=== PATIENT | male | born 1970 | race African-American/Black ===

== ENCOUNTER 2018-12-14 16:42 | Inpatient (IN) | payer OTHER ==
[2018-12-14 20:39] VITALS: BMI 34.7
--- NOTE | 2018-12-14 22:45 | HP ---
CIWA Score Nausea/Vomitin-No Nausea/No Vomiting Muscle Tremors: 4-Moderate,w/Arms Extend Anxiety: 2 Agitation: 2 Paroxysmal Sweats: 3 (Increased facial moisture) Orientation: 0-Oriented Tacttile Disturbances: 0-None Auditory Disturbances: 0-None Visual Disturbances: 2-Mild Sensitivity Headache: 2-Mild CIWA-Ar Total Score: 15 - Admission Criteria OASAS Guidelines: Admission for Medically Managed Detox: Requires at least one of the followin. CIWA greater than 12 2. Seizures within the past 24 hours 3. Delirium tremens within the past 24 hours 4. Hallucinations within the past 24 hours 5. Acute intervention needed for co occurring medical disorder 6. Acute intervention needed for co occurring psychiatric disorder 7. Severe withdrawal that cannot be handled at a lower level of care (continued vomiting, continued diarrhea, abnormal vital signs) requiring intravenous medication and/or fluids 8. Patient presents the following: CIWA greater than 12 Admission Criteria Met: Admission criteria met Admitting History and Physical - Smoking History Smoking history: Current some day smoker Have you smoked in the past 12 months: Yes Aproximately how many cigarettes per day: 1 - Alcohol/Substance Use Hx Alcohol Use: Yes (SOCIAL) Admission ROS [facility] Chief Complaint: Having alcohol withdrawal and I need detox Allergies/Adverse Reactions: Allergies Allergy/AdvReac Type Severity Reaction Status Date / Time nitroglycerin Allergy Severe Swelling Verified 12/14/18 20:29 History of Present Illness: 48 yo presents w/ alcohol withdrawal seeking detox. was in [facility] ([facility] ED today for c/o chest pain that was radiating down (L) arm. Had EKGs, blood work, x-rays and told everything was fine. [facility] legs were checked in ED. Picked up by flatbed driver and brought to [facility] for detox. Alcohol use began at age 12. Currently minimum of 12 - 24 oz beers daily. Has gotten worse since August 2018. Heroin use - denies use. Feels may have been mixed in w/ cocaine. St Cocaine/crack use began at age 19. Currently smoking about $10 +/day. Benzo: denies use Nicotine use since age 19. Smokes 1-2 cigs on weekends. Denies seizures, blackouts, OD's. Longest length of sobriety x 1 month. PMHx: HTN; Cardiac Stent; Calf Pain; Chest Pain; Cholesterolemia; MHHx: Depression. Last saw MH Provider in 6-7 months. Non-compliant w/ meds until restarted at [facility] today. Denies thoughts of harming self or others. SHx: Living w/ family. Unemployed. Search Terms: Reji Jin, 1970 Search Date: 12/14/2018 10:43:01 PM The Drug Utilization Report below displays all of the controlled substance prescriptions, if any, that your patient has filled in the last twelve months. The information displayed on this report is compiled from pharmacy submissions to the Department, and accurately reflects the information as submitted by the pharmacies. This report was requested by: Gali Burr | Reference #: [id number] There are no results for the search terms that you entered. Search Terms: Reji Jin, 1970 Search Date: 12/14/2018 10:43:32 PM States Searched: [place], [place], [place], [place], [place], [place], [place] The Drug Utilization Report below displays the controlled substance prescriptions, if any, that were dispensed in the indicated state(s). The information displayed on this report is compiled from requests submitted to other states' PMPs, and accurately reflects the information as returned by them. Blank flannery indicate data not provided by other state. This report was requested by: Gali Burr | Reference #: [id number] There are no results for the search terms that you entered. Exam Limitations: No Limitations - Ebola screening Have you traveled outside of the country in the last 21 days: No (N) Have you had contact with anyone from an Ebola affected area: No Have you been sick,other than usual withdrawal symptoms: No (Except for recent episode of chest pain) Do you have a fever: No - Review of Systems Constitutional: Diaphoresis, Changes in sleep (Difficulty staying asleep) EENT: reports: Blurred Vision Respiratory: reports: No Symptoms reported Cardiac: reports: No Symptoms Reported, Other (Has a cardiac stent) GI: reports: Constipated (Last BM 2 days ago.) : reports: No Symptoms Reported Musculoskeletal: reports: Back Pain (Chronic low achy back pain. Pain just there. Pain now is a "6" Increases w/ sitting or standing too long. Improves w/ rest, laying on side.), Muscle Pain (Both calves hurting x 2 days r/t walking) Integumentary: reports: No Symptoms Reported Neuro: reports: Headache (Mild frontal achy headache), Tremors Endocrine: reports: Increased Thirst Hematology: reports: No Symptoms Reported Psychiatric: reports: Orientated x3, Agitated, Anxious, Depressed (Denies thoughts of harming self or others.) Patient History - Patient Medical History Hx Anemia: No Hx Asthma: No Hx Chronic Obstructive Pulmonary Disease (COPD): No Hx Cancer: No Hx Cardiac Disorders: No Hx Congestive Heart Failure: No Hx Hypertension: Yes Hx Hypercholesterolemia: Yes (on med) Hx Pacemaker: No HX Cerebrovascular Accident: No Hx Seizures: No Hx Dementia: No Hx Diabetes: No Hx Gastrointestinal Disorders: No Hx Liver Disease: No Hx Genitourinary Disorders: No Hx Sexually Transmitted Disorders: No Hx Renal Disease (ESRD): No Hx Thyroid Disease: No Hx Human Immunodeficiency Virus (HIV): No Hx Hepatitis C: No Hx Depression: Yes Hx Suicide Attempt: No Hx Bipolar Disorder: No Hx Schizophrenia: No - Patient Surgical History Past Surgical History: Yes Hx Neurologic Surgery: No Hx Cataract Extraction: No Hx Cardiac Surgery: Yes (CARDIAC STENT X 1 IN 2006) Hx Lung Surgery: No Hx Breast Surgery: No Hx Breast Biopsy: No Hx Abdominal Surgery: No Hx Appendectomy: No Hx Cholecystectomy: No Hx Genitourinary Surgery: No Hx Section: No Hx Orthopedic Surgery: No Hx Hysterectomy: No Anesthesia Reaction: No - PPD History Previous Implant?: Yes Documented Results: Negative w/proof Implanted On Prior [facility] Admission?: Yes Date: 06/14/13 PPD to be Administered?: Yes - Smoking Cessation Smoking history: Current some day smoker Have you smoked in the past 12 months: Yes Aproximately how many cigarettes per day: 2 Hx Chewing Tobacco Use: No Initiated information on smoking cessation: Yes 'Breaking Loose' booklet given: 12/14/18 - Substance & Tx. History Hx Alcohol Use: Yes Hx Substance Use: Yes Substance Use Type: Alcohol, Cocaine Hx Substance Use Treatment: Yes (detox, rehab) - Substances abused Alcohol Substance route: Oral Frequency: Daily Amount used: 12 PACK BEER Age of first use: 12 Date of last use: 12/13/18 Cocaine Substance route: Smoking Frequency: Daily Amount used: $10 Age of first use: 19 Date of last use: 12/13/18 Admission Physical Exam BHS - Vital Signs Vital Signs: Vital Signs - 24 hr 12/14/18 20:30 Temperature 98.8 F Pulse Rate 64 Respiratory 18 Rate Blood Pressure 149/98 - Physical General Appearance: Yes: Nourished, Mild Distress, Tremorous, Sweating ( Increased facial moisture), Anxious HEENTM: Yes: EOMI, Hearing grossly Normal, Normal ENT Inspection, Normocephalic , Normal Voice, EM, Pharynx Normal Respiratory: Yes: Lungs Clear (Pulse Ox = 96 %), Normal Breath Sounds, No Respiratory Distress Neck: Yes: No masses,lesions,Nodules, Supple Breast: Yes: Breast Exam Deferred Cardiology: Yes: Regular Rhythm, Regular Rate, S1, S2 Abdominal: Yes: Normal Bowel Sounds, Non Tender, Soft, Protuberent (Increased abdominla adiposityl) Genitourinary: Yes: Within Normal Limits Back: Yes: Normal Inspection Musculoskeletal: Yes: full range of Motion, Gait Steady Extremities: Yes: Normal Capillary Refill, Tremors, Calf Tenderness (Bilateral calf tenderness. No engorged veins. No increased warmth or swelling. Calves equal in size. Pedal pulses positive.) Neurological: Yes: lead ramp agent II-XII NML intact, Fully Oriented, Alert, Motor Strength 5/5, Normal Response Integumentary: Yes: Normal Color, Warm Lymphatic: Yes: Within Normal Limits - Diagnostic (1) History of chest pain Current Visit: Yes Status: Chronic (2) History of heart artery stent Current Visit: Yes Status: Chronic Comment: on Plavix (3) Calf tenderness Current Visit: Yes Status: Chronic (4) Essential hypertension Current Visit: No Status: Chronic (5) Hyperlipidemia Current Visit: Yes Status: Chronic (6) Nicotine use disorder Current Visit: Yes Status: Chronic Comment: Mild (7) Cocaine dependence Current Visit: Yes Status: Chronic (8) Obesity (BMI 30-39.9) Current Visit: Yes Status: Chronic Cleared for Admission [facility] - Detox or Rehab [facility] Level of Care: Medically Managed Detox Regimen/Protocol: Librium Indraed for Rehab Admission: No Breathalyzer - Breathalyzer Breathalyzer: 0 Urine Drug Screen - Test Device Lot number: [id number] Expiration date: 08/14/20 - Control Is test valid?: Yes - Results Drug screen NEGATIVE: No Urine drug screen results: JONES-Cocaine, MOP-Opiates, BZO-Benzodiazepines Inpatient Rehab Admission - Rehab Decision to Admit Inpatient rehab admission?: No
[2018-12-14] MEDS ORDERED: chlordiazePOXIDE HCL 25 MG CAPSULE PO SCH (23:00)
[2018-12-14] MEDS ORDERED: ACETAMINOPHEN 325 MG TABLET (FP) PO PRN ×2 (23:18)
[2018-12-14] MEDS ORDERED: MELATONIN 5 MG TABLETS PO PRN (23:18)
[2018-12-14] MEDS ORDERED: METHOCARBAMOL 500 MG TABLET PO PRN (23:18)
[2018-12-14] MEDS ORDERED: chlordiazePOXIDE HCL 25 MG CAPSULE PO PRN (23:18)
[2018-12-14] MEDS ORDERED: MENTHOL/PHENOL 1 EACH UD MM PRN (23:18)
[2018-12-14] MEDS ORDERED: MAGNESIUM CITRATE 300 ML BOTTLE PO PRN (23:18)
[2018-12-14] MEDS ORDERED: MAG HYDROX/AL HYDROX/SIMETH 30 ML UNIT-DOSE CUP PO PRN (23:18)
[2018-12-14] MEDS ORDERED: NICOTINE POLACRILEX 2 MG GUM BUC PRN (23:18)
[2018-12-14] MEDS ORDERED: MAGNESIUM HYDROX 2400MG/30ML ORAL SUSPENSION 30 ML CUP PO PRN (23:18)
[2018-12-15] MEDS ORDERED: chlordiazePOXIDE HCL 10 MG CAPSULE PO PRN (00:22)
[2018-12-15] MEDS ORDERED: chlordiazePOXIDE HCL 25 MG CAPSULE PO ONE (00:22)
[2018-12-15] MEDS: chlordiazePOXIDE HCL 25 MG CAPSULE PO SCH ×2 (05:46→12:59)
[2018-12-15] MEDS ORDERED: PRENATAL VITAMINS W/ FOLIC ACID TABLET (FP) PO SCH (10:00)
[2018-12-15] MEDS ORDERED: ASPIRIN 81 MG CHEWABLE TABLETS PO SCH (10:00)
[2018-12-15] MEDS ORDERED: LISINOPRIL 5 MG TABLET (FP) PO SCH (10:00)
[2018-12-15] MEDS ORDERED: CLOPIDOGREL BISULFATE 75 MG TABLET (FP) PO SCH (10:00)
--- NOTE | 2018-12-15 10:14 | EKG ---
Test Reason : Blood Pressure : / mmHG Vent. Rate : 062 BPM Atrial Rate : 062 BPM P-R Int : 190 ms QRS Dur : 110 ms QT Int : 454 ms P-R-T Axes : 027 -42 -18 degrees QTc Int : 460 ms NORMAL SINUS RHYTHM LEFT AXIS DEVIATION SEPTAL INFARCT (CITED ON OR BEFORE 22-SEP-2013) ABNORMAL ECG Confirmed by Ruben Puckett MD ([id number]) on 12/15/2018 10:14:03 AM Referred By: Confirmed By:Ruben Puckett MD
[2018-12-15 13:17] VITALS: BP 124/82; PULSE 70; TEMP 99
--- NOTE | 2018-12-15 17:18 | PN ---
S CIWA - CIWA Score Nausea/Vomitin-No Nausea/No Vomiting Muscle Tremors: 3 Anxiety: 3 Agitation: 1-Slight > Activity Paroxysmal Sweats: No Perspiration Orientation: 0-Oriented Tacttile Disturbances: 0-None Auditory Disturbances: 0-None Visual Disturbances: 2-Mild Sensitivity Headache: 0-None Present CIWA-Ar Total Score: 9 BHS Progress Note (SOAP) Subjective: Tremors, Fatigue, Anxious, Sweating. Objective: PATIENT A & O X 3, OBSERVED AMBULATING ON DETOX UNIT UNASSISTED. IN NO ACUTE DISTRESS. 12/15/18 17:19 Vital Signs Temperature 99 F 12/15/18 13:15 Pulse Rate 70 12/15/18 13:15 Respiratory Rate 18 12/15/18 13:15 Blood Pressure 124/82 12/15/18 13:15 O2 Sat by Pulse Oximetry (%) DETOX ADMISSION LAB RESULTS PENDING. 12/15/18 17:20 Assessment: 12/15/18 17:20 WITHDRAWAL SYMPTOMS. Plan: CONTINUE DETOX.
--- NOTE | 2018-12-15 17:28 | DS ---
[facility] Detox Discharge Summary Admission Date: 12/14/18 Discharge Date: 12/15/18 - History Present History: Alcohol Dependence, Cocaine Dependence Additional Comments: PATIENT DOES NOT WISH TO REMAIN TO COMPLETE DETOX REGIMEN. RISKS OF LEAVING DETOX UNIT AGAINST MEDICAL ADVICE AND PRIOR TO COMPLETION OF DETOX REGIMEN EXPLAINED TO PATIENT. PATIENT ADVISED TO GO IMMEDIATELY TO NEAREST ER SHOULD ANY INTOLERABLE WITHDRAWAL / DETOX SYMPTOMS DEVELOP AT ANY TIME. PATIENT VERBALIZED UNDERSTANDING OF ALL INFORMATION / RECOMMENDATIONS PRESENTED TO HIM PRIOR TO DEPARTURE FROM DETOX UNIT. PATIENT LEFT DETOX UNIT IN STABLE MEDICAL CONDITION. Pertinent Past History: History Of Heart Artery Stent, History Of Chest Pain, History of Calf Tenderness , HTN, Nicotine Dependence, Depression. - Physical Exam Results Vital Signs: Vital Signs Temperature 99 F 12/15/18 13:15 Pulse Rate 70 12/15/18 13:15 Respiratory Rate 18 12/15/18 13:15 Blood Pressure 124/82 12/15/18 13:15 O2 Sat by Pulse Oximetry (%) Pertinent Admission Physical Exam Findings: WITHDRAWAL SYMPTOMS. DETOX ADMISSION LABS NOT DRAWN BEFORE PATIENT LEFT DETOX UNIT AGAINST MEDICAL ADVICE.. - Medication Discharge Medications: Ambulatory Orders Amlodipine Besylate [Norvasc -] 10 mg PO HS #0 09/10/12 Aspirin [ASA -] 81 mg PO DAILY #0 09/10/12 Clopidogrel Bisulfate [Plavix -] 75 mg PO DAILY #0 09/10/12 Quetiapine Fumarate [Seroquel -] 400 mg PO DAILY 09/22/13 Simvastatin [Zocor -] 40 mg PO HS 09/22/13 Lisinopril [Zestril] 2.5 mg PO DAILY 06/09/15 Sertraline HCl [Zoloft] 200 mg PO DAILY 06/09/15 Atorvastatin Ca [Lipitor] 1 tab PO HS 12/14/18 - Diagnosis (1) Chest pain Status: Acute Qualifiers: Chest pain type: unspecified Qualified Code(s): R07.9 - Chest pain, unspecified (2) Calf tenderness Status: Chronic (3) Cocaine dependence Status: Chronic (4) Essential hypertension Status: Chronic (5) History of chest pain Status: Chronic (6) History of heart artery stent Status: Chronic (7) Hyperlipidemia Status: Chronic (8) Nicotine use disorder Status: Chronic (9) Obesity (BMI 30-39.9) Status: Chronic (10) Alcohol dependence with uncomplicated withdrawal Status: Acute (11) Cocaine dependence, uncomplicated Status: Chronic - AMA Did Patient Leave Against Medical Advice: Yes (PATIENT DID NOT WISH [place] TO COMPLETE DETOX REGIMEN.)
[2018-12-15] MEDS ORDERED: amLODIPine BESYLATE 10 MG TABLET (FP) PO SCH (22:00)
[2018-12-15] MEDS ORDERED: THIAMINE HCL 100 MG TABLET (FP) PO SCH (22:00)
[2018-12-15] MEDS ORDERED: ATORVASTATIN CA 40 MG TABLET (FP) PO SCH (22:00)
[2018-12-16] MEDS ORDERED: chlordiazePOXIDE HCL 25 MG CAPSULE PO SCH (05:00)
[2018-12-16] MEDS ORDERED: chlordiazePOXIDE 5 MG CAPSULE PO SCH (05:00)
[2018-12-17] MEDS ORDERED: chlordiazePOXIDE HCL 10 MG CAPSULE PO PRN ×2
[2018-12-17] MEDS ORDERED: chlordiazePOXIDE HCL 10 MG CAPSULE PO SCH ×2 (05:00)
[2018-12-18] MEDS ORDERED: chlordiazePOXIDE HCL 10 MG CAPSULE PO SCH (05:00)
[2018-12-18] MEDS ORDERED: chlordiazePOXIDE HCL 10 MG CAPSULE PO ONE (05:00)
[2018-12-19] MEDS ORDERED: chlordiazePOXIDE HCL 10 MG CAPSULE PO ONE (05:00)
== END 2018-12-15 13:38 | disposition left against medical advice (07) | DRG 770 ==
LOC: YASAS 16:42 → Y3N 23:33
PROVIDERS: ADMIT Surgery; ATTEND Surgery
PROC: HZ2ZZZZ Detoxification Services for Substance Abuse Treatment (ICD-10-PCS; principal; 2018-12-14)
DX: F10.230 Alcohol dependence with withdrawal, uncomplicated (principal); F14.20 Cocaine dependence, uncomplicated; F17.210 Nicotine dependence, cigarettes, uncomplicated; I10 Essential (primary) hypertension; E78.5 Hyperlipidemia, unspecified; M79.661 Pain in right lower leg; M79.662 Pain in left lower leg; E66.9 Obesity, unspecified; Z68.34 Body mass index [BMI] 34.0-34.9, adult; Z95.5 Presence of coronary angioplasty implant and graft; Z88.8 Allergy status to other drugs, medicaments and biological substances
CPT/HCPCS: 93005; 93010

== ENCOUNTER 2019-10-05 11:02 | Inpatient (IN) | payer OTHER ==
--- NOTE | 2019-10-05 11:14 | BHS.RME ---
Substance Use & Tx History - Substance Use History Alcohol Substance amount: 12 pack beers Frequency of use: Daily Substance route: Oral Date of Last Use: 10/04/19 Cocaine- Powder Substance amount: $10-75 Frequency of use: Less than 3 times per week Substance route: Smoking Date of Last Use: 10/04/19 Physical/Psych/Mental Status - Behavior General Behavior: Increased activity (restlessness, agitation) Eye Contact: Normal - Cooperativeness Cooperativeness: Cooperative - Thinking Thought Processes: Tight, Logical, Goal Directed - Physical Health Problems Is patient presently having any pain?: No Does patient presently have any injuries (include location): No Does patient currently have a fever: No Is patient : No CIWA Nausea/Vomitin-No Nausea/No Vomiting Muscle Tremors: 3 Anxiety: 3 Agitation: 2 Paroxysmal Sweats: 2 Orientation: 0-Oriented Tacttile Disturbances: 0-None Auditory Disturbances: 0-None Visual Disturbances: 0-None Headache: 2-Mild CIWA-Ar Total Score: 12
--- NOTE | 2019-10-05 12:37 | HP ---
CIWA Score Nausea/Vomitin-No Nausea/No Vomiting Muscle Tremors: 3 Anxiety: 3 Agitation: 2 Paroxysmal Sweats: 2 Orientation: 0-Oriented Tacttile Disturbances: 0-None Auditory Disturbances: 0-None Visual Disturbances: 0-None Headache: 2-Mild CIWA-Ar Total Score: 12 - Admission Criteria OASAS Guidelines: Admission for Medically Managed Detox: Requires at least one of the followin. CIWA greater than 12 2. Seizures within the past 24 hours 3. Delirium tremens within the past 24 hours 4. Hallucinations within the past 24 hours 5. Acute intervention needed for co occurring medical disorder 6. Acute intervention needed for co occurring psychiatric disorder 7. Severe withdrawal that cannot be handled at a lower level of care (continued vomiting, continued diarrhea, abnormal vital signs) requiring intravenous medication and/or fluids 8. Admitting History and Physical - Admission Chief Complaint: "I'm sick and tired of being tired." History of Present Illness: 48 year old male with history of alcohol dependence with withdrawal, cocaine use disorder. He was last here at [facility] from 12/14-12/16/18 completed detox and then relapsed right away. Alcohol: 2 packs beers daily, started drinking at the age of 12 and last drank yesterday. Admits to needing an eye hand rounder daily. Cocaine: $10-75 2x/month, [place], started using at the age of 19 PMH: CAD by stent placement 2006, Obesity, HTN, HLD Psurg: Stent placed 2006 Psych: Depression ( 2010 with pill overdose) Lives in the [place] alone No legal issues pending. MOUSTAPHA=0 CIWA=12 Patient meets criteria due to poor environment for recovery and multiple medical and psychiatric co-morbidity History Source: Patient Limitations to Obtaining History: No Limitations - Past Medical History Cardiovascular: Yes: CAD, HTN, Hyperlipdemia Psych: Yes: Depression Additional Past Medical History: Obesity - Past Surgical History Past Surgical History: Yes: Bypass - Smoking History Smoking history: Former smoker Have you smoked in the past 12 months: No Aproximately how many cigarettes per day: 0 - Alcohol/Substance Use Hx Alcohol Use: Yes History of Substance Use: reports: Cocaine Date of Last Use: 10/04/19 - Social History Usual Living Arrangement: Yes: Alone Do you think of yourself as: Straight/Heterosexual ADL: Independent Occupation: unemployed History of Recent Travel: No Admission ROS [facility] Allergies/Adverse Reactions: Allergies Allergy/AdvReac Type Severity Reaction Status Date / Time nitroglycerin Allergy Severe Swelling Verified 07/31/19 14:54 Exam Limitations: No Limitations - Ebola screening Have you traveled outside of the country in the last 21 days: No Have you had contact with anyone from an Ebola affected area: No Have you been sick,other than usual withdrawal symptoms: No Do you have a fever: No - Review of Systems Constitutional: Chills, Diaphoresis EENT: reports: No Symptoms Reported Respiratory: reports: No Symptoms reported Cardiac: reports: No Symptoms Reported GI: reports: No Symptoms Reported : reports: No Symptoms Reported Musculoskeletal: reports: No Symptoms Reported Integumentary: reports: No Symptoms Reported Neuro: reports: No Symptoms reported Endocrine: reports: No Symptoms Reported Hematology: reports: No Symptoms Reported Psychiatric: reports: Judgement Intact, Mood/Affect Appropiate, Orientated x3, Agitated, Anxious Other Systems: Reviewed and Negative Patient History - Patient Medical History Hx Anemia: No Hx Asthma: No Hx Chronic Obstructive Pulmonary Disease (COPD): No Hx Cancer: No Hx Cardiac Disorders: Yes (heart block- Stent placement) Hx Congestive Heart Failure: No Hx Hypertension: Yes (on meds) Hx Hypercholesterolemia: Yes (on med) Hx Pacemaker: No HX Cerebrovascular Accident: No Hx Seizures: No Hx Dementia: No Hx Diabetes: No Hx Gastrointestinal Disorders: No Hx Liver Disease: No Hx Genitourinary Disorders: No Hx Sexually Transmitted Disorders: No Hx Renal Disease (ESRD): No Hx Thyroid Disease: No Hx Human Immunodeficiency Virus (HIV): No Hx Hepatitis C: No Hx Depression: Yes Hx Suicide Attempt: Yes (pills 2010) Hx Bipolar Disorder: No Hx Schizophrenia: No - Patient Surgical History Past Surgical History: Yes Hx Neurologic Surgery: No Hx Cataract Extraction: No Hx Cardiac Surgery: Yes (CARDIAC STENT X 1 IN 2006) Hx Lung Surgery: No Hx Breast Surgery: No Hx Breast Biopsy: No Hx Abdominal Surgery: No Hx Appendectomy: No Hx Cholecystectomy: No Hx Genitourinary Surgery: No Hx Section: No Hx Orthopedic Surgery: No Hx Hysterectomy: No Anesthesia Reaction: No - PPD History Previous Implant?: Yes Documented Results: Negative w/proof Implanted On Prior R Admission?: Yes Date: 12/17/18 Results: negative PPD to be Administered?: No - Smoking Cessation Smoking history: Current some day smoker Have you smoked in the past 12 months: Yes Aproximately how many cigarettes per day: 1 Hx Chewing Tobacco Use: No Initiated information on smoking cessation: No - Substances abused Alcohol Substance route: Oral Frequency: Daily Amount used: 2 packs beers Age of first use: 12 Date of last use: 10/04/19 Crack Substance route: Smoking Frequency: Daily Amount used: $10-75 Age of first use: 19 Date of last use: 10/04/19 Admission Physical Exam [facility] - Physical General Appearance: Yes: Moderate Distress, Irritable, Sweating, Anxious HEENTM: Yes: EOMI, Hearing grossly Normal, Normal ENT Inspection, Normocephalic, Normal Voice, EM, Pharynx Normal, Tm's normal Respiratory: Yes: Chest Non-Tender, Lungs Clear, Normal Breath Sounds, No Respiratory Distress, No Accessory Muscle Use Neck: Yes: No masses,lesions,Nodules, Supple, Trachea in good position Breast: Yes: Within Normal Limits Cardiology: Yes: Regular Rhythm, Regular Rate, S1, S2 Abdominal: Yes: Normal Bowel Sounds, Non Tender, Soft, Protuberent Genitourinary: Yes: Within Normal Limits Back: Yes: Normal Inspection Musculoskeletal: Yes: full range of Motion, Gait Steady, Pelvis Stable Extremities: Yes: Normal Capillary Refill, Normal Inspection, Normal Range of Motion, Non-Tender Neurological: Yes: senior computer specialist II-XII NML intact, Fully Oriented, Alert, Motor Strength 5/5, Normal Mood/Affect, Normal Response Integumentary: Yes: Normal Color, Warm Lymphatic: Yes: Within Normal Limits - Diagnostic (1) cad s/p angioplasty with stent Current Visit: Yes Status: Active (2) depression Current Visit: Yes Status: Active (3) Alcohol dependence with uncomplicated withdrawal Current Visit: Yes Status: Acute (4) Cocaine dependence, uncomplicated Current Visit: Yes Status: Acute (5) Substance-induced sleep disorder Current Visit: Yes Status: Acute (6) Essential hypertension Current Visit: Yes Status: Chronic (7) Hyperlipidemia Current Visit: Yes Status: Chronic (8) Nicotine use disorder Current Visit: Yes Status: Chronic Comment: Mild (9) Obesity (BMI 30-39.9) Current Visit: Yes Status: Chronic Cleared for Admission [facility] - Detox or Rehab [facility] Level of Care: Medically Managed Detox Regimen/Protocol: Librium Claeared for Rehab Admission: No Screened but not Admitted - Documentation of Visit Screened but not Admitted: No Breathalyzer - Breathalyzer Breathalyzer: 0 Urine Drug Screen - Test Device Lot number: [id number] Expiration date: 11/14/20 - Control Is test valid?: Yes - Results Drug screen NEGATIVE: No Urine drug screen results: JONES-Cocaine, BZO-Benzodiazepines Inpatient Rehab Admission - Rehab Decision to Admit Inpatient rehab admission?: No
[2019-10-05] MEDS ORDERED: MAGNESIUM CITRATE 300 ML BOTTLE PO PRN (12:45)
[2019-10-05] MEDS ORDERED: NICOTINE POLACRILEX 2 MG GUM BUC PRN (12:45)
[2019-10-05] MEDS ORDERED: ACETAMINOPHEN 325 MG TABLET (FP) PO PRN ×2 (12:45)
[2019-10-05] MEDS ORDERED: MENTHOL/PHENOL 1 EACH UD MM PRN (12:45)
[2019-10-05] MEDS ORDERED: IBUPROFEN 400 MG TABLET (FP) PO PRN (12:45)
[2019-10-05] MEDS ORDERED: chlordiazePOXIDE HCL 25 MG CAPSULE PO PRN (12:45)
[2019-10-05] MEDS ORDERED: METHOCARBAMOL 500 MG TABLET PO PRN (12:45)
[2019-10-05] MEDS ORDERED: BISMUTH SUBSALICYLATE 524 MG/30 ML UD PO PRN (12:45)
[2019-10-05] MEDS ORDERED: MAGNESIUM HYDROX 2400MG/30ML ORAL SUSPENSION 30 ML CUP PO PRN (12:45)
[2019-10-05 13:12] VITALS: BMI 34.5
[2019-10-05] MEDS ORDERED: ONDANSETRON *ODT* 4 MG TABLET SL ONE (13:30)
[2019-10-05] MEDS: NICOTINE 7 MG/24 HOURS TOPICAL PATCH TD SCH (13:51)
[2019-10-05] MEDS: chlordiazePOXIDE HCL 25 MG CAPSULE PO SCH ×2 (13:58→17:39)
[2019-10-05] MEDS ORDERED: hydrOXYzine PAMOATE 25 MG CAPSULE (FP) PO SCH (14:00)
[2019-10-05] MEDS: PRENATAL VITAMINS W/ FOLIC ACID TABLET (FP) PO SCH (14:00)
[2019-10-05] MEDS: hydrOXYzine PAMOATE 25 MG CAPSULE (FP) PO PRN (17:39)
--- NOTE | 2019-10-05 19:47 | PN ---
S Progress Note Note: 48 y.o. male admitted today . Nursing called re : elevated BP . PMHX : CAD w/ stenting , HTN , HLD on AC meds reconciliation not done on admission . Vital Signs - 24 hr 10/05/19 10/05/19 13:06 17:20 Temperature 97.7 F 97.3 F L Pulse Rate 66 72 Respiratory 12 18 Rate Blood Pressure 129/89 157/98 P : meds reconciled : Plavix , Lisinopril, ASA , Norvasc . Psychiatry consult for psych meds.
[2019-10-05] MEDS: ASPIRIN 81 MG CHEWABLE TABLETS PO SCH (23:51)
[2019-10-05] MEDS: amLODIPine BESYLATE 10 MG TABLET (FP) PO SCH (23:51)
[2019-10-05] MEDS: CLOPIDOGREL BISULFATE 75 MG TABLET (FP) PO SCH (23:51)
[2019-10-05] MEDS: LISINOPRIL 5 MG TABLET (FP) PO SCH (23:51)
[2019-10-05] MEDS: MELATONIN 5 MG TABLETS PO SCH (23:52)
[2019-10-05] MEDS: THIAMINE HCL 100 MG TABLET (FP) PO SCH (23:52)
[2019-10-05] MEDS: ATORVASTATIN CA 40 MG TABLET (FP) PO SCH (23:52)
[2019-10-06] MEDS: chlordiazePOXIDE HCL 25 MG CAPSULE PO SCH ×5 (00:03→23:11)
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
[2019-10-06] MEDS: amLODIPine BESYLATE 10 MG TABLET (FP) PO SCH (10:47)
[2019-10-06] MEDS: LISINOPRIL 5 MG TABLET (FP) PO SCH (10:47)
[2019-10-06] MEDS: NICOTINE 7 MG/24 HOURS TOPICAL PATCH TD SCH (10:48)
[2019-10-06] MEDS: CLOPIDOGREL BISULFATE 75 MG TABLET (FP) PO SCH (10:48)
[2019-10-06] MEDS: PRENATAL VITAMINS W/ FOLIC ACID TABLET (FP) PO SCH (10:48)
[2019-10-06] MEDS: ASPIRIN 81 MG CHEWABLE TABLETS PO SCH (10:48)
--- NOTE | 2019-10-06 12:58 | PN ---
S CIWA - CIWA Score Nausea/Vomitin Muscle Tremors: 2 Anxiety: 2 Agitation: 2 Paroxysmal Sweats: No Perspiration Orientation: 0-Oriented Tacttile Disturbances: 1-Very Mild Itch/Numbness Auditory Disturbances: 0-None Visual Disturbances: 0-None Headache: 1-Very Mild CIWA-Ar Total Score: 10 S Progress Note (SOAP) Subjective: alert,irritable,anxious,interrupted sleep,tremor,pain in the body, Objective: 10/06/19 12:53 Vital Signs Temperature 97.6 F 10/06/19 08:45 Pulse Rate 74 10/06/19 08:45 Respiratory Rate 18 10/06/19 08:45 Blood Pressure 133/78 10/06/19 08:45 O2 Sat by Pulse Oximetry (%) 98 10/06/19 05:31 Assessment: 10/06/19 12:59 withdrawal symptom Plan: continue detox librium regimen
[2019-10-06] MEDS: hydrOXYzine PAMOATE 25 MG CAPSULE (FP) PO PRN (17:49)
[2019-10-06] MEDS: ATORVASTATIN CA 40 MG TABLET (FP) PO SCH (23:11)
[2019-10-06] MEDS: MELATONIN 5 MG TABLETS PO SCH (23:11)
[2019-10-06] MEDS: THIAMINE HCL 100 MG TABLET (FP) PO SCH (23:12)
[2019-10-06] MEDS: QUEtiapine FUMARATE 100 MG TABLET (FP) PO SCH (23:12)
[2019-10-07] MEDS: chlordiazePOXIDE HCL 25 MG CAPSULE PO SCH ×4 (05:57→23:22)
[2019-10-07] MEDS: ASPIRIN 81 MG CHEWABLE TABLETS PO SCH (10:34)
[2019-10-07] MEDS: CLOPIDOGREL BISULFATE 75 MG TABLET (FP) PO SCH (10:34)
[2019-10-07] MEDS: LISINOPRIL 5 MG TABLET (FP) PO SCH (10:34)
[2019-10-07] MEDS: NICOTINE 7 MG/24 HOURS TOPICAL PATCH TD SCH (10:35)
[2019-10-07] MEDS: amLODIPine BESYLATE 10 MG TABLET (FP) PO SCH (10:35)
[2019-10-07] MEDS: PRENATAL VITAMINS W/ FOLIC ACID TABLET (FP) PO SCH (10:35)
[2019-10-07] MEDS: hydrOXYzine PAMOATE 25 MG CAPSULE (FP) PO PRN ×2 (10:35→18:18)
--- NOTE | 2019-10-07 11:43 | PN ---
S CIWA - CIWA Score Nausea/Vomitin Muscle Tremors: 2 Anxiety: 1-Mildly Anxious Agitation: 1-Slight > Activity Paroxysmal Sweats: No Perspiration Orientation: 0-Oriented Tacttile Disturbances: 1-Very Mild Itch/Numbness Auditory Disturbances: 0-None Visual Disturbances: 0-None Headache: 1-Very Mild CIWA-Ar Total Score: 8 BHS Progress Note (SOAP) Subjective: alert,irritable,anxious,interrupted sleep,aching pain Objective: 10/07/19 11:42 Vital Signs Temperature 97.3 F L 10/07/19 08:42 Pulse Rate 79 10/07/19 08:42 Respiratory Rate 16 10/07/19 08:42 Blood Pressure 147/76 10/07/19 08:42 O2 Sat by Pulse Oximetry (%) 97 10/07/19 05:40 Assessment: 10/07/19 11:43 withdrawal symptom Plan: continue detox librum regimen
[2019-10-07] MEDS: MELATONIN 5 MG TABLETS PO SCH (21:30)
[2019-10-07] MEDS: THIAMINE HCL 100 MG TABLET (FP) PO SCH (21:30)
[2019-10-07] MEDS: QUEtiapine FUMARATE 100 MG TABLET (FP) PO SCH (21:30)
[2019-10-07] MEDS: ATORVASTATIN CA 40 MG TABLET (FP) PO SCH (21:30)
[2019-10-08] MEDS ORDERED: chlordiazePOXIDE HCL 10 MG CAPSULE PO PRN
[2019-10-08] MEDS: chlordiazePOXIDE HCL 10 MG CAPSULE PO SCH ×4 (05:16→23:03)
[2019-10-08] MEDS: MAG HYDROX/AL HYDROX/SIMETH 30 ML UNIT-DOSE CUP PO PRN ×2 (05:16→23:37)
--- NOTE | 2019-10-08 10:05 | PN ---
S Progress Note Note: Patient complains of difficulty to sleep despite taking Seroquel 100 mg/hs and Melatonin 5 mg/hs. Requests to take Seroquel at 8 pm instead of 10 pm and have Melatonin dose increased to 10 mg/hs prn. Medications ordered as requested by patient
[2019-10-08] MEDS: ASPIRIN 81 MG CHEWABLE TABLETS PO SCH (10:27)
[2019-10-08] MEDS: LISINOPRIL 5 MG TABLET (FP) PO SCH (10:27)
[2019-10-08] MEDS: CLOPIDOGREL BISULFATE 75 MG TABLET (FP) PO SCH (10:29)
[2019-10-08] MEDS: NICOTINE 7 MG/24 HOURS TOPICAL PATCH TD SCH (10:29)
[2019-10-08] MEDS: amLODIPine BESYLATE 10 MG TABLET (FP) PO SCH (10:29)
[2019-10-08] MEDS: PRENATAL VITAMINS W/ FOLIC ACID TABLET (FP) PO SCH (10:29)
--- NOTE | 2019-10-08 13:12 | PN ---
[facility] CIWA - CIWA Score Nausea/Vomitin-No Nausea/No Vomiting Muscle Tremors: 1-None Visible, but [place] Anxiety: 1-Mildly Anxious Agitation: 1-Slight > Activity Paroxysmal Sweats: No Perspiration Orientation: 0-Oriented Tacttile Disturbances: 0-None Auditory Disturbances: 0-None Visual Disturbances: 0-None Headache: 1-Very Mild CIWA-Ar Total Score: 4 BHS Progress Note (SOAP) Subjective: alert,irritable,anxious,interrupted sleep,aching pain Objective: 10/08/19 13:11 Vital Signs Temperature 97.1 F L 10/08/19 05:19 Pulse Rate 88 10/08/19 07:11 Respiratory Rate 16 10/08/19 05:19 Blood Pressure 144/93 10/08/19 07:11 O2 Sat by Pulse Oximetry (%) 100 10/08/19 05:19 Assessment: 10/08/19 13:11 patient refused blood tests Plan: continue detox librium regimen
[2019-10-08 14:49] VITALS: TEMP 97.3
[2019-10-08] MEDS ORDERED: MELATONIN 5 MG TABLETS PO PRN (20:00)
[2019-10-08] MEDS ORDERED: QUEtiapine FUMARATE 100 MG TABLET (FP) PO SCH (20:00)
[2019-10-08] MEDS: QUEtiapine FUMARATE 100 MG TABLET (FP) PO SCH (21:13)
[2019-10-08] MEDS: ATORVASTATIN CA 40 MG TABLET (FP) PO SCH (23:03)
[2019-10-08] MEDS: THIAMINE HCL 100 MG TABLET (FP) PO SCH (23:03)
[2019-10-09] MEDS ORDERED: chlordiazePOXIDE HCL 10 MG CAPSULE PO SCH (05:00)
[2019-10-09 09:28] VITALS: BP 131/87; PULSE 76
[2019-10-09] MEDS: NICOTINE 7 MG/24 HOURS TOPICAL PATCH TD SCH (09:53)
[2019-10-09] MEDS: amLODIPine BESYLATE 10 MG TABLET (FP) PO SCH (09:53)
[2019-10-09] MEDS: PRENATAL VITAMINS W/ FOLIC ACID TABLET (FP) PO SCH (09:53)
[2019-10-09] MEDS: LISINOPRIL 5 MG TABLET (FP) PO SCH (09:53)
[2019-10-09] MEDS: CLOPIDOGREL BISULFATE 75 MG TABLET (FP) PO SCH (09:53)
[2019-10-09] MEDS: ASPIRIN 81 MG CHEWABLE TABLETS PO SCH (09:53)
--- NOTE | 2019-10-09 12:30 | DS ---
[facility] Detox Discharge Summary Admission Date: 10/05/19 Discharge Date: 10/09/19 - History Present History: Alcohol Dependence, Cocaine Dependence Additional Comments: Alert and oriented x3, in no acute respiratory distress. Full ROM, ambulatory without assistance. Skin warm to touch , flushed. No withdrawal symptoms. For D/C tomorrow but wants to leave today. Pertinent Past History: hISTORY OF htn, hld, OBESITY, cad s/p STENT PLACEMENT ( 2006), depression, alcohol and cocaine use disorder. - Physical Exam Results Vital Signs: Vital Signs Temperature 97.3 F L 10/09/19 08:30 Pulse Rate 76 10/09/19 08:30 Respiratory Rate 19 10/09/19 08:30 Blood Pressure 131/87 10/09/19 08:30 O2 Sat by Pulse Oximetry (%) 98 10/09/19 08:30 Vital Signs 10/09/19 10/09/19 05:12 08:30 Temperature 97.3 F L 97.3 F L Pulse Rate 80 76 Respiratory 20 19 Rate Blood Pressure 109/73 131/87 O2 Sat by Pulse 98 98 Oximetry (%) Laboratory Last Values Laboratory Tests 10/05/19 13:30 COVID-19 ([facility]) Not detected labs noted. Pertinent Admission Physical Exam Findings: Withdrawal symptoms. - Treatment Hospital Course: Detox Protocol Followed, Detoxed Safely, Responded well, Discharged Condition Good - Medication Discharge Medications: Ambulatory Orders Aspirin [ASA -] 81 mg PO DAILY #0 09/10/12 Clopidogrel Bisulfate [Plavix -] 75 mg PO DAILY #0 09/10/12 Quetiapine Fumarate [Seroquel -] 50 mg PO DAILY 09/22/13 Lisinopril [Zestril] 2.5 mg PO DAILY 06/09/15 Sertraline HCl [Zoloft] 200 mg PO DAILY 06/09/15 Atorvastatin Ca [Lipitor] 1 tab PO HS 12/14/18 Amlodipine Besylate [Norvasc -] 10 mg PO DAILY 10/05/19 Gabapentin [Neurontin -] 600 mg PO BID 10/05/19 Quetiapine Fumarate [Seroquel -] 100 mg PO HS 10/05/19 traZODone HCL [Trazodone HCl] 200 mg PO HS 10/05/19 - Diagnosis (1) Alcohol dependence with uncomplicated withdrawal Current Visit: Yes Status: Acute (2) Cocaine dependence, uncomplicated Current Visit: Yes Status: Chronic (3) Essential hypertension Current Visit: Yes Status: Chronic (4) Hyperlipidemia Current Visit: Yes Status: Chronic (5) Obesity (BMI 30-39.9) Current Visit: Yes Status: Chronic (6) cad s/p angioplasty with stent Current Visit: Yes Status: Chronic - AMA Did Patient Leave Against Medical Advice: No
[2019-10-10] MEDS ORDERED: chlordiazePOXIDE HCL 10 MG CAPSULE PO ONE (05:00)
== END 2019-10-09 09:52 | disposition left against medical advice (07) | DRG 770 ==
LOC: YASAS 11:02 → Y6N 13:08
PROVIDERS: ADMIT Allergy & Immunology; ATTEND Allergy & Immunology
PROC: HZ2ZZZZ Detoxification Services for Substance Abuse Treatment (ICD-10-PCS; principal; 2019-10-05)
DX: F10.230 Alcohol dependence with withdrawal, uncomplicated (principal); F14.20 Cocaine dependence, uncomplicated; F33.3 Major depressive disorder, recurrent, severe with psychotic symptoms; F19.282 Other psychoactive substance dependence with psychoactive substance-induced sleep disorder; F17.210 Nicotine dependence, cigarettes, uncomplicated; E78.5 Hyperlipidemia, unspecified; I25.10 Atherosclerotic heart disease of native coronary artery without angina pectoris; I10 Essential (primary) hypertension; Z95.5 Presence of coronary angioplasty implant and graft; Z95.1 Presence of aortocoronary bypass graft; E66.9 Obesity, unspecified; Z68.34 Body mass index [BMI] 34.0-34.9, adult; Z62.810 Personal history of physical and sexual abuse in childhood; Z88.6 Allergy status to analgesic agent; Z88.8 Allergy status to other drugs, medicaments and biological substances
CPT/HCPCS: U0003

== ENCOUNTER 2020-01-30 12:21 | Inpatient (IN) | payer OTHER ==
[2020-01-30 14:47] VITALS: BMI 34.4
[2020-01-30] MEDS ORDERED: IBUPROFEN 400 MG TABLET (FP) PO PRN (15:05)
[2020-01-30] MEDS ORDERED: ONDANSETRON *ODT* 4 MG TABLET SL PRN (15:05)
[2020-01-30] MEDS ORDERED: MAG HYDROX/AL HYDROX/SIMETH 30 ML UNIT-DOSE CUP PO PRN (15:05)
[2020-01-30] MEDS ORDERED: chlordiazePOXIDE HCL 25 MG CAPSULE PO PRN (15:05)
[2020-01-30] MEDS ORDERED: BISMUTH SUBSALICYLATE 524 MG/30 ML UD PO PRN (15:05)
[2020-01-30] MEDS ORDERED: MAGNESIUM HYDROX 2400MG/30ML ORAL SUSPENSION 30 ML CUP PO PRN (15:05)
[2020-01-30] MEDS ORDERED: METHOCARBAMOL 500 MG TABLET PO PRN (15:05)
[2020-01-30] MEDS ORDERED: MENTHOL/PHENOL 1 EACH UD MM PRN (15:05)
[2020-01-30] MEDS ORDERED: MAGNESIUM CITRATE 300 ML BOTTLE PO PRN (15:05)
[2020-01-30] MEDS: chlordiazePOXIDE HCL 25 MG CAPSULE PO SCH ×2 (17:36→22:28)
[2020-01-30] MEDS: MELATONIN 5 MG TABLETS PO SCH (22:28)
[2020-01-30] MEDS: ATORVASTATIN CA 40 MG TABLET (FP) PO SCH (22:28)
[2020-01-30] MEDS: GABAPENTIN 300 MG CAPSULE PO SCH (22:28)
[2020-01-30] MEDS: THIAMINE HCL 100 MG TABLET (FP) PO SCH (22:28)
[2020-01-31] MEDS: chlordiazePOXIDE HCL 25 MG CAPSULE PO SCH ×4 (05:13→22:18)
[2020-01-31] MEDS: GABAPENTIN 300 MG CAPSULE PO SCH ×2 (10:13→22:19)
[2020-01-31] MEDS: amLODIPine BESYLATE 10 MG TABLET (FP) PO SCH (10:14)
[2020-01-31] MEDS: PRENATAL VITAMINS W/ FOLIC ACID TABLET (FP) PO SCH (10:14)
[2020-01-31] MEDS: ASPIRIN 81 MG CHEWABLE TABLETS PO SCH (10:14)
[2020-01-31] MEDS: CLOPIDOGREL BISULFATE 75 MG TABLET (FP) PO SCH (10:14)
[2020-01-31] MEDS: LISINOPRIL 5 MG TABLET PO SCH (10:14)
[2020-01-31 19:44] LABS: URINE APPEARANCE CLEAR; URINE BILIRUBIN NEGATIVE (NEGATIVE); URINE COLOR YELLOW; URINE GLUCOSE (UA) TRACE (NEGATIVE); URINE KETONE TRACE (NEGATIVE); URINE LEUK ESTERASE NEGATIVE (NEGATIVE); URINE NITRITE NEGATIVE (NEGATIVE); URINE PROTEIN NEGATIVE (NEGATIVE); URINE UROBILINOGEN 0.2 mg/dL (0.2-1.0)
[2020-01-31] MEDS: QUEtiapine FUMARATE 100 MG TABLET (FP) PO SCH (22:19)
[2020-01-31] MEDS: THIAMINE HCL 100 MG TABLET (FP) PO SCH (22:19)
[2020-01-31] MEDS: ATORVASTATIN CA 40 MG TABLET (FP) PO SCH (22:19)
[2020-01-31] MEDS: MELATONIN 5 MG TABLETS PO SCH (22:19)
[2020-02-01] MEDS: chlordiazePOXIDE HCL 25 MG CAPSULE PO SCH ×4 (05:18→23:11)
[2020-02-01] MEDS: LISINOPRIL 5 MG TABLET PO SCH (10:02)
[2020-02-01] MEDS: ASPIRIN 81 MG CHEWABLE TABLETS PO SCH (10:02)
[2020-02-01] MEDS: PRENATAL VITAMINS W/ FOLIC ACID TABLET (FP) PO SCH (10:02)
[2020-02-01] MEDS: amLODIPine BESYLATE 10 MG TABLET (FP) PO SCH (10:02)
[2020-02-01] MEDS: CLOPIDOGREL BISULFATE 75 MG TABLET (FP) PO SCH (10:02)
[2020-02-01] MEDS: GABAPENTIN 300 MG CAPSULE PO SCH ×2 (10:02→23:10)
[2020-02-01] MEDS: MELATONIN 5 MG TABLETS PO SCH (23:10)
[2020-02-01] MEDS: QUEtiapine FUMARATE 100 MG TABLET (FP) PO SCH (23:10)
[2020-02-01] MEDS: THIAMINE HCL 100 MG TABLET (FP) PO SCH (23:10)
[2020-02-01] MEDS: ATORVASTATIN CA 40 MG TABLET (FP) PO SCH (23:10)
[2020-02-02] MEDS ORDERED: chlordiazePOXIDE HCL 10 MG CAPSULE PO PRN
[2020-02-02] MEDS: chlordiazePOXIDE HCL 10 MG CAPSULE PO SCH ×4 (06:09→22:22)
[2020-02-02] MEDS: hydrOXYzine PAMOATE 25 MG CAPSULE (FP) PO PRN (06:09)
[2020-02-02] MEDS: PRENATAL VITAMINS W/ FOLIC ACID TABLET (FP) PO SCH (10:11)
[2020-02-02] MEDS: ASPIRIN 81 MG CHEWABLE TABLETS PO SCH (10:12)
[2020-02-02] MEDS: CLOPIDOGREL BISULFATE 75 MG TABLET (FP) PO SCH (10:12)
[2020-02-02] MEDS: GABAPENTIN 300 MG CAPSULE PO SCH ×2 (10:12→22:22)
[2020-02-02] MEDS: amLODIPine BESYLATE 10 MG TABLET (FP) PO SCH (10:13)
[2020-02-02] MEDS: LISINOPRIL 5 MG TABLET PO SCH (10:13)
[2020-02-02] MEDS ORDERED: amLODIPine BESYLATE 10 MG TABLET (FP) PO SCH (14:00)
[2020-02-02] MEDS ORDERED: LISINOPRIL 5 MG TABLET PO ONE (14:00)
[2020-02-02] MEDS: amLODIPine BESYLATE 5 MG TABLET (FP) PO SCH (15:15)
[2020-02-02] MEDS: ATORVASTATIN CA 40 MG TABLET (FP) PO SCH (22:22)
[2020-02-02] MEDS: MELATONIN 5 MG TABLETS PO SCH (22:22)
[2020-02-02] MEDS: THIAMINE HCL 100 MG TABLET (FP) PO SCH (22:22)
[2020-02-02] MEDS: QUEtiapine FUMARATE 100 MG TABLET (FP) PO SCH (22:22)
[2020-02-03] MEDS: chlordiazePOXIDE HCL 10 MG CAPSULE PO SCH ×2 (05:13→17:24)
[2020-02-03] MEDS: hydrOXYzine PAMOATE 25 MG CAPSULE (FP) PO PRN (05:15)
[2020-02-03] MEDS: CLOPIDOGREL BISULFATE 75 MG TABLET (FP) PO SCH (10:00)
[2020-02-03] MEDS: PRENATAL VITAMINS W/ FOLIC ACID TABLET (FP) PO SCH (10:00)
[2020-02-03] MEDS: ASPIRIN 81 MG CHEWABLE TABLETS PO SCH (10:00)
[2020-02-03] MEDS: amLODIPine BESYLATE 5 MG TABLET (FP) PO SCH (10:00)
[2020-02-03] MEDS: LISINOPRIL 5 MG TABLET PO SCH (10:01)
[2020-02-03] MEDS: GABAPENTIN 300 MG CAPSULE PO SCH ×2 (10:01→21:44)
[2020-02-03] MEDS: MELATONIN 5 MG TABLETS PO SCH (21:44)
[2020-02-03] MEDS: ATORVASTATIN CA 40 MG TABLET (FP) PO SCH (21:44)
[2020-02-03] MEDS: QUEtiapine FUMARATE 100 MG TABLET (FP) PO SCH (21:44)
[2020-02-03] MEDS: THIAMINE HCL 100 MG TABLET (FP) PO SCH (21:44)
[2020-02-04] MEDS ORDERED: chlordiazePOXIDE HCL 10 MG CAPSULE PO ONE (05:00)
[2020-02-04 09:04] VITALS: BP 128/86; PULSE 113; TEMP 97.5
== END 2020-02-04 09:17 | disposition home or self-care (01) | DRG 774 ==
LOC: YASAS 12:21 → Y3N 15:24
PROVIDERS: ADMIT Allergy & Immunology; ATTEND Allergy & Immunology
PROC: HZ2ZZZZ Detoxification Services for Substance Abuse Treatment (ICD-10-PCS; principal; 2020-01-30)
DX: F10.230 Alcohol dependence with withdrawal, uncomplicated (principal); F14.20 Cocaine dependence, uncomplicated; F17.210 Nicotine dependence, cigarettes, uncomplicated; F32.9 Major depressive disorder, single episode, unspecified; E78.5 Hyperlipidemia, unspecified; G47.00 Insomnia, unspecified; I25.10 Atherosclerotic heart disease of native coronary artery without angina pectoris; I10 Essential (primary) hypertension; Z95.5 Presence of coronary angioplasty implant and graft; E66.9 Obesity, unspecified; Z68.34 Body mass index [BMI] 34.0-34.9, adult; Z62.810 Personal history of physical and sexual abuse in childhood; Z56.0 Unemployment, unspecified; Z59.0 Homelessness; Z88.6 Allergy status to analgesic agent; Z88.8 Allergy status to other drugs, medicaments and biological substances
CPT/HCPCS: 81003; 93005; 93010; C9803; U0003

== ENCOUNTER 2020-03-22 12:47 | Inpatient (IN) | payer OTHER ==
[2020-03-22 14:22] VITALS: BMI 33.3
[2020-03-22] MEDS ORDERED: MAGNESIUM CITRATE 300 ML BOTTLE PO PRN (16:57)
[2020-03-22] MEDS ORDERED: MAGNESIUM HYDROX 2400MG/30ML ORAL SUSPENSION 30 ML CUP PO PRN (16:57)
[2020-03-22] MEDS ORDERED: ONDANSETRON *ODT* 4 MG TABLET SL PRN (16:57)
[2020-03-22] MEDS ORDERED: MENTHOL/PHENOL 1 EACH UD MM PRN (16:57)
[2020-03-22] MEDS ORDERED: BISMUTH SUBSALICYLATE 524 MG/30 ML PO PRN (16:57)
[2020-03-22] MEDS ORDERED: MAG HYDROX/AL HYDROX/SIMETH 30 ML UNIT-DOSE CUP PO PRN (16:57)
[2020-03-22] MEDS ORDERED: IBUPROFEN 400 MG TABLET (FP) PO PRN (16:57)
[2020-03-22] MEDS ORDERED: ACETAMINOPHEN 325 MG TABLET (FP) PO PRN ×2 (16:57)
[2020-03-22] MEDS ORDERED: chlordiazePOXIDE HCL 25 MG CAPSULE PO PRN (16:57)
[2020-03-22] MEDS ORDERED: NICOTINE POLACRILEX 2 MG GUM BUC PRN (16:57)
[2020-03-22] MEDS ORDERED: MASKS NR ONE (18:20)
[2020-03-22] MEDS: hydrOXYzine PAMOATE 25 MG CAPSULE (FP) PO SCH ×2 (18:21→22:29)
[2020-03-22] MEDS: chlordiazePOXIDE HCL 25 MG CAPSULE PO SCH ×2 (18:21→22:29)
[2020-03-22] MEDS: GABAPENTIN 300 MG CAPSULE PO SCH (22:29)
[2020-03-22] MEDS: ATORVASTATIN CA 40 MG TABLET (FP) PO SCH (22:29)
[2020-03-22] MEDS: THIAMINE HCL 100 MG TABLET (FP) PO SCH (22:30)
[2020-03-22] MEDS: MELATONIN 5 MG TABLETS PO SCH (22:30)
[2020-03-23] MEDS: hydrOXYzine PAMOATE 25 MG CAPSULE (FP) PO SCH ×5 (05:30→22:30)
[2020-03-23] MEDS: chlordiazePOXIDE HCL 25 MG CAPSULE PO SCH ×4 (05:31→22:29)
[2020-03-23] MEDS: ASPIRIN 81 MG CHEWABLE TABLETS PO SCH (10:20)
[2020-03-23] MEDS: amLODIPine BESYLATE 5 MG TABLET (FP) PO SCH (10:21)
[2020-03-23] MEDS: CLOPIDOGREL BISULFATE 75 MG TABLET (FP) PO SCH (10:21)
[2020-03-23] MEDS: PRENATAL VITAMINS W/ FOLIC ACID TABLET (FP) PO SCH (10:21)
[2020-03-23] MEDS: LISINOPRIL 5 MG TABLET PO SCH (10:21)
[2020-03-23] MEDS: GABAPENTIN 300 MG CAPSULE PO SCH ×2 (10:21→22:29)
[2020-03-23] MEDS: SERTRALINE HCL 50 MG TABLET (FP) PO SCH (11:34)
[2020-03-23] MEDS: METHOCARBAMOL 500 MG TABLET PO PRN ×2 (13:59→22:31)
[2020-03-23 16:17] LABS: HEMATOCRIT 36.5 % (35.4-49); HEMOGLOBIN 11.7 GM/dL (11.7-16.9); MCH 22.8 pg (25.7-33.7); MEAN CELL VOLUME 71.1 fl (80-96); MEAN PLT VOLUME 9.3 fl (7.5-11.1); PLATELET COUNT 293 K/MM3 (134-434); RBC 5.14 M/mm3 (4.00-5.60); RDW 19.8 % (11.9-15.9); WHITE BLOOD COUNT 4.7 K/mm3 (4.0-10.0)
[2020-03-23 16:41] LABS: ALBUMIN 3.3 g/dl (3.4-5.0); BLOOD UREA NITROGEN 11.2 mg/dL (7-18)
[2020-03-23 16:44] LABS: CREATININE 1.1 mg/dL (0.55-1.3)
[2020-03-23] MEDS: MELATONIN 5 MG TABLETS PO SCH (22:28)
[2020-03-23] MEDS: QUEtiapine FUMARATE 100 MG TABLET (FP) PO SCH (22:29)
[2020-03-23] MEDS: THIAMINE HCL 100 MG TABLET (FP) PO SCH (22:29)
[2020-03-23] MEDS: ATORVASTATIN CA 40 MG TABLET (FP) PO SCH (22:32)
[2020-03-24] MEDS: chlordiazePOXIDE HCL 25 MG CAPSULE PO SCH ×4 (05:48→22:21)
[2020-03-24] MEDS: hydrOXYzine PAMOATE 25 MG CAPSULE (FP) PO SCH ×5 (05:48→22:21)
[2020-03-24] MEDS: ASPIRIN 81 MG CHEWABLE TABLETS PO SCH (10:04)
[2020-03-24] MEDS: LISINOPRIL 5 MG TABLET PO SCH (10:04)
[2020-03-24] MEDS: PRENATAL VITAMINS W/ FOLIC ACID TABLET (FP) PO SCH (10:04)
[2020-03-24] MEDS: CLOPIDOGREL BISULFATE 75 MG TABLET (FP) PO SCH (10:04)
[2020-03-24] MEDS: amLODIPine BESYLATE 5 MG TABLET (FP) PO SCH (10:04)
[2020-03-24] MEDS: SERTRALINE HCL 50 MG TABLET (FP) PO SCH (10:04)
[2020-03-24] MEDS: METHOCARBAMOL 500 MG TABLET PO PRN ×2 (10:05→22:21)
[2020-03-24] MEDS: GABAPENTIN 300 MG CAPSULE PO SCH ×2 (10:05→22:21)
[2020-03-24] MEDS: THIAMINE HCL 100 MG TABLET (FP) PO SCH (22:21)
[2020-03-24] MEDS: ATORVASTATIN CA 40 MG TABLET (FP) PO SCH (22:21)
[2020-03-24] MEDS: QUEtiapine FUMARATE 100 MG TABLET (FP) PO SCH (22:21)
[2020-03-24] MEDS: MELATONIN 5 MG TABLETS PO SCH (22:21)
[2020-03-25] MEDS ORDERED: chlordiazePOXIDE HCL 10 MG CAPSULE PO PRN
[2020-03-25] MEDS: METHOCARBAMOL 500 MG TABLET PO PRN ×2 (05:23→17:11)
[2020-03-25] MEDS: hydrOXYzine PAMOATE 25 MG CAPSULE (FP) PO SCH ×5 (05:23→22:18)
[2020-03-25] MEDS: chlordiazePOXIDE HCL 10 MG CAPSULE PO SCH ×4 (05:23→22:17)
[2020-03-25] MEDS: ASPIRIN 81 MG CHEWABLE TABLETS PO SCH (10:06)
[2020-03-25] MEDS: GABAPENTIN 300 MG CAPSULE PO SCH ×2 (10:06→22:17)
[2020-03-25] MEDS: SERTRALINE HCL 50 MG TABLET (FP) PO SCH (10:07)
[2020-03-25] MEDS: CLOPIDOGREL BISULFATE 75 MG TABLET (FP) PO SCH (10:07)
[2020-03-25] MEDS: amLODIPine BESYLATE 5 MG TABLET (FP) PO SCH (10:07)
[2020-03-25] MEDS: LISINOPRIL 5 MG TABLET PO SCH (10:07)
[2020-03-25] MEDS: PRENATAL VITAMINS W/ FOLIC ACID TABLET (FP) PO SCH (10:07)
[2020-03-25] MEDS: THIAMINE HCL 100 MG TABLET (FP) PO SCH (22:17)
[2020-03-25] MEDS: ATORVASTATIN CA 40 MG TABLET (FP) PO SCH (22:17)
[2020-03-25] MEDS: MELATONIN 5 MG TABLETS PO SCH (22:17)
[2020-03-25] MEDS: QUEtiapine FUMARATE 100 MG TABLET (FP) PO SCH (22:17)
[2020-03-26] MEDS: chlordiazePOXIDE HCL 10 MG CAPSULE PO SCH ×2 (05:27→16:49)
[2020-03-26] MEDS: hydrOXYzine PAMOATE 25 MG CAPSULE (FP) PO SCH ×5 (05:27→22:30)
[2020-03-26] MEDS: PRENATAL VITAMINS W/ FOLIC ACID TABLET (FP) PO SCH (09:18)
[2020-03-26] MEDS: CLOPIDOGREL BISULFATE 75 MG TABLET (FP) PO SCH (09:19)
[2020-03-26] MEDS: amLODIPine BESYLATE 5 MG TABLET (FP) PO SCH (09:19)
[2020-03-26] MEDS: LISINOPRIL 5 MG TABLET PO SCH (09:19)
[2020-03-26] MEDS: SERTRALINE HCL 50 MG TABLET (FP) PO SCH (09:19)
[2020-03-26] MEDS: GABAPENTIN 300 MG CAPSULE PO SCH ×2 (09:19→22:29)
[2020-03-26] MEDS: ASPIRIN 81 MG CHEWABLE TABLETS PO SCH (09:19)
[2020-03-26] MEDS: METHOCARBAMOL 500 MG TABLET PO PRN (09:20)
[2020-03-26] MEDS: MELATONIN 5 MG TABLETS PO SCH (22:29)
[2020-03-26] MEDS: ATORVASTATIN CA 40 MG TABLET (FP) PO SCH (22:29)
[2020-03-26] MEDS: QUEtiapine FUMARATE 100 MG TABLET (FP) PO SCH (22:30)
[2020-03-26] MEDS: THIAMINE HCL 100 MG TABLET (FP) PO SCH (22:30)
[2020-03-27] MEDS ORDERED: chlordiazePOXIDE HCL 10 MG CAPSULE PO ONE (05:00)
[2020-03-27] MEDS: hydrOXYzine PAMOATE 25 MG CAPSULE (FP) PO SCH ×3 (06:21→13:07)
[2020-03-27 09:18] VITALS: TEMP 97.3
[2020-03-27] MEDS: GABAPENTIN 300 MG CAPSULE PO SCH (09:54)
[2020-03-27] MEDS: CLOPIDOGREL BISULFATE 75 MG TABLET (FP) PO SCH (09:54)
[2020-03-27] MEDS: PRENATAL VITAMINS W/ FOLIC ACID TABLET (FP) PO SCH (09:54)
[2020-03-27] MEDS: amLODIPine BESYLATE 5 MG TABLET (FP) PO SCH (09:54)
[2020-03-27] MEDS: ASPIRIN 81 MG CHEWABLE TABLETS PO SCH (09:54)
[2020-03-27] MEDS: SERTRALINE HCL 50 MG TABLET (FP) PO SCH (09:55)
[2020-03-27] MEDS: LISINOPRIL 5 MG TABLET PO SCH (09:55)
[2020-03-27 14:02] VITALS: BP 123/88; PULSE 105
== END 2020-03-27 14:55 | disposition other institution (70) | DRG 774 ==
LOC: YASAS 12:47 → Y3N 17:08
PROVIDERS: ADMIT Allergy & Immunology; ATTEND Allergy & Immunology
PROC: HZ2ZZZZ Detoxification Services for Substance Abuse Treatment (ICD-10-PCS; principal; 2020-03-22)
DX: F10.230 Alcohol dependence with withdrawal, uncomplicated (principal); F14.20 Cocaine dependence, uncomplicated; F17.210 Nicotine dependence, cigarettes, uncomplicated; F33.3 Major depressive disorder, recurrent, severe with psychotic symptoms; F19.282 Other psychoactive substance dependence with psychoactive substance-induced sleep disorder; G47.00 Insomnia, unspecified; E78.5 Hyperlipidemia, unspecified; I25.10 Atherosclerotic heart disease of native coronary artery without angina pectoris; I10 Essential (primary) hypertension; Z95.1 Presence of aortocoronary bypass graft; Z95.5 Presence of coronary angioplasty implant and graft; R73.03 Prediabetes; R74.8 Abnormal levels of other serum enzymes; E66.9 Obesity, unspecified; Z68.23 Body mass index [BMI] 23.0-23.9, adult; Z88.6 Allergy status to analgesic agent; Z88.8 Allergy status to other drugs, medicaments and biological substances; Z59.0 Homelessness; Z56.0 Unemployment, unspecified
CPT/HCPCS: 36415; 80053; 83036; 85027; 86780; C9803; Q0162; U0003

== ENCOUNTER 2020-04-19 15:51 | Inpatient (IN) | payer OTHER ==
[2020-04-19] MEDS ORDERED: ASPIRIN 81 MG CHEWABLE TABLETS PO ONE (15:56)
[2020-04-19] MEDS ORDERED: morphine CARPU-JECT 4 MG/1 ML DISP.SYRIN IVPUSH ONE (17:16)
[2020-04-19] MEDS ORDERED: LIDOCAINE HCL 1%, 10 MG/ML (50 mL VIAL) SQ ONE (17:17)
[2020-04-19] MEDS ORDERED: LIDOCAINE HCL 1%, 10 MG/ML (20ML VIAL) ONE (17:17)
[2020-04-19] MEDS ORDERED: morphine SULFATE 4 MG/ML VIAL ONE (17:43)
[2020-04-19 17:57] LABS: BASO % 1.4 % (0-2.0); EOS % 5.4 % (0-4.5); HEMATOCRIT 35.2 % (35.4-49); HEMOGLOBIN 10.8 GM/dl (11.7-16.9); LYMPH % 20.8 % (8-40); MCH 22.5 pg (25.7-33.7); MCHC 30.8 g/dl (32.0-35.9); MEAN CELL VOLUME 73.3 fl (80-96); MEAN PLT VOLUME 8.5 fl (7.5-11.1); MONO % 8.1 % (3.8-10.2); NEUT % 64.3 % (42.8-82.8); PLATELET COUNT 244 K/MM3 (134-434); RDW 17.3 % (11.9-15.9)
[2020-04-19 17:58] LABS: ADD RBC MORPHOLOGY YES
[2020-04-19 17:59] LABS: ACTIVATED PTT 22.6 SECONDS (25.2-36.5)
[2020-04-19 18:02] LABS: ALBUMIN 3.3 g/dl (3.4-5.0); BILIRUBIN,TOTAL 0.6 mg/dl (0.2-1); CALCIUM 8.6 mg/dl (8.5-10); CREATININE 1.1 mg/dl (0.55-1.3); MAGNESIUM 1.7 mg/dL (1.8-2.4); POTASSIUM 4.2 mmol/L (3.5-5.1); TOT PROT 6.3 g/dl (6.4-8.2)
[2020-04-19 18:03] LABS: INR 1.26 (0.82-1.09); PROTHROMBIN TIME (PATIENT) 13.9 SEC (10.2-13.0)
[2020-04-19] MEDS ORDERED: MAGNESIUM SULF 50% (8.12 MEQ/2 ML-1 GM VIAL) IVPB ONE (18:15)
[2020-04-19] MEDS ORDERED: KETOROLAC TROMETHAMINE 15 MG/ML VIAL IVPUSH ONE (18:59)
[2020-04-19] MEDS ORDERED: KETOROLAC TROMETHAMINE 15 MG/ML VIAL ONE (19:17)
[2020-04-19] MEDS ORDERED: chlordiazePOXIDE HCL 25 MG CAPSULE PO ONE (19:45)
[2020-04-19] MEDS ORDERED: chlordiazePOXIDE HCL 25 MG CAPSULE ONE (20:04)
[2020-04-19 21:30] LABS: ANISOCYTOSIS 1+; PLATELET ESTIMATE ADEQUATE
[2020-04-20] MEDS ORDERED: chlordiazePOXIDE HCL 25 MG CAPSULE PO ONE (00:58)
[2020-04-20] MEDS ORDERED: chlordiazePOXIDE HCL 25 MG CAPSULE ONE ×2 (00:59→11:45)
[2020-04-20] MEDS ORDERED: ASPIRIN 81 MG CHEWABLE TABLETS PO SCH (10:00)
[2020-04-20] MEDS ORDERED: chlordiazePOXIDE HCL 25 MG CAPSULE PO PRN (10:54)
[2020-04-20] MEDS ORDERED: QUEtiapine FUMARATE 25 MG TABLET PO SCH (11:00)
[2020-04-20] MEDS ORDERED: CLOPIDOGREL BISULFATE 75 MG TABLET (FP) ONE (11:45)
[2020-04-20] MEDS ORDERED: amLODIPine BESYLATE 5 MG TABLET (FP) ONE (11:46)
[2020-04-20] MEDS ORDERED: LISINOPRIL 5 MG TABLET ONE (11:46)
[2020-04-20] MEDS ORDERED: ASPIRIN 81 MG CHEWABLE TABLETS ONE (11:46)
[2020-04-20] MEDS ORDERED: QUEtiapine FUMARATE 25 MG TABLET ONE (11:46)
[2020-04-20] MEDS: LISINOPRIL 5 MG TABLET PO SCH (11:49)
[2020-04-20] MEDS: CLOPIDOGREL BISULFATE 75 MG TABLET (FP) PO SCH (11:49)
[2020-04-20] MEDS: amLODIPine BESYLATE 5 MG TABLET (FP) PO SCH (11:49)
[2020-04-20] MEDS ORDERED: SERTRALINE HCL 50 MG TABLET (FP) PO SCH (12:30)
[2020-04-20 13:17] VITALS: BMI 30.6
[2020-04-20 14:07] LABS: METHADONE, UR NEGATIVE ng/ml (CUTOFF=300); PHENCYCLIDINE,URINE NEGATIVE ng/ml (CUTOFF=25); URINE AMPHETAMINES NEGATIVE ng/ml (CUTOFF=500); URINE BARBITURATES NEGATIVE ng/ml (CUTOFF=200)
[2020-04-20 14:12] LABS: COCAINE, UR POSITIVE ng/ml (CUTOFF=300); OPIATES, URI POSITIVE ng/ml (CUTOFF=300); URINE BENZODIAZEPINES POSITIVE ng/ml (CUTOFF=200)
[2020-04-20] MEDS ORDERED: traZODone HCL 100 MG TABLET (FP) PO SCH (22:00)
[2020-04-20] MEDS ORDERED: ATORVASTATIN CA 40 MG TABLET (FP) PO SCH (22:00)
[2020-04-20] MEDS ORDERED: QUEtiapine FUMARATE 100 MG TABLET (FP) PO SCH (22:00)
[2020-04-20] MEDS: GABAPENTIN 300 MG CAPSULE PO SCH (22:00)
[2020-04-21] MEDS: GABAPENTIN 300 MG CAPSULE PO SCH ×2 (10:00→21:21)
[2020-04-21] MEDS ORDERED: ASPIRIN 81 MG CHEWABLE TABLETS PO SCH (10:00)
[2020-04-21] MEDS: LISINOPRIL 5 MG TABLET PO SCH (10:01)
[2020-04-21] MEDS: CLOPIDOGREL BISULFATE 75 MG TABLET (FP) PO SCH (10:01)
[2020-04-21] MEDS: amLODIPine BESYLATE 5 MG TABLET (FP) PO SCH (10:01)
[2020-04-21] MEDS ORDERED: REGADENOSON 0.4 MG/5 ML PRE-FILLED SYRINGE IVPUSH ONE (10:30)
[2020-04-21] MEDS ORDERED: ASPIRIN 81 MG CHEWABLE TABLETS ONE (12:44)
[2020-04-21] MEDS ORDERED: ASPIRIN 81 MG CHEWABLE TABLETS PO ONE (13:00)
[2020-04-21] MEDS ORDERED: amLODIPine BESYLATE 5 MG TABLET (FP) PO ONE (13:00)
[2020-04-21] MEDS ORDERED: chlordiazePOXIDE HCL 25 MG CAPSULE PO PRN (17:51)
[2020-04-21] MEDS ORDERED: MORPHINE SULFATE 2 MG/ML VIAL IVPUSH ONE ×2 (18:48→20:54)
[2020-04-21] MEDS: ATORVASTATIN CA 40 MG TABLET (FP) PO SCH (21:22)
[2020-04-21] MEDS ORDERED: MELATONIN 5 MG TABLETS PO ONE (23:29)
[2020-04-22] MEDS ORDERED: MORPHINE SULFATE 2 MG/ML VIAL IVPUSH ONE ×3 (00:30→14:46)
[2020-04-22] MEDS: amLODIPine BESYLATE 5 MG TABLET (FP) PO SCH (10:12)
[2020-04-22] MEDS: ASPIRIN 81 MG CHEWABLE TABLETS PO SCH (10:12)
[2020-04-22] MEDS: LISINOPRIL 5 MG TABLET PO SCH (10:12)
[2020-04-22] MEDS: GABAPENTIN 300 MG CAPSULE PO SCH ×2 (10:12→21:27)
[2020-04-22] MEDS: CLOPIDOGREL BISULFATE 75 MG TABLET (FP) PO SCH (10:12)
[2020-04-22] MEDS: chlordiazePOXIDE HCL 25 MG CAPSULE PO SCH ×2 (11:00→17:17)
[2020-04-22] MEDS ORDERED: LORazepam 2 MG/ML SDV VIAL IVPUSH ONE (11:53)
[2020-04-22] MEDS ORDERED: chlordiazePOXIDE HCL 25 MG CAPSULE PO PRN (11:55)
[2020-04-22] MEDS ORDERED: FOLIC ACID INJECTION - 1 MG, THIAMINE HCL 100 MG, MULTIVIT INJECTION ADULT 10 ML in SOD... IVPB ONE (11:56)
[2020-04-22] MEDS: MORPHINE SULFATE 2 MG/ML VIAL IVPUSH PRN (21:24)
[2020-04-22] MEDS: ATORVASTATIN CA 40 MG TABLET (FP) PO SCH (21:26)
[2020-04-22] MEDS: HEPARIN NA (PORCINE) 5,000 UNITS/ML 1ML VIAL SQ SCH (21:26)
[2020-04-23] MEDS: chlordiazePOXIDE HCL 25 MG CAPSULE PO SCH ×5 (01:16→23:11)
[2020-04-23] MEDS: MORPHINE SULFATE 2 MG/ML VIAL IVPUSH PRN ×3 (01:17→20:08)
[2020-04-23] MEDS: FOLIC ACID 1 MG TABLET (FP) PO SCH (10:19)
[2020-04-23] MEDS: LISINOPRIL 5 MG TABLET PO SCH (10:20)
[2020-04-23] MEDS: CLOPIDOGREL BISULFATE 75 MG TABLET (FP) PO SCH (10:20)
[2020-04-23] MEDS: HEPARIN NA (PORCINE) 5,000 UNITS/ML 1ML VIAL SQ SCH ×3 (10:20→21:57)
[2020-04-23] MEDS: amLODIPine BESYLATE 5 MG TABLET (FP) PO SCH (10:20)
[2020-04-23] MEDS: THIAMINE HCL 100 MG TABLET (FP) PO SCH (10:20)
[2020-04-23] MEDS: GABAPENTIN 300 MG CAPSULE PO SCH ×3 (10:20→22:15)
[2020-04-23] MEDS: ASPIRIN 81 MG CHEWABLE TABLETS PO SCH (10:21)
[2020-04-23] MEDS ORDERED: LORazepam 2 MG/ML SDV VIAL IVPUSH ONE ×3 (10:45→21:53)
[2020-04-23 20:59] VITALS: TEMP 98.7
[2020-04-23] MEDS: ATORVASTATIN CA 40 MG TABLET (FP) PO SCH ×2 (21:50→22:15)
[2020-04-23] MEDS ORDERED: MORPHINE SULFATE 2 MG/ML VIAL IVPUSH ONE (23:10)
[2020-04-23] MEDS ORDERED: MELATONIN 5 MG TABLETS PO ONE (23:52)
[2020-04-24] MEDS: MORPHINE SULFATE 2 MG/ML VIAL IVPUSH PRN (03:11)
[2020-04-24] MEDS: chlordiazePOXIDE HCL 25 MG CAPSULE PO SCH ×2 (05:31→12:23)
[2020-04-24] MEDS: FOLIC ACID 1 MG TABLET (FP) PO SCH (11:24)
[2020-04-24] MEDS: CLOPIDOGREL BISULFATE 75 MG TABLET (FP) PO SCH (11:24)
[2020-04-24] MEDS: GABAPENTIN 300 MG CAPSULE PO SCH (11:24)
[2020-04-24] MEDS: ASPIRIN 81 MG CHEWABLE TABLETS PO SCH (11:24)
[2020-04-24] MEDS: LISINOPRIL 5 MG TABLET PO SCH (11:24)
[2020-04-24] MEDS: amLODIPine BESYLATE 5 MG TABLET (FP) PO SCH (11:25)
[2020-04-24] MEDS: THIAMINE HCL 100 MG TABLET (FP) PO SCH (11:25)
[2020-04-24] MEDS: HEPARIN NA (PORCINE) 5,000 UNITS/ML 1ML VIAL SQ SCH (11:25)
[2020-04-24 11:37] VITALS: BP 119/79; PULSE 58
[2020-04-25] MEDS ORDERED: chlordiazePOXIDE HCL 10 MG CAPSULE PO PRN
[2020-04-25] MEDS ORDERED: chlordiazePOXIDE HCL 10 MG CAPSULE PO SCH (05:00)
[2020-04-26] MEDS ORDERED: chlordiazePOXIDE HCL 10 MG CAPSULE PO SCH (05:00)
[2020-04-27] MEDS ORDERED: chlordiazePOXIDE HCL 10 MG CAPSULE PO ONE (05:00)
== END 2020-04-24 16:09 | disposition left against medical advice (07) | DRG 198 ==
LOC: FER 15:51 → FM/S 21:24 → OBSVTOIN 21:24 → UNDOADMOB 04-20 12:00 → FM/S 04-20 12:00 → J4W 04-21 16:59
PROVIDERS: ADMIT Internal Medicine; ATTEND Nurse Practitioner Family
PROC: HZ2ZZZZ Detoxification Services for Substance Abuse Treatment (ICD-10-PCS; principal; 2020-04-19)
DX: I25.110 Atherosclerotic heart disease of native coronary artery with unstable angina pectoris (principal); I25.2 Old myocardial infarction; I10 Essential (primary) hypertension; E78.5 Hyperlipidemia, unspecified; F14.20 Cocaine dependence, uncomplicated; F10.239 Alcohol dependence with withdrawal, unspecified; F32.9 Major depressive disorder, single episode, unspecified; E66.9 Obesity, unspecified; Z68.30 Body mass index [BMI] 30.0-30.9, adult; R45.851 Suicidal ideations; F17.210 Nicotine dependence, cigarettes, uncomplicated; Z95.5 Presence of coronary angioplasty implant and graft; Z20.822 Contact with and (suspected) exposure to COVID-19
CPT/HCPCS: 36415; 70450-TC; 71045-TC-FY; 80053; 80307; 82550; 82553; 82962; 83735; 84484; 85025; 85610; 85730; 93005; 93010; 93306-TC; 99285-25; A9502; C9803; J1644; U0003

== ENCOUNTER 2020-06-04 11:20 | Inpatient (IN) | payer OTHER ==
[2020-06-04 12:44] VITALS: BMI 33.0
[2020-06-04] MEDS ORDERED: MAGNESIUM CITRATE 300 ML BOTTLE PO PRN (14:00)
[2020-06-04] MEDS ORDERED: ONDANSETRON *ODT* 4 MG TABLET SL PRN (14:00)
[2020-06-04] MEDS ORDERED: IBUPROFEN 400 MG TABLET (FP) PO PRN (14:00)
[2020-06-04] MEDS ORDERED: METHOCARBAMOL 500 MG TABLET PO PRN (14:00)
[2020-06-04] MEDS ORDERED: chlordiazePOXIDE HCL 25 MG CAPSULE PO PRN (14:00)
[2020-06-04] MEDS ORDERED: MAG HYDROX/AL HYDROX/SIMETH 30 ML UNIT-DOSE CUP PO PRN (14:00)
[2020-06-04] MEDS ORDERED: MENTHOL/PHENOL 1 EACH UD MM PRN (14:00)
[2020-06-04] MEDS ORDERED: BISMUTH SUBSALICYLATE 524 MG/30 ML UD PO PRN (14:00)
[2020-06-04] MEDS ORDERED: ACETAMINOPHEN 325 MG TABLET (FP) PO PRN ×2 (14:00)
[2020-06-04] MEDS: hydrOXYzine PAMOATE 25 MG CAPSULE (FP) PO SCH ×3 (15:46→23:13)
[2020-06-04] MEDS: chlordiazePOXIDE HCL 25 MG CAPSULE PO SCH ×2 (18:45→23:13)
[2020-06-04] MEDS: MELATONIN 5 MG TABLETS PO SCH (23:13)
[2020-06-04] MEDS: THIAMINE HCL 100 MG TABLET (FP) PO SCH (23:13)
[2020-06-05] MEDS: hydrOXYzine PAMOATE 25 MG CAPSULE (FP) PO SCH ×5 (05:38→23:37)
[2020-06-05] MEDS: chlordiazePOXIDE HCL 25 MG CAPSULE PO SCH ×4 (05:38→23:19)
[2020-06-05] MEDS: SERTRALINE HCL 50 MG TABLET (FP) PO SCH (10:28)
[2020-06-05] MEDS: PRENATAL VITAMINS W/ FOLIC ACID TABLET (FP) PO SCH (10:28)
[2020-06-05] MEDS: MAGNESIUM HYDROX 2400MG/30ML ORAL SUSPENSION 30 ML CUP PO PRN (15:09)
[2020-06-05] MEDS: THIAMINE HCL 100 MG TABLET (FP) PO SCH (23:18)
[2020-06-05] MEDS: DOCUSATE SODIUM 100 MG CAPSULE (FP) PO SCH (23:18)
[2020-06-05] MEDS: QUEtiapine FUMARATE 100 MG TABLET (FP) PO SCH (23:19)
[2020-06-05] MEDS: MELATONIN 5 MG TABLETS PO SCH (23:37)
[2020-06-06] MEDS: chlordiazePOXIDE HCL 25 MG CAPSULE PO SCH ×4 (07:26→22:55)
[2020-06-06] MEDS: hydrOXYzine PAMOATE 25 MG CAPSULE (FP) PO SCH ×5 (07:26→22:56)
[2020-06-06] MEDS: PRENATAL VITAMINS W/ FOLIC ACID TABLET (FP) PO SCH (10:57)
[2020-06-06] MEDS: amLODIPine BESYLATE 5 MG TABLET (FP) PO SCH (10:58)
[2020-06-06] MEDS: CLOPIDOGREL BISULFATE 75 MG TABLET (FP) PO SCH (10:58)
[2020-06-06] MEDS: SERTRALINE HCL 50 MG TABLET (FP) PO SCH (10:58)
[2020-06-06] MEDS: MAGNESIUM HYDROX 2400MG/30ML ORAL SUSPENSION 30 ML CUP PO PRN (11:04)
[2020-06-06] MEDS: DOCUSATE SODIUM 100 MG CAPSULE (FP) PO SCH (22:54)
[2020-06-06] MEDS: QUEtiapine FUMARATE 100 MG TABLET (FP) PO SCH (22:54)
[2020-06-06] MEDS: THIAMINE HCL 100 MG TABLET (FP) PO SCH (22:54)
[2020-06-06] MEDS: ATORVASTATIN CA 40 MG TABLET (FP) PO SCH (22:55)
[2020-06-06] MEDS: MELATONIN 5 MG TABLETS PO SCH (22:56)
[2020-06-07] MEDS ORDERED: chlordiazePOXIDE HCL 10 MG CAPSULE PO PRN
[2020-06-07] MEDS: hydrOXYzine PAMOATE 25 MG CAPSULE (FP) PO SCH ×5 (07:08→22:59)
[2020-06-07] MEDS: chlordiazePOXIDE HCL 10 MG CAPSULE PO SCH ×4 (07:19→22:58)
[2020-06-07] MEDS: amLODIPine BESYLATE 5 MG TABLET (FP) PO SCH (10:16)
[2020-06-07] MEDS: PRENATAL VITAMINS W/ FOLIC ACID TABLET (FP) PO SCH (10:16)
[2020-06-07] MEDS: CLOPIDOGREL BISULFATE 75 MG TABLET (FP) PO SCH (10:16)
[2020-06-07] MEDS: SERTRALINE HCL 50 MG TABLET (FP) PO SCH (10:17)
[2020-06-07] MEDS: ATORVASTATIN CA 40 MG TABLET (FP) PO SCH (22:58)
[2020-06-07] MEDS: THIAMINE HCL 100 MG TABLET (FP) PO SCH (22:58)
[2020-06-07] MEDS: DOCUSATE SODIUM 100 MG CAPSULE (FP) PO SCH (22:58)
[2020-06-07] MEDS: QUEtiapine FUMARATE 100 MG TABLET (FP) PO SCH (22:58)
[2020-06-07] MEDS: MELATONIN 5 MG TABLETS PO SCH (22:59)
[2020-06-08] MEDS: hydrOXYzine PAMOATE 25 MG CAPSULE (FP) PO SCH ×5 (06:44→23:01)
[2020-06-08] MEDS: chlordiazePOXIDE HCL 10 MG CAPSULE PO SCH ×2 (06:46→17:57)
[2020-06-08] MEDS: PRENATAL VITAMINS W/ FOLIC ACID TABLET (FP) PO SCH (11:02)
[2020-06-08] MEDS: SERTRALINE HCL 50 MG TABLET (FP) PO SCH (11:02)
[2020-06-08] MEDS: amLODIPine BESYLATE 5 MG TABLET (FP) PO SCH (11:02)
[2020-06-08] MEDS: LISINOPRIL 5 MG TABLET PO SCH (11:03)
[2020-06-08] MEDS: CLOPIDOGREL BISULFATE 75 MG TABLET (FP) PO SCH (11:04)
[2020-06-08] MEDS: QUEtiapine FUMARATE 100 MG TABLET (FP) PO SCH (23:01)
[2020-06-08] MEDS: ATORVASTATIN CA 40 MG TABLET (FP) PO SCH (23:01)
[2020-06-08] MEDS: DOCUSATE SODIUM 100 MG CAPSULE (FP) PO SCH (23:01)
[2020-06-08] MEDS: THIAMINE HCL 100 MG TABLET (FP) PO SCH (23:01)
[2020-06-08] MEDS: MELATONIN 5 MG TABLETS PO SCH (23:02)
[2020-06-09] MEDS ORDERED: chlordiazePOXIDE HCL 10 MG CAPSULE PO ONE (05:00)
[2020-06-09] MEDS: hydrOXYzine PAMOATE 25 MG CAPSULE (FP) PO SCH ×3 (07:04→13:39)
[2020-06-09] MEDS: CLOPIDOGREL BISULFATE 75 MG TABLET (FP) PO SCH (10:39)
[2020-06-09] MEDS: SERTRALINE HCL 50 MG TABLET (FP) PO SCH (10:39)
[2020-06-09] MEDS: amLODIPine BESYLATE 5 MG TABLET (FP) PO SCH (10:39)
[2020-06-09] MEDS: PRENATAL VITAMINS W/ FOLIC ACID TABLET (FP) PO SCH (10:39)
[2020-06-09] MEDS: LISINOPRIL 5 MG TABLET PO SCH (10:39)
[2020-06-09 14:04] VITALS: BP 133/81; PULSE 72; TEMP 98.4
== END 2020-06-09 16:30 | disposition home or self-care (01) | DRG 774 ==
LOC: YASAS 11:20 → Y6N 15:15
PROVIDERS: ADMIT Allergy & Immunology; ATTEND Allergy & Immunology
PROC: HZ2ZZZZ Detoxification Services for Substance Abuse Treatment (ICD-10-PCS; principal; 2020-06-04)
DX: F10.230 Alcohol dependence with withdrawal, uncomplicated (principal); F14.20 Cocaine dependence, uncomplicated; F19.282 Other psychoactive substance dependence with psychoactive substance-induced sleep disorder; F19.24 Other psychoactive substance dependence with psychoactive substance-induced mood disorder; F33.3 Major depressive disorder, recurrent, severe with psychotic symptoms; U07.1 COVID-19; I25.10 Atherosclerotic heart disease of native coronary artery without angina pectoris; I10 Essential (primary) hypertension; Z95.5 Presence of coronary angioplasty implant and graft; E78.5 Hyperlipidemia, unspecified; Z62.810 Personal history of physical and sexual abuse in childhood; E66.9 Obesity, unspecified; Z68.33 Body mass index [BMI] 33.0-33.9, adult; Z79.02 Long term (current) use of antithrombotics/antiplatelets; Z88.6 Allergy status to analgesic agent; Z88.8 Allergy status to other drugs, medicaments and biological substances
CPT/HCPCS: C9803; U0003

== ENCOUNTER 2020-07-05 16:56 | Observation (INO) | payer OTHER ==
[2020-07-05] MEDS ORDERED: LORazepam 2 MG TABLET PO ONE (17:29)
[2020-07-05] MEDS ORDERED: ASPIRIN 325 MG ENTERIC COATED TABLET (FP) ONE (17:40)
[2020-07-05] MEDS ORDERED: LORazepam 1 MG TABLET ONE (17:41)
[2020-07-05] MEDS: ASPIRIN 325 MG ENTERIC COATED TABLET (FP) PO SCH (17:43)
[2020-07-05] MEDS ORDERED: CLOPIDOGREL BISULFATE 75 MG TABLET (FP) PO ONE (17:43)
[2020-07-05] MEDS ORDERED: CLOPIDOGREL BISULFATE 75 MG TABLET (FP) ONE (17:45)
[2020-07-05] MEDS ORDERED: MORPHINE SULFATE 2 MG/ML VIAL IVPUSH ONE (18:01)
[2020-07-05] MEDS ORDERED: MORPHINE SULFATE 2 MG/ML VIAL ONE ×3 (18:07→20:38)
[2020-07-05] MEDS ORDERED: morphine CARPU-JECT 2 MG/1 ML DISP.SYRIN IVPUSH ONE ×2 (18:46→20:29)
[2020-07-05 18:48] LABS: BASO % 0.7 % (0-2.0); EOS % 5.4 % (0-4.5); HEMATOCRIT 33.5 % (35.4-49); HEMOGLOBIN 10.8 GM/dL (11.7-16.9); LYMPH % 24.4 % (8-40); MCHC 32.1 g/dl (32.0-35.9); MEAN CELL VOLUME 71.6 fl (80-96); MEAN PLT VOLUME 8.8 fl (7.5-11.1); MONO % 8.3 % (3.8-10.2); NEUT % 61.2 % (42.8-82.8); PLATELET COUNT 285 K/MM3 (134-434); RBC 4.68 M/mm3 (4.00-5.60); RDW 19.3 % (11.9-15.9); WHITE BLOOD COUNT 4.7 K/mm3 (4.0-10.0)
[2020-07-05 18:55] LABS: PROTHROMBIN TIME (PATIENT) 12.1 SEC (9.7-13.0)
[2020-07-05 19:17] LABS: CHLORIDE 105 mmol/L (98-107); SODIUM 140 mmol/L (136-145)
[2020-07-05 19:19] LABS: ALBUMIN 3.3 g/dl (3.4-5.0); ANION GAP 6 MMOL/L (8-16); BLOOD UREA NITROGEN 10.4 mg/dL (7-18); CALCIUM 8.7 mg/dL (8.5-10.1); CO2 29 mmol/L (21-32); GLUCOSE,RANDOM 107 mg/dL (74-106); MAGNESIUM 1.9 mg/dL (1.8-2.4)
[2020-07-05 19:22] LABS: SGPT/ALT 39 U/L (13-61)
[2020-07-05 19:23] LABS: CREATININE 1.2 mg/dL (0.55-1.3); SGOT/AST 27 U/L (15-37)
[2020-07-05 19:24] LABS: BILIRUBIN,TOTAL 0.3 mg/dL (0.2-1)
[2020-07-05 19:25] LABS: ALK PHOS 139 U/L (45-117)
[2020-07-05] MEDS ORDERED: LORazepam 2 MG/ML SDV VIAL IVPUSH ONE (19:37)
[2020-07-05] MEDS ORDERED: LORazepam 2 MG/ML SDV VIAL ONE (19:39)
[2020-07-05 22:42] LABS: URINE AMPHETAMINES NEGATIVE ng/ml (CUTOFF=500)
[2020-07-05 22:43] LABS: METHADONE, UR NEGATIVE ng/ml (CUTOFF=300); PHENCYCLIDINE,URINE NEGATIVE ng/ml (CUTOFF=25); URINE BARBITURATES NEGATIVE ng/ml (CUTOFF=200)
[2020-07-05] MEDS ORDERED: LORazepam 1 MG TABLET PO PRN (22:59)
[2020-07-05] MEDS ORDERED: ONDANSETRON 4 MG/2 ML VIAL IVPUSH PRN (23:07)
[2020-07-05 23:28] LABS: COCAINE, UR POSITIVE ng/ml (CUTOFF=300); OPIATES, URI POSITIVE ng/ml (CUTOFF=300); URINE BENZODIAZEPINES POSITIVE ng/ml (CUTOFF=200)
[2020-07-06] MEDS ORDERED: MORPHINE SULFATE 2 MG/ML VIAL ONE ×3 (00:35→05:40)
[2020-07-06] MEDS ORDERED: ATORVASTATIN CA 40 MG TABLET (FP) ONE (00:36)
[2020-07-06] MEDS: ATORVASTATIN CA 40 MG TABLET (FP) PO SCH ×2 (00:45→22:07)
[2020-07-06] MEDS: MORPHINE SULFATE 2 MG/ML VIAL IVPUSH PRN ×5 (00:45→18:52)
[2020-07-06] MEDS ORDERED: LORazepam 1 MG TABLET ONE (01:50)
[2020-07-06] MEDS ORDERED: chlordiazePOXIDE HCL 25 MG CAPSULE PO ONE (02:44)
[2020-07-06] MEDS ORDERED: chlordiazePOXIDE HCL 25 MG CAPSULE PO PRN (02:44)
[2020-07-06] MEDS ORDERED: MORPHINE SULFATE 2 MG/ML VIAL IVPUSH ONE ×3 (02:46→22:00)
[2020-07-06] MEDS ORDERED: chlordiazePOXIDE HCL 25 MG CAPSULE ONE ×2 (03:01→04:56)
[2020-07-06] MEDS: chlordiazePOXIDE HCL 25 MG CAPSULE PO SCH ×4 (05:02→22:07)
[2020-07-06 09:11] VITALS: BMI 35.1
[2020-07-06] MEDS ORDERED: PT OWN MED DRAWER 7, Y5N ONE ×2 (09:35→10:46)
[2020-07-06] MEDS: CLOPIDOGREL BISULFATE 75 MG TABLET (FP) PO SCH (09:45)
[2020-07-06] MEDS: ENOXAPARIN NA (PORCINE) 40 MG/0.4 ML DISP.SYRIN SQ SCH (09:46)
[2020-07-06] MEDS: ASPIRIN COATED 81 MG TABLET.EC PO SCH (09:46)
[2020-07-06 10:21] LABS: SARS-CoV-2 NAA Not Detected (Not Detected)
[2020-07-06] MEDS: SERTRALINE HCL 50 MG TABLET (FP) PO SCH (11:45)
[2020-07-06] MEDS: QUEtiapine FUMARATE 50 MG TABLET PO SCH (11:46)
[2020-07-06] MEDS: ASPIRIN 325 MG ENTERIC COATED TABLET (FP) PO SCH (11:56)
[2020-07-06] MEDS: IBUPROFEN 400 MG TABLET (FP) PO ONE ×2 (21:53→21:56)
[2020-07-06] MEDS ORDERED: QUEtiapine FUMARATE 100 MG TABLET (FP) PO SCH (22:00)
[2020-07-06] MEDS ORDERED: MELATONIN 5 MG TABLETS PO SCH (22:00)
[2020-07-07] MEDS: MORPHINE SULFATE 2 MG/ML VIAL IVPUSH PRN ×2 (04:45→09:01)
[2020-07-07] MEDS ORDERED: chlordiazePOXIDE HCL 25 MG CAPSULE PO SCH (05:00)
[2020-07-07 09:43] VITALS: BP 139/80; PULSE 70; TEMP 98
[2020-07-07] MEDS: SERTRALINE HCL 50 MG TABLET (FP) PO SCH (09:47)
[2020-07-07] MEDS: ASPIRIN COATED 81 MG TABLET.EC PO SCH (09:48)
[2020-07-07] MEDS: CLOPIDOGREL BISULFATE 75 MG TABLET (FP) PO SCH (09:48)
[2020-07-07] MEDS: QUEtiapine FUMARATE 50 MG TABLET PO SCH (09:48)
[2020-07-07] MEDS: ENOXAPARIN NA (PORCINE) 40 MG/0.4 ML DISP.SYRIN SQ SCH (09:49)
[2020-07-07] MEDS ORDERED: ATORVASTATIN CA 40 MG TABLET (FP) PO SCH (22:00)
[2020-07-08] MEDS ORDERED: chlordiazePOXIDE HCL 10 MG CAPSULE PO PRN
[2020-07-08] MEDS ORDERED: chlordiazePOXIDE HCL 10 MG CAPSULE PO SCH (05:00)
[2020-07-08] MEDS ORDERED: LISINOPRIL 5 MG TABLET PO SCH (10:00)
[2020-07-08] MEDS ORDERED: PATIENT'S OWN MEDICATION (NON-FORMULARY) (Lisinopril [Zestril] 2.5 MG Tablet) PO SCH (10:00)
[2020-07-08] MEDS ORDERED: ASPIRIN 81 MG CHEWABLE TABLETS PO SCH (10:00)
[2020-07-08] MEDS ORDERED: amLODIPine BESYLATE 10 MG TABLET (FP) PO SCH (10:00)
[2020-07-08] MEDS ORDERED: CLOPIDOGREL BISULFATE 75 MG TABLET (FP) PO SCH (10:00)
[2020-07-09] MEDS ORDERED: chlordiazePOXIDE HCL 10 MG CAPSULE PO SCH (05:00)
[2020-07-10] MEDS ORDERED: chlordiazePOXIDE HCL 10 MG CAPSULE PO ONE (05:00)
== END 2020-07-07 11:15 | disposition other institution (70) ==
LOC: JER 16:56 → JERBED 19:17 → INTOOBSV 19:17 → UNDOADMOB 19:17 → J4W 07-06 06:27 → JERBED 07-06 06:27 → J4W 07-06 11:59
PROVIDERS: ADMIT Hospitalist; ATTEND Nurse Practitioner Acute Care
PROC: 3E023GC Introduction of Other Therapeutic Substance into Muscle, Percutaneous Approach (ICD-10-PCS; principal; 2020-07-06)
PROC: 3E033NZ Introduction of Analgesics, Hypnotics, Sedatives into Peripheral Vein, Percutaneous Approach (ICD-10-PCS; 2020-07-06)
DX: I25.10 Atherosclerotic heart disease of native coronary artery without angina pectoris (principal); F10.239 Alcohol dependence with withdrawal, unspecified; F19.10 Other psychoactive substance abuse, uncomplicated; I11.9 Hypertensive heart disease without heart failure; F41.0 Panic disorder [episodic paroxysmal anxiety]; I24.9 Acute ischemic heart disease, unspecified; Z88.8 Allergy status to other drugs, medicaments and biological substances; E66.9 Obesity, unspecified; Z68.35 Body mass index [BMI] 35.0-35.9, adult; Z95.5 Presence of coronary angioplasty implant and graft; E78.5 Hyperlipidemia, unspecified; F31.9 Bipolar disorder, unspecified; Z95.1 Presence of aortocoronary bypass graft
CPT/HCPCS: 36415; 71045-TC-FY; 80053; 80307; 82550; 82553; 83735; 84484; 85025; 85610; 93005; 93010; 96372; 96374; 96375; 96376; 99285-25; C9803; G0378; U0003; U0005

== ENCOUNTER 2020-07-07 11:55 | Inpatient (IN) | payer OTHER ==
[~2020-07-07 11:55] MED LIST: chlordiazePOXIDE HCL 10 MG CAPSULE PO PRN
[2020-07-07 14:26] VITALS: BMI 35.4
[2020-07-07] MEDS ORDERED: ONDANSETRON *ODT* 4 MG TABLET SL PRN (15:42)
[2020-07-07] MEDS ORDERED: METHOCARBAMOL 500 MG TABLET PO PRN (15:42)
[2020-07-07] MEDS ORDERED: MAGNESIUM CITRATE 300 ML BOTTLE PO PRN (15:42)
[2020-07-07] MEDS ORDERED: MAGNESIUM HYDROX 2400MG/30ML ORAL SUSPENSION 30 ML CUP PO PRN (15:42)
[2020-07-07] MEDS ORDERED: MENTHOL/PHENOL 1 EACH UD MM PRN (15:42)
[2020-07-07] MEDS ORDERED: MAG HYDROX/AL HYDROX/SIMETH 30 ML UNIT-DOSE CUP PO PRN (15:42)
[2020-07-07] MEDS ORDERED: IBUPROFEN 400 MG TABLET (FP) PO PRN (15:42)
[2020-07-07] MEDS ORDERED: ACETAMINOPHEN 325 MG TABLET (FP) PO PRN ×2 (15:42)
[2020-07-07] MEDS ORDERED: BISMUTH SUBSALICYLATE 262 MG/15 ML BTL PO PRN (15:54)
[2020-07-07] MEDS: chlordiazePOXIDE HCL 25 MG CAPSULE PO SCH ×2 (17:03→22:57)
[2020-07-07] MEDS: hydrOXYzine PAMOATE 25 MG CAPSULE (FP) PO SCH ×2 (18:04→22:57)
[2020-07-07] MEDS ORDERED: MELATONIN 5 MG TABLETS PO SCH (22:00)
[2020-07-07] MEDS: THIAMINE HCL 100 MG TABLET (FP) PO SCH (22:57)
[2020-07-07] MEDS: ATORVASTATIN CA 40 MG TABLET (FP) PO SCH (22:57)
[2020-07-08] MEDS: hydrOXYzine PAMOATE 25 MG CAPSULE (FP) PO SCH ×5 (06:30→23:26)
[2020-07-08] MEDS: chlordiazePOXIDE HCL 25 MG CAPSULE PO SCH ×2 (06:30→10:48)
[2020-07-08] MEDS: ASPIRIN 81 MG CHEWABLE TABLETS PO SCH (10:48)
[2020-07-08] MEDS: LISINOPRIL 5 MG TABLET PO SCH (10:48)
[2020-07-08] MEDS: CLOPIDOGREL BISULFATE 75 MG TABLET (FP) PO SCH (10:48)
[2020-07-08] MEDS: PRENATAL VITAMINS W/ FOLIC ACID TABLET (FP) PO SCH (10:48)
[2020-07-08] MEDS: amLODIPine BESYLATE 5 MG TABLET (FP) PO SCH (10:49)
[2020-07-08] MEDS ORDERED: MELATONIN 5 MG TABLETS PO PRN (13:52)
[2020-07-08] MEDS: SERTRALINE HCL 50 MG TABLET (FP) PO SCH (15:41)
[2020-07-08] MEDS: FERROUS SO4 325 MG TABLET (FP) PO SCH (17:40)
[2020-07-08] MEDS: chlordiazePOXIDE HCL 10 MG CAPSULE PO SCH ×2 (18:24→23:30)
[2020-07-08] MEDS: QUEtiapine FUMARATE 100 MG TABLET (FP) PO SCH (23:25)
[2020-07-08] MEDS: ATORVASTATIN CA 40 MG TABLET (FP) PO SCH (23:25)
[2020-07-08] MEDS: THIAMINE HCL 100 MG TABLET (FP) PO SCH (23:26)
[2020-07-09] MEDS: chlordiazePOXIDE HCL 10 MG CAPSULE PO SCH ×3 (06:13→17:35)
[2020-07-09] MEDS: hydrOXYzine PAMOATE 25 MG CAPSULE (FP) PO SCH ×5 (06:14→22:53)
[2020-07-09] MEDS: FERROUS SO4 325 MG TABLET (FP) PO SCH ×2 (07:15→17:35)
[2020-07-09] MEDS: LISINOPRIL 5 MG TABLET PO SCH (10:36)
[2020-07-09] MEDS: ASPIRIN 81 MG CHEWABLE TABLETS PO SCH (10:36)
[2020-07-09] MEDS: amLODIPine BESYLATE 5 MG TABLET (FP) PO SCH (10:36)
[2020-07-09] MEDS: SERTRALINE HCL 50 MG TABLET (FP) PO SCH (10:36)
[2020-07-09] MEDS: PRENATAL VITAMINS W/ FOLIC ACID TABLET (FP) PO SCH (10:36)
[2020-07-09] MEDS: CLOPIDOGREL BISULFATE 75 MG TABLET (FP) PO SCH (10:37)
[2020-07-09] MEDS: THIAMINE HCL 100 MG TABLET (FP) PO SCH (22:53)
[2020-07-09] MEDS: ATORVASTATIN CA 40 MG TABLET (FP) PO SCH (22:53)
[2020-07-09] MEDS: QUEtiapine FUMARATE 100 MG TABLET (FP) PO SCH (22:53)
[2020-07-10] MEDS: chlordiazePOXIDE HCL 10 MG CAPSULE PO SCH (06:01)
[2020-07-10] MEDS: hydrOXYzine PAMOATE 25 MG CAPSULE (FP) PO SCH ×2 (06:01→10:33)
[2020-07-10] MEDS: PRENATAL VITAMINS W/ FOLIC ACID TABLET (FP) PO SCH (10:31)
[2020-07-10] MEDS: SERTRALINE HCL 50 MG TABLET (FP) PO SCH (10:31)
[2020-07-10] MEDS: CLOPIDOGREL BISULFATE 75 MG TABLET (FP) PO SCH (10:31)
[2020-07-10] MEDS: ASPIRIN 81 MG CHEWABLE TABLETS PO SCH (10:32)
[2020-07-10] MEDS: FERROUS SO4 325 MG TABLET (FP) PO SCH (10:32)
[2020-07-10] MEDS: LISINOPRIL 5 MG TABLET PO SCH (10:32)
[2020-07-10] MEDS: amLODIPine BESYLATE 5 MG TABLET (FP) PO SCH (10:32)
[2020-07-10 10:59] VITALS: BP 143/79; PULSE 70; TEMP 97.8
[2020-07-11 06:07] LABS: SARS-CoV-2 NAA Not Detected (Not Detected)
== END 2020-07-10 13:04 | disposition home or self-care (01) | DRG 774 ==
LOC: YASAS 11:55 → Y6N 15:33
PROVIDERS: ADMIT Allergy & Immunology; ATTEND Allergy & Immunology
PROC: HZ2ZZZZ Detoxification Services for Substance Abuse Treatment (ICD-10-PCS; principal; 2020-07-07)
DX: F10.230 Alcohol dependence with withdrawal, uncomplicated (principal); F14.20 Cocaine dependence, uncomplicated; F17.210 Nicotine dependence, cigarettes, uncomplicated; F19.24 Other psychoactive substance dependence with psychoactive substance-induced mood disorder; F31.9 Bipolar disorder, unspecified; D64.9 Anemia, unspecified; E78.5 Hyperlipidemia, unspecified; I25.10 Atherosclerotic heart disease of native coronary artery without angina pectoris; I10 Essential (primary) hypertension; Z95.1 Presence of aortocoronary bypass graft; Z95.5 Presence of coronary angioplasty implant and graft; I25.2 Old myocardial infarction; R07.89 Other chest pain; R74.8 Abnormal levels of other serum enzymes; E66.9 Obesity, unspecified; Z68.35 Body mass index [BMI] 35.0-35.9, adult; Z88.6 Allergy status to analgesic agent; Z88.8 Allergy status to other drugs, medicaments and biological substances
CPT/HCPCS: 36415; 86780; C9803; U0003; U0005

== ENCOUNTER 2020-07-12 13:28 | Observation (INO) | payer OTHER ==
[2020-07-12] MEDS ORDERED: morphine CARPU-JECT 4 MG/1 ML DISP.SYRIN IVPUSH ONE ×2 (14:29→16:33)
[2020-07-12 14:34] LABS: BASO % 3.5 % (0-2.0); EOS % 7.5 % (0-4.5); HEMATOCRIT 37.9 % (35.4-49); HEMOGLOBIN 12.3 GM/dl (11.7-16.9); MCH 23.1 pg (25.7-33.7); MCHC 32.4 g/dl (32.0-35.9); MEAN CELL VOLUME 71.3 fl (80-96); MEAN PLT VOLUME 8.7 fl (7.5-11.1); MONO % 10.4 % (3.8-10.2); NEUT % 56.6 % (42.8-82.8); PLATELET COUNT 364 K/MM3 (134-434); RBC 5.31 M/mm3 (4.00-5.60); RDW 18.7 % (11.9-15.9); WHITE BLOOD COUNT 5.5 K/mm3 (4.0-10.8)
[2020-07-12 14:45] LABS: ACTIVATED PTT 31.2 SECONDS (25.2-36.5)
[2020-07-12] MEDS ORDERED: morphine SULFATE 4 MG/ML VIAL ONE ×2 (14:48→16:44)
[2020-07-12 14:49] LABS: INR 1.3 (0.82-1.09); PROTHROMBIN TIME (PATIENT) 14.3 SEC (10.2-13.0)
[2020-07-12 15:00] LABS: ALBUMIN 3.8 g/dl (3.4-5.0); ALK PHOS 120 U/L (45-117); ANION GAP 9 MMOL/L (8-16); BILIRUBIN,TOTAL 0.6 mg/dl (0.2-1); CALCIUM 9.2 mg/dl (8.5-10); CHLORIDE 102 mmol/L (98-107); CO2 27 mmol/L (21-32); CREATININE 1.2 mg/dl (0.55-1.3); GLUCOSE,RANDOM 118 mg/dl (74-106); MAGNESIUM 2.1 mg/dL (1.8-2.4); SGOT/AST 30 U/L (15-37); SGPT/ALT 34 U/L (13-61); SODIUM 138 mmol/L (136-145); TOT PROT 7.3 g/dl (6.4-8.2)
[2020-07-12] MEDS ORDERED: ASPIRIN 81 MG CHEWABLE TABLETS PO ONE (16:25)
[2020-07-12] MEDS ORDERED: ASPIRIN 81 MG CHEWABLE TABLETS ONE (16:44)
[2020-07-12 18:18] LABS: URINE AMPHETAMINES NEGATIVE ng/ml (CUTOFF=500); URINE BARBITURATES NEGATIVE ng/ml (CUTOFF=200)
[2020-07-12 18:20] LABS: METHADONE, UR NEGATIVE ng/ml (CUTOFF=300); PHENCYCLIDINE,URINE NEGATIVE ng/ml (CUTOFF=25)
[2020-07-12 18:25] LABS: COCAINE, UR POSITIVE ng/ml (CUTOFF=300); OPIATES, URI POSITIVE ng/ml (CUTOFF=300); URINE BENZODIAZEPINES POSITIVE ng/ml (CUTOFF=200)
[2020-07-12 18:38] VITALS: BMI 33.3
[2020-07-12] MEDS ORDERED: traMADol HCL 50 MG TABLET PO PRN (19:49)
[2020-07-12] MEDS ORDERED: chlordiazePOXIDE HCL 25 MG CAPSULE PO ONE (20:36)
[2020-07-12] MEDS ORDERED: chlordiazePOXIDE HCL 25 MG CAPSULE ONE (20:50)
[2020-07-12] MEDS ORDERED: MELATONIN 5 MG TABLETS PO PRN (20:55)
[2020-07-12] MEDS: chlordiazePOXIDE HCL 25 MG CAPSULE PO SCH (23:23)
[2020-07-13] MEDS ORDERED: MORPHINE SULFATE 2 MG/ML VIAL IVPUSH ONE (00:25)
[2020-07-13] MEDS: chlordiazePOXIDE HCL 25 MG CAPSULE PO SCH ×2 (04:00→13:28)
[2020-07-13] MEDS ORDERED: ASPIRIN 81 MG CHEWABLE TABLETS PO SCH (10:00)
[2020-07-13 14:28] VITALS: BP 106/66; PULSE 77; TEMP 98.4
[2020-07-14] MEDS ORDERED: chlordiazePOXIDE HCL 25 MG CAPSULE PO SCH (05:00)
[2020-07-15] MEDS ORDERED: chlordiazePOXIDE 5 MG CAPSULE PO PRN
[2020-07-15] MEDS ORDERED: chlordiazePOXIDE 5 MG CAPSULE PO SCH (05:00)
[2020-07-16] MEDS ORDERED: chlordiazePOXIDE 5 MG CAPSULE PO SCH (05:00)
[2020-07-17] MEDS ORDERED: chlordiazePOXIDE 5 MG CAPSULE PO ONE (05:00)
== END 2020-07-13 17:36 | disposition left against medical advice (07) ==
LOC: FER 13:28 → UNDOADMOB 16:33 → INTOOBSV 16:33 → FM/S 16:33
PROVIDERS: ADMIT Internal Medicine; ATTEND Nurse Practitioner Acute Care
PROC: 3E033NZ Introduction of Analgesics, Hypnotics, Sedatives into Peripheral Vein, Percutaneous Approach (ICD-10-PCS; principal; 2020-07-12)
DX: R07.9 Chest pain, unspecified (principal); F14.20 Cocaine dependence, uncomplicated; F10.20 Alcohol dependence, uncomplicated; I25.10 Atherosclerotic heart disease of native coronary artery without angina pectoris; E78.5 Hyperlipidemia, unspecified; E66.9 Obesity, unspecified; Z20.822 Contact with and (suspected) exposure to COVID-19; Z29.9 Encounter for prophylactic measures, unspecified; F31.9 Bipolar disorder, unspecified; I11.9 Hypertensive heart disease without heart failure; F17.213 Nicotine dependence, cigarettes, with withdrawal
CPT/HCPCS: 36415; 71046-TC-FY; 71275-TC; 74174-TC; 80053; 80307; 81003; 82550; 82553; 83735; 84484; 85025; 85379; 85610; 85730; 93005; 93010; 96374; 96376; 99285-25; C9803; G0378; Q9967; U0003; U0005

== ENCOUNTER 2020-09-13 09:27 | Inpatient (IN) | payer OTHER ==
[2020-09-13 10:06] VITALS: BMI 33.9
[2020-09-13] MEDS ORDERED: IBUPROFEN 400 MG TABLET (FP) PO PRN (11:00)
[2020-09-13] MEDS ORDERED: MAGNESIUM CITRATE 300 ML BOTTLE PO PRN (11:00)
[2020-09-13] MEDS ORDERED: BISMUTH SUBSALICYLATE 524 MG/30 ML PO PRN (11:00)
[2020-09-13] MEDS ORDERED: MAGNESIUM HYDROX 2400MG/30ML ORAL SUSPENSION 30 ML CUP PO PRN (11:00)
[2020-09-13] MEDS ORDERED: ONDANSETRON *ODT* 4 MG TABLET SL PRN (11:00)
[2020-09-13] MEDS ORDERED: MENTHOL/PHENOL 1 EACH UD MM PRN (11:00)
[2020-09-13] MEDS ORDERED: METHOCARBAMOL 500 MG TABLET PO PRN (11:00)
[2020-09-13] MEDS ORDERED: MAG HYDROX/AL HYDROX/SIMETH 30 ML UNIT-DOSE CUP PO PRN (11:00)
[2020-09-13] MEDS ORDERED: ACETAMINOPHEN 325 MG TABLET (FP) PO PRN ×2 (11:00)
[2020-09-13] MEDS ORDERED: LORazepam 1 MG TABLET PO PRN (11:00)
[2020-09-13] MEDS: PRENATAL VITAMINS W/ FOLIC ACID TABLET (FP) PO SCH (11:40)
[2020-09-13 13:22] LABS: HEMATOCRIT 36.7 % (35.4-49); HEMOGLOBIN 11.3 GM/dL (11.7-16.9); MCHC 30.9 g/dl (32.0-35.9); MEAN CELL VOLUME 70.9 fl (80-96); MEAN PLT VOLUME 9.5 fl (7.5-11.1); PLATELET COUNT 243 10^3/uL (134-434); RBC 5.17 M/mm3 (4.00-5.60); RDW 19.9 % (11.9-15.9); WHITE BLOOD COUNT 6.1 K/mm3 (4.0-10.0)
[2020-09-13 13:38] LABS: ALBUMIN 3.2 g/dl (3.4-5.0); BLOOD UREA NITROGEN 13.4 mg/dL (7-18); CALCIUM 8.6 mg/dL (8.5-10.1)
[2020-09-13 13:40] LABS: CREATININE 1.2 mg/dL (0.55-1.3)
[2020-09-13 13:41] LABS: BILIRUBIN,TOTAL 0.3 mg/dL (0.2-1); TOT PROT 6.8 g/dl (6.4-8.2)
[2020-09-13] MEDS: hydrOXYzine PAMOATE 25 MG CAPSULE (FP) PO SCH ×3 (14:09→22:47)
[2020-09-13] MEDS: LORazepam 2 MG TABLET PO SCH ×2 (17:34→22:46)
[2020-09-13] MEDS: MELATONIN 5 MG TABLETS PO SCH (22:46)
[2020-09-13] MEDS: QUEtiapine FUMARATE 100 MG TABLET (FP) PO SCH (22:46)
[2020-09-13] MEDS: THIAMINE HCL 100 MG TABLET (FP) PO SCH (22:46)
[2020-09-14] MEDS: LORazepam 2 MG TABLET PO SCH ×4 (06:00→22:37)
[2020-09-14] MEDS: hydrOXYzine PAMOATE 25 MG CAPSULE (FP) PO SCH ×5 (06:00→22:36)
[2020-09-14] MEDS: PRENATAL VITAMINS W/ FOLIC ACID TABLET (FP) PO SCH (11:02)
[2020-09-14] MEDS: amLODIPine BESYLATE 10 MG TABLET (FP) PO SCH (11:02)
[2020-09-14] MEDS: LISINOPRIL 5 MG TABLET PO SCH (11:02)
[2020-09-14] MEDS: SERTRALINE HCL 50 MG TABLET (FP) PO SCH (11:02)
[2020-09-14] MEDS: ASPIRIN 81 MG CHEWABLE TABLETS PO SCH (11:02)
[2020-09-14] MEDS: CLOPIDOGREL BISULFATE 75 MG TABLET (FP) PO SCH (11:02)
[2020-09-14] MEDS ORDERED: FLU VACCINE (FLULAVAL) PF 60 MCG/0.5 ML SYRINGE 2020-2021 IM ONE (12:00)
[2020-09-14] MEDS ORDERED: PNEUMOCOCCAL 23 VACCINE 0.5 ML VIAL IM ONE (12:00)
[2020-09-14] MEDS: THIAMINE HCL 100 MG TABLET (FP) PO SCH (22:35)
[2020-09-14] MEDS: QUEtiapine FUMARATE 100 MG TABLET (FP) PO SCH (22:36)
[2020-09-14] MEDS: MELATONIN 5 MG TABLETS PO SCH (22:36)
[2020-09-15] MEDS: LORazepam 1 MG TABLET PO SCH ×4 (06:26→23:11)
[2020-09-15] MEDS: hydrOXYzine PAMOATE 25 MG CAPSULE (FP) PO SCH ×5 (06:27→23:12)
[2020-09-15] MEDS: LISINOPRIL 5 MG TABLET PO SCH (10:40)
[2020-09-15] MEDS: SERTRALINE HCL 50 MG TABLET (FP) PO SCH (10:40)
[2020-09-15] MEDS: amLODIPine BESYLATE 10 MG TABLET (FP) PO SCH (10:40)
[2020-09-15] MEDS: PRENATAL VITAMINS W/ FOLIC ACID TABLET (FP) PO SCH (10:41)
[2020-09-15] MEDS: ASPIRIN 81 MG CHEWABLE TABLETS PO SCH (10:41)
[2020-09-15] MEDS: CLOPIDOGREL BISULFATE 75 MG TABLET (FP) PO SCH (10:41)
[2020-09-15] MEDS ORDERED: PNEUMOC 13-VAL CONJ-DIP CRM/PF 0.5 ML DISP.SYRIN IM ONE (12:00)
[2020-09-15] MEDS: INSULIN SLIDING SCALE (NOVOLOG) 1 VIAL SQ SCH ×2 (18:28→23:12)
[2020-09-15] MEDS: MELATONIN 5 MG TABLETS PO SCH (23:11)
[2020-09-15] MEDS: THIAMINE HCL 100 MG TABLET (FP) PO SCH (23:12)
[2020-09-15] MEDS: QUEtiapine FUMARATE 100 MG TABLET (FP) PO SCH (23:12)
[2020-09-16] MEDS ORDERED: LORazepam 0.5 MG TABLET PO PRN
[2020-09-16] MEDS: LORazepam 0.5 MG TABLET PO SCH ×4 (05:42→23:13)
[2020-09-16] MEDS: hydrOXYzine PAMOATE 25 MG CAPSULE (FP) PO SCH ×5 (05:42→23:14)
[2020-09-16] MEDS: INSULIN SLIDING SCALE (NOVOLOG) 1 VIAL SQ SCH ×4 (07:58→23:14)
[2020-09-16] MEDS: ASPIRIN 81 MG CHEWABLE TABLETS PO SCH (10:55)
[2020-09-16] MEDS: amLODIPine BESYLATE 10 MG TABLET (FP) PO SCH (10:55)
[2020-09-16] MEDS: CLOPIDOGREL BISULFATE 75 MG TABLET (FP) PO SCH (10:56)
[2020-09-16] MEDS: LISINOPRIL 5 MG TABLET PO SCH (10:56)
[2020-09-16] MEDS: PRENATAL VITAMINS W/ FOLIC ACID TABLET (FP) PO SCH (10:56)
[2020-09-16] MEDS: SERTRALINE HCL 50 MG TABLET (FP) PO SCH (10:56)
[2020-09-16] MEDS ORDERED: amLODIPine BESYLATE 10 MG TABLET (FP) PO ONE (12:22)
[2020-09-16] MEDS ORDERED: LISINOPRIL 5 MG TABLET PO ONE (12:23)
[2020-09-16] MEDS ORDERED: CLOPIDOGREL BISULFATE 75 MG TABLET (FP) PO ONE (12:23)
[2020-09-16] MEDS: MELATONIN 5 MG TABLETS PO SCH (23:12)
[2020-09-16] MEDS: THIAMINE HCL 100 MG TABLET (FP) PO SCH (23:12)
[2020-09-16] MEDS: QUEtiapine FUMARATE 100 MG TABLET (FP) PO SCH (23:12)
[2020-09-17] MEDS ORDERED: LORazepam 0.5 MG TABLET PO ONE (05:00)
[2020-09-17] MEDS: hydrOXYzine PAMOATE 25 MG CAPSULE (FP) PO SCH ×2 (07:13→09:48)
[2020-09-17] MEDS: INSULIN SLIDING SCALE (NOVOLOG) 1 VIAL SQ SCH ×2 (07:13→10:41)
[2020-09-17 09:25] VITALS: BP 148/87; PULSE 74; TEMP 97.7
[2020-09-17] MEDS: amLODIPine BESYLATE 10 MG TABLET (FP) PO SCH (09:48)
[2020-09-17] MEDS: CLOPIDOGREL BISULFATE 75 MG TABLET (FP) PO SCH (09:48)
[2020-09-17] MEDS: ASPIRIN 81 MG CHEWABLE TABLETS PO SCH (09:48)
[2020-09-17] MEDS: PRENATAL VITAMINS W/ FOLIC ACID TABLET (FP) PO SCH (09:48)
[2020-09-17] MEDS: SERTRALINE HCL 50 MG TABLET (FP) PO SCH (09:49)
[2020-09-17] MEDS: LISINOPRIL 5 MG TABLET PO SCH (10:41)
== END 2020-09-17 08:28 | disposition home or self-care (01) | DRG 774 ==
LOC: YASAS 09:27 → Y6N 10:38 → Y3N 14:53
PROVIDERS: ADMIT Allergy & Immunology; ATTEND Allergy & Immunology
PROC: HZ2ZZZZ Detoxification Services for Substance Abuse Treatment (ICD-10-PCS; principal; 2020-09-13)
DX: F10.230 Alcohol dependence with withdrawal, uncomplicated (principal); F14.20 Cocaine dependence, uncomplicated; F17.210 Nicotine dependence, cigarettes, uncomplicated; F19.24 Other psychoactive substance dependence with psychoactive substance-induced mood disorder; F19.282 Other psychoactive substance dependence with psychoactive substance-induced sleep disorder; E13.9 Other specified diabetes mellitus without complications; I25.10 Atherosclerotic heart disease of native coronary artery without angina pectoris; I10 Essential (primary) hypertension; E78.5 Hyperlipidemia, unspecified; G47.00 Insomnia, unspecified; Z88.6 Allergy status to analgesic agent; Z88.8 Allergy status to other drugs, medicaments and biological substances; Z62.810 Personal history of physical and sexual abuse in childhood; Z79.02 Long term (current) use of antithrombotics/antiplatelets; Z95.5 Presence of coronary angioplasty implant and graft; Z56.0 Unemployment, unspecified; Z59.0 Homelessness
CPT/HCPCS: 36415; 80053; 82962; 83036; 85027; 86780; 90732; C9803; G0009; U0003; U0005

== ENCOUNTER 2020-10-14 12:13 | Inpatient (IN) | payer OTHER ==
[2020-10-14] MEDS ORDERED: IBUPROFEN 400 MG TABLET (FP) PO PRN (13:17)
[2020-10-14] MEDS ORDERED: METHOCARBAMOL 500 MG TABLET PO PRN (13:17)
[2020-10-14] MEDS ORDERED: MAGNESIUM HYDROX 2400MG/30ML ORAL SUSPENSION 30 ML CUP PO PRN (13:17)
[2020-10-14] MEDS ORDERED: BISMUTH SUBSALICYLATE 524 MG/30 ML PO PRN (13:17)
[2020-10-14] MEDS ORDERED: ONDANSETRON *ODT* 4 MG TABLET SL PRN (13:17)
[2020-10-14] MEDS ORDERED: MENTHOL/PHENOL 1 EACH UD MM PRN (13:17)
[2020-10-14] MEDS ORDERED: MAGNESIUM CITRATE 300 ML BOTTLE PO PRN (13:17)
[2020-10-14] MEDS ORDERED: NICOTINE 10 MG CARTRIDGE (INHALER) IH PRN (13:17)
[2020-10-14] MEDS ORDERED: ACETAMINOPHEN 325 MG TABLET (FP) PO PRN ×2 (13:17)
[2020-10-14] MEDS ORDERED: MAG HYDROX/AL HYDROX/SIMETH 30 ML UNIT-DOSE CUP PO PRN (13:17)
[2020-10-14] MEDS ORDERED: amLODIPine BESYLATE 10 MG TABLET (FP) PO ONE (13:29)
[2020-10-14] MEDS ORDERED: LISINOPRIL 5 MG TABLET PO ONE (13:30)
[2020-10-14 14:14] VITALS: BMI 34.2
[2020-10-14] MEDS: diazePAM 5 MG TABLET PO PRN ×2 (15:15→22:27)
[2020-10-14] MEDS: amLODIPine BESYLATE 10 MG TABLET (FP) PO SCH (15:15)
[2020-10-14] MEDS: hydrOXYzine PAMOATE 25 MG CAPSULE (FP) PO SCH ×3 (15:15→22:27)
[2020-10-14] MEDS: diazePAM 5 MG TABLET PO SCH ×2 (17:15→22:31)
[2020-10-14] MEDS: THIAMINE HCL 100 MG TABLET (FP) PO SCH (22:27)
[2020-10-14] MEDS: MELATONIN 5 MG TABLETS PO SCH (22:29)
[2020-10-15] MEDS: hydrOXYzine PAMOATE 25 MG CAPSULE (FP) PO SCH ×5 (05:29→23:06)
[2020-10-15] MEDS: diazePAM 5 MG TABLET PO SCH ×4 (05:29→23:06)
[2020-10-15] MEDS: CLOPIDOGREL BISULFATE 75 MG TABLET (FP) PO SCH (10:20)
[2020-10-15] MEDS: PRENATAL VITAMINS W/ FOLIC ACID TABLET (FP) PO SCH (10:20)
[2020-10-15] MEDS: amLODIPine BESYLATE 10 MG TABLET (FP) PO SCH (10:20)
[2020-10-15] MEDS: ASPIRIN 81 MG CHEWABLE TABLETS PO SCH (10:20)
[2020-10-15] MEDS: LISINOPRIL 5 MG TABLET PO SCH (10:20)
[2020-10-15] MEDS: SERTRALINE HCL 50 MG TABLET (FP) PO SCH (10:21)
[2020-10-15] MEDS: QUEtiapine FUMARATE 50 MG TABLET PO SCH (23:06)
[2020-10-15] MEDS: MELATONIN 5 MG TABLETS PO SCH (23:06)
[2020-10-15] MEDS: THIAMINE HCL 100 MG TABLET (FP) PO SCH (23:06)
[2020-10-16] MEDS: hydrOXYzine PAMOATE 25 MG CAPSULE (FP) PO SCH ×5 (06:22→22:44)
[2020-10-16] MEDS: diazePAM 5 MG TABLET PO SCH ×3 (06:22→22:12)
[2020-10-16] MEDS: SERTRALINE HCL 50 MG TABLET (FP) PO SCH (10:32)
[2020-10-16] MEDS: PRENATAL VITAMINS W/ FOLIC ACID TABLET (FP) PO SCH (10:32)
[2020-10-16] MEDS: amLODIPine BESYLATE 10 MG TABLET (FP) PO SCH (10:33)
[2020-10-16] MEDS: LISINOPRIL 5 MG TABLET PO SCH (10:33)
[2020-10-16] MEDS: ASPIRIN 81 MG CHEWABLE TABLETS PO SCH (10:33)
[2020-10-16] MEDS: CLOPIDOGREL BISULFATE 75 MG TABLET (FP) PO SCH (10:33)
[2020-10-16] MEDS: THIAMINE HCL 100 MG TABLET (FP) PO SCH (22:11)
[2020-10-16] MEDS: QUEtiapine FUMARATE 50 MG TABLET PO SCH (22:11)
[2020-10-16] MEDS: MELATONIN 5 MG TABLETS PO SCH (22:44)
[2020-10-17] MEDS: diazePAM 5 MG TABLET PO SCH ×2 (05:44→18:21)
[2020-10-17] MEDS: hydrOXYzine PAMOATE 25 MG CAPSULE (FP) PO SCH ×5 (05:44→22:38)
[2020-10-17] MEDS: LISINOPRIL 5 MG TABLET PO SCH (10:26)
[2020-10-17] MEDS: amLODIPine BESYLATE 10 MG TABLET (FP) PO SCH (10:26)
[2020-10-17] MEDS: CLOPIDOGREL BISULFATE 75 MG TABLET (FP) PO SCH (10:26)
[2020-10-17] MEDS: ASPIRIN 81 MG CHEWABLE TABLETS PO SCH (10:26)
[2020-10-17] MEDS: PRENATAL VITAMINS W/ FOLIC ACID TABLET (FP) PO SCH (10:26)
[2020-10-17] MEDS: SERTRALINE HCL 50 MG TABLET (FP) PO SCH (10:26)
[2020-10-17] MEDS: diazePAM 5 MG TABLET PO PRN (10:28)
[2020-10-17] MEDS: MELATONIN 5 MG TABLETS PO SCH (22:38)
[2020-10-17] MEDS: QUEtiapine FUMARATE 50 MG TABLET PO SCH (22:38)
[2020-10-17] MEDS: THIAMINE HCL 100 MG TABLET (FP) PO SCH (22:38)
[2020-10-18] MEDS: hydrOXYzine PAMOATE 25 MG CAPSULE (FP) PO SCH ×2 (05:42→10:47)
[2020-10-18] MEDS ORDERED: diazePAM 5 MG TABLET PO ONE (06:00)
[2020-10-18 06:51] VITALS: TEMP 97.8
[2020-10-18 09:06] VITALS: BP 143/90; PULSE 66
[2020-10-18] MEDS: SERTRALINE HCL 50 MG TABLET (FP) PO SCH (10:46)
[2020-10-18] MEDS: CLOPIDOGREL BISULFATE 75 MG TABLET (FP) PO SCH (10:46)
[2020-10-18] MEDS: ASPIRIN 81 MG CHEWABLE TABLETS PO SCH (10:46)
[2020-10-18] MEDS: LISINOPRIL 5 MG TABLET PO SCH (10:46)
[2020-10-18] MEDS: PRENATAL VITAMINS W/ FOLIC ACID TABLET (FP) PO SCH (10:47)
[2020-10-18] MEDS: amLODIPine BESYLATE 10 MG TABLET (FP) PO SCH (10:47)
== END 2020-10-18 12:04 | disposition other institution (70) | DRG 774 ==
LOC: YASAS 12:13 → Y6N 13:14
PROVIDERS: ADMIT Allergy & Immunology; ATTEND Allergy & Immunology
PROC: HZ2ZZZZ Detoxification Services for Substance Abuse Treatment (ICD-10-PCS; principal; 2020-10-14)
DX: F10.230 Alcohol dependence with withdrawal, uncomplicated (principal); F14.20 Cocaine dependence, uncomplicated; F17.213 Nicotine dependence, cigarettes, with withdrawal; F19.24 Other psychoactive substance dependence with psychoactive substance-induced mood disorder; I10 Essential (primary) hypertension; I25.10 Atherosclerotic heart disease of native coronary artery without angina pectoris; E78.5 Hyperlipidemia, unspecified; E66.9 Obesity, unspecified; Z68.34 Body mass index [BMI] 34.0-34.9, adult; Z91.14 Patient's other noncompliance with medication regimen; Z95.5 Presence of coronary angioplasty implant and graft; Z88.6 Allergy status to analgesic agent; Z88.8 Allergy status to other drugs, medicaments and biological substances; Z56.0 Unemployment, unspecified; Z59.0 Homelessness
CPT/HCPCS: 93005; 93010; C9803; U0003; U0005

== ENCOUNTER 2020-10-18 12:13 | Inpatient (IN) | payer OTHER ==
[2020-10-18] MEDS ORDERED: NICOTINE 10 MG CARTRIDGE (INHALER) IH PRN (12:31)
[2020-10-18] MEDS ORDERED: P-EPHED 60MG/TRIPROLIDI 2.5MG TABLET PO PRN (12:31)
[2020-10-18] MEDS ORDERED: MAGNESIUM HYDROX 2400MG/30ML ORAL SUSPENSION 30 ML CUP PO PRN (12:31)
[2020-10-18] MEDS ORDERED: MAGNESIUM CITRATE 300 ML BOTTLE PO PRN (12:31)
[2020-10-18] MEDS ORDERED: LOPERAMIDE HCL 2 MG CAPSULE PO PRN (12:31)
[2020-10-18] MEDS ORDERED: ACETAMINOPHEN 325 MG TABLET (FP) PO PRN (12:31)
[2020-10-18] MEDS ORDERED: guaiFENesin 200 MG/10 ML 10 ML UNIT-DOSE CUPS PO PRN (12:31)
[2020-10-18] MEDS ORDERED: MAG HYDROX/AL HYDROX/SIMETH 30 ML UNIT-DOSE CUP PO PRN (12:31)
[2020-10-18] MEDS ORDERED: IBUPROFEN 400 MG TABLET (FP) PO PRN (12:31)
[2020-10-18] MEDS: hydrOXYzine PAMOATE 25 MG CAPSULE (FP) PO SCH ×3 (15:00→21:39)
[2020-10-18] MEDS ORDERED: PT OWN MED DRAWER 7, Y5N ONE (16:04)
[2020-10-18] MEDS: THIAMINE HCL 100 MG TABLET (FP) PO SCH (21:39)
[2020-10-18] MEDS: MELATONIN 5 MG TABLETS PO SCH (21:40)
[2020-10-19] MEDS: hydrOXYzine PAMOATE 25 MG CAPSULE (FP) PO SCH ×5 (06:22→22:31)
[2020-10-19] MEDS: SERTRALINE HCL 50 MG TABLET (FP) PO SCH (09:56)
[2020-10-19] MEDS: PRENATAL VITAMINS W/ FOLIC ACID TABLET (FP) PO SCH (09:56)
[2020-10-19] MEDS: amLODIPine BESYLATE 10 MG TABLET (FP) PO SCH (09:56)
[2020-10-19] MEDS: ASPIRIN 81 MG CHEWABLE TABLETS PO SCH (09:56)
[2020-10-19] MEDS: CLOPIDOGREL BISULFATE 75 MG TABLET (FP) PO SCH (09:56)
[2020-10-19] MEDS: LISINOPRIL 5 MG TABLET PO SCH (09:57)
[2020-10-19] MEDS ORDERED: QUEtiapine FUMARATE 50 MG TABLET PO SCH ×2 (10:00→22:00)
[2020-10-19] MEDS: QUEtiapine FUMARATE 50 MG TABLET PO SCH (22:31)
[2020-10-19] MEDS: MELATONIN 5 MG TABLETS PO SCH (22:31)
[2020-10-19] MEDS: THIAMINE HCL 100 MG TABLET (FP) PO SCH (22:31)
[2020-10-20] MEDS: hydrOXYzine PAMOATE 25 MG CAPSULE (FP) PO SCH ×2 (07:06→09:43)
[2020-10-20] MEDS: LISINOPRIL 5 MG TABLET PO SCH (09:42)
[2020-10-20] MEDS: ASPIRIN 81 MG CHEWABLE TABLETS PO SCH (09:42)
[2020-10-20] MEDS: CLOPIDOGREL BISULFATE 75 MG TABLET (FP) PO SCH (09:42)
[2020-10-20] MEDS: SERTRALINE HCL 50 MG TABLET (FP) PO SCH (09:42)
[2020-10-20] MEDS: PRENATAL VITAMINS W/ FOLIC ACID TABLET (FP) PO SCH (09:42)
[2020-10-20] MEDS: amLODIPine BESYLATE 10 MG TABLET (FP) PO SCH (09:42)
[2020-10-20] MEDS ORDERED: hydrOXYzine PAMOATE 25 MG CAPSULE (FP) PO PRN (12:54)
[2020-10-20] MEDS ORDERED: METHOCARBAMOL 500 MG TABLET PO PRN (12:54)
[2020-10-20] MEDS: THIAMINE HCL 100 MG TABLET (FP) PO SCH (22:58)
[2020-10-20] MEDS: MELATONIN 5 MG TABLETS PO SCH (22:58)
[2020-10-20] MEDS: QUEtiapine FUMARATE 50 MG TABLET PO SCH (22:58)
[2020-10-21] MEDS: SERTRALINE HCL 50 MG TABLET (FP) PO SCH (10:02)
[2020-10-21] MEDS: LISINOPRIL 5 MG TABLET PO SCH (10:02)
[2020-10-21] MEDS: ASPIRIN 81 MG CHEWABLE TABLETS PO SCH (10:02)
[2020-10-21] MEDS: amLODIPine BESYLATE 10 MG TABLET (FP) PO SCH (10:02)
[2020-10-21] MEDS: CLOPIDOGREL BISULFATE 75 MG TABLET (FP) PO SCH (10:02)
[2020-10-21] MEDS: PRENATAL VITAMINS W/ FOLIC ACID TABLET (FP) PO SCH (10:02)
[2020-10-21] MEDS: QUEtiapine FUMARATE 50 MG TABLET PO SCH (23:21)
[2020-10-21] MEDS: MELATONIN 5 MG TABLETS PO SCH (23:21)
[2020-10-21] MEDS: THIAMINE HCL 100 MG TABLET (FP) PO SCH (23:22)
[2020-10-22] MEDS: SERTRALINE HCL 50 MG TABLET (FP) PO SCH (09:44)
[2020-10-22] MEDS: ASPIRIN 81 MG CHEWABLE TABLETS PO SCH (09:44)
[2020-10-22] MEDS: PRENATAL VITAMINS W/ FOLIC ACID TABLET (FP) PO SCH (09:44)
[2020-10-22] MEDS: CLOPIDOGREL BISULFATE 75 MG TABLET (FP) PO SCH (09:44)
[2020-10-22] MEDS: LISINOPRIL 5 MG TABLET PO SCH (09:44)
[2020-10-22] MEDS: amLODIPine BESYLATE 10 MG TABLET (FP) PO SCH (09:44)
[2020-10-22] MEDS: MELATONIN 5 MG TABLETS PO SCH (22:08)
[2020-10-22] MEDS: QUEtiapine FUMARATE 50 MG TABLET PO SCH (22:08)
[2020-10-22] MEDS: THIAMINE HCL 100 MG TABLET (FP) PO SCH (22:08)
[2020-10-23] MEDS: CLOPIDOGREL BISULFATE 75 MG TABLET (FP) PO SCH (10:08)
[2020-10-23] MEDS: amLODIPine BESYLATE 10 MG TABLET (FP) PO SCH (10:08)
[2020-10-23] MEDS: LISINOPRIL 5 MG TABLET PO SCH (10:09)
[2020-10-23] MEDS: SERTRALINE HCL 50 MG TABLET (FP) PO SCH (10:09)
[2020-10-23] MEDS: PRENATAL VITAMINS W/ FOLIC ACID TABLET (FP) PO SCH (10:09)
[2020-10-23] MEDS: ASPIRIN 81 MG CHEWABLE TABLETS PO SCH (12:08)
[2020-10-23] MEDS: THIAMINE HCL 100 MG TABLET (FP) PO SCH (22:05)
[2020-10-23] MEDS: QUEtiapine FUMARATE 50 MG TABLET PO SCH (22:05)
[2020-10-23] MEDS: MELATONIN 5 MG TABLETS PO SCH (22:06)
[2020-10-24] MEDS: SERTRALINE HCL 50 MG TABLET (FP) PO SCH (09:58)
[2020-10-24] MEDS: amLODIPine BESYLATE 10 MG TABLET (FP) PO SCH (09:58)
[2020-10-24] MEDS: PRENATAL VITAMINS W/ FOLIC ACID TABLET (FP) PO SCH (09:58)
[2020-10-24] MEDS: CLOPIDOGREL BISULFATE 75 MG TABLET (FP) PO SCH (09:58)
[2020-10-24] MEDS: LISINOPRIL 5 MG TABLET PO SCH (09:58)
[2020-10-24] MEDS: ASPIRIN 81 MG CHEWABLE TABLETS PO SCH (09:58)
[2020-10-24] MEDS: THIAMINE HCL 100 MG TABLET (FP) PO SCH (21:32)
[2020-10-24] MEDS: MELATONIN 5 MG TABLETS PO SCH (21:32)
[2020-10-24] MEDS: QUEtiapine FUMARATE 50 MG TABLET PO SCH (21:32)
[2020-10-25] MEDS: ASPIRIN 81 MG CHEWABLE TABLETS PO SCH (10:12)
[2020-10-25] MEDS: LISINOPRIL 5 MG TABLET PO SCH (10:12)
[2020-10-25] MEDS: PRENATAL VITAMINS W/ FOLIC ACID TABLET (FP) PO SCH (10:12)
[2020-10-25] MEDS: SERTRALINE HCL 50 MG TABLET (FP) PO SCH (10:12)
[2020-10-25] MEDS: amLODIPine BESYLATE 10 MG TABLET (FP) PO SCH (10:12)
[2020-10-25] MEDS: CLOPIDOGREL BISULFATE 75 MG TABLET (FP) PO SCH (10:12)
[2020-10-25] MEDS ORDERED: cloNIDine HCL 0.1 MG TABLET PO PRN (16:01)
[2020-10-25] MEDS ORDERED: LISINOPRIL 10 MG TABLET PO SCH (16:04)
[2020-10-25] MEDS: MELATONIN 5 MG TABLETS PO SCH (21:57)
[2020-10-25] MEDS: QUEtiapine FUMARATE 50 MG TABLET PO SCH (21:57)
[2020-10-25] MEDS: THIAMINE HCL 100 MG TABLET (FP) PO SCH (21:57)
[2020-10-26 07:29] VITALS: BP 146/96; PULSE 100; TEMP 95.9
[2020-10-26] MEDS: SERTRALINE HCL 50 MG TABLET (FP) PO SCH (09:48)
[2020-10-26] MEDS: CLOPIDOGREL BISULFATE 75 MG TABLET (FP) PO SCH (09:48)
[2020-10-26] MEDS: PRENATAL VITAMINS W/ FOLIC ACID TABLET (FP) PO SCH (09:48)
[2020-10-26] MEDS: ASPIRIN 81 MG CHEWABLE TABLETS PO SCH (09:48)
[2020-10-26] MEDS: amLODIPine BESYLATE 10 MG TABLET (FP) PO SCH (09:48)
[2020-10-26] MEDS ORDERED: LISINOPRIL 10 MG TABLET PO SCH (10:00)
== END 2020-10-26 12:35 | disposition home or self-care (01) | DRG 772 ==
LOC: YASAS 12:13 → Y5N 12:16
PROVIDERS: ADMIT Allergy & Immunology; ATTEND Allergy & Immunology
PROC: HZ42ZZZ Group Counseling for Substance Abuse Treatment, Cognitive-Behavioral (ICD-10-PCS; principal; 2020-10-18)
DX: F10.20 Alcohol dependence, uncomplicated (principal); F14.20 Cocaine dependence, uncomplicated; F17.210 Nicotine dependence, cigarettes, uncomplicated; F19.282 Other psychoactive substance dependence with psychoactive substance-induced sleep disorder; I10 Essential (primary) hypertension; E11.9 Type 2 diabetes mellitus without complications; I25.2 Old myocardial infarction; I25.10 Atherosclerotic heart disease of native coronary artery without angina pectoris; E78.5 Hyperlipidemia, unspecified; E66.9 Obesity, unspecified; Z68.34 Body mass index [BMI] 34.0-34.9, adult; Z95.1 Presence of aortocoronary bypass graft; Z95.5 Presence of coronary angioplasty implant and graft; Z79.82 Long term (current) use of aspirin; Z79.02 Long term (current) use of antithrombotics/antiplatelets; Z56.0 Unemployment, unspecified; Z59.0 Homelessness

== ENCOUNTER 2020-11-24 09:37 | Inpatient (IN) | payer OTHER ==
[2020-11-24 11:59] VITALS: BMI 33.0
[2020-11-24] MEDS ORDERED: MAGNESIUM CITRATE 300 ML BOTTLE PO PRN (12:11)
[2020-11-24] MEDS ORDERED: MAGNESIUM HYDROX 2400MG/30ML ORAL SUSPENSION 30 ML CUP PO PRN (12:11)
[2020-11-24] MEDS ORDERED: METHOCARBAMOL 500 MG TABLET PO PRN (12:11)
[2020-11-24] MEDS ORDERED: ACETAMINOPHEN 325 MG TABLET (FP) PO PRN (12:11)
[2020-11-24] MEDS ORDERED: MENTHOL/PHENOL 1 EACH UD MM PRN (12:11)
[2020-11-24] MEDS ORDERED: MAG HYDROX/AL HYDROX/SIMETH 30 ML UNIT-DOSE CUP PO PRN (12:11)
[2020-11-24] MEDS ORDERED: diazePAM 5 MG TABLET PO PRN (12:11)
[2020-11-24] MEDS ORDERED: ONDANSETRON *ODT* 4 MG TABLET SL PRN (12:11)
[2020-11-24] MEDS: CLOPIDOGREL BISULFATE 75 MG TABLET (FP) PO SCH (13:59)
[2020-11-24] MEDS: diazePAM 5 MG TABLET PO SCH ×3 (13:59→22:22)
[2020-11-24] MEDS: PRENATAL VITAMINS W/ FOLIC ACID TABLET (FP) PO SCH (14:00)
[2020-11-24] MEDS: hydrOXYzine PAMOATE 25 MG CAPSULE (FP) PO SCH ×3 (14:00→22:21)
[2020-11-24 14:02] LABS: HEMATOCRIT 35.1 % (35.4-49); HEMOGLOBIN 11.5 GM/dL (11.7-16.9); MCH 23.3 pg (25.7-33.7); MCHC 32.8 g/dl (32.0-35.9); MEAN CELL VOLUME 70.9 fl (80-96); MEAN PLT VOLUME 9.4 fl (7.5-11.1); PLATELET COUNT 237 10^3/uL (134-434); RBC 4.95 M/mm3 (4.00-5.60); RDW 20.2 % (11.9-15.9); WHITE BLOOD COUNT 5.8 K/mm3 (4.0-10.0)
[2020-11-24 14:24] LABS: ALBUMIN 3.6 g/dl (3.4-5.0); CALCIUM 8.9 mg/dL (8.5-10.1)
[2020-11-24 14:27] LABS: CREATININE 1.2 mg/dL (0.55-1.3)
[2020-11-24 14:29] LABS: BILIRUBIN,TOTAL 0.2 mg/dL (0.2-1); TOT PROT 7.2 g/dl (6.4-8.2)
[2020-11-24] MEDS: traZODone HCL 100 MG TABLET (FP) PO SCH (22:22)
[2020-11-24] MEDS: QUEtiapine FUMARATE 100 MG TABLET (FP) PO SCH (22:22)
[2020-11-24] MEDS: MELATONIN 5 MG TABLETS PO SCH (22:22)
[2020-11-24] MEDS: THIAMINE HCL 100 MG TABLET (FP) PO SCH (22:22)
[2020-11-25] MEDS: hydrOXYzine PAMOATE 25 MG CAPSULE (FP) PO SCH ×5 (06:12→22:40)
[2020-11-25] MEDS: diazePAM 5 MG TABLET PO SCH ×4 (06:13→22:39)
[2020-11-25] MEDS: ASPIRIN 81 MG CHEWABLE TABLETS PO SCH (10:49)
[2020-11-25] MEDS: CLOPIDOGREL BISULFATE 75 MG TABLET (FP) PO SCH (10:50)
[2020-11-25] MEDS: PRENATAL VITAMINS W/ FOLIC ACID TABLET (FP) PO SCH (10:50)
[2020-11-25] MEDS: SERTRALINE HCL 50 MG TABLET (FP) PO SCH (10:50)
[2020-11-25] MEDS: LISINOPRIL 5 MG TABLET PO SCH (10:50)
[2020-11-25] MEDS: amLODIPine BESYLATE 10 MG TABLET (FP) PO SCH (10:50)
[2020-11-25] MEDS: traZODone HCL 100 MG TABLET (FP) PO SCH (22:39)
[2020-11-25] MEDS: QUEtiapine FUMARATE 100 MG TABLET (FP) PO SCH (22:39)
[2020-11-25] MEDS: THIAMINE HCL 100 MG TABLET (FP) PO SCH (22:39)
[2020-11-25] MEDS: MELATONIN 5 MG TABLETS PO SCH (22:40)
[2020-11-26] MEDS: diazePAM 5 MG TABLET PO SCH ×3 (05:51→23:20)
[2020-11-26] MEDS: hydrOXYzine PAMOATE 25 MG CAPSULE (FP) PO SCH ×5 (05:51→23:20)
[2020-11-26] MEDS: amLODIPine BESYLATE 10 MG TABLET (FP) PO SCH (10:48)
[2020-11-26] MEDS: CLOPIDOGREL BISULFATE 75 MG TABLET (FP) PO SCH (10:48)
[2020-11-26] MEDS: PRENATAL VITAMINS W/ FOLIC ACID TABLET (FP) PO SCH (10:48)
[2020-11-26] MEDS: LISINOPRIL 5 MG TABLET PO SCH (10:49)
[2020-11-26] MEDS: ASPIRIN 81 MG CHEWABLE TABLETS PO SCH (10:49)
[2020-11-26] MEDS: SERTRALINE HCL 50 MG TABLET (FP) PO SCH (10:49)
[2020-11-26] MEDS: IBUPROFEN 400 MG TABLET (FP) PO PRN (10:50)
[2020-11-26] MEDS: MELATONIN 5 MG TABLETS PO SCH (23:19)
[2020-11-26] MEDS: traZODone HCL 100 MG TABLET (FP) PO SCH (23:19)
[2020-11-26] MEDS: QUEtiapine FUMARATE 100 MG TABLET (FP) PO SCH (23:19)
[2020-11-26] MEDS: THIAMINE HCL 100 MG TABLET (FP) PO SCH (23:20)
[2020-11-27] MEDS: hydrOXYzine PAMOATE 25 MG CAPSULE (FP) PO SCH (06:16)
[2020-11-27] MEDS: diazePAM 5 MG TABLET PO SCH ×2 (06:16→18:04)
[2020-11-27] MEDS ORDERED: hydrOXYzine PAMOATE 25 MG CAPSULE (FP) PO PRN (08:42)
[2020-11-27] MEDS: IBUPROFEN 400 MG TABLET (FP) PO PRN (10:36)
[2020-11-27] MEDS: CLOPIDOGREL BISULFATE 75 MG TABLET (FP) PO SCH (10:37)
[2020-11-27] MEDS: PRENATAL VITAMINS W/ FOLIC ACID TABLET (FP) PO SCH (10:37)
[2020-11-27] MEDS: SERTRALINE HCL 50 MG TABLET (FP) PO SCH (10:37)
[2020-11-27] MEDS: ASPIRIN 81 MG CHEWABLE TABLETS PO SCH (10:37)
[2020-11-27] MEDS: amLODIPine BESYLATE 10 MG TABLET (FP) PO SCH (10:37)
[2020-11-27] MEDS: LISINOPRIL 5 MG TABLET PO SCH (10:38)
[2020-11-27] MEDS: MELATONIN 5 MG TABLETS PO SCH (23:36)
[2020-11-27] MEDS: QUEtiapine FUMARATE 100 MG TABLET (FP) PO SCH (23:36)
[2020-11-27] MEDS: traZODone HCL 100 MG TABLET (FP) PO SCH (23:36)
[2020-11-27] MEDS: THIAMINE HCL 100 MG TABLET (FP) PO SCH (23:37)
[2020-11-28] MEDS ORDERED: diazePAM 5 MG TABLET PO ONE (06:00)
[2020-11-28 09:37] VITALS: BP 121/82; PULSE 58; TEMP 97.9
[2020-11-28] MEDS: CLOPIDOGREL BISULFATE 75 MG TABLET (FP) PO SCH (10:22)
[2020-11-28] MEDS: ASPIRIN 81 MG CHEWABLE TABLETS PO SCH (10:22)
[2020-11-28] MEDS: amLODIPine BESYLATE 10 MG TABLET (FP) PO SCH (10:22)
[2020-11-28] MEDS: PRENATAL VITAMINS W/ FOLIC ACID TABLET (FP) PO SCH (10:23)
[2020-11-28] MEDS: LISINOPRIL 5 MG TABLET PO SCH (10:23)
[2020-11-28] MEDS: IBUPROFEN 400 MG TABLET (FP) PO PRN (10:23)
[2020-11-28] MEDS: SERTRALINE HCL 50 MG TABLET (FP) PO SCH (10:23)
== END 2020-11-28 12:08 | disposition home or self-care (01) | DRG 774 ==
LOC: YASAS 09:37 → Y3N 12:02
PROVIDERS: ADMIT Allergy & Immunology; ATTEND Allergy & Immunology
PROC: HZ2ZZZZ Detoxification Services for Substance Abuse Treatment (ICD-10-PCS; principal; 2020-11-24)
DX: F10.230 Alcohol dependence with withdrawal, uncomplicated (principal); F14.20 Cocaine dependence, uncomplicated; F17.210 Nicotine dependence, cigarettes, uncomplicated; F19.282 Other psychoactive substance dependence with psychoactive substance-induced sleep disorder; F19.24 Other psychoactive substance dependence with psychoactive substance-induced mood disorder; F32.9 Major depressive disorder, single episode, unspecified; E11.9 Type 2 diabetes mellitus without complications; E78.5 Hyperlipidemia, unspecified; I25.10 Atherosclerotic heart disease of native coronary artery without angina pectoris; I10 Essential (primary) hypertension; Z95.5 Presence of coronary angioplasty implant and graft; Z62.810 Personal history of physical and sexual abuse in childhood; E66.9 Obesity, unspecified; Z68.33 Body mass index [BMI] 33.0-33.9, adult; Z88.6 Allergy status to analgesic agent; Z88.8 Allergy status to other drugs, medicaments and biological substances; Z56.0 Unemployment, unspecified; Z59.0 Homelessness
CPT/HCPCS: 36415; 80053; 85027; 86780; C9803; U0003; U0005

== ENCOUNTER 2020-12-17 12:29 | Inpatient (IN) | payer OTHER ==
[2020-12-17 13:07] VITALS: BMI 33.1
[2020-12-17] MEDS ORDERED: ONDANSETRON *ODT* 4 MG TABLET SL PRN (15:13)
[2020-12-17] MEDS ORDERED: MAG HYDROX/AL HYDROX/SIMETH 30 ML UNIT-DOSE CUP PO PRN (15:13)
[2020-12-17] MEDS ORDERED: MAGNESIUM CITRATE 300 ML BOTTLE PO PRN (15:13)
[2020-12-17] MEDS ORDERED: MENTHOL/PHENOL 1 EACH UD MM PRN (15:13)
[2020-12-17] MEDS ORDERED: MAGNESIUM HYDROX 2400MG/30ML ORAL SUSPENSION 30 ML CUP PO PRN (15:13)
[2020-12-17] MEDS: amLODIPine BESYLATE 10 MG TABLET (FP) PO SCH (19:11)
[2020-12-17] MEDS: hydrOXYzine PAMOATE 25 MG CAPSULE (FP) PO SCH ×2 (19:11→22:12)
[2020-12-17] MEDS: LISINOPRIL 5 MG TABLET PO SCH (19:11)
[2020-12-17] MEDS: diazePAM 5 MG TABLET PO SCH ×2 (19:11→22:13)
[2020-12-17] MEDS ORDERED: ATORVASTATIN CA 20 MG TABLET (FP) ONE (20:28)
[2020-12-17] MEDS ORDERED: MELATONIN 5 MG TABLETS PO SCH (22:00)
[2020-12-17] MEDS: THIAMINE HCL 100 MG TABLET (FP) PO SCH (22:12)
[2020-12-17] MEDS: ATORVASTATIN CA 40 MG TABLET (FP) PO SCH (22:12)
[2020-12-17] MEDS: ASPIRIN COATED 81 MG TABLET.EC PO SCH (22:13)
[2020-12-18] MEDS: METHOCARBAMOL 500 MG TABLET PO PRN (05:45)
[2020-12-18] MEDS: hydrOXYzine PAMOATE 25 MG CAPSULE (FP) PO SCH ×5 (05:45→23:11)
[2020-12-18] MEDS: diazePAM 5 MG TABLET PO SCH ×4 (05:45→23:11)
[2020-12-18] MEDS: amLODIPine BESYLATE 10 MG TABLET (FP) PO SCH (10:07)
[2020-12-18] MEDS: CLOPIDOGREL BISULFATE 75 MG TABLET (FP) PO SCH (10:07)
[2020-12-18] MEDS: PRENATAL VITAMINS W/ FOLIC ACID TABLET (FP) PO SCH (10:07)
[2020-12-18] MEDS: LISINOPRIL 5 MG TABLET PO SCH (10:07)
[2020-12-18] MEDS: ASPIRIN COATED 81 MG TABLET.EC PO SCH (10:07)
[2020-12-18] MEDS: IBUPROFEN 400 MG TABLET (FP) PO PRN (10:10)
[2020-12-18] MEDS: SERTRALINE HCL 50 MG TABLET (FP) PO SCH (11:10)
[2020-12-18] MEDS: QUEtiapine FUMARATE 50 MG TABLET PO SCH (11:11)
[2020-12-18] MEDS: ATORVASTATIN CA 40 MG TABLET (FP) PO SCH (23:10)
[2020-12-18] MEDS: traZODone HCL 100 MG TABLET (FP) PO SCH (23:10)
[2020-12-18] MEDS: QUEtiapine FUMARATE 100 MG TABLET (FP) PO SCH (23:11)
[2020-12-18] MEDS: THIAMINE HCL 100 MG TABLET (FP) PO SCH (23:11)
[2020-12-19] MEDS: hydrOXYzine PAMOATE 25 MG CAPSULE (FP) PO SCH ×5 (05:21→23:23)
[2020-12-19] MEDS: diazePAM 5 MG TABLET PO SCH ×3 (05:21→23:23)
[2020-12-19] MEDS: CLOPIDOGREL BISULFATE 75 MG TABLET (FP) PO SCH (10:12)
[2020-12-19] MEDS: SERTRALINE HCL 50 MG TABLET (FP) PO SCH (10:12)
[2020-12-19] MEDS: PRENATAL VITAMINS W/ FOLIC ACID TABLET (FP) PO SCH (10:12)
[2020-12-19] MEDS: LISINOPRIL 5 MG TABLET PO SCH (10:12)
[2020-12-19] MEDS: amLODIPine BESYLATE 10 MG TABLET (FP) PO SCH (10:13)
[2020-12-19] MEDS: ASPIRIN COATED 81 MG TABLET.EC PO SCH (10:13)
[2020-12-19] MEDS: QUEtiapine FUMARATE 50 MG TABLET PO SCH (10:13)
[2020-12-19] MEDS: METHOCARBAMOL 500 MG TABLET PO PRN (10:13)
[2020-12-19] MEDS: diazePAM 5 MG TABLET PO PRN (17:42)
[2020-12-19] MEDS: traZODone HCL 100 MG TABLET (FP) PO SCH (23:22)
[2020-12-19] MEDS: ATORVASTATIN CA 40 MG TABLET (FP) PO SCH (23:23)
[2020-12-19] MEDS: THIAMINE HCL 100 MG TABLET (FP) PO SCH (23:23)
[2020-12-19] MEDS: QUEtiapine FUMARATE 100 MG TABLET (FP) PO SCH (23:23)
[2020-12-20] MEDS: hydrOXYzine PAMOATE 25 MG CAPSULE (FP) PO SCH ×5 (05:23→21:37)
[2020-12-20] MEDS: diazePAM 5 MG TABLET PO SCH ×2 (05:23→17:25)
[2020-12-20] MEDS: LISINOPRIL 5 MG TABLET PO SCH (10:32)
[2020-12-20] MEDS: QUEtiapine FUMARATE 50 MG TABLET PO SCH (10:32)
[2020-12-20] MEDS: ASPIRIN COATED 81 MG TABLET.EC PO SCH (10:32)
[2020-12-20] MEDS: PRENATAL VITAMINS W/ FOLIC ACID TABLET (FP) PO SCH (10:32)
[2020-12-20] MEDS: amLODIPine BESYLATE 10 MG TABLET (FP) PO SCH (10:32)
[2020-12-20] MEDS: SERTRALINE HCL 50 MG TABLET (FP) PO SCH (10:33)
[2020-12-20] MEDS: diazePAM 5 MG TABLET PO PRN (10:33)
[2020-12-20] MEDS: CLOPIDOGREL BISULFATE 75 MG TABLET (FP) PO SCH (10:33)
[2020-12-20] MEDS: IBUPROFEN 400 MG TABLET (FP) PO PRN (10:34)
[2020-12-20] MEDS: THIAMINE HCL 100 MG TABLET (FP) PO SCH (21:36)
[2020-12-20] MEDS: ATORVASTATIN CA 40 MG TABLET (FP) PO SCH (21:36)
[2020-12-20] MEDS: traZODone HCL 100 MG TABLET (FP) PO SCH (21:36)
[2020-12-20] MEDS: QUEtiapine FUMARATE 100 MG TABLET (FP) PO SCH (21:37)
[2020-12-21] MEDS: hydrOXYzine PAMOATE 25 MG CAPSULE (FP) PO SCH ×2 (05:28→11:53)
[2020-12-21] MEDS ORDERED: diazePAM 5 MG TABLET PO ONE (06:00)
[2020-12-21 09:17] VITALS: BP 117/75; PULSE 93; TEMP 97.3
[2020-12-21] MEDS: CLOPIDOGREL BISULFATE 75 MG TABLET (FP) PO SCH (11:46)
[2020-12-21] MEDS: PRENATAL VITAMINS W/ FOLIC ACID TABLET (FP) PO SCH (11:46)
[2020-12-21] MEDS: LISINOPRIL 5 MG TABLET PO SCH (11:46)
[2020-12-21] MEDS: amLODIPine BESYLATE 10 MG TABLET (FP) PO SCH (11:46)
[2020-12-21] MEDS: QUEtiapine FUMARATE 50 MG TABLET PO SCH (11:46)
[2020-12-21] MEDS: SERTRALINE HCL 50 MG TABLET (FP) PO SCH (11:46)
[2020-12-21] MEDS: ASPIRIN COATED 81 MG TABLET.EC PO SCH (11:53)
== END 2020-12-21 11:53 | disposition other institution (70) | DRG 774 ==
LOC: YASAS 12:29 → Y6N 15:36
PROVIDERS: ADMIT Allergy & Immunology; ATTEND Allergy & Immunology
PROC: HZ2ZZZZ Detoxification Services for Substance Abuse Treatment (ICD-10-PCS; principal; 2020-12-17)
DX: F10.230 Alcohol dependence with withdrawal, uncomplicated (principal); F14.20 Cocaine dependence, uncomplicated; F17.210 Nicotine dependence, cigarettes, uncomplicated; F33.1 Major depressive disorder, recurrent, moderate; F19.282 Other psychoactive substance dependence with psychoactive substance-induced sleep disorder; F19.24 Other psychoactive substance dependence with psychoactive substance-induced mood disorder; I25.10 Atherosclerotic heart disease of native coronary artery without angina pectoris; I10 Essential (primary) hypertension; Z95.5 Presence of coronary angioplasty implant and graft; E66.9 Obesity, unspecified; Z68.33 Body mass index [BMI] 33.0-33.9, adult; Z88.8 Allergy status to other drugs, medicaments and biological substances; Z88.6 Allergy status to analgesic agent; Z56.0 Unemployment, unspecified; Z59.00 Homelessness unspecified
CPT/HCPCS: C9803; U0003; U0005

== ENCOUNTER 2020-12-21 11:29 | Inpatient (IN) | payer OTHER ==
[2020-12-21] MEDS ORDERED: P-EPHED 60MG/TRIPROLIDI 2.5MG TABLET PO PRN (12:18)
[2020-12-21] MEDS ORDERED: ACETAMINOPHEN 325 MG TABLET (FP) PO PRN (12:18)
[2020-12-21] MEDS ORDERED: MAGNESIUM HYDROX 2400MG/30ML ORAL SUSPENSION 30 ML CUP PO PRN (12:18)
[2020-12-21] MEDS ORDERED: MAGNESIUM CITRATE 300 ML BOTTLE PO PRN (12:18)
[2020-12-21] MEDS ORDERED: LOPERAMIDE HCL 2 MG CAPSULE PO PRN (12:18)
[2020-12-21] MEDS ORDERED: hydrOXYzine PAMOATE 25 MG CAPSULE (FP) PO PRN (12:18)
[2020-12-21] MEDS ORDERED: IBUPROFEN 400 MG TABLET (FP) PO PRN (12:18)
[2020-12-21] MEDS ORDERED: MAG HYDROX/AL HYDROX/SIMETH 30 ML UNIT-DOSE CUP PO PRN (12:18)
[2020-12-21] MEDS ORDERED: NICOTINE 10 MG CARTRIDGE (INHALER) IH PRN (12:18)
[2020-12-21] MEDS ORDERED: NICOTINE POLACRILEX 2 MG GUM BC PRN (12:18)
[2020-12-21] MEDS ORDERED: guaiFENesin 200 MG/10 ML 10 ML UNIT-DOSE CUPS PO PRN (12:18)
[2020-12-21] MEDS: ATORVASTATIN CA 40 MG TABLET (FP) PO SCH (23:02)
[2020-12-21] MEDS: QUEtiapine FUMARATE 50 MG TABLET PO SCH (23:02)
[2020-12-21] MEDS: MELATONIN 5 MG TABLETS PO SCH (23:02)
[2020-12-21] MEDS: traZODone HCL 100 MG TABLET (FP) PO SCH (23:02)
[2020-12-21] MEDS: THIAMINE HCL 100 MG TABLET (FP) PO SCH (23:02)
[2020-12-22] MEDS: amLODIPine BESYLATE 10 MG TABLET (FP) PO SCH (10:04)
[2020-12-22] MEDS: CLOPIDOGREL BISULFATE 75 MG TABLET (FP) PO SCH (10:04)
[2020-12-22] MEDS: ASPIRIN 81 MG CHEWABLE TABLETS PO SCH (10:04)
[2020-12-22] MEDS: QUEtiapine FUMARATE 50 MG TABLET PO SCH ×2 (10:04→22:25)
[2020-12-22] MEDS: SERTRALINE HCL 50 MG TABLET (FP) PO SCH (10:05)
[2020-12-22] MEDS: PRENATAL VITAMINS W/ FOLIC ACID TABLET (FP) PO SCH (10:05)
[2020-12-22] MEDS: LISINOPRIL 5 MG TABLET PO SCH (10:05)
[2020-12-22] MEDS: METHOCARBAMOL 500 MG TABLET PO SCH ×2 (14:51→22:25)
[2020-12-22] MEDS: DOCUSATE SODIUM 100 MG CAPSULE (FP) PO SCH (22:25)
[2020-12-22] MEDS: traZODone HCL 100 MG TABLET (FP) PO SCH (22:25)
[2020-12-22] MEDS: ATORVASTATIN CA 40 MG TABLET (FP) PO SCH (22:25)
[2020-12-22] MEDS: THIAMINE HCL 100 MG TABLET (FP) PO SCH (22:25)
[2020-12-22] MEDS: MELATONIN 5 MG TABLETS PO SCH (22:25)
[2020-12-23] MEDS: METHOCARBAMOL 500 MG TABLET PO SCH ×3 (06:44→21:17)
[2020-12-23] MEDS: DOCUSATE SODIUM 100 MG CAPSULE (FP) PO SCH ×3 (06:44→21:17)
[2020-12-23] MEDS: ASPIRIN 81 MG CHEWABLE TABLETS PO SCH (09:57)
[2020-12-23] MEDS: LISINOPRIL 5 MG TABLET PO SCH (09:57)
[2020-12-23] MEDS: amLODIPine BESYLATE 10 MG TABLET (FP) PO SCH (09:57)
[2020-12-23] MEDS: SERTRALINE HCL 50 MG TABLET (FP) PO SCH (09:57)
[2020-12-23] MEDS: CLOPIDOGREL BISULFATE 75 MG TABLET (FP) PO SCH (09:57)
[2020-12-23] MEDS: QUEtiapine FUMARATE 50 MG TABLET PO SCH ×2 (09:57→21:17)
[2020-12-23] MEDS: PRENATAL VITAMINS W/ FOLIC ACID TABLET (FP) PO SCH (09:58)
[2020-12-23] MEDS: THIAMINE HCL 100 MG TABLET (FP) PO SCH (21:17)
[2020-12-23] MEDS: MELATONIN 5 MG TABLETS PO SCH (21:17)
[2020-12-23] MEDS: traZODone HCL 100 MG TABLET (FP) PO SCH (21:17)
[2020-12-23] MEDS: ATORVASTATIN CA 40 MG TABLET (FP) PO SCH (21:17)
[2020-12-24] MEDS: DOCUSATE SODIUM 100 MG CAPSULE (FP) PO SCH ×3 (07:18→21:31)
[2020-12-24] MEDS: METHOCARBAMOL 500 MG TABLET PO SCH ×3 (07:19→21:32)
[2020-12-24] MEDS: PRENATAL VITAMINS W/ FOLIC ACID TABLET (FP) PO SCH (09:42)
[2020-12-24] MEDS: SERTRALINE HCL 50 MG TABLET (FP) PO SCH (09:42)
[2020-12-24] MEDS: CLOPIDOGREL BISULFATE 75 MG TABLET (FP) PO SCH (09:43)
[2020-12-24] MEDS: LISINOPRIL 5 MG TABLET PO SCH (09:43)
[2020-12-24] MEDS: ASPIRIN 81 MG CHEWABLE TABLETS PO SCH (09:43)
[2020-12-24] MEDS: QUEtiapine FUMARATE 50 MG TABLET PO SCH ×2 (09:43→21:32)
[2020-12-24] MEDS: amLODIPine BESYLATE 10 MG TABLET (FP) PO SCH (09:43)
[2020-12-24] MEDS ORDERED: PT OWN MED DRAWER 7, Y5N ONE (19:34)
[2020-12-24] MEDS: ATORVASTATIN CA 40 MG TABLET (FP) PO SCH (21:31)
[2020-12-24] MEDS: MELATONIN 5 MG TABLETS PO SCH (21:32)
[2020-12-24] MEDS: traZODone HCL 100 MG TABLET (FP) PO SCH (21:32)
[2020-12-24] MEDS: THIAMINE HCL 100 MG TABLET (FP) PO SCH (21:32)
[2020-12-25] MEDS: DOCUSATE SODIUM 100 MG CAPSULE (FP) PO SCH (07:14)
[2020-12-25] MEDS: METHOCARBAMOL 500 MG TABLET PO SCH (07:14)
[2020-12-25 09:24] VITALS: BP 127/83; PULSE 82; TEMP 97.9
[2020-12-25] MEDS: CLOPIDOGREL BISULFATE 75 MG TABLET (FP) PO SCH (10:19)
[2020-12-25] MEDS: LISINOPRIL 5 MG TABLET PO SCH (10:19)
[2020-12-25] MEDS: PRENATAL VITAMINS W/ FOLIC ACID TABLET (FP) PO SCH (10:19)
[2020-12-25] MEDS: SERTRALINE HCL 50 MG TABLET (FP) PO SCH (10:19)
[2020-12-25] MEDS: amLODIPine BESYLATE 10 MG TABLET (FP) PO SCH (10:19)
[2020-12-25] MEDS: ASPIRIN 81 MG CHEWABLE TABLETS PO SCH (10:19)
[2020-12-25] MEDS: QUEtiapine FUMARATE 50 MG TABLET PO SCH (10:59)
== END 2020-12-25 10:52 | disposition left against medical advice (07) | DRG 770 ==
LOC: YASAS 11:29 → Y3E 11:30
PROVIDERS: ADMIT Allergy & Immunology; ATTEND Allergy & Immunology
PROC: HZ42ZZZ Group Counseling for Substance Abuse Treatment, Cognitive-Behavioral (ICD-10-PCS; principal; 2020-12-21)
DX: F10.20 Alcohol dependence, uncomplicated (principal); F14.20 Cocaine dependence, uncomplicated; F17.210 Nicotine dependence, cigarettes, uncomplicated; I10 Essential (primary) hypertension; E78.5 Hyperlipidemia, unspecified; Z88.8 Allergy status to other drugs, medicaments and biological substances; Z88.6 Allergy status to analgesic agent

== ENCOUNTER 2021-01-16 13:22 | Inpatient (IN) | payer OTHER ==
[2021-01-16] MEDS ORDERED: IBUPROFEN 400 MG TABLET (FP) PO PRN (13:38)
[2021-01-16] MEDS ORDERED: MAG HYDROX/AL HYDROX/SIMETH 30 ML UNIT-DOSE CUP PO PRN (13:38)
[2021-01-16] MEDS ORDERED: BISMUTH SUBSALICYLATE 524 MG/30 ML PO PRN (13:38)
[2021-01-16] MEDS ORDERED: NICOTINE 10 MG CARTRIDGE (INHALER) IH PRN (13:38)
[2021-01-16] MEDS ORDERED: MENTHOL/PHENOL 1 EACH UD MM PRN (13:38)
[2021-01-16] MEDS ORDERED: MAGNESIUM HYDROX 2400MG/30ML ORAL SUSPENSION 30 ML CUP PO PRN (13:38)
[2021-01-16] MEDS ORDERED: ONDANSETRON *ODT* 4 MG TABLET SL PRN (13:38)
[2021-01-16] MEDS ORDERED: MAGNESIUM CITRATE 300 ML BOTTLE PO PRN (13:38)
[2021-01-16 13:56] VITALS: BMI 35.7
[2021-01-16] MEDS: diazePAM 5 MG TABLET PO SCH ×3 (18:05→22:31)
[2021-01-16] MEDS: hydrOXYzine PAMOATE 25 MG CAPSULE (FP) PO SCH ×3 (18:05→22:31)
[2021-01-16] MEDS: PRENATAL VITAMINS W/ FOLIC ACID TABLET (FP) PO SCH (18:06)
[2021-01-16] MEDS: MELATONIN 5 MG TABLETS PO SCH (22:31)
[2021-01-16] MEDS: THIAMINE HCL 100 MG TABLET (FP) PO SCH (22:31)
[2021-01-17] MEDS: diazePAM 5 MG TABLET PO SCH ×4 (06:29→22:10)
[2021-01-17] MEDS: hydrOXYzine PAMOATE 25 MG CAPSULE (FP) PO SCH ×5 (06:29→22:12)
[2021-01-17] MEDS: amLODIPine BESYLATE 10 MG TABLET (FP) PO SCH (10:34)
[2021-01-17] MEDS: METHOCARBAMOL 500 MG TABLET PO PRN (10:34)
[2021-01-17] MEDS: LISINOPRIL 5 MG TABLET PO SCH (10:34)
[2021-01-17] MEDS: ASPIRIN 81 MG CHEWABLE TABLETS PO SCH (10:34)
[2021-01-17] MEDS: PRENATAL VITAMINS W/ FOLIC ACID TABLET (FP) PO SCH (10:34)
[2021-01-17] MEDS: CLOPIDOGREL BISULFATE 75 MG TABLET (FP) PO SCH (10:34)
[2021-01-17] MEDS: traZODone HCL 100 MG TABLET (FP) PO SCH (22:12)
[2021-01-17] MEDS: QUEtiapine FUMARATE 50 MG TABLET PO SCH (22:12)
[2021-01-17] MEDS: THIAMINE HCL 100 MG TABLET (FP) PO SCH (22:12)
[2021-01-17] MEDS: MELATONIN 5 MG TABLETS PO SCH (22:12)
[2021-01-17] MEDS: METOPROLOL TARTRATE 25 MG TABLET (FP) PO SCH (23:42)
[2021-01-18] MEDS: diazePAM 5 MG TABLET PO SCH ×3 (05:28→22:16)
[2021-01-18] MEDS: hydrOXYzine PAMOATE 25 MG CAPSULE (FP) PO SCH ×5 (05:29→22:11)
[2021-01-18] MEDS: CLOPIDOGREL BISULFATE 75 MG TABLET (FP) PO SCH (10:24)
[2021-01-18] MEDS: SERTRALINE HCL 50 MG TABLET (FP) PO SCH (10:24)
[2021-01-18] MEDS: PRENATAL VITAMINS W/ FOLIC ACID TABLET (FP) PO SCH (10:26)
[2021-01-18] MEDS: ASPIRIN 81 MG CHEWABLE TABLETS PO SCH (10:26)
[2021-01-18] MEDS: diazePAM 5 MG TABLET PO PRN ×2 (10:27→19:07)
[2021-01-18] MEDS: METHOCARBAMOL 500 MG TABLET PO PRN ×2 (10:57→18:05)
[2021-01-18] MEDS: amLODIPine BESYLATE 10 MG TABLET (FP) PO SCH (11:00)
[2021-01-18] MEDS: LISINOPRIL 5 MG TABLET PO SCH (11:00)
[2021-01-18] MEDS: METOPROLOL TARTRATE 25 MG TABLET (FP) PO SCH ×2 (12:48→22:10)
[2021-01-18] MEDS ORDERED: MASKS NR ONE (18:05)
[2021-01-18] MEDS: MELATONIN 5 MG TABLETS PO SCH (22:10)
[2021-01-18] MEDS: THIAMINE HCL 100 MG TABLET (FP) PO SCH (22:10)
[2021-01-18] MEDS: traZODone HCL 100 MG TABLET (FP) PO SCH (22:11)
[2021-01-18] MEDS: QUEtiapine FUMARATE 50 MG TABLET PO SCH (22:11)
[2021-01-19] MEDS: hydrOXYzine PAMOATE 25 MG CAPSULE (FP) PO SCH ×5 (06:23→22:05)
[2021-01-19] MEDS: diazePAM 5 MG TABLET PO SCH ×2 (06:23→17:37)
[2021-01-19] MEDS: LISINOPRIL 5 MG TABLET PO SCH (10:35)
[2021-01-19] MEDS: PRENATAL VITAMINS W/ FOLIC ACID TABLET (FP) PO SCH (10:35)
[2021-01-19] MEDS: SERTRALINE HCL 50 MG TABLET (FP) PO SCH (10:35)
[2021-01-19] MEDS: METOPROLOL TARTRATE 25 MG TABLET (FP) PO SCH ×2 (10:35→22:05)
[2021-01-19] MEDS: amLODIPine BESYLATE 10 MG TABLET (FP) PO SCH (10:35)
[2021-01-19] MEDS: ASPIRIN 81 MG CHEWABLE TABLETS PO SCH (10:35)
[2021-01-19] MEDS: CLOPIDOGREL BISULFATE 75 MG TABLET (FP) PO SCH (10:35)
[2021-01-19] MEDS: diazePAM 5 MG TABLET PO PRN (10:38)
[2021-01-19] MEDS: QUEtiapine FUMARATE 50 MG TABLET PO SCH (22:05)
[2021-01-19] MEDS: THIAMINE HCL 100 MG TABLET (FP) PO SCH (22:05)
[2021-01-19] MEDS: traZODone HCL 100 MG TABLET (FP) PO SCH (22:05)
[2021-01-19] MEDS: MELATONIN 5 MG TABLETS PO SCH (22:06)
[2021-01-19] MEDS: METHOCARBAMOL 500 MG TABLET PO PRN (22:06)
[2021-01-20] MEDS ORDERED: diazePAM 5 MG TABLET PO ONE (06:00)
[2021-01-20] MEDS: hydrOXYzine PAMOATE 25 MG CAPSULE (FP) PO SCH ×4 (06:03→17:43)
[2021-01-20] MEDS: amLODIPine BESYLATE 10 MG TABLET (FP) PO SCH (10:40)
[2021-01-20] MEDS: SERTRALINE HCL 50 MG TABLET (FP) PO SCH (10:40)
[2021-01-20] MEDS: CLOPIDOGREL BISULFATE 75 MG TABLET (FP) PO SCH (10:40)
[2021-01-20] MEDS: METOPROLOL TARTRATE 25 MG TABLET (FP) PO SCH (10:40)
[2021-01-20] MEDS: PRENATAL VITAMINS W/ FOLIC ACID TABLET (FP) PO SCH (10:41)
[2021-01-20] MEDS: ASPIRIN 81 MG CHEWABLE TABLETS PO SCH (10:41)
[2021-01-20] MEDS: LISINOPRIL 5 MG TABLET PO SCH (10:41)
[2021-01-20 16:51] VITALS: BP 108/70; PULSE 73; TEMP 96.8
== END 2021-01-20 18:10 | disposition other institution (70) | DRG 774 ==
LOC: YASAS 13:22 → Y3N 15:21
PROVIDERS: ADMIT Allergy & Immunology; ATTEND Allergy & Immunology
PROC: HZ2ZZZZ Detoxification Services for Substance Abuse Treatment (ICD-10-PCS; principal; 2021-01-16)
DX: F10.230 Alcohol dependence with withdrawal, uncomplicated (principal); F14.20 Cocaine dependence, uncomplicated; F17.213 Nicotine dependence, cigarettes, with withdrawal; E78.5 Hyperlipidemia, unspecified; I25.10 Atherosclerotic heart disease of native coronary artery without angina pectoris; I10 Essential (primary) hypertension; Z95.5 Presence of coronary angioplasty implant and graft; G47.00 Insomnia, unspecified; F32.9 Major depressive disorder, single episode, unspecified; Z62.810 Personal history of physical and sexual abuse in childhood; E66.9 Obesity, unspecified; Z68.35 Body mass index [BMI] 35.0-35.9, adult; Z56.0 Unemployment, unspecified; Z59.00 Homelessness unspecified; Z88.8 Allergy status to other drugs, medicaments and biological substances
CPT/HCPCS: C9803; U0003; U0005

== ENCOUNTER 2021-01-20 19:06 | Inpatient (IN) | payer OTHER ==
[2021-01-20] MEDS ORDERED: hydrOXYzine PAMOATE 25 MG CAPSULE (FP) PO PRN (20:56)
[2021-01-20] MEDS ORDERED: MENTHOL/PHENOL 1 EACH UD MM PRN (20:56)
[2021-01-20] MEDS ORDERED: NICOTINE 10 MG CARTRIDGE (INHALER) IH PRN (20:56)
[2021-01-20] MEDS ORDERED: guaiFENesin 200 MG/10 ML 10 ML UNIT-DOSE CUPS PO PRN (20:56)
[2021-01-20] MEDS ORDERED: LOPERAMIDE HCL 2 MG CAPSULE PO PRN (20:56)
[2021-01-20] MEDS ORDERED: MAGNESIUM CITRATE 300 ML BOTTLE PO PRN (20:56)
[2021-01-20] MEDS ORDERED: MAG HYDROX/AL HYDROX/SIMETH 30 ML UNIT-DOSE CUP PO PRN (20:56)
[2021-01-20] MEDS ORDERED: P-EPHED 60MG/TRIPROLIDI 2.5MG TABLET PO PRN (20:56)
[2021-01-20] MEDS: QUEtiapine FUMARATE 50 MG TABLET PO SCH (22:19)
[2021-01-20] MEDS: traZODone HCL 50 MG TABLET (FP) PO SCH (22:19)
[2021-01-20] MEDS: THIAMINE HCL 100 MG TABLET (FP) PO SCH (22:19)
[2021-01-20] MEDS: METOPROLOL TARTRATE 25 MG TABLET (FP) PO SCH (22:19)
[2021-01-21] MEDS: ASPIRIN 81 MG CHEWABLE TABLETS PO SCH (11:08)
[2021-01-21] MEDS: PRENATAL VITAMINS W/ FOLIC ACID TABLET (FP) PO SCH (11:08)
[2021-01-21] MEDS: amLODIPine BESYLATE 10 MG TABLET (FP) PO SCH (11:08)
[2021-01-21] MEDS: SERTRALINE HCL 50 MG TABLET (FP) PO SCH (11:08)
[2021-01-21] MEDS: LISINOPRIL 5 MG TABLET PO SCH (11:08)
[2021-01-21] MEDS: METOPROLOL TARTRATE 25 MG TABLET (FP) PO SCH ×2 (11:08→21:12)
[2021-01-21] MEDS: METHOCARBAMOL 500 MG TABLET PO PRN (17:59)
[2021-01-21] MEDS: traZODone HCL 50 MG TABLET (FP) PO SCH (21:12)
[2021-01-21] MEDS: THIAMINE HCL 100 MG TABLET (FP) PO SCH (21:12)
[2021-01-21] MEDS: QUEtiapine FUMARATE 50 MG TABLET PO SCH (21:12)
[2021-01-22] MEDS: LISINOPRIL 5 MG TABLET PO SCH (09:08)
[2021-01-22] MEDS: ASPIRIN 81 MG CHEWABLE TABLETS PO SCH (09:08)
[2021-01-22] MEDS: METOPROLOL TARTRATE 25 MG TABLET (FP) PO SCH ×2 (09:08→21:56)
[2021-01-22] MEDS: SERTRALINE HCL 50 MG TABLET (FP) PO SCH (09:08)
[2021-01-22] MEDS: amLODIPine BESYLATE 10 MG TABLET (FP) PO SCH (09:08)
[2021-01-22] MEDS: PRENATAL VITAMINS W/ FOLIC ACID TABLET (FP) PO SCH (09:09)
[2021-01-22] MEDS ORDERED: JANSSEN COVID-19 VAC,AD26/PF 0.5 ML IM ONE (11:00)
[2021-01-22] MEDS: traZODone HCL 50 MG TABLET (FP) PO SCH (21:56)
[2021-01-22] MEDS: THIAMINE HCL 100 MG TABLET (FP) PO SCH (21:56)
[2021-01-22] MEDS: QUEtiapine FUMARATE 50 MG TABLET PO SCH (21:56)
[2021-01-22] MEDS: METHOCARBAMOL 500 MG TABLET PO PRN (21:56)
[2021-01-23] MEDS: PRENATAL VITAMINS W/ FOLIC ACID TABLET (FP) PO SCH (09:43)
[2021-01-23] MEDS: LISINOPRIL 5 MG TABLET PO SCH (09:44)
[2021-01-23] MEDS: SERTRALINE HCL 50 MG TABLET (FP) PO SCH (09:44)
[2021-01-23] MEDS: METOPROLOL TARTRATE 25 MG TABLET (FP) PO SCH ×2 (09:44→22:10)
[2021-01-23] MEDS: amLODIPine BESYLATE 10 MG TABLET (FP) PO SCH (09:44)
[2021-01-23] MEDS: ASPIRIN 81 MG CHEWABLE TABLETS PO SCH (09:44)
[2021-01-23] MEDS: traZODone HCL 50 MG TABLET (FP) PO SCH (22:09)
[2021-01-23] MEDS: MAGNESIUM HYDROX 2400MG/30ML ORAL SUSPENSION 30 ML CUP PO PRN (22:10)
[2021-01-23] MEDS: QUEtiapine FUMARATE 50 MG TABLET PO SCH (22:10)
[2021-01-23] MEDS: THIAMINE HCL 100 MG TABLET (FP) PO SCH (22:10)
[2021-01-24] MEDS: PRENATAL VITAMINS W/ FOLIC ACID TABLET (FP) PO SCH (09:54)
[2021-01-24] MEDS: amLODIPine BESYLATE 10 MG TABLET (FP) PO SCH (09:55)
[2021-01-24] MEDS: METOPROLOL TARTRATE 25 MG TABLET (FP) PO SCH ×2 (09:55→21:13)
[2021-01-24] MEDS: SERTRALINE HCL 50 MG TABLET (FP) PO SCH (09:55)
[2021-01-24] MEDS: ASPIRIN 81 MG CHEWABLE TABLETS PO SCH (09:55)
[2021-01-24] MEDS: LISINOPRIL 5 MG TABLET PO SCH (09:55)
[2021-01-24] MEDS: QUEtiapine FUMARATE 50 MG TABLET PO SCH (21:13)
[2021-01-24] MEDS: THIAMINE HCL 100 MG TABLET (FP) PO SCH (21:13)
[2021-01-24] MEDS: traZODone HCL 50 MG TABLET (FP) PO SCH (21:13)
[2021-01-24] MEDS: METHOCARBAMOL 500 MG TABLET PO PRN (21:13)
[2021-01-24] MEDS: DOCUSATE SODIUM 100 MG CAPSULE (FP) PO SCH (21:14)
[2021-01-25] MEDS: PRENATAL VITAMINS W/ FOLIC ACID TABLET (FP) PO SCH (09:43)
[2021-01-25] MEDS: LISINOPRIL 5 MG TABLET PO SCH (09:43)
[2021-01-25] MEDS: ASPIRIN 81 MG CHEWABLE TABLETS PO SCH (09:43)
[2021-01-25] MEDS: SERTRALINE HCL 50 MG TABLET (FP) PO SCH (09:43)
[2021-01-25] MEDS: DOCUSATE SODIUM 100 MG CAPSULE (FP) PO SCH ×2 (09:43→21:14)
[2021-01-25] MEDS: amLODIPine BESYLATE 10 MG TABLET (FP) PO SCH (09:43)
[2021-01-25] MEDS: METOPROLOL TARTRATE 25 MG TABLET (FP) PO SCH ×2 (09:43→21:14)
[2021-01-25] MEDS: QUEtiapine FUMARATE 50 MG TABLET PO SCH (21:14)
[2021-01-25] MEDS: MAGNESIUM HYDROX 2400MG/30ML ORAL SUSPENSION 30 ML CUP PO PRN (21:14)
[2021-01-25] MEDS: traZODone HCL 50 MG TABLET (FP) PO SCH (21:14)
[2021-01-25] MEDS: THIAMINE HCL 100 MG TABLET (FP) PO SCH (21:14)
[2021-01-26] MEDS: PRENATAL VITAMINS W/ FOLIC ACID TABLET (FP) PO SCH (09:19)
[2021-01-26] MEDS: LISINOPRIL 5 MG TABLET PO SCH (09:20)
[2021-01-26] MEDS: ASPIRIN 81 MG CHEWABLE TABLETS PO SCH (09:20)
[2021-01-26] MEDS: SERTRALINE HCL 50 MG TABLET (FP) PO SCH (09:20)
[2021-01-26] MEDS: amLODIPine BESYLATE 10 MG TABLET (FP) PO SCH (09:20)
[2021-01-26] MEDS: DOCUSATE SODIUM 100 MG CAPSULE (FP) PO SCH ×2 (09:20→21:14)
[2021-01-26] MEDS: METOPROLOL TARTRATE 25 MG TABLET (FP) PO SCH ×2 (09:20→21:16)
[2021-01-26] MEDS: traZODone HCL 50 MG TABLET (FP) PO SCH (21:14)
[2021-01-26] MEDS: QUEtiapine FUMARATE 50 MG TABLET PO SCH (21:15)
[2021-01-26] MEDS: THIAMINE HCL 100 MG TABLET (FP) PO SCH (21:15)
[2021-01-27] MEDS: ASPIRIN 81 MG CHEWABLE TABLETS PO SCH (09:36)
[2021-01-27] MEDS: METOPROLOL TARTRATE 25 MG TABLET (FP) PO SCH ×2 (09:36→21:24)
[2021-01-27] MEDS: SERTRALINE HCL 50 MG TABLET (FP) PO SCH (09:36)
[2021-01-27] MEDS: PRENATAL VITAMINS W/ FOLIC ACID TABLET (FP) PO SCH (09:36)
[2021-01-27] MEDS: LISINOPRIL 5 MG TABLET PO SCH (09:36)
[2021-01-27] MEDS: amLODIPine BESYLATE 10 MG TABLET (FP) PO SCH (09:36)
[2021-01-27] MEDS: DOCUSATE SODIUM 100 MG CAPSULE (FP) PO SCH ×2 (09:36→21:24)
[2021-01-27] MEDS: QUEtiapine FUMARATE 50 MG TABLET PO SCH (21:24)
[2021-01-27] MEDS: traZODone HCL 50 MG TABLET (FP) PO SCH (21:25)
[2021-01-27] MEDS: THIAMINE HCL 100 MG TABLET (FP) PO SCH (21:50)
[2021-01-28] MEDS: PRENATAL VITAMINS W/ FOLIC ACID TABLET (FP) PO SCH (09:42)
[2021-01-28] MEDS: SERTRALINE HCL 50 MG TABLET (FP) PO SCH (09:42)
[2021-01-28] MEDS: ASPIRIN 81 MG CHEWABLE TABLETS PO SCH (09:42)
[2021-01-28] MEDS: LISINOPRIL 5 MG TABLET PO SCH (09:42)
[2021-01-28] MEDS: amLODIPine BESYLATE 10 MG TABLET (FP) PO SCH (09:42)
[2021-01-28] MEDS: METOPROLOL TARTRATE 25 MG TABLET (FP) PO SCH ×2 (09:42→21:10)
[2021-01-28] MEDS: DOCUSATE SODIUM 100 MG CAPSULE (FP) PO SCH ×2 (09:42→21:10)
[2021-01-28] MEDS: traZODone HCL 50 MG TABLET (FP) PO SCH (21:10)
[2021-01-28] MEDS: QUEtiapine FUMARATE 50 MG TABLET PO SCH (21:10)
[2021-01-28] MEDS: THIAMINE HCL 100 MG TABLET (FP) PO SCH (21:10)
[2021-01-29] MEDS: ASPIRIN 81 MG CHEWABLE TABLETS PO SCH (10:04)
[2021-01-29] MEDS: METOPROLOL TARTRATE 25 MG TABLET (FP) PO SCH ×2 (10:04→21:14)
[2021-01-29] MEDS: PRENATAL VITAMINS W/ FOLIC ACID TABLET (FP) PO SCH (10:04)
[2021-01-29] MEDS: SERTRALINE HCL 50 MG TABLET (FP) PO SCH (10:04)
[2021-01-29] MEDS: amLODIPine BESYLATE 10 MG TABLET (FP) PO SCH (10:04)
[2021-01-29] MEDS: LISINOPRIL 5 MG TABLET PO SCH (10:04)
[2021-01-29] MEDS: DOCUSATE SODIUM 100 MG CAPSULE (FP) PO SCH ×2 (10:05→21:14)
[2021-01-29] MEDS: QUEtiapine FUMARATE 50 MG TABLET PO SCH (21:14)
[2021-01-29] MEDS: traZODone HCL 50 MG TABLET (FP) PO SCH (21:14)
[2021-01-29] MEDS: THIAMINE HCL 100 MG TABLET (FP) PO SCH (22:26)
[2021-01-30] MEDS: PRENATAL VITAMINS W/ FOLIC ACID TABLET (FP) PO SCH (09:30)
[2021-01-30] MEDS: DOCUSATE SODIUM 100 MG CAPSULE (FP) PO SCH ×2 (09:30→21:27)
[2021-01-30] MEDS: LISINOPRIL 5 MG TABLET PO SCH (09:30)
[2021-01-30] MEDS: amLODIPine BESYLATE 10 MG TABLET (FP) PO SCH (09:30)
[2021-01-30] MEDS: ASPIRIN 81 MG CHEWABLE TABLETS PO SCH (09:30)
[2021-01-30] MEDS: METOPROLOL TARTRATE 25 MG TABLET (FP) PO SCH ×2 (09:30→21:27)
[2021-01-30] MEDS: SERTRALINE HCL 50 MG TABLET (FP) PO SCH (09:31)
[2021-01-30] MEDS: MAGNESIUM HYDROX 2400MG/30ML ORAL SUSPENSION 30 ML CUP PO PRN (09:32)
[2021-01-30] MEDS: QUEtiapine FUMARATE 50 MG TABLET PO SCH (21:27)
[2021-01-30] MEDS: THIAMINE HCL 100 MG TABLET (FP) PO SCH (21:27)
[2021-01-30] MEDS: traZODone HCL 50 MG TABLET (FP) PO SCH (21:27)
[2021-01-31] MEDS: amLODIPine BESYLATE 10 MG TABLET (FP) PO SCH (09:43)
[2021-01-31] MEDS: LISINOPRIL 5 MG TABLET PO SCH (09:43)
[2021-01-31] MEDS: SERTRALINE HCL 50 MG TABLET (FP) PO SCH (09:43)
[2021-01-31] MEDS: DOCUSATE SODIUM 100 MG CAPSULE (FP) PO SCH ×2 (09:43→21:27)
[2021-01-31] MEDS: PRENATAL VITAMINS W/ FOLIC ACID TABLET (FP) PO SCH (09:43)
[2021-01-31] MEDS: ASPIRIN 81 MG CHEWABLE TABLETS PO SCH (09:43)
[2021-01-31] MEDS: METOPROLOL TARTRATE 25 MG TABLET (FP) PO SCH ×2 (09:43→21:27)
[2021-01-31] MEDS: traZODone HCL 50 MG TABLET (FP) PO SCH (21:27)
[2021-01-31] MEDS: THIAMINE HCL 100 MG TABLET (FP) PO SCH (21:27)
[2021-01-31] MEDS: QUEtiapine FUMARATE 50 MG TABLET PO SCH (21:27)
[2021-02-01] MEDS: LISINOPRIL 5 MG TABLET PO SCH (10:09)
[2021-02-01] MEDS: SERTRALINE HCL 50 MG TABLET (FP) PO SCH (10:09)
[2021-02-01] MEDS: amLODIPine BESYLATE 10 MG TABLET (FP) PO SCH (10:10)
[2021-02-01] MEDS: METOPROLOL TARTRATE 25 MG TABLET (FP) PO SCH ×2 (10:10→21:19)
[2021-02-01] MEDS: DOCUSATE SODIUM 100 MG CAPSULE (FP) PO SCH ×2 (10:10→21:19)
[2021-02-01] MEDS: PRENATAL VITAMINS W/ FOLIC ACID TABLET (FP) PO SCH (10:10)
[2021-02-01] MEDS: ASPIRIN 81 MG CHEWABLE TABLETS PO SCH (10:10)
[2021-02-01] MEDS: MAGNESIUM HYDROX 2400MG/30ML ORAL SUSPENSION 30 ML CUP PO PRN (10:12)
[2021-02-01] MEDS: QUEtiapine FUMARATE 50 MG TABLET PO SCH (21:19)
[2021-02-01] MEDS: THIAMINE HCL 100 MG TABLET (FP) PO SCH (21:19)
[2021-02-01] MEDS: traZODone HCL 50 MG TABLET (FP) PO SCH (21:19)
[2021-02-02] MEDS: LISINOPRIL 5 MG TABLET PO SCH (09:44)
[2021-02-02] MEDS: PRENATAL VITAMINS W/ FOLIC ACID TABLET (FP) PO SCH (09:44)
[2021-02-02] MEDS: DOCUSATE SODIUM 100 MG CAPSULE (FP) PO SCH ×2 (09:44→21:21)
[2021-02-02] MEDS: SERTRALINE HCL 50 MG TABLET (FP) PO SCH (09:44)
[2021-02-02] MEDS: ASPIRIN 81 MG CHEWABLE TABLETS PO SCH (09:44)
[2021-02-02] MEDS: METOPROLOL TARTRATE 25 MG TABLET (FP) PO SCH ×2 (09:44→21:22)
[2021-02-02] MEDS: amLODIPine BESYLATE 10 MG TABLET (FP) PO SCH (09:44)
[2021-02-02] MEDS: THIAMINE HCL 100 MG TABLET (FP) PO SCH (21:21)
[2021-02-02] MEDS: traZODone HCL 50 MG TABLET (FP) PO SCH (21:21)
[2021-02-02] MEDS: QUEtiapine FUMARATE 50 MG TABLET PO SCH (21:21)
[2021-02-03] MEDS: ASPIRIN 81 MG CHEWABLE TABLETS PO SCH (09:48)
[2021-02-03] MEDS: DOCUSATE SODIUM 100 MG CAPSULE (FP) PO SCH ×2 (09:48→21:16)
[2021-02-03] MEDS: PRENATAL VITAMINS W/ FOLIC ACID TABLET (FP) PO SCH (09:48)
[2021-02-03] MEDS: LISINOPRIL 5 MG TABLET PO SCH (09:49)
[2021-02-03] MEDS: METOPROLOL TARTRATE 25 MG TABLET (FP) PO SCH ×2 (09:49→21:15)
[2021-02-03] MEDS: amLODIPine BESYLATE 10 MG TABLET (FP) PO SCH (09:49)
[2021-02-03] MEDS: SERTRALINE HCL 50 MG TABLET (FP) PO SCH (09:49)
[2021-02-03] MEDS: QUEtiapine FUMARATE 50 MG TABLET PO SCH (21:15)
[2021-02-03] MEDS: THIAMINE HCL 100 MG TABLET (FP) PO SCH (21:16)
[2021-02-03] MEDS: traZODone HCL 50 MG TABLET (FP) PO SCH (21:16)
[2021-02-04] MEDS: DOCUSATE SODIUM 100 MG CAPSULE (FP) PO SCH ×2 (09:41→21:29)
[2021-02-04] MEDS: PRENATAL VITAMINS W/ FOLIC ACID TABLET (FP) PO SCH (09:41)
[2021-02-04] MEDS: LISINOPRIL 5 MG TABLET PO SCH (09:42)
[2021-02-04] MEDS: amLODIPine BESYLATE 10 MG TABLET (FP) PO SCH (09:42)
[2021-02-04] MEDS: METOPROLOL TARTRATE 25 MG TABLET (FP) PO SCH ×2 (09:42→21:29)
[2021-02-04] MEDS: SERTRALINE HCL 50 MG TABLET (FP) PO SCH (09:42)
[2021-02-04] MEDS: ASPIRIN 81 MG CHEWABLE TABLETS PO SCH (09:42)
[2021-02-04] MEDS: THIAMINE HCL 100 MG TABLET (FP) PO SCH (21:29)
[2021-02-04] MEDS: traZODone HCL 50 MG TABLET (FP) PO SCH (21:29)
[2021-02-04] MEDS: QUEtiapine FUMARATE 50 MG TABLET PO SCH (21:29)
[2021-02-05] MEDS ORDERED: hydrOXYzine PAMOATE 25 MG CAPSULE (FP) PO PRN (09:47)
[2021-02-05] MEDS: PRENATAL VITAMINS W/ FOLIC ACID TABLET (FP) PO SCH (10:02)
[2021-02-05] MEDS: SERTRALINE HCL 50 MG TABLET (FP) PO SCH (10:03)
[2021-02-05] MEDS: ASPIRIN 81 MG CHEWABLE TABLETS PO SCH (10:03)
[2021-02-05] MEDS: amLODIPine BESYLATE 10 MG TABLET (FP) PO SCH (10:03)
[2021-02-05] MEDS: LISINOPRIL 5 MG TABLET PO SCH (10:03)
[2021-02-05] MEDS: DOCUSATE SODIUM 100 MG CAPSULE (FP) PO SCH ×2 (10:03→21:21)
[2021-02-05] MEDS: METOPROLOL TARTRATE 25 MG TABLET (FP) PO SCH ×2 (10:10→21:21)
[2021-02-05] MEDS: QUEtiapine FUMARATE 50 MG TABLET PO SCH (21:21)
[2021-02-05] MEDS: METHOCARBAMOL 500 MG TABLET PO PRN (21:21)
[2021-02-05] MEDS: THIAMINE HCL 100 MG TABLET (FP) PO SCH (21:21)
[2021-02-05] MEDS: traZODone HCL 50 MG TABLET (FP) PO SCH (21:22)
[2021-02-06] MEDS: DOCUSATE SODIUM 100 MG CAPSULE (FP) PO SCH ×2 (10:05→21:07)
[2021-02-06] MEDS: LISINOPRIL 5 MG TABLET PO SCH (10:05)
[2021-02-06] MEDS: amLODIPine BESYLATE 10 MG TABLET (FP) PO SCH (10:05)
[2021-02-06] MEDS: PRENATAL VITAMINS W/ FOLIC ACID TABLET (FP) PO SCH (10:05)
[2021-02-06] MEDS: ASPIRIN 81 MG CHEWABLE TABLETS PO SCH (10:05)
[2021-02-06] MEDS: SERTRALINE HCL 50 MG TABLET (FP) PO SCH (10:05)
[2021-02-06] MEDS: METOPROLOL TARTRATE 25 MG TABLET (FP) PO SCH ×2 (10:05→21:07)
[2021-02-06] MEDS: MAGNESIUM HYDROX 2400MG/30ML ORAL SUSPENSION 30 ML CUP PO PRN (21:06)
[2021-02-06] MEDS: QUEtiapine FUMARATE 50 MG TABLET PO SCH (21:07)
[2021-02-06] MEDS: traZODone HCL 50 MG TABLET (FP) PO SCH (21:07)
[2021-02-06] MEDS: METHOCARBAMOL 500 MG TABLET PO PRN (21:07)
[2021-02-06] MEDS: THIAMINE HCL 100 MG TABLET (FP) PO SCH (21:07)
[2021-02-07 07:17] VITALS: BP 145/87; PULSE 65; TEMP 96.6
[2021-02-07] MEDS: DOCUSATE SODIUM 100 MG CAPSULE (FP) PO SCH (09:36)
[2021-02-07] MEDS: PRENATAL VITAMINS W/ FOLIC ACID TABLET (FP) PO SCH (09:36)
[2021-02-07] MEDS: LISINOPRIL 5 MG TABLET PO SCH (09:37)
[2021-02-07] MEDS: amLODIPine BESYLATE 10 MG TABLET (FP) PO SCH (09:37)
[2021-02-07] MEDS: ASPIRIN 81 MG CHEWABLE TABLETS PO SCH (09:37)
[2021-02-07] MEDS: METHOCARBAMOL 500 MG TABLET PO PRN (09:37)
[2021-02-07] MEDS: SERTRALINE HCL 50 MG TABLET (FP) PO SCH (09:37)
[2021-02-07] MEDS: METOPROLOL TARTRATE 25 MG TABLET (FP) PO SCH (09:37)
== END 2021-02-07 11:00 | disposition home or self-care (01) | DRG 772 ==
LOC: YASAS 19:06 → Y5N 19:08
PROVIDERS: ADMIT Allergy & Immunology; ATTEND Allergy & Immunology
PROC: HZ42ZZZ Group Counseling for Substance Abuse Treatment, Cognitive-Behavioral (ICD-10-PCS; principal; 2021-01-20)
DX: F10.20 Alcohol dependence, uncomplicated (principal); F14.20 Cocaine dependence, uncomplicated; F17.210 Nicotine dependence, cigarettes, uncomplicated; F19.24 Other psychoactive substance dependence with psychoactive substance-induced mood disorder; F32.A Depression, unspecified; G47.00 Insomnia, unspecified; I25.10 Atherosclerotic heart disease of native coronary artery without angina pectoris; I10 Essential (primary) hypertension; Z95.5 Presence of coronary angioplasty implant and graft; M54.50 Low back pain, unspecified; G89.29 Other chronic pain; E66.9 Obesity, unspecified; Z68.35 Body mass index [BMI] 35.0-35.9, adult; Z88.8 Allergy status to other drugs, medicaments and biological substances; Z88.6 Allergy status to analgesic agent
CPT/HCPCS: 0031A; 91303

== ENCOUNTER 2021-02-19 11:58 | Inpatient (IN) | payer OTHER ==
[2021-02-19] MEDS ORDERED: MAG HYDROX/AL HYDROX/SIMETH 30 ML UNIT-DOSE CUP PO PRN (12:32)
[2021-02-19] MEDS ORDERED: ACETAMINOPHEN 325 MG TABLET (FP) PO PRN ×2 (12:32)
[2021-02-19] MEDS ORDERED: MAGNESIUM CITRATE 300 ML BOTTLE PO PRN (12:32)
[2021-02-19] MEDS ORDERED: NICOTINE 10 MG CARTRIDGE (INHALER) IH PRN (12:32)
[2021-02-19] MEDS ORDERED: chlordiazePOXIDE HCL 25 MG CAPSULE PO PRN (12:32)
[2021-02-19] MEDS ORDERED: MAGNESIUM HYDROX 2400MG/30ML ORAL SUSPENSION 30 ML CUP PO PRN (12:32)
[2021-02-19] MEDS ORDERED: ONDANSETRON *ODT* 4 MG TABLET SL PRN (12:32)
[2021-02-19] MEDS ORDERED: BISMUTH SUBSALICYLATE 524 MG/30 ML PO PRN (12:32)
[2021-02-19] MEDS ORDERED: MENTHOL/PHENOL 1 EACH UD MM PRN (12:32)
[2021-02-19 13:17] VITALS: BMI 34.5
[2021-02-19] MEDS: hydrOXYzine PAMOATE 25 MG CAPSULE (FP) PO SCH ×3 (14:14→22:14)
[2021-02-19] MEDS: chlordiazePOXIDE HCL 25 MG CAPSULE PO SCH ×3 (14:18→22:15)
[2021-02-19] MEDS: PRENATAL VITAMINS W/ FOLIC ACID TABLET (FP) PO SCH (14:34)
[2021-02-19 15:07] LABS: HEMOGLOBIN 11.5 GM/dL (11.7-16.9); MCH 23.4 pg (25.7-33.7); MEAN CELL VOLUME 73.1 fl (80-96); MEAN PLT VOLUME 8.9 fl (7.5-11.1); PLATELET COUNT 221 10^3/uL (134-434); RBC 4.92 M/mm3 (4.00-5.60); RDW 18.5 % (11.9-15.9); WHITE BLOOD COUNT 5.6 K/mm3 (4.0-10.0)
[2021-02-19 15:16] LABS: CALCIUM 9.1 mg/dL (8.5-10.1)
[2021-02-19 15:17] LABS: ALBUMIN 3.4 g/dl (3.4-5.0); BLOOD UREA NITROGEN 13.2 mg/dL (7-18)
[2021-02-19 15:20] LABS: CREATININE 1.2 mg/dL (0.55-1.3)
[2021-02-19 15:21] LABS: BILIRUBIN,TOTAL 0.3 mg/dL (0.2-1)
[2021-02-19] MEDS: METHOCARBAMOL 500 MG TABLET PO PRN ×2 (16:31→22:14)
[2021-02-19] MEDS: metFORMIN HCL 500 MG TABLET (FP) PO SCH (16:46)
[2021-02-19] MEDS: POLYETHYLENE GLYCOL 3350 119 GM BTL PO SCH (18:31)
[2021-02-19] MEDS ORDERED: PATIENT'S OWN MEDICATION (NON-FORMULARY) (Metformin Hcl [Metformin Er Osmotic] 1,000 MG Ta PO SCH (22:00)
[2021-02-19] MEDS ORDERED: QUEtiapine FUMARATE 100 MG TABLET (FP) PO SCH (22:00)
[2021-02-19] MEDS ORDERED: QUEtiapine FUMARATE 200 MG TABLET PO SCH (22:00)
[2021-02-19] MEDS: THIAMINE HCL 100 MG TABLET (FP) PO SCH (22:14)
[2021-02-19] MEDS: EZETIMIBE 10 MG TABLET (FP) PO SCH (22:14)
[2021-02-19] MEDS: MELATONIN 5 MG TABLETS PO SCH (22:14)
[2021-02-19] MEDS: METOPROLOL TARTRATE 25 MG TABLET (FP) PO SCH (22:14)
[2021-02-19] MEDS: QUEtiapine FUMARATE 100 MG TABLET (FP) PO SCH (22:14)
[2021-02-19] MEDS: traZODone HCL 100 MG TABLET (FP) PO SCH (22:14)
[2021-02-19] MEDS: ATORVASTATIN CA 40 MG TABLET (FP) PO SCH (22:14)
[2021-02-20] MEDS: hydrOXYzine PAMOATE 25 MG CAPSULE (FP) PO SCH ×5 (05:47→22:37)
[2021-02-20] MEDS: chlordiazePOXIDE HCL 25 MG CAPSULE PO SCH ×4 (05:47→22:36)
[2021-02-20] MEDS: metFORMIN HCL 500 MG TABLET (FP) PO SCH ×2 (07:58→17:45)
[2021-02-20] MEDS: PRENATAL VITAMINS W/ FOLIC ACID TABLET (FP) PO SCH (10:30)
[2021-02-20] MEDS: amLODIPine BESYLATE 10 MG TABLET (FP) PO SCH (10:30)
[2021-02-20] MEDS: CLOPIDOGREL BISULFATE 75 MG TABLET (FP) PO SCH (10:30)
[2021-02-20] MEDS: ASPIRIN 81 MG CHEWABLE TABLETS PO SCH (10:31)
[2021-02-20] MEDS: LISINOPRIL 5 MG TABLET PO SCH (10:31)
[2021-02-20] MEDS: METOPROLOL TARTRATE 25 MG TABLET (FP) PO SCH ×2 (10:31→22:37)
[2021-02-20] MEDS: SERTRALINE HCL 50 MG TABLET (FP) PO SCH (10:31)
[2021-02-20] MEDS: POLYETHYLENE GLYCOL 3350 119 GM BTL PO SCH (10:38)
[2021-02-20] MEDS: INSULIN SLIDING SCALE (NOVOLOG) 1 VIAL SQ SCH ×2 (17:46→22:40)
[2021-02-20] MEDS: METHOCARBAMOL 500 MG TABLET PO PRN (17:48)
[2021-02-20] MEDS: ATORVASTATIN CA 40 MG TABLET (FP) PO SCH (22:37)
[2021-02-20] MEDS: MELATONIN 5 MG TABLETS PO SCH (22:37)
[2021-02-20] MEDS: traZODone HCL 100 MG TABLET (FP) PO SCH (22:37)
[2021-02-20] MEDS: THIAMINE HCL 100 MG TABLET (FP) PO SCH (22:37)
[2021-02-20] MEDS: QUEtiapine FUMARATE 100 MG TABLET (FP) PO SCH (22:37)
[2021-02-20] MEDS: EZETIMIBE 10 MG TABLET (FP) PO SCH (22:37)
[2021-02-21] MEDS: chlordiazePOXIDE HCL 25 MG CAPSULE PO SCH ×4 (05:23→22:01)
[2021-02-21] MEDS: hydrOXYzine PAMOATE 25 MG CAPSULE (FP) PO SCH ×5 (05:23→21:56)
[2021-02-21] MEDS: INSULIN SLIDING SCALE (NOVOLOG) 1 VIAL SQ SCH ×4 (06:33→21:53)
[2021-02-21] MEDS: metFORMIN HCL 500 MG TABLET (FP) PO SCH ×2 (07:47→16:57)
[2021-02-21] MEDS: LISINOPRIL 5 MG TABLET PO SCH (10:36)
[2021-02-21] MEDS: SERTRALINE HCL 50 MG TABLET (FP) PO SCH (10:36)
[2021-02-21] MEDS: PRENATAL VITAMINS W/ FOLIC ACID TABLET (FP) PO SCH (10:36)
[2021-02-21] MEDS: CLOPIDOGREL BISULFATE 75 MG TABLET (FP) PO SCH (10:36)
[2021-02-21] MEDS: POLYETHYLENE GLYCOL 3350 119 GM BTL PO SCH (10:36)
[2021-02-21] MEDS: METOPROLOL TARTRATE 25 MG TABLET (FP) PO SCH ×2 (10:36→21:56)
[2021-02-21] MEDS: ASPIRIN 81 MG CHEWABLE TABLETS PO SCH (10:36)
[2021-02-21] MEDS: amLODIPine BESYLATE 10 MG TABLET (FP) PO SCH (10:36)
[2021-02-21] MEDS: DOCUSATE SODIUM 100 MG CAPSULE (FP) PO SCH ×2 (12:50→21:56)
[2021-02-21] MEDS: MELATONIN 5 MG TABLETS PO SCH (21:55)
[2021-02-21] MEDS: EZETIMIBE 10 MG TABLET (FP) PO SCH (21:55)
[2021-02-21] MEDS: QUEtiapine FUMARATE 100 MG TABLET (FP) PO SCH (21:56)
[2021-02-21] MEDS: THIAMINE HCL 100 MG TABLET (FP) PO SCH (21:56)
[2021-02-21] MEDS: traZODone HCL 100 MG TABLET (FP) PO SCH (21:56)
[2021-02-21] MEDS: ATORVASTATIN CA 40 MG TABLET (FP) PO SCH (21:56)
[2021-02-22] MEDS ORDERED: chlordiazePOXIDE HCL 10 MG CAPSULE PO PRN
[2021-02-22] MEDS: hydrOXYzine PAMOATE 25 MG CAPSULE (FP) PO SCH ×3 (07:58→13:58)
[2021-02-22] MEDS: metFORMIN HCL 500 MG TABLET (FP) PO SCH (07:58)
[2021-02-22] MEDS: chlordiazePOXIDE HCL 10 MG CAPSULE PO SCH ×2 (07:58→10:06)
[2021-02-22] MEDS: INSULIN SLIDING SCALE (NOVOLOG) 1 VIAL SQ SCH ×2 (07:59→12:12)
[2021-02-22 10:03] VITALS: PULSE 73
[2021-02-22] MEDS: CLOPIDOGREL BISULFATE 75 MG TABLET (FP) PO SCH (10:06)
[2021-02-22] MEDS: SERTRALINE HCL 50 MG TABLET (FP) PO SCH (10:06)
[2021-02-22] MEDS: amLODIPine BESYLATE 10 MG TABLET (FP) PO SCH (10:06)
[2021-02-22] MEDS: DOCUSATE SODIUM 100 MG CAPSULE (FP) PO SCH (10:06)
[2021-02-22] MEDS: LISINOPRIL 5 MG TABLET PO SCH (10:06)
[2021-02-22] MEDS: ASPIRIN 81 MG CHEWABLE TABLETS PO SCH (10:06)
[2021-02-22] MEDS: PRENATAL VITAMINS W/ FOLIC ACID TABLET (FP) PO SCH (10:07)
[2021-02-22] MEDS: METOPROLOL TARTRATE 25 MG TABLET (FP) PO SCH (10:08)
[2021-02-22 12:55] VITALS: BP 99/60; TEMP 97.1
[2021-02-22 13:33] LABS: SGPT/ALT 38 U/L (13-61)
[2021-02-22 13:36] LABS: ALK PHOS 135 U/L (45-117)
[2021-02-23] MEDS ORDERED: chlordiazePOXIDE HCL 10 MG CAPSULE PO SCH (05:00)
[2021-02-24] MEDS ORDERED: chlordiazePOXIDE HCL 10 MG CAPSULE PO ONE (05:00)
== END 2021-02-22 14:45 | disposition left against medical advice (07) | DRG 770 ==
LOC: YASAS 11:58 → Y3N 13:06
PROVIDERS: ADMIT Allergy & Immunology; ATTEND Allergy & Immunology
PROC: HZ2ZZZZ Detoxification Services for Substance Abuse Treatment (ICD-10-PCS; principal; 2021-02-19)
DX: F10.230 Alcohol dependence with withdrawal, uncomplicated (principal); F14.20 Cocaine dependence, uncomplicated; F19.282 Other psychoactive substance dependence with psychoactive substance-induced sleep disorder; I10 Essential (primary) hypertension; I25.10 Atherosclerotic heart disease of native coronary artery without angina pectoris; E11.9 Type 2 diabetes mellitus without complications; E78.5 Hyperlipidemia, unspecified; R74.01 Elevation of levels of liver transaminase levels; G47.00 Insomnia, unspecified; E66.9 Obesity, unspecified; Z68.34 Body mass index [BMI] 34.0-34.9, adult; Z88.8 Allergy status to other drugs, medicaments and biological substances; Z91.51 Personal history of suicidal behavior; Z95.5 Presence of coronary angioplasty implant and graft; Z79.4 Long term (current) use of insulin; Z79.84 Long term (current) use of oral hypoglycemic drugs; Z56.0 Unemployment, unspecified; Z59.00 Homelessness unspecified
CPT/HCPCS: 36415; 80053; 82962; 84075; 84460; 85027; 86780; C9803; U0003; U0005

== ENCOUNTER 2021-06-18 09:49 | Inpatient (IN) | payer OTHER ==
[2021-06-18] MEDS ORDERED: ASPIRIN 81 MG CHEWABLE TABLETS PO ONE (10:55)
[2021-06-18] MEDS ORDERED: CLOPIDOGREL BISULFATE 75 MG TABLET (FP) PO ONE (10:55)
[2021-06-18] MEDS ORDERED: CLOPIDOGREL BISULFATE 75 MG TABLET (FP) ONE (11:02)
[2021-06-18] MEDS ORDERED: ASPIRIN 81 MG CHEWABLE TABLETS ONE (11:02)
[2021-06-18 11:25] LABS: BASO % 0.4 % (0-2.0); EOS % 2.2 % (0-4.5); HEMATOCRIT 39.1 % (35.4-49); HEMOGLOBIN 12.6 GM/dL (11.7-16.9); LYMPH % 22.1 % (8-40); MCH 21.8 pg (25.7-33.7); MCHC 32.4 g/dl (32.0-35.9); MEAN CELL VOLUME 67.3 fl (80-96); MEAN PLT VOLUME 8.9 fl (7.5-11.1); MONO % 9.6 % (3.8-10.2); NEUT % 65.7 % (42.8-82.8); PLATELET COUNT 244 10^3/uL (134-434); RDW 20.1 % (11.9-15.9); WHITE BLOOD COUNT 5.9 K/mm3 (4.0-10.0)
[2021-06-18 11:52] LABS: CALCIUM 9.4 mg/dL (8.5-10.1)
[2021-06-18 11:53] LABS: ALBUMIN 3.6 g/dl (3.4-5.0)
[2021-06-18 11:56] LABS: CREATININE 0.9 mg/dL (0.55-1.3)
[2021-06-18 11:57] LABS: BILIRUBIN,TOTAL 0.5 mg/dL (0.2-1); TOT PROT 7.8 g/dl (6.4-8.2)
[2021-06-18] MEDS ORDERED: morphine CARPU-JECT 2 MG/1 ML DISP.SYRIN IVPUSH ONE (12:06)
[2021-06-18] MEDS ORDERED: morphine CARPU-JECT 4 MG/1 ML DISP.SYRIN IVPUSH ONE (13:15)
[2021-06-18 13:20] LABS: ANISOCYTOSIS 0; MACROCYTOSIS 0
[2021-06-18] MEDS ORDERED: chlordiazePOXIDE HCL 25 MG CAPSULE PO ONE ×2 (13:50→17:27)
[2021-06-18] MEDS ORDERED: chlordiazePOXIDE HCL 25 MG CAPSULE ONE ×2 (13:56→18:07)
[2021-06-18] MEDS ORDERED: chlordiazePOXIDE HCL 25 MG CAPSULE PO PRN (17:27)
[2021-06-18] MEDS: chlordiazePOXIDE HCL 25 MG CAPSULE PO SCH ×2 (18:10→22:00)
[2021-06-18] MEDS: traZODone HCL 50 MG TABLET (FP) PO SCH (21:55)
[2021-06-18] MEDS: EZETIMIBE 10 MG TABLET (FP) PO SCH (21:55)
[2021-06-18] MEDS: METOPROLOL TARTRATE 25 MG TABLET (FP) PO SCH (21:55)
[2021-06-18] MEDS: QUEtiapine FUMARATE 100 MG TABLET (FP) PO SCH (21:55)
[2021-06-19] MEDS: chlordiazePOXIDE HCL 25 MG CAPSULE PO SCH ×4 (05:16→22:39)
[2021-06-19] MEDS: METOPROLOL TARTRATE 25 MG TABLET (FP) PO SCH ×2 (09:58→22:40)
[2021-06-19] MEDS ORDERED: ASPIRIN 81 MG CHEWABLE TABLETS PO SCH (10:00)
[2021-06-19] MEDS ORDERED: SERTRALINE HCL 50 MG TABLET (FP) PO SCH (10:00)
[2021-06-19 13:30] LABS: EOS % 5.4 % (0-4.5); HEMOGLOBIN 11.5 GM/dL (11.7-16.9); LYMPH % 32.7 % (8-40); MCH 22.1 pg (25.7-33.7); MCHC 32.9 g/dl (32.0-35.9); MEAN CELL VOLUME 67.1 fl (80-96); MEAN PLT VOLUME 9.6 fl (7.5-11.1); MONO % 10.2 % (3.8-10.2); NEUT % 50.7 % (42.8-82.8); PLATELET COUNT 211 10^3/uL (134-434); RBC 5.22 M/mm3 (4.00-5.60); RDW 19.4 % (11.9-15.9); WHITE BLOOD COUNT 4.5 K/mm3 (4.0-10.0)
[2021-06-19 14:00] LABS: CALCIUM 8.9 mg/dL (8.5-10.1); MAGNESIUM 2.3 mg/dL (1.8-2.4)
[2021-06-19 14:03] LABS: PHOSPHOROUS 3.8 mg/dL (2.5-4.9)
[2021-06-19 14:05] LABS: BILIRUBIN,TOTAL 0.3 mg/dL (0.2-1); TOT PROT 6.5 g/dl (6.4-8.2)
[2021-06-19] MEDS: oxyCODONE HCL 5 MG TABLET PO PRN ×2 (14:22→20:25)
[2021-06-19] MEDS: EZETIMIBE 10 MG TABLET (FP) PO SCH (22:39)
[2021-06-19] MEDS: QUEtiapine FUMARATE 100 MG TABLET (FP) PO SCH (22:39)
[2021-06-19] MEDS: traZODone HCL 50 MG TABLET (FP) PO SCH (22:40)
[2021-06-20] MEDS ORDERED: chlordiazePOXIDE HCL 25 MG CAPSULE PO SCH (05:00)
[2021-06-20] MEDS: oxyCODONE HCL 5 MG TABLET PO PRN ×3 (06:43→18:55)
[2021-06-20] MEDS: chlordiazePOXIDE HCL 25 MG CAPSULE PO SCH ×4 (06:43→23:44)
[2021-06-20] MEDS: METOPROLOL TARTRATE 25 MG TABLET (FP) PO SCH ×2 (09:44→21:36)
[2021-06-20] MEDS: SERTRALINE HCL 50 MG TABLET (FP) PO SCH (09:44)
[2021-06-20] MEDS: LISINOPRIL 10 MG TABLET PO SCH (09:44)
[2021-06-20] MEDS: ASPIRIN 81 MG CHEWABLE TABLETS PO SCH (09:46)
[2021-06-20] MEDS ORDERED: CLOPIDOGREL BISULFATE 75 MG TABLET (FP) PO SCH (14:00)
[2021-06-20] MEDS: chlordiazePOXIDE HCL 25 MG CAPSULE PO PRN ×2 (15:34→21:44)
[2021-06-20 20:32] LABS: PHENCYCLIDINE,URINE NEGATIVE (NEGATIVE); URINE BARBITURATES NEGATIVE (NEGATIVE)
[2021-06-20 20:34] LABS: COCAINE, UR NEGATIVE (NEGATIVE); METHADONE, UR NEGATIVE (NEGATIVE)
[2021-06-20 20:44] LABS: OPIATES, URI POSITIVE (NEGATIVE); URINE AMPHETAMINES NEGATIVE (NEGATIVE); URINE BENZODIAZEPINES POSITIVE (NEGATIVE)
[2021-06-20] MEDS: QUEtiapine FUMARATE 100 MG TABLET (FP) PO SCH (21:36)
[2021-06-20] MEDS: traZODone HCL 50 MG TABLET (FP) PO SCH (21:36)
[2021-06-20] MEDS: EZETIMIBE 10 MG TABLET (FP) PO SCH (21:36)
[2021-06-20] MEDS: ATORVASTATIN CA 40 MG TABLET (FP) PO SCH (21:36)
[2021-06-21] MEDS ORDERED: chlordiazePOXIDE HCL 10 MG CAPSULE PO PRN
[2021-06-21] MEDS ORDERED: chlordiazePOXIDE HCL 10 MG CAPSULE PO SCH (05:00)
[2021-06-21] MEDS: chlordiazePOXIDE HCL 10 MG CAPSULE PO SCH ×2 (05:28→12:50)
[2021-06-21] MEDS: LISINOPRIL 10 MG TABLET PO SCH (10:54)
[2021-06-21] MEDS: ASPIRIN 81 MG CHEWABLE TABLETS PO SCH (10:54)
[2021-06-21] MEDS: METOPROLOL TARTRATE 25 MG TABLET (FP) PO SCH ×2 (10:54→22:33)
[2021-06-21] MEDS: SERTRALINE HCL 50 MG TABLET (FP) PO SCH (10:55)
[2021-06-21] MEDS: oxyCODONE HCL 5 MG TABLET PO PRN ×2 (11:01→17:32)
[2021-06-21 14:15] VITALS: BMI 29.8
[2021-06-21] MEDS: chlordiazePOXIDE HCL 10 MG CAPSULE PO PRN ×2 (15:18→22:32)
[2021-06-21] MEDS: traZODone HCL 50 MG TABLET (FP) PO SCH (22:33)
[2021-06-21] MEDS: ATORVASTATIN CA 40 MG TABLET (FP) PO SCH (22:33)
[2021-06-21] MEDS: QUEtiapine FUMARATE 100 MG TABLET (FP) PO SCH (22:33)
[2021-06-21] MEDS: EZETIMIBE 10 MG TABLET (FP) PO SCH (22:33)
[2021-06-22] MEDS ORDERED: chlordiazePOXIDE HCL 10 MG CAPSULE PO SCH ×2 (05:00)
[2021-06-22] MEDS: oxyCODONE HCL 5 MG TABLET PO PRN ×3 (08:24→21:20)
[2021-06-22] MEDS: LISINOPRIL 10 MG TABLET PO SCH (09:35)
[2021-06-22] MEDS: ASPIRIN 81 MG CHEWABLE TABLETS PO SCH (09:35)
[2021-06-22] MEDS: SERTRALINE HCL 50 MG TABLET (FP) PO SCH (09:35)
[2021-06-22] MEDS: METOPROLOL TARTRATE 25 MG TABLET (FP) PO SCH ×2 (09:35→21:20)
[2021-06-22 16:08] LABS: SARS-CoV-2 NAA Not Detected (Not Detected)
[2021-06-22] MEDS: LORazepam 0.5 MG TABLET PO PRN (16:16)
[2021-06-22] MEDS ORDERED: METHYL SALICYLATE/MENTHOL OINT 30 GM TUBE TP PRN (16:21)
[2021-06-22] MEDS: traZODone HCL 50 MG TABLET (FP) PO SCH (21:19)
[2021-06-22] MEDS: ATORVASTATIN CA 40 MG TABLET (FP) PO SCH (21:20)
[2021-06-22] MEDS: EZETIMIBE 10 MG TABLET (FP) PO SCH (21:20)
[2021-06-22] MEDS: QUEtiapine FUMARATE 100 MG TABLET (FP) PO SCH (21:20)
[2021-06-23] MEDS ORDERED: chlordiazePOXIDE HCL 10 MG CAPSULE PO ONE ×2 (05:00)
[2021-06-23] MEDS: oxyCODONE HCL 5 MG TABLET PO PRN ×3 (05:30→20:41)
[2021-06-23] MEDS: SERTRALINE HCL 50 MG TABLET (FP) PO SCH (09:07)
[2021-06-23] MEDS: ASPIRIN 81 MG CHEWABLE TABLETS PO SCH (09:07)
[2021-06-23] MEDS: METOPROLOL TARTRATE 25 MG TABLET (FP) PO SCH ×2 (09:07→22:36)
[2021-06-23] MEDS: LORazepam 0.5 MG TABLET PO PRN (09:07)
[2021-06-23] MEDS: LISINOPRIL 10 MG TABLET PO SCH (09:09)
[2021-06-23] MEDS: LORazepam 1 MG TABLET PO PRN (16:33)
[2021-06-23 19:08] LABS: SARS-CoV-2 NAA Not Detected (Not Detected)
[2021-06-23] MEDS: QUEtiapine FUMARATE 100 MG TABLET (FP) PO SCH (21:52)
[2021-06-23] MEDS: traZODone HCL 50 MG TABLET (FP) PO SCH (21:52)
[2021-06-23] MEDS: ATORVASTATIN CA 40 MG TABLET (FP) PO SCH (22:36)
[2021-06-23] MEDS: EZETIMIBE 10 MG TABLET (FP) PO SCH (22:36)
[2021-06-24] MEDS: LISINOPRIL 10 MG TABLET PO SCH (10:47)
[2021-06-24] MEDS: SERTRALINE HCL 50 MG TABLET (FP) PO SCH (10:47)
[2021-06-24] MEDS: ASPIRIN 81 MG CHEWABLE TABLETS PO SCH (10:47)
[2021-06-24] MEDS: METOPROLOL TARTRATE 25 MG TABLET (FP) PO SCH ×2 (10:47→21:38)
[2021-06-24] MEDS: oxyCODONE HCL 5 MG TABLET PO PRN ×3 (10:55→23:33)
[2021-06-24] MEDS: LORazepam 1 MG TABLET PO PRN ×2 (10:56→23:34)
[2021-06-24] MEDS ORDERED: DOCUSATE SODIUM 100 MG CAPSULE (FP) PO PRN (15:46)
[2021-06-24] MEDS ORDERED: SENNOSIDES 8.6MG TABLET (FP) PO PRN (15:46)
[2021-06-24] MEDS: traZODone HCL 50 MG TABLET (FP) PO SCH (21:38)
[2021-06-24] MEDS: EZETIMIBE 10 MG TABLET (FP) PO SCH (21:38)
[2021-06-24] MEDS: QUEtiapine FUMARATE 100 MG TABLET (FP) PO SCH (21:38)
[2021-06-24] MEDS: ATORVASTATIN CA 40 MG TABLET (FP) PO SCH (21:38)
[2021-06-25] MEDS: oxyCODONE HCL 5 MG TABLET PO PRN ×2 (06:13→12:59)
[2021-06-25] MEDS: ASPIRIN 81 MG CHEWABLE TABLETS PO SCH (09:24)
[2021-06-25] MEDS: SERTRALINE HCL 50 MG TABLET (FP) PO SCH (09:24)
[2021-06-25] MEDS: LISINOPRIL 10 MG TABLET PO SCH (09:24)
[2021-06-25] MEDS: METOPROLOL TARTRATE 25 MG TABLET (FP) PO SCH (09:24)
[2021-06-25 13:22] VITALS: BP 149/88; PULSE 72; TEMP 98.1
== END 2021-06-25 13:00 | DRG 756 ==
LOC: JER 09:49 → JERBED 16:11 → J4W 21:24 → J4S 06-19 19:42 → J8W 06-20 14:14 → OBSVTOIN 06-21 12:52
PROVIDERS: ADMIT Internal Medicine; ATTEND Internal Medicine
DX: R45.851 Suicidal ideations (principal); R07.89 Other chest pain; I25.10 Atherosclerotic heart disease of native coronary artery without angina pectoris; R47.01 Aphasia; F14.20 Cocaine dependence, uncomplicated; I24.9 Acute ischemic heart disease, unspecified; Z95.1 Presence of aortocoronary bypass graft; I10 Essential (primary) hypertension; E78.5 Hyperlipidemia, unspecified; F10.230 Alcohol dependence with withdrawal, uncomplicated; R74.01 Elevation of levels of liver transaminase levels; F32.A Depression, unspecified; E78.00 Pure hypercholesterolemia, unspecified; Z59.00 Homelessness unspecified
CPT/HCPCS: 36415; 71045-TC-FY; 71275-TC; 74174-TC; 80053; 80307; 82962; 83735; 84100; 84484; 85025; 86140; 93005; 93010; 99285-25; C9803-CS; G0378; U0003; U0005

== ENCOUNTER 2021-07-21 12:00 | Inpatient (IN) | payer OTHER ==
[2021-07-21 13:40] VITALS: BMI 29.5
[2021-07-21] MEDS ORDERED: DICYCLOMINE HCL 10 MG CAPSULE PO PRN (14:07)
[2021-07-21] MEDS ORDERED: ONDANSETRON *ODT* 4 MG TABLET SL PRN (14:07)
[2021-07-21] MEDS ORDERED: BENZOCAINE/MENTHOL (CHLORASEPTIC ) LOZENGE MM PRN (14:07)
[2021-07-21] MEDS ORDERED: MAGNESIUM HYDROX 2400MG/30ML ORAL SUSPENSION 30 ML CUP PO PRN (14:07)
[2021-07-21] MEDS ORDERED: MAG HYDROX/AL HYDROX/SIMETH 30 ML UNIT-DOSE CUP PO PRN (14:07)
[2021-07-21] MEDS ORDERED: LOPERAMIDE HCL 2 MG CAPSULE PO PRN (14:07)
[2021-07-21] MEDS ORDERED: NICOTINE 10 MG CARTRIDGE (INHALER) IH PRN (14:07)
[2021-07-21] MEDS ORDERED: BISMUTH SUBSALICYLATE 524 MG/30 ML PO PRN (14:07)
[2021-07-21] MEDS ORDERED: MAGNESIUM CITRATE 300 ML BOTTLE PO PRN (14:07)
[2021-07-21] MEDS ORDERED: ACETAMINOPHEN 325 MG TABLET (FP) PO PRN ×2 (14:07)
[2021-07-21] MEDS: diazePAM 5 MG TABLET PO PRN ×2 (16:40→22:40)
[2021-07-21] MEDS: IBUPROFEN 400 MG TABLET (FP) PO PRN (16:43)
[2021-07-21] MEDS: hydrOXYzine PAMOATE 25 MG CAPSULE (FP) PO SCH ×2 (17:00→22:40)
[2021-07-21] MEDS: metFORMIN HCL 500 MG TABLET (FP) PO SCH (18:17)
[2021-07-21] MEDS: diazePAM 5 MG TABLET PO SCH ×2 (18:47→22:55)
[2021-07-21] MEDS: THIAMINE HCL 100 MG TABLET (FP) PO SCH (22:39)
[2021-07-21] MEDS: ATORVASTATIN CA 40 MG TABLET (FP) PO SCH (22:40)
[2021-07-21] MEDS: FAMOTIDINE 20 MG TABLET PO SCH (22:40)
[2021-07-21] MEDS: METOPROLOL TARTRATE 25 MG TABLET (FP) PO SCH (22:40)
[2021-07-21] MEDS: MELATONIN 5 MG TABLETS PO SCH (22:54)
[2021-07-22] MEDS: hydrOXYzine PAMOATE 25 MG CAPSULE (FP) PO SCH ×5 (06:37→23:39)
[2021-07-22] MEDS: metFORMIN HCL 500 MG TABLET (FP) PO SCH ×2 (06:37→18:20)
[2021-07-22] MEDS: diazePAM 5 MG TABLET PO SCH ×4 (06:37→23:39)
[2021-07-22] MEDS: IBUPROFEN 400 MG TABLET (FP) PO PRN (07:45)
[2021-07-22] MEDS: LISINOPRIL 10 MG TABLET PO SCH (10:25)
[2021-07-22] MEDS: ASPIRIN 81 MG CHEWABLE TABLETS PO SCH (10:25)
[2021-07-22] MEDS: FAMOTIDINE 20 MG TABLET PO SCH ×2 (10:25→23:39)
[2021-07-22] MEDS: METOPROLOL TARTRATE 25 MG TABLET (FP) PO SCH ×2 (10:26→22:50)
[2021-07-22] MEDS: PRENATAL VITAMINS W/ FOLIC ACID TABLET (FP) PO SCH (10:26)
[2021-07-22] MEDS ORDERED: SERTRALINE HCL 50 MG TABLET (FP) PO ONE (11:15)
[2021-07-22] MEDS ORDERED: GABAPENTIN 300 MG CAPSULE PO ONE (11:15)
[2021-07-22] MEDS: diazePAM 5 MG TABLET PO PRN (11:31)
[2021-07-22] MEDS ORDERED: IBUPROFEN 400 MG TABLET (FP) PO PRN (13:41)
[2021-07-22] MEDS: METHOCARBAMOL 500 MG TABLET PO PRN (18:23)
[2021-07-22] MEDS: THIAMINE HCL 100 MG TABLET (FP) PO SCH (22:49)
[2021-07-22] MEDS: ATORVASTATIN CA 40 MG TABLET (FP) PO SCH (22:50)
[2021-07-22] MEDS: MELATONIN 5 MG TABLETS PO SCH (23:38)
[2021-07-22] MEDS: traZODone HCL 50 MG TABLET (FP) PO SCH (23:38)
[2021-07-22] MEDS: GABAPENTIN 300 MG CAPSULE PO SCH (23:39)
[2021-07-23] MEDS: hydrOXYzine PAMOATE 25 MG CAPSULE (FP) PO SCH ×5 (05:36→22:45)
[2021-07-23] MEDS: diazePAM 5 MG TABLET PO SCH ×3 (05:36→22:49)
[2021-07-23] MEDS: METHOCARBAMOL 500 MG TABLET PO PRN ×2 (05:36→13:45)
[2021-07-23] MEDS: metFORMIN HCL 500 MG TABLET (FP) PO SCH ×2 (06:58→16:48)
[2021-07-23] MEDS: PRENATAL VITAMINS W/ FOLIC ACID TABLET (FP) PO SCH (10:01)
[2021-07-23] MEDS: GABAPENTIN 300 MG CAPSULE PO SCH ×2 (10:01→22:45)
[2021-07-23] MEDS: SERTRALINE HCL 50 MG TABLET (FP) PO SCH (10:01)
[2021-07-23] MEDS: ASPIRIN 81 MG CHEWABLE TABLETS PO SCH (10:01)
[2021-07-23] MEDS: METOPROLOL TARTRATE 25 MG TABLET (FP) PO SCH ×2 (10:01→22:45)
[2021-07-23] MEDS: FAMOTIDINE 20 MG TABLET PO SCH ×2 (10:02→22:45)
[2021-07-23] MEDS: diazePAM 5 MG TABLET PO PRN (10:02)
[2021-07-23] MEDS: LISINOPRIL 10 MG TABLET PO SCH (10:02)
[2021-07-23] MEDS: IBUPROFEN 600 MG TABLET (FP) PO PRN (13:47)
[2021-07-23] MEDS: ATORVASTATIN CA 40 MG TABLET (FP) PO SCH (22:44)
[2021-07-23] MEDS: THIAMINE HCL 100 MG TABLET (FP) PO SCH (22:45)
[2021-07-23] MEDS: traZODone HCL 50 MG TABLET (FP) PO SCH (22:45)
[2021-07-23] MEDS: MELATONIN 5 MG TABLETS PO SCH (22:49)
[2021-07-24] MEDS: diazePAM 5 MG TABLET PO SCH ×2 (05:56→17:31)
[2021-07-24] MEDS: hydrOXYzine PAMOATE 25 MG CAPSULE (FP) PO SCH ×6 (05:56→21:54)
[2021-07-24] MEDS: METHOCARBAMOL 500 MG TABLET PO PRN ×2 (05:58→14:20)
[2021-07-24] MEDS: IBUPROFEN 600 MG TABLET (FP) PO PRN ×2 (05:59→14:20)
[2021-07-24] MEDS: metFORMIN HCL 500 MG TABLET (FP) PO SCH ×2 (07:58→17:31)
[2021-07-24] MEDS: METOPROLOL TARTRATE 25 MG TABLET (FP) PO SCH ×2 (10:36→21:54)
[2021-07-24] MEDS: PRENATAL VITAMINS W/ FOLIC ACID TABLET (FP) PO SCH (10:36)
[2021-07-24] MEDS: ASPIRIN 81 MG CHEWABLE TABLETS PO SCH (10:36)
[2021-07-24] MEDS: SERTRALINE HCL 50 MG TABLET (FP) PO SCH (10:36)
[2021-07-24] MEDS: FAMOTIDINE 20 MG TABLET PO SCH ×2 (10:36→21:56)
[2021-07-24] MEDS: LISINOPRIL 10 MG TABLET PO SCH (10:36)
[2021-07-24] MEDS: GABAPENTIN 300 MG CAPSULE PO SCH ×2 (10:36→21:54)
[2021-07-24] MEDS: diazePAM 5 MG TABLET PO PRN (10:37)
[2021-07-24 16:17] LABS: SARS-CoV-2 NAA Not Detected (Not Detected)
[2021-07-24] MEDS: ATORVASTATIN CA 40 MG TABLET (FP) PO SCH (21:54)
[2021-07-24] MEDS: traZODone HCL 50 MG TABLET (FP) PO SCH (21:54)
[2021-07-24] MEDS: THIAMINE HCL 100 MG TABLET (FP) PO SCH (21:54)
[2021-07-24] MEDS: MELATONIN 5 MG TABLETS PO SCH (21:56)
[2021-07-25] MEDS ORDERED: diazePAM 5 MG TABLET PO ONE (06:00)
[2021-07-25] MEDS: metFORMIN HCL 500 MG TABLET (FP) PO SCH (06:16)
[2021-07-25] MEDS: hydrOXYzine PAMOATE 25 MG CAPSULE (FP) PO SCH ×2 (06:32→10:12)
[2021-07-25 09:54] VITALS: BP 153/97; PULSE 74; TEMP 97.5
[2021-07-25] MEDS: ASPIRIN 81 MG CHEWABLE TABLETS PO SCH (10:12)
[2021-07-25] MEDS: METHOCARBAMOL 500 MG TABLET PO PRN (10:12)
[2021-07-25] MEDS: METOPROLOL TARTRATE 25 MG TABLET (FP) PO SCH (10:12)
[2021-07-25] MEDS: FAMOTIDINE 20 MG TABLET PO SCH (10:12)
[2021-07-25] MEDS: PRENATAL VITAMINS W/ FOLIC ACID TABLET (FP) PO SCH (10:12)
[2021-07-25] MEDS: GABAPENTIN 300 MG CAPSULE PO SCH (10:12)
[2021-07-25] MEDS: LISINOPRIL 10 MG TABLET PO SCH (10:12)
[2021-07-25] MEDS: IBUPROFEN 600 MG TABLET (FP) PO PRN (10:12)
[2021-07-25] MEDS: SERTRALINE HCL 50 MG TABLET (FP) PO SCH (10:12)
== END 2021-07-25 12:27 | disposition other institution (70) | DRG 774 ==
LOC: YASAS 12:00 → Y6N 15:01
PROVIDERS: ADMIT Surgery; ATTEND Surgery
PROC: HZ2ZZZZ Detoxification Services for Substance Abuse Treatment (ICD-10-PCS; principal; 2021-07-21)
DX: F10.230 Alcohol dependence with withdrawal, uncomplicated (principal); F14.20 Cocaine dependence, uncomplicated; F19.24 Other psychoactive substance dependence with psychoactive substance-induced mood disorder; F39 Unspecified mood [affective] disorder; I10 Essential (primary) hypertension; I25.10 Atherosclerotic heart disease of native coronary artery without angina pectoris; E78.5 Hyperlipidemia, unspecified; E11.9 Type 2 diabetes mellitus without complications; Z88.8 Allergy status to other drugs, medicaments and biological substances; Z62.810 Personal history of physical and sexual abuse in childhood; Z95.5 Presence of coronary angioplasty implant and graft; Z95.1 Presence of aortocoronary bypass graft; Z56.0 Unemployment, unspecified; Z59.00 Homelessness unspecified
CPT/HCPCS: 82962; C9803-CS; U0003; U0005

== ENCOUNTER 2021-07-25 12:44 | Inpatient (IN) | payer OTHER ==
[2021-07-25] MEDS ORDERED: BENZOCAINE/MENTHOL (CHLORASEPTIC ) LOZENGE MM PRN (13:12)
[2021-07-25] MEDS ORDERED: MAGNESIUM HYDROX 2400MG/30ML ORAL SUSPENSION 30 ML CUP PO PRN (13:12)
[2021-07-25] MEDS ORDERED: IBUPROFEN 400 MG TABLET (FP) PO PRN (13:12)
[2021-07-25] MEDS ORDERED: P-EPHED 60MG/TRIPROLIDI 2.5MG TABLET PO PRN (13:12)
[2021-07-25] MEDS ORDERED: MAG HYDROX/AL HYDROX/SIMETH 30 ML UNIT-DOSE CUP PO PRN (13:12)
[2021-07-25] MEDS ORDERED: MAGNESIUM CITRATE 300 ML BOTTLE PO PRN (13:12)
[2021-07-25] MEDS ORDERED: NICOTINE 10 MG CARTRIDGE (INHALER) IH PRN (13:12)
[2021-07-25] MEDS ORDERED: ACETAMINOPHEN 325 MG TABLET (FP) PO PRN (13:12)
[2021-07-25] MEDS ORDERED: guaiFENesin 200 MG/10 ML 10 ML UNIT-DOSE CUPS PO PRN (13:12)
[2021-07-25] MEDS ORDERED: LOPERAMIDE HCL 2 MG CAPSULE PO PRN (13:12)
[2021-07-25] MEDS ORDERED: hydrOXYzine PAMOATE 25 MG CAPSULE (FP) PO PRN (13:21)
[2021-07-25] MEDS ORDERED: hydrOXYzine PAMOATE 25 MG CAPSULE (FP) PO SCH (14:00)
[2021-07-25] MEDS: METHOCARBAMOL 500 MG TABLET PO SCH ×3 (16:49→21:51)
[2021-07-25] MEDS: metFORMIN HCL 500 MG TABLET (FP) PO SCH (17:26)
[2021-07-25] MEDS ORDERED: ATORVASTATIN CA 40 MG TABLET (FP) ONE (21:47)
[2021-07-25] MEDS: ATORVASTATIN CA 80 MG TABLET (FP) PO SCH (21:48)
[2021-07-25] MEDS: GABAPENTIN 300 MG CAPSULE PO SCH (21:48)
[2021-07-25] MEDS: traZODone HCL 100 MG TABLET (FP) PO SCH (21:49)
[2021-07-25] MEDS: METOPROLOL TARTRATE 25 MG TABLET (FP) PO SCH (21:49)
[2021-07-25] MEDS: MELATONIN 5 MG TABLETS PO SCH (21:49)
[2021-07-25] MEDS: THIAMINE HCL 100 MG TABLET (FP) PO SCH (21:49)
[2021-07-26] MEDS: metFORMIN HCL 500 MG TABLET (FP) PO SCH ×2 (07:02→16:54)
[2021-07-26] MEDS ORDERED: METOPROLOL TARTRATE 25 MG TABLET (FP) PO SCH (10:00)
[2021-07-26] MEDS: METHOCARBAMOL 500 MG TABLET PO SCH ×4 (10:09→21:15)
[2021-07-26] MEDS: PRENATAL VITAMINS W/ FOLIC ACID TABLET (FP) PO SCH (10:09)
[2021-07-26] MEDS: ASPIRIN COATED 81 MG TABLET.EC PO SCH (10:09)
[2021-07-26] MEDS: METOPROLOL TARTRATE 25 MG TABLET (FP) PO SCH ×2 (10:10→21:15)
[2021-07-26] MEDS: NICOTINE 7 MG/24 HOURS TOPICAL PATCH TD SCH (10:10)
[2021-07-26] MEDS: GABAPENTIN 300 MG CAPSULE PO SCH ×2 (10:10→17:58)
[2021-07-26] MEDS: LISINOPRIL 10 MG TABLET PO SCH (10:10)
[2021-07-26] MEDS: FAMOTIDINE 20 MG TABLET PO SCH (10:10)
[2021-07-26] MEDS: IBUPROFEN 600 MG TABLET (FP) PO PRN ×2 (11:48→21:17)
[2021-07-26] MEDS ORDERED: GABAPENTIN 300 MG CAPSULE PO SCH ×2 (12:30→22:30)
[2021-07-26] MEDS ORDERED: ATORVASTATIN CA 40 MG TABLET (FP) ONE (19:06)
[2021-07-26] MEDS: ATORVASTATIN CA 80 MG TABLET (FP) PO SCH (21:17)
[2021-07-26] MEDS: traZODone HCL 100 MG TABLET (FP) PO SCH (21:17)
[2021-07-26] MEDS: THIAMINE HCL 100 MG TABLET (FP) PO SCH (21:18)
[2021-07-26] MEDS: MELATONIN 5 MG TABLETS PO SCH (21:18)
[2021-07-27] MEDS: GABAPENTIN 300 MG CAPSULE PO SCH ×2 (07:18→17:17)
[2021-07-27] MEDS: metFORMIN HCL 500 MG TABLET (FP) PO SCH ×2 (07:18→17:17)
[2021-07-27] MEDS: IBUPROFEN 600 MG TABLET (FP) PO PRN ×2 (07:20→14:09)
[2021-07-27] MEDS: FAMOTIDINE 20 MG TABLET PO SCH (10:39)
[2021-07-27] MEDS: ASPIRIN COATED 81 MG TABLET.EC PO SCH (10:40)
[2021-07-27] MEDS: METHOCARBAMOL 500 MG TABLET PO SCH ×4 (10:40→21:23)
[2021-07-27] MEDS: LISINOPRIL 10 MG TABLET PO SCH (10:40)
[2021-07-27] MEDS: PRENATAL VITAMINS W/ FOLIC ACID TABLET (FP) PO SCH (10:40)
[2021-07-27] MEDS: NICOTINE 7 MG/24 HOURS TOPICAL PATCH TD SCH (10:41)
[2021-07-27] MEDS: METOPROLOL TARTRATE 25 MG TABLET (FP) PO SCH ×2 (10:42→21:23)
[2021-07-27] MEDS ORDERED: SENNOSIDES 8.6MG TABLET (FP) PO PRN (14:07)
[2021-07-27] MEDS: traZODone HCL 100 MG TABLET (FP) PO SCH (21:23)
[2021-07-27] MEDS: ATORVASTATIN CA 80 MG TABLET (FP) PO SCH (21:23)
[2021-07-27] MEDS: MELATONIN 5 MG TABLETS PO SCH (21:24)
[2021-07-27] MEDS: DOCUSATE SODIUM 100 MG CAPSULE (FP) PO SCH (21:24)
[2021-07-27] MEDS: THIAMINE HCL 100 MG TABLET (FP) PO SCH (21:24)
[2021-07-28] MEDS: DOCUSATE SODIUM 100 MG CAPSULE (FP) PO SCH ×3 (06:28→22:40)
[2021-07-28] MEDS: metFORMIN HCL 500 MG TABLET (FP) PO SCH ×2 (06:29→16:47)
[2021-07-28] MEDS: GABAPENTIN 300 MG CAPSULE PO SCH ×2 (06:30→17:49)
[2021-07-28] MEDS: ASPIRIN COATED 81 MG TABLET.EC PO SCH (10:11)
[2021-07-28] MEDS: FAMOTIDINE 20 MG TABLET PO SCH (10:11)
[2021-07-28] MEDS: PRENATAL VITAMINS W/ FOLIC ACID TABLET (FP) PO SCH (10:11)
[2021-07-28] MEDS: IBUPROFEN 600 MG TABLET (FP) PO PRN (10:12)
[2021-07-28] MEDS: LISINOPRIL 10 MG TABLET PO SCH (10:12)
[2021-07-28] MEDS: METHOCARBAMOL 500 MG TABLET PO SCH ×4 (10:12→22:41)
[2021-07-28] MEDS: NICOTINE 7 MG/24 HOURS TOPICAL PATCH TD SCH (10:12)
[2021-07-28] MEDS: METOPROLOL TARTRATE 25 MG TABLET (FP) PO SCH ×2 (10:12→22:41)
[2021-07-28] MEDS ORDERED: CLOPIDOGREL BISULFATE 75 MG TABLET (FP) PO SCH (13:45)
[2021-07-28 14:10] LABS: SARS-CoV-2 NAA Not Detected (Not Detected)
[2021-07-28] MEDS ORDERED: ATORVASTATIN CA 40 MG TABLET (FP) ONE (20:00)
[2021-07-28] MEDS ORDERED: EZETIMIBE 10 MG TABLET (FP) PO SCH (22:00)
[2021-07-28] MEDS ORDERED: FAMOTIDINE 20 MG TABLET PO SCH (22:00)
[2021-07-28 22:17] VITALS: BP 196/114; PULSE 96; TEMP 97.3
[2021-07-28] MEDS: ATORVASTATIN CA 80 MG TABLET (FP) PO SCH (22:40)
[2021-07-28] MEDS: traZODone HCL 100 MG TABLET (FP) PO SCH (22:40)
[2021-07-28] MEDS: THIAMINE HCL 100 MG TABLET (FP) PO SCH (22:41)
[2021-07-28] MEDS: MELATONIN 5 MG TABLETS PO SCH (22:41)
[2021-07-29] MEDS: GABAPENTIN 300 MG CAPSULE PO SCH (06:23)
[2021-07-29] MEDS: metFORMIN HCL 500 MG TABLET (FP) PO SCH (06:23)
[2021-07-29] MEDS: DOCUSATE SODIUM 100 MG CAPSULE (FP) PO SCH (06:23)
[2021-07-29] MEDS ORDERED: amLODIPine BESYLATE 5 MG TABLET (FP) PO SCH (10:00)
== END 2021-07-28 22:38 | disposition short-term general hospital (02) | DRG 772 ==
LOC: YASAS 12:44 → Y3W 12:46
PROVIDERS: ADMIT Allergy & Immunology; ATTEND Psychiatry & Neurology Pain Medicine
PROC: HZ42ZZZ Group Counseling for Substance Abuse Treatment, Cognitive-Behavioral (ICD-10-PCS; principal; 2021-07-25)
DX: F10.20 Alcohol dependence, uncomplicated (principal); R07.9 Chest pain, unspecified; I25.10 Atherosclerotic heart disease of native coronary artery without angina pectoris; I10 Essential (primary) hypertension; Z95.1 Presence of aortocoronary bypass graft; E78.5 Hyperlipidemia, unspecified; Z88.5 Allergy status to narcotic agent; Z88.6 Allergy status to analgesic agent; Z88.8 Allergy status to other drugs, medicaments and biological substances; Z59.00 Homelessness unspecified
CPT/HCPCS: 82962; C9803-CS; U0003; U0005

== ENCOUNTER 2021-09-13 12:17 | Inpatient (IN) | payer OTHER ==
[2021-09-13 14:28] VITALS: BMI 31.4
[2021-09-13] MEDS ORDERED: BISMUTH SUBSALICYLATE 524 MG/30 ML PO PRN (14:40)
[2021-09-13] MEDS ORDERED: MAGNESIUM HYDROX 2400MG/30ML ORAL SUSPENSION 30 ML CUP PO PRN (14:40)
[2021-09-13] MEDS ORDERED: ONDANSETRON *ODT* 4 MG TABLET SL PRN (14:40)
[2021-09-13] MEDS ORDERED: BENZOCAINE/MENTHOL (CHLORASEPTIC ) LOZENGE MM PRN (14:40)
[2021-09-13] MEDS ORDERED: MAG HYDROX/AL HYDROX/SIMETH 30 ML UNIT-DOSE CUP PO PRN (14:40)
[2021-09-13] MEDS ORDERED: IBUPROFEN 400 MG TABLET (FP) PO PRN (14:40)
[2021-09-13] MEDS ORDERED: LOPERAMIDE HCL 2 MG CAPSULE PO PRN (14:40)
[2021-09-13] MEDS ORDERED: MAGNESIUM CITRATE 300 ML BOTTLE PO PRN (14:40)
[2021-09-13] MEDS ORDERED: DICYCLOMINE HCL 10 MG CAPSULE PO PRN (14:40)
[2021-09-13] MEDS ORDERED: ACETAMINOPHEN 325 MG TABLET (FP) PO PRN ×4 (14:40→15:48)
[2021-09-13] MEDS: METHOCARBAMOL 500 MG TABLET PO PRN (15:41)
[2021-09-13] MEDS: diazePAM 5 MG TABLET PO PRN (15:50)
[2021-09-13] MEDS: PRENATAL VITAMINS W/ FOLIC ACID TABLET (FP) PO SCH (15:51)
[2021-09-13] MEDS: diazePAM 5 MG TABLET PO SCH ×2 (18:39→22:54)
[2021-09-13] MEDS: hydrOXYzine PAMOATE 25 MG CAPSULE (FP) PO SCH ×2 (18:40→22:53)
[2021-09-13] MEDS ORDERED: METOPROLOL TARTRATE 25 MG TABLET (FP) PO SCH (22:00)
[2021-09-13] MEDS: METOPROLOL TARTRATE 50 MG TABLET (FP) PO SCH (22:53)
[2021-09-13] MEDS: ATORVASTATIN CA 80 MG TABLET (FP) PO SCH (22:54)
[2021-09-13] MEDS: MELATONIN 5 MG TABLETS PO SCH (22:54)
[2021-09-13] MEDS: THIAMINE HCL 100 MG TABLET (FP) PO SCH (22:54)
[2021-09-13] MEDS: QUEtiapine FUMARATE 100 MG TABLET (FP) PO SCH (22:54)
[2021-09-14] MEDS: hydrOXYzine PAMOATE 25 MG CAPSULE (FP) PO SCH ×5 (07:49→22:35)
[2021-09-14] MEDS: diazePAM 5 MG TABLET PO SCH ×4 (07:49→22:35)
[2021-09-14] MEDS: METOPROLOL TARTRATE 50 MG TABLET (FP) PO SCH ×2 (10:35→22:35)
[2021-09-14] MEDS: CLOPIDOGREL BISULFATE 75 MG TABLET (FP) PO SCH (10:35)
[2021-09-14] MEDS: amLODIPine BESYLATE 5 MG TABLET (FP) PO SCH (10:35)
[2021-09-14] MEDS: ASPIRIN 81 MG CHEWABLE TABLETS PO SCH (10:35)
[2021-09-14] MEDS: SERTRALINE HCL 50 MG TABLET (FP) PO SCH (10:35)
[2021-09-14] MEDS: PRENATAL VITAMINS W/ FOLIC ACID TABLET (FP) PO SCH (10:35)
[2021-09-14] MEDS: EZETIMIBE 10 MG TABLET (FP) PO SCH (10:43)
[2021-09-14] MEDS: IBUPROFEN 600 MG TABLET (FP) PO PRN (18:04)
[2021-09-14] MEDS: ATORVASTATIN CA 80 MG TABLET (FP) PO SCH (22:35)
[2021-09-14] MEDS: THIAMINE HCL 100 MG TABLET (FP) PO SCH (22:35)
[2021-09-14] MEDS: QUEtiapine FUMARATE 100 MG TABLET (FP) PO SCH (22:35)
[2021-09-14] MEDS: METHOCARBAMOL 500 MG TABLET PO PRN (22:38)
[2021-09-14] MEDS: MELATONIN 5 MG TABLETS PO SCH (22:39)
[2021-09-15] MEDS: diazePAM 5 MG TABLET PO SCH ×3 (05:42→22:43)
[2021-09-15] MEDS: hydrOXYzine PAMOATE 25 MG CAPSULE (FP) PO SCH ×5 (05:42→22:43)
[2021-09-15] MEDS: PRENATAL VITAMINS W/ FOLIC ACID TABLET (FP) PO SCH (10:31)
[2021-09-15] MEDS: ASPIRIN 81 MG CHEWABLE TABLETS PO SCH (10:31)
[2021-09-15] MEDS: SERTRALINE HCL 50 MG TABLET (FP) PO SCH (10:31)
[2021-09-15] MEDS: EZETIMIBE 10 MG TABLET (FP) PO SCH (10:31)
[2021-09-15] MEDS: diazePAM 5 MG TABLET PO PRN (10:31)
[2021-09-15] MEDS: amLODIPine BESYLATE 5 MG TABLET (FP) PO SCH (10:31)
[2021-09-15] MEDS: METOPROLOL TARTRATE 50 MG TABLET (FP) PO SCH ×2 (10:31→22:43)
[2021-09-15] MEDS: CLOPIDOGREL BISULFATE 75 MG TABLET (FP) PO SCH (10:31)
[2021-09-15] MEDS: IBUPROFEN 600 MG TABLET (FP) PO PRN (12:53)
[2021-09-15] MEDS: METHOCARBAMOL 500 MG TABLET PO PRN (12:53)
[2021-09-15] MEDS: ATORVASTATIN CA 80 MG TABLET (FP) PO SCH (22:42)
[2021-09-15] MEDS: MELATONIN 5 MG TABLETS PO SCH (22:43)
[2021-09-15] MEDS: QUEtiapine FUMARATE 100 MG TABLET (FP) PO SCH (22:43)
[2021-09-15] MEDS: THIAMINE HCL 100 MG TABLET (FP) PO SCH (22:43)
[2021-09-16] MEDS: diazePAM 5 MG TABLET PO SCH ×2 (05:57→17:52)
[2021-09-16] MEDS: hydrOXYzine PAMOATE 25 MG CAPSULE (FP) PO SCH ×5 (05:57→22:51)
[2021-09-16] MEDS: amLODIPine BESYLATE 5 MG TABLET (FP) PO SCH (10:46)
[2021-09-16] MEDS: CLOPIDOGREL BISULFATE 75 MG TABLET (FP) PO SCH (10:46)
[2021-09-16] MEDS: METOPROLOL TARTRATE 50 MG TABLET (FP) PO SCH ×2 (10:46→22:49)
[2021-09-16] MEDS: EZETIMIBE 10 MG TABLET (FP) PO SCH (10:46)
[2021-09-16] MEDS: ASPIRIN 81 MG CHEWABLE TABLETS PO SCH (10:46)
[2021-09-16] MEDS: SERTRALINE HCL 50 MG TABLET (FP) PO SCH (10:46)
[2021-09-16] MEDS: PRENATAL VITAMINS W/ FOLIC ACID TABLET (FP) PO SCH (10:47)
[2021-09-16] MEDS: METHOCARBAMOL 500 MG TABLET PO PRN (10:48)
[2021-09-16] MEDS: MELATONIN 5 MG TABLETS PO SCH (22:49)
[2021-09-16] MEDS: ATORVASTATIN CA 80 MG TABLET (FP) PO SCH (22:49)
[2021-09-16] MEDS: THIAMINE HCL 100 MG TABLET (FP) PO SCH (22:51)
[2021-09-16] MEDS: QUEtiapine FUMARATE 100 MG TABLET (FP) PO SCH (22:51)
[2021-09-17] MEDS ORDERED: diazePAM 5 MG TABLET PO ONE (06:00)
[2021-09-17] MEDS: hydrOXYzine PAMOATE 25 MG CAPSULE (FP) PO SCH ×5 (07:54→22:32)
[2021-09-17] MEDS: METOPROLOL TARTRATE 50 MG TABLET (FP) PO SCH ×2 (09:58→22:32)
[2021-09-17] MEDS: ASPIRIN 81 MG CHEWABLE TABLETS PO SCH (09:58)
[2021-09-17] MEDS: amLODIPine BESYLATE 5 MG TABLET (FP) PO SCH (09:58)
[2021-09-17] MEDS: CLOPIDOGREL BISULFATE 75 MG TABLET (FP) PO SCH (09:58)
[2021-09-17] MEDS: PRENATAL VITAMINS W/ FOLIC ACID TABLET (FP) PO SCH (09:58)
[2021-09-17] MEDS: SERTRALINE HCL 50 MG TABLET (FP) PO SCH (09:58)
[2021-09-17] MEDS: METHOCARBAMOL 500 MG TABLET PO PRN ×2 (10:01→17:39)
[2021-09-17] MEDS: IBUPROFEN 600 MG TABLET (FP) PO PRN ×2 (10:01→17:39)
[2021-09-17] MEDS: EZETIMIBE 10 MG TABLET (FP) PO SCH (10:07)
[2021-09-17] MEDS: ATORVASTATIN CA 80 MG TABLET (FP) PO SCH (22:31)
[2021-09-17] MEDS: QUEtiapine FUMARATE 100 MG TABLET (FP) PO SCH (22:32)
[2021-09-17] MEDS: MELATONIN 5 MG TABLETS PO SCH (22:32)
[2021-09-17] MEDS: THIAMINE HCL 100 MG TABLET (FP) PO SCH (22:32)
[2021-09-18] MEDS: hydrOXYzine PAMOATE 25 MG CAPSULE (FP) PO SCH ×2 (06:18→09:48)
[2021-09-18 09:15] VITALS: BP 152/81; PULSE 59; TEMP 96.9
[2021-09-18] MEDS: METOPROLOL TARTRATE 50 MG TABLET (FP) PO SCH (09:48)
[2021-09-18] MEDS: CLOPIDOGREL BISULFATE 75 MG TABLET (FP) PO SCH (09:48)
[2021-09-18] MEDS: PRENATAL VITAMINS W/ FOLIC ACID TABLET (FP) PO SCH (09:48)
[2021-09-18] MEDS: amLODIPine BESYLATE 5 MG TABLET (FP) PO SCH (09:48)
[2021-09-18] MEDS: IBUPROFEN 600 MG TABLET (FP) PO PRN (09:49)
[2021-09-18] MEDS: SERTRALINE HCL 50 MG TABLET (FP) PO SCH (09:49)
[2021-09-18] MEDS: ASPIRIN 81 MG CHEWABLE TABLETS PO SCH (09:49)
[2021-09-18] MEDS: EZETIMIBE 10 MG TABLET (FP) PO SCH (09:49)
[2021-09-18] MEDS: METHOCARBAMOL 500 MG TABLET PO PRN (09:49)
== END 2021-09-18 11:09 | disposition home or self-care (01) | DRG 774 ==
LOC: YASAS 12:17 → Y3N 15:04
PROVIDERS: ADMIT Allergy & Immunology; ATTEND Surgery
PROC: HZ2ZZZZ Detoxification Services for Substance Abuse Treatment (ICD-10-PCS; principal; 2021-09-13)
DX: F10.230 Alcohol dependence with withdrawal, uncomplicated (principal); F14.20 Cocaine dependence, uncomplicated; F19.24 Other psychoactive substance dependence with psychoactive substance-induced mood disorder; F32.A Depression, unspecified; E78.5 Hyperlipidemia, unspecified; G47.00 Insomnia, unspecified; E11.9 Type 2 diabetes mellitus without complications; Z79.4 Long term (current) use of insulin; I25.10 Atherosclerotic heart disease of native coronary artery without angina pectoris; I10 Essential (primary) hypertension; Z95.1 Presence of aortocoronary bypass graft; Z95.5 Presence of coronary angioplasty implant and graft; K21.9 Gastro-esophageal reflux disease without esophagitis; R00.1 Bradycardia, unspecified; Z62.810 Personal history of physical and sexual abuse in childhood; Z88.6 Allergy status to analgesic agent; Z88.8 Allergy status to other drugs, medicaments and biological substances; Z59.02 Unsheltered homelessness; Z56.0 Unemployment, unspecified
CPT/HCPCS: 87811; C9803-CS; U0003; U0005

== ENCOUNTER 2021-11-07 11:48 | Inpatient (IN) | payer OTHER ==
[2021-11-07 13:41] VITALS: BMI 34.2
[2021-11-07] MEDS ORDERED: chlordiazePOXIDE HCL 25 MG CAPSULE PO PRN (14:57)
[2021-11-07] MEDS ORDERED: MAGNESIUM HYDROX 2400MG/30ML ORAL SUSPENSION 30 ML CUP PO PRN (14:57)
[2021-11-07] MEDS ORDERED: DICYCLOMINE HCL 10 MG CAPSULE PO PRN (14:57)
[2021-11-07] MEDS ORDERED: ONDANSETRON *ODT* 4 MG TABLET SL PRN (14:57)
[2021-11-07] MEDS ORDERED: METHOCARBAMOL 500 MG TABLET PO PRN (14:57)
[2021-11-07] MEDS ORDERED: MAGNESIUM CITRATE 300 ML BOTTLE PO PRN (14:57)
[2021-11-07] MEDS ORDERED: MAG HYDROX/AL HYDROX/SIMETH 30 ML UNIT-DOSE CUP PO PRN (14:57)
[2021-11-07] MEDS ORDERED: LOPERAMIDE HCL 2 MG CAPSULE PO PRN (14:57)
[2021-11-07] MEDS ORDERED: BENZOCAINE/MENTHOL (CHLORASEPTIC ) LOZENGE MM PRN (14:57)
[2021-11-07] MEDS ORDERED: NICOTINE 10 MG CARTRIDGE (INHALER) IH PRN (14:57)
[2021-11-07] MEDS: INSULIN SLIDING SCALE (NOVOLOG) 1 VIAL SQ SCH (17:46)
[2021-11-07 18:09] VITALS: RESP 18
[2021-11-07] MEDS: chlordiazePOXIDE HCL 25 MG CAPSULE PO SCH ×2 (18:31→23:13)
[2021-11-07] MEDS: hydrOXYzine PAMOATE 25 MG CAPSULE (FP) PO SCH ×2 (18:32→23:12)
[2021-11-07] MEDS ORDERED: MELATONIN 5 MG TABLETS PO SCH (22:00)
[2021-11-07] MEDS ORDERED: ATORVASTATIN CA 80 MG TABLET (FP) PO SCH (22:00)
[2021-11-07] MEDS ORDERED: THIAMINE HCL 100 MG TABLET (FP) PO SCH (22:00)
[2021-11-08] MEDS: chlordiazePOXIDE HCL 25 MG CAPSULE PO SCH (05:30)
[2021-11-08] MEDS: hydrOXYzine PAMOATE 25 MG CAPSULE (FP) PO SCH (05:31)
[2021-11-08] MEDS: INSULIN SLIDING SCALE (NOVOLOG) 1 VIAL SQ SCH (06:58)
[2021-11-08 08:46] VITALS: BP 136/83; PULSE 81; TEMP 97.7
[2021-11-08] MEDS ORDERED: ASPIRIN 81 MG CHEWABLE TABLETS PO SCH (10:00)
[2021-11-08] MEDS ORDERED: CLOPIDOGREL BISULFATE 75 MG TABLET (FP) PO SCH (10:00)
[2021-11-08] MEDS ORDERED: amLODIPine BESYLATE 5 MG TABLET (FP) PO SCH (10:00)
[2021-11-08] MEDS ORDERED: PRENATAL VITAMINS W/ FOLIC ACID TABLET (FP) PO SCH (10:00)
[2021-11-08] MEDS ORDERED: FAMOTIDINE 20 MG TABLET PO SCH (10:00)
[2021-11-09] MEDS ORDERED: chlordiazePOXIDE HCL 25 MG CAPSULE PO SCH (05:00)
[2021-11-10] MEDS ORDERED: chlordiazePOXIDE HCL 10 MG CAPSULE PO PRN
[2021-11-10] MEDS ORDERED: chlordiazePOXIDE HCL 10 MG CAPSULE PO SCH (05:00)
[2021-11-11] MEDS ORDERED: chlordiazePOXIDE HCL 10 MG CAPSULE PO SCH (05:00)
[2021-11-12] MEDS ORDERED: chlordiazePOXIDE HCL 10 MG CAPSULE PO ONE (05:00)
== END 2021-11-08 09:07 | disposition left against medical advice (07) | DRG 770 ==
LOC: YASAS 11:48 → Y3N 15:53
PROVIDERS: ADMIT Allergy & Immunology; ATTEND Surgery
PROC: HZ2ZZZZ Detoxification Services for Substance Abuse Treatment (ICD-10-PCS; principal; 2021-11-07)
DX: F10.230 Alcohol dependence with withdrawal, uncomplicated (principal); F14.20 Cocaine dependence, uncomplicated; F17.210 Nicotine dependence, cigarettes, uncomplicated; F25.9 Schizoaffective disorder, unspecified; E11.9 Type 2 diabetes mellitus without complications; I25.10 Atherosclerotic heart disease of native coronary artery without angina pectoris; I10 Essential (primary) hypertension; Z95.1 Presence of aortocoronary bypass graft; Z95.5 Presence of coronary angioplasty implant and graft; E66.9 Obesity, unspecified; Z68.34 Body mass index [BMI] 34.0-34.9, adult; Z88.6 Allergy status to analgesic agent; Z88.8 Allergy status to other drugs, medicaments and biological substances
CPT/HCPCS: C9803-CS; U0003; U0005

== ENCOUNTER 2021-12-08 18:38 | Inpatient (IN) | payer OTHER ==
[2021-12-08 19:24] VITALS: BMI 35.3
[2021-12-08] MEDS ORDERED: BENZOCAINE/MENTHOL (CHLORASEPTIC ) LOZENGE MM PRN (19:38)
[2021-12-08] MEDS ORDERED: MAGNESIUM HYDROX 2400MG/30ML ORAL SUSPENSION 30 ML CUP PO PRN (19:38)
[2021-12-08] MEDS ORDERED: LOPERAMIDE HCL 2 MG CAPSULE PO PRN (19:38)
[2021-12-08] MEDS ORDERED: MAG HYDROX/AL HYDROX/SIMETH 30 ML UNIT-DOSE CUP PO PRN (19:38)
[2021-12-08] MEDS ORDERED: ONDANSETRON *ODT* 4 MG TABLET SL PRN (19:38)
[2021-12-08] MEDS ORDERED: LORazepam 1 MG TABLET PO PRN (19:38)
[2021-12-08] MEDS ORDERED: DICYCLOMINE HCL 10 MG CAPSULE PO PRN (19:38)
[2021-12-08] MEDS ORDERED: MAGNESIUM CITRATE 300 ML BOTTLE PO PRN (19:38)
[2021-12-08] MEDS: hydrOXYzine PAMOATE 25 MG CAPSULE (FP) PO SCH (21:33)
[2021-12-08] MEDS: MELATONIN 5 MG TABLETS PO SCH (21:33)
[2021-12-08] MEDS: THIAMINE HCL 100 MG TABLET (FP) PO SCH (21:33)
[2021-12-08] MEDS: LORazepam 2 MG TABLET PO SCH (23:48)
[2021-12-09] MEDS: hydrOXYzine PAMOATE 25 MG CAPSULE (FP) PO SCH ×5 (05:44→22:11)
[2021-12-09] MEDS: LORazepam 2 MG TABLET PO SCH ×4 (05:44→22:10)
[2021-12-09] MEDS: METHOCARBAMOL 500 MG TABLET PO PRN ×2 (10:31→19:02)
[2021-12-09] MEDS: PRENATAL VITAMINS W/ FOLIC ACID TABLET (FP) PO SCH (10:31)
[2021-12-09] MEDS ORDERED: CLOPIDOGREL BISULFATE 75 MG TABLET (FP) PO SCH (11:45)
[2021-12-09] MEDS ORDERED: CARVEDILOL 12.5 MG TABLET (FP) PO SCH (12:00)
[2021-12-09] MEDS: amLODIPine BESYLATE 5 MG TABLET (FP) PO SCH (12:31)
[2021-12-09] MEDS: ASPIRIN 81 MG CHEWABLE TABLETS PO SCH (12:31)
[2021-12-09] MEDS ORDERED: CARVEDILOL 6.25 MG TABLET (FP) PO SCH (12:48)
[2021-12-09] MEDS: CARVEDILOL 6.25 MG TABLET (FP) PO SCH ×2 (12:57→22:10)
[2021-12-09] MEDS ORDERED: ATORVASTATIN CA 80 MG TABLET (FP) PO SCH (22:00)
[2021-12-09] MEDS ORDERED: QUEtiapine FUMARATE 50 MG TABLET PO SCH (22:00)
[2021-12-09] MEDS: THIAMINE HCL 100 MG TABLET (FP) PO SCH (22:10)
[2021-12-09] MEDS: MELATONIN 5 MG TABLETS PO SCH (22:11)
[2021-12-10] MEDS: hydrOXYzine PAMOATE 25 MG CAPSULE (FP) PO SCH ×2 (05:06→10:53)
[2021-12-10] MEDS: LORazepam 1 MG TABLET PO SCH ×2 (05:06→10:53)
[2021-12-10 05:52] VITALS: RESP 18
[2021-12-10 09:07] VITALS: BP 132/82; PULSE 73; TEMP 97.6
[2021-12-10] MEDS ORDERED: SERTRALINE HCL 50 MG TABLET (FP) PO SCH (10:00)
[2021-12-10] MEDS: ASPIRIN 81 MG CHEWABLE TABLETS PO SCH (10:53)
[2021-12-10] MEDS: PRENATAL VITAMINS W/ FOLIC ACID TABLET (FP) PO SCH (10:53)
[2021-12-10] MEDS: CARVEDILOL 6.25 MG TABLET (FP) PO SCH (10:53)
[2021-12-10] MEDS: amLODIPine BESYLATE 5 MG TABLET (FP) PO SCH (10:53)
[2021-12-11] MEDS ORDERED: LORazepam 0.5 MG TABLET PO PRN
[2021-12-11] MEDS ORDERED: LORazepam 0.5 MG TABLET PO SCH (05:00)
[2021-12-12] MEDS ORDERED: LORazepam 0.5 MG TABLET PO ONE (05:00)
== END 2021-12-10 09:15 | disposition left against medical advice (07) | DRG 770 ==
LOC: YASAS 18:38 → Y6N 20:34
PROVIDERS: ADMIT Allergy & Immunology; ATTEND Surgery
PROC: HZ2ZZZZ Detoxification Services for Substance Abuse Treatment (ICD-10-PCS; principal; 2021-12-08)
DX: F10.230 Alcohol dependence with withdrawal, uncomplicated (principal); F14.20 Cocaine dependence, uncomplicated; F17.210 Nicotine dependence, cigarettes, uncomplicated; F19.282 Other psychoactive substance dependence with psychoactive substance-induced sleep disorder; F19.24 Other psychoactive substance dependence with psychoactive substance-induced mood disorder; E78.5 Hyperlipidemia, unspecified; I25.10 Atherosclerotic heart disease of native coronary artery without angina pectoris; I10 Essential (primary) hypertension; Z95.1 Presence of aortocoronary bypass graft; Z95.5 Presence of coronary angioplasty implant and graft; G47.00 Insomnia, unspecified; E66.9 Obesity, unspecified; Z68.35 Body mass index [BMI] 35.0-35.9, adult; Z88.8 Allergy status to other drugs, medicaments and biological substances; Z88.6 Allergy status to analgesic agent; Z59.00 Homelessness unspecified; Z99.89 Dependence on other enabling machines and devices
CPT/HCPCS: 87811; C9803-CS; U0003; U0005

== ENCOUNTER 2021-12-31 15:42 | Inpatient (IN) | payer OTHER ==
[2021-12-31 18:40] VITALS: BMI 36.1
[2021-12-31] MEDS ORDERED: BENZOCAINE/MENTHOL (CHLORASEPTIC ) LOZENGE MM PRN (19:55)
[2021-12-31] MEDS ORDERED: ONDANSETRON *ODT* 4 MG TABLET SL PRN (19:55)
[2021-12-31] MEDS ORDERED: LOPERAMIDE HCL 2 MG CAPSULE PO PRN (19:55)
[2021-12-31] MEDS ORDERED: NALOXONE HCL (KLOXXADO) 8 MG SPRAY NS PRN (19:55)
[2021-12-31] MEDS ORDERED: MAGNESIUM CITRATE 300 ML BOTTLE PO PRN (19:55)
[2021-12-31] MEDS ORDERED: MAGNESIUM HYDROX 2400MG/30ML ORAL SUSPENSION 30 ML CUP PO PRN (19:55)
[2021-12-31] MEDS ORDERED: MAG HYDROX/AL HYDROX/SIMETH 30 ML UNIT-DOSE CUP PO PRN (19:55)
[2021-12-31] MEDS ORDERED: NICOTINE 10 MG CARTRIDGE (INHALER) IH PRN (19:55)
[2021-12-31] MEDS ORDERED: DICYCLOMINE HCL 10 MG CAPSULE PO PRN (19:55)
[2021-12-31] MEDS: chlordiazePOXIDE HCL 25 MG CAPSULE PO SCH ×2 (21:40→22:54)
[2021-12-31] MEDS: amLODIPine BESYLATE 10 MG TABLET (FP) PO SCH (22:43)
[2021-12-31] MEDS: ATORVASTATIN CA 80 MG TABLET (FP) PO SCH (22:43)
[2021-12-31] MEDS: PRENATAL VITAMINS W/ FOLIC ACID TABLET (FP) PO SCH (22:44)
[2021-12-31] MEDS: THIAMINE HCL 100 MG TABLET (FP) PO SCH (22:44)
[2021-12-31] MEDS: CLOPIDOGREL BISULFATE 75 MG TABLET (FP) PO SCH (22:44)
[2021-12-31] MEDS: MELATONIN 5 MG TABLETS PO SCH (22:51)
[2021-12-31] MEDS: CARVEDILOL 12.5 MG TABLET (FP) PO SCH (22:57)
[2022-01-01] MEDS: chlordiazePOXIDE HCL 25 MG CAPSULE PO SCH ×2 (05:20→10:41)
[2022-01-01] MEDS: PRENATAL VITAMINS W/ FOLIC ACID TABLET (FP) PO SCH (10:40)
[2022-01-01] MEDS: hydrOXYzine PAMOATE 25 MG CAPSULE (FP) PO PRN (10:41)
[2022-01-01] MEDS: METHOCARBAMOL 500 MG TABLET PO PRN (10:41)
[2022-01-01] MEDS: amLODIPine BESYLATE 10 MG TABLET (FP) PO SCH (10:41)
[2022-01-01] MEDS: CLOPIDOGREL BISULFATE 75 MG TABLET (FP) PO SCH (10:41)
[2022-01-01] MEDS: CARVEDILOL 12.5 MG TABLET (FP) PO SCH ×2 (10:41→22:20)
[2022-01-01] MEDS: chlordiazePOXIDE HCL 10 MG CAPSULE PO SCH ×2 (18:33→22:21)
[2022-01-01] MEDS: THIAMINE HCL 100 MG TABLET (FP) PO SCH (22:20)
[2022-01-01] MEDS: ATORVASTATIN CA 80 MG TABLET (FP) PO SCH (22:20)
[2022-01-01] MEDS: MELATONIN 5 MG TABLETS PO SCH (22:20)
[2022-01-02] MEDS: chlordiazePOXIDE HCL 10 MG CAPSULE PO SCH ×3 (05:54→18:02)
[2022-01-02] MEDS: hydrOXYzine PAMOATE 25 MG CAPSULE (FP) PO PRN ×2 (05:56→18:02)
[2022-01-02] MEDS: SERTRALINE HCL 50 MG TABLET (FP) PO SCH (10:20)
[2022-01-02] MEDS: PRENATAL VITAMINS W/ FOLIC ACID TABLET (FP) PO SCH (10:20)
[2022-01-02] MEDS: METHOCARBAMOL 500 MG TABLET PO PRN (10:20)
[2022-01-02] MEDS: amLODIPine BESYLATE 10 MG TABLET (FP) PO SCH (10:20)
[2022-01-02] MEDS: CARVEDILOL 12.5 MG TABLET (FP) PO SCH ×2 (10:20→22:15)
[2022-01-02] MEDS: CLOPIDOGREL BISULFATE 75 MG TABLET (FP) PO SCH (10:20)
[2022-01-02] MEDS ORDERED: traZODone HCL 150 MG TABLET PO SCH (22:00)
[2022-01-02] MEDS ORDERED: traZODone HCL 50 MG TABLET (FP) PO SCH (22:00)
[2022-01-02] MEDS ORDERED: QUEtiapine FUMARATE 50 MG TABLET PO SCH (22:00)
[2022-01-02] MEDS: THIAMINE HCL 100 MG TABLET (FP) PO SCH (22:14)
[2022-01-02] MEDS: ATORVASTATIN CA 80 MG TABLET (FP) PO SCH (22:15)
[2022-01-02] MEDS: MELATONIN 5 MG TABLETS PO SCH (22:15)
[2022-01-03] MEDS: chlordiazePOXIDE HCL 10 MG CAPSULE PO SCH (06:03)
[2022-01-03] MEDS: CARVEDILOL 12.5 MG TABLET (FP) PO SCH (10:06)
[2022-01-03] MEDS: PRENATAL VITAMINS W/ FOLIC ACID TABLET (FP) PO SCH (10:06)
[2022-01-03] MEDS: amLODIPine BESYLATE 10 MG TABLET (FP) PO SCH (10:07)
[2022-01-03] MEDS: METHOCARBAMOL 500 MG TABLET PO PRN (10:07)
[2022-01-03] MEDS: SERTRALINE HCL 50 MG TABLET (FP) PO SCH (10:07)
[2022-01-03] MEDS: CLOPIDOGREL BISULFATE 75 MG TABLET (FP) PO SCH (10:07)
[2022-01-03] MEDS ORDERED: chlordiazePOXIDE HCL 10 MG CAPSULE PO ONE (11:00)
[2022-01-03 12:58] VITALS: BP 117/66; PULSE 66; RESP 17; TEMP 98
== END 2022-01-03 14:45 | disposition home or self-care (01) | DRG 774 ==
LOC: YASAS 15:42 → Y6N 20:23
PROVIDERS: ADMIT Allergy & Immunology; ATTEND Surgery
PROC: HZ2ZZZZ Detoxification Services for Substance Abuse Treatment (ICD-10-PCS; principal; 2021-12-31)
DX: F10.230 Alcohol dependence with withdrawal, uncomplicated (principal); F14.20 Cocaine dependence, uncomplicated; F17.210 Nicotine dependence, cigarettes, uncomplicated; F19.282 Other psychoactive substance dependence with psychoactive substance-induced sleep disorder; F19.280 Other psychoactive substance dependence with psychoactive substance-induced anxiety disorder; F19.24 Other psychoactive substance dependence with psychoactive substance-induced mood disorder; F32.A Depression, unspecified; I25.10 Atherosclerotic heart disease of native coronary artery without angina pectoris; I10 Essential (primary) hypertension; I25.2 Old myocardial infarction; Z95.1 Presence of aortocoronary bypass graft; Z95.5 Presence of coronary angioplasty implant and graft; E66.9 Obesity, unspecified; Z68.36 Body mass index [BMI] 36.0-36.9, adult; Z99.89 Dependence on other enabling machines and devices; Z88.8 Allergy status to other drugs, medicaments and biological substances; Z88.6 Allergy status to analgesic agent
CPT/HCPCS: C9803-CS; U0003; U0005

== ENCOUNTER 2022-01-31 19:14 | Inpatient (IN) | payer OTHER ==
[2022-01-31 20:07] VITALS: BMI 34.2
[2022-01-31] MEDS ORDERED: LORazepam 2 MG/ML SDV VIAL IM ONE (20:58)
[2022-01-31] MEDS ORDERED: chlordiazePOXIDE HCL 25 MG CAPSULE PO PRN (20:58)
[2022-01-31] MEDS ORDERED: POLYETHYLENE GLYCOL (HEALTHYLAX) 3350 17 GM PACKET PO PRN (21:02)
[2022-01-31] MEDS ORDERED: BENZOCAINE/MENTHOL (CHLORASEPTIC ) LOZENGE MM PRN (21:02)
[2022-01-31] MEDS ORDERED: DICYCLOMINE HCL 10 MG CAPSULE PO PRN (21:02)
[2022-01-31] MEDS ORDERED: MAG HYDROX/AL HYDROX/SIMETH 30 ML UNIT-DOSE CUP PO PRN (21:02)
[2022-01-31] MEDS ORDERED: P-EPHED 60MG/TRIPROLIDI 2.5MG TABLET PO PRN (21:02)
[2022-01-31] MEDS ORDERED: guaiFENesin 200 MG/10 ML 10 ML UNIT-DOSE CUPS PO PRN (21:02)
[2022-01-31] MEDS ORDERED: LOPERAMIDE HCL 2 MG CAPSULE PO PRN (21:02)
[2022-01-31] MEDS ORDERED: ONDANSETRON *ODT* 4 MG TABLET SL PRN (21:02)
[2022-01-31] MEDS: CLOPIDOGREL BISULFATE 75 MG TABLET (FP) PO SCH (22:32)
[2022-01-31] MEDS: ASPIRIN 81 MG CHEWABLE TABLETS PO SCH (22:32)
[2022-01-31] MEDS: chlordiazePOXIDE HCL 25 MG CAPSULE PO SCH (22:33)
[2022-01-31] MEDS: THIAMINE HCL 100 MG TABLET (FP) PO SCH (22:33)
[2022-01-31] MEDS: CARVEDILOL 12.5 MG TABLET (FP) PO SCH (22:33)
[2022-02-01] MEDS: chlordiazePOXIDE HCL 25 MG CAPSULE PO SCH ×4 (05:44→22:16)
[2022-02-01] MEDS: CLOPIDOGREL BISULFATE 75 MG TABLET (FP) PO SCH (10:23)
[2022-02-01] MEDS: ASPIRIN 81 MG CHEWABLE TABLETS PO SCH (10:23)
[2022-02-01] MEDS: PRENATAL VITAMINS W/ FOLIC ACID TABLET (FP) PO SCH (10:23)
[2022-02-01] MEDS: SERTRALINE HCL 50 MG TABLET (FP) PO SCH (10:24)
[2022-02-01] MEDS: amLODIPine BESYLATE 5 MG TABLET (FP) PO SCH (10:24)
[2022-02-01] MEDS: CARVEDILOL 12.5 MG TABLET (FP) PO SCH ×2 (11:52→22:17)
[2022-02-01] MEDS: HYDROCORTISONE 2.5% TOPICAL CREAM 30 GM TUBE TP SCH ×2 (13:11→22:18)
[2022-02-01] MEDS ORDERED: CARVEDILOL 12.5 MG TABLET (FP) PO ONE (13:15)
[2022-02-01] MEDS: METHOCARBAMOL 500 MG TABLET PO PRN (17:42)
[2022-02-01] MEDS: THIAMINE HCL 100 MG TABLET (FP) PO SCH (22:16)
[2022-02-01] MEDS: MELATONIN 5 MG TABLETS PO PRN (22:16)
[2022-02-01] MEDS: traZODone HCL 50 MG TABLET (FP) PO SCH (22:18)
[2022-02-02] MEDS: chlordiazePOXIDE HCL 25 MG CAPSULE PO SCH ×4 (05:16→22:24)
[2022-02-02] MEDS: SERTRALINE HCL 50 MG TABLET (FP) PO SCH (10:14)
[2022-02-02] MEDS: CLOPIDOGREL BISULFATE 75 MG TABLET (FP) PO SCH (10:14)
[2022-02-02] MEDS: amLODIPine BESYLATE 5 MG TABLET (FP) PO SCH (10:14)
[2022-02-02] MEDS: ASPIRIN 81 MG CHEWABLE TABLETS PO SCH (10:14)
[2022-02-02] MEDS: CARVEDILOL 12.5 MG TABLET (FP) PO SCH ×2 (10:15→22:23)
[2022-02-02] MEDS: HYDROCORTISONE 2.5% TOPICAL CREAM 30 GM TUBE TP SCH ×2 (10:15→22:23)
[2022-02-02] MEDS: PRENATAL VITAMINS W/ FOLIC ACID TABLET (FP) PO SCH (10:15)
[2022-02-02] MEDS: METHOCARBAMOL 500 MG TABLET PO PRN ×2 (13:08→22:26)
[2022-02-02] MEDS: traZODone HCL 50 MG TABLET (FP) PO SCH (22:22)
[2022-02-02] MEDS: THIAMINE HCL 100 MG TABLET (FP) PO SCH (22:22)
[2022-02-03] MEDS ORDERED: chlordiazePOXIDE HCL 10 MG CAPSULE PO PRN
[2022-02-03] MEDS: chlordiazePOXIDE HCL 10 MG CAPSULE PO SCH ×4 (06:06→22:45)
[2022-02-03] MEDS: METHOCARBAMOL 500 MG TABLET PO PRN ×2 (06:07→12:52)
[2022-02-03] MEDS: amLODIPine BESYLATE 5 MG TABLET (FP) PO SCH (10:29)
[2022-02-03] MEDS: CLOPIDOGREL BISULFATE 75 MG TABLET (FP) PO SCH (10:29)
[2022-02-03] MEDS: CARVEDILOL 12.5 MG TABLET (FP) PO SCH ×2 (10:29→22:45)
[2022-02-03] MEDS: SERTRALINE HCL 50 MG TABLET (FP) PO SCH (10:29)
[2022-02-03] MEDS: PRENATAL VITAMINS W/ FOLIC ACID TABLET (FP) PO SCH (10:29)
[2022-02-03] MEDS: ASPIRIN 81 MG CHEWABLE TABLETS PO SCH (10:29)
[2022-02-03] MEDS: HYDROCORTISONE 2.5% TOPICAL CREAM 30 GM TUBE TP SCH ×2 (10:29→22:45)
[2022-02-03] MEDS: MAGNESIUM HYDROX 2400MG/30ML ORAL SUSPENSION 30 ML CUP PO PRN (13:18)
[2022-02-03] MEDS: THIAMINE HCL 100 MG TABLET (FP) PO SCH (22:45)
[2022-02-03] MEDS: traZODone HCL 50 MG TABLET (FP) PO SCH (22:45)
[2022-02-04] MEDS: chlordiazePOXIDE HCL 10 MG CAPSULE PO SCH ×2 (06:03→17:28)
[2022-02-04] MEDS: METHOCARBAMOL 500 MG TABLET PO PRN ×2 (06:05→22:48)
[2022-02-04] MEDS: HYDROCORTISONE 2.5% TOPICAL CREAM 30 GM TUBE TP SCH ×2 (10:27→22:47)
[2022-02-04] MEDS: amLODIPine BESYLATE 5 MG TABLET (FP) PO SCH (10:27)
[2022-02-04] MEDS: CARVEDILOL 12.5 MG TABLET (FP) PO SCH ×2 (10:28→22:47)
[2022-02-04] MEDS: ASPIRIN 81 MG CHEWABLE TABLETS PO SCH (10:28)
[2022-02-04] MEDS: CLOPIDOGREL BISULFATE 75 MG TABLET (FP) PO SCH (10:28)
[2022-02-04] MEDS: PRENATAL VITAMINS W/ FOLIC ACID TABLET (FP) PO SCH (10:29)
[2022-02-04] MEDS: MAGNESIUM HYDROX 2400MG/30ML ORAL SUSPENSION 30 ML CUP PO PRN (11:20)
[2022-02-04] MEDS: SERTRALINE HCL 50 MG TABLET (FP) PO SCH (11:20)
[2022-02-04] MEDS: THIAMINE HCL 100 MG TABLET (FP) PO SCH (22:46)
[2022-02-04] MEDS: traZODone HCL 50 MG TABLET (FP) PO SCH (22:46)
[2022-02-04] MEDS: MELATONIN 5 MG TABLETS PO PRN (22:46)
[2022-02-05] MEDS ORDERED: chlordiazePOXIDE HCL 10 MG CAPSULE PO ONE (05:00)
[2022-02-05 06:37] VITALS: TEMP 96.8
[2022-02-05 10:12] VITALS: BP 109/63; PULSE 62; RESP 17
[2022-02-05] MEDS: CARVEDILOL 12.5 MG TABLET (FP) PO SCH (10:28)
[2022-02-05] MEDS: amLODIPine BESYLATE 5 MG TABLET (FP) PO SCH (10:28)
[2022-02-05] MEDS: PRENATAL VITAMINS W/ FOLIC ACID TABLET (FP) PO SCH (10:28)
[2022-02-05] MEDS: SERTRALINE HCL 50 MG TABLET (FP) PO SCH (10:28)
[2022-02-05] MEDS: CLOPIDOGREL BISULFATE 75 MG TABLET (FP) PO SCH (10:28)
[2022-02-05] MEDS: HYDROCORTISONE 2.5% TOPICAL CREAM 30 GM TUBE TP SCH (10:28)
[2022-02-05] MEDS: ASPIRIN 81 MG CHEWABLE TABLETS PO SCH (10:28)
[2022-02-05] MEDS: METHOCARBAMOL 500 MG TABLET PO PRN (10:31)
[2022-02-05] MEDS: MAGNESIUM HYDROX 2400MG/30ML ORAL SUSPENSION 30 ML CUP PO PRN (10:31)
== END 2022-02-05 12:06 | disposition other institution (70) | DRG 774 ==
LOC: YASAS 19:14 → Y6N 21:38
PROVIDERS: ADMIT Allergy & Immunology; ATTEND Surgery
PROC: HZ2ZZZZ Detoxification Services for Substance Abuse Treatment (ICD-10-PCS; principal; 2022-01-31)
DX: F10.230 Alcohol dependence with withdrawal, uncomplicated (principal); F14.20 Cocaine dependence, uncomplicated; F17.210 Nicotine dependence, cigarettes, uncomplicated; F19.280 Other psychoactive substance dependence with psychoactive substance-induced anxiety disorder; F19.282 Other psychoactive substance dependence with psychoactive substance-induced sleep disorder; E78.5 Hyperlipidemia, unspecified; I25.10 Atherosclerotic heart disease of native coronary artery without angina pectoris; I10 Essential (primary) hypertension; Z95.1 Presence of aortocoronary bypass graft; Z95.5 Presence of coronary angioplasty implant and graft; M54.50 Low back pain, unspecified; G89.29 Other chronic pain; Z62.810 Personal history of physical and sexual abuse in childhood; E66.9 Obesity, unspecified; Z68.34 Body mass index [BMI] 34.0-34.9, adult; Z99.89 Dependence on other enabling machines and devices; Z88.8 Allergy status to other drugs, medicaments and biological substances
CPT/HCPCS: 93005; 93010; C9803-CS; U0003; U0005

== ENCOUNTER 2022-02-05 12:28 | Inpatient (IN) | payer OTHER ==
[2022-02-05] MEDS ORDERED: MAG HYDROX/AL HYDROX/SIMETH 30 ML UNIT-DOSE CUP PO PRN (13:37)
[2022-02-05] MEDS ORDERED: LOPERAMIDE HCL 2 MG CAPSULE PO PRN (13:37)
[2022-02-05] MEDS ORDERED: hydrOXYzine PAMOATE 25 MG CAPSULE (FP) PO PRN (13:37)
[2022-02-05] MEDS ORDERED: BENZOCAINE/MENTHOL (CHLORASEPTIC ) LOZENGE MM PRN (13:37)
[2022-02-05] MEDS ORDERED: MAGNESIUM CITRATE 300 ML BOTTLE PO PRN (13:37)
[2022-02-05] MEDS ORDERED: ACETAMINOPHEN 325 MG TABLET (FP) PO PRN (13:37)
[2022-02-05] MEDS ORDERED: guaiFENesin 200 MG/10 ML 10 ML UNIT-DOSE CUPS PO PRN (13:37)
[2022-02-05] MEDS ORDERED: P-EPHED 60MG/TRIPROLIDI 2.5MG TABLET PO PRN (13:37)
[2022-02-05] MEDS ORDERED: TUBERCULIN PPD 5 TU/0.1ML VIAL ID ONE (14:22)
[2022-02-05] MEDS: GABAPENTIN 100 MG CAPSULE PO SCH ×2 (14:24→21:15)
[2022-02-05] MEDS: MELATONIN 5 MG TABLETS PO SCH (21:14)
[2022-02-05] MEDS: THIAMINE HCL 100 MG TABLET (FP) PO SCH (21:14)
[2022-02-05] MEDS: CARVEDILOL 12.5 MG TABLET (FP) PO SCH (21:15)
[2022-02-05] MEDS: traZODone HCL 50 MG TABLET (FP) PO SCH (21:15)
[2022-02-05] MEDS: IBUPROFEN 400 MG TABLET (FP) PO PRN (21:16)
[2022-02-06] MEDS: GABAPENTIN 100 MG CAPSULE PO SCH ×3 (06:32→21:18)
[2022-02-06] MEDS: CARVEDILOL 12.5 MG TABLET (FP) PO SCH ×2 (09:03→21:18)
[2022-02-06] MEDS: PRENATAL VITAMINS W/ FOLIC ACID TABLET (FP) PO SCH (09:03)
[2022-02-06] MEDS: amLODIPine BESYLATE 10 MG TABLET (FP) PO SCH (09:03)
[2022-02-06] MEDS: SERTRALINE HCL 50 MG TABLET (FP) PO SCH (09:03)
[2022-02-06] MEDS: ASPIRIN 81 MG CHEWABLE TABLETS PO SCH (09:03)
[2022-02-06] MEDS: CLOPIDOGREL BISULFATE 75 MG TABLET (FP) PO SCH (09:03)
[2022-02-06 12:47] LABS: PH,URINE 5.5 (5.0-8.0); URINE APPEARANCE CLEAR; URINE BILIRUBIN NEGATIVE (NEGATIVE); URINE COLOR YELLOW; URINE GLUCOSE (UA) NEGATIVE (NEGATIVE); URINE KETONE NEGATIVE (NEGATIVE); URINE LEUK ESTERASE NEGATIVE (NEGATIVE); URINE NITRITE NEGATIVE (NEGATIVE); URINE PROTEIN NEGATIVE (NEGATIVE); URINE UROBILINOGEN 0.2 mg/dL (0.2-1.0)
[2022-02-06 12:50] LABS: EOS % 9.9 % (0-4.5); HEMATOCRIT 35.3 % (35.4-49); HEMOGLOBIN 11.2 GM/dL (11.7-16.9); LYMPH % 35.8 % (8-40); MCH 22.4 pg (25.7-33.7); MCHC 31.9 g/dl (32.0-35.9); MEAN CELL VOLUME 70.2 fl (80-96); MEAN PLT VOLUME 8.3 fl (7.5-11.1); MONO % 8.2 % (3.8-10.2); NEUT % 45.1 % (42.8-82.8); PLATELET COUNT 285 10^3/uL (134-434); RBC 5.03 M/mm3 (4.00-5.60); RDW 19.9 % (11.9-15.9); WHITE BLOOD COUNT 4.2 K/mm3 (4.0-10.0)
[2022-02-06 12:54] LABS: CALCIUM 9.1 mg/dL (8.5-10.1)
[2022-02-06 12:55] LABS: ALBUMIN 3.2 g/dl (3.4-5.0); BLOOD UREA NITROGEN 14.2 mg/dL (7-18)
[2022-02-06 12:58] LABS: CREATININE 1.1 mg/dL (0.55-1.3)
[2022-02-06 13:00] LABS: BILIRUBIN,TOTAL 0.3 mg/dL (0.2-1); TOT PROT 6.9 g/dl (6.4-8.2)
[2022-02-06] MEDS: IBUPROFEN 400 MG TABLET (FP) PO PRN (14:41)
[2022-02-06] MEDS: traZODone HCL 50 MG TABLET (FP) PO SCH (21:18)
[2022-02-06] MEDS: MELATONIN 5 MG TABLETS PO SCH (21:18)
[2022-02-06] MEDS: THIAMINE HCL 100 MG TABLET (FP) PO SCH (21:18)
[2022-02-06] MEDS: MAGNESIUM HYDROX 2400MG/30ML ORAL SUSPENSION 30 ML CUP PO PRN (21:19)
[2022-02-06] MEDS: METHYL SALICYLATE/MENTHOL OINT 30 GM TUBE TP SCH ×2 (21:19→21:34)
[2022-02-07] MEDS: IBUPROFEN 400 MG TABLET (FP) PO PRN (06:16)
[2022-02-07] MEDS: GABAPENTIN 100 MG CAPSULE PO SCH ×3 (06:16→21:40)
[2022-02-07] MEDS: PRENATAL VITAMINS W/ FOLIC ACID TABLET (FP) PO SCH (10:20)
[2022-02-07] MEDS: SERTRALINE HCL 50 MG TABLET (FP) PO SCH (10:21)
[2022-02-07] MEDS: CLOPIDOGREL BISULFATE 75 MG TABLET (FP) PO SCH (10:22)
[2022-02-07] MEDS: ASPIRIN 81 MG CHEWABLE TABLETS PO SCH (10:22)
[2022-02-07] MEDS: amLODIPine BESYLATE 10 MG TABLET (FP) PO SCH (10:22)
[2022-02-07] MEDS: CARVEDILOL 12.5 MG TABLET (FP) PO SCH ×2 (10:22→21:42)
[2022-02-07] MEDS: METHYL SALICYLATE/MENTHOL OINT 30 GM TUBE TP SCH ×2 (10:23→21:42)
[2022-02-07] MEDS: traZODone HCL 50 MG TABLET (FP) PO SCH (21:40)
[2022-02-07] MEDS: MELATONIN 5 MG TABLETS PO SCH (21:40)
[2022-02-07] MEDS: THIAMINE HCL 100 MG TABLET (FP) PO SCH (21:40)
[2022-02-08] MEDS: GABAPENTIN 100 MG CAPSULE PO SCH ×2 (06:17→14:32)
[2022-02-08] MEDS: PRENATAL VITAMINS W/ FOLIC ACID TABLET (FP) PO SCH (09:43)
[2022-02-08] MEDS: CLOPIDOGREL BISULFATE 75 MG TABLET (FP) PO SCH (09:44)
[2022-02-08] MEDS: amLODIPine BESYLATE 10 MG TABLET (FP) PO SCH (09:44)
[2022-02-08] MEDS: METHYL SALICYLATE/MENTHOL OINT 30 GM TUBE TP SCH ×2 (09:44→21:25)
[2022-02-08] MEDS: ASPIRIN 81 MG CHEWABLE TABLETS PO SCH (09:44)
[2022-02-08] MEDS: SERTRALINE HCL 50 MG TABLET (FP) PO SCH (09:44)
[2022-02-08] MEDS: CARVEDILOL 12.5 MG TABLET (FP) PO SCH ×2 (09:44→21:25)
[2022-02-08] MEDS: IBUPROFEN 400 MG TABLET (FP) PO PRN ×2 (09:46→21:30)
[2022-02-08] MEDS ORDERED: ZINC OXIDE TP SCH (16:00)
[2022-02-08] MEDS ORDERED: TRIAMCINOLONE ACET 0.1% CREAM 15 GM TUBE TP SCH (16:00)
[2022-02-08] MEDS: traZODone HCL 50 MG TABLET (FP) PO SCH (21:25)
[2022-02-08] MEDS: MELATONIN 5 MG TABLETS PO SCH (21:26)
[2022-02-08] MEDS: GABAPENTIN 400 MG CAPSULE PO SCH (21:26)
[2022-02-08] MEDS: THIAMINE HCL 100 MG TABLET (FP) PO SCH (21:26)
[2022-02-08] MEDS: ZINC OXIDE 20% TOPICAL OINTMENT 30 GM TUBE TP SCH (21:29)
[2022-02-09] MEDS: GABAPENTIN 400 MG CAPSULE PO SCH ×3 (06:42→21:17)
[2022-02-09] MEDS: IBUPROFEN 400 MG TABLET (FP) PO PRN (10:00)
[2022-02-09] MEDS: ASPIRIN 81 MG CHEWABLE TABLETS PO SCH (10:01)
[2022-02-09] MEDS: CARVEDILOL 12.5 MG TABLET (FP) PO SCH ×2 (10:01→21:17)
[2022-02-09] MEDS: amLODIPine BESYLATE 10 MG TABLET (FP) PO SCH (10:01)
[2022-02-09] MEDS: CLOPIDOGREL BISULFATE 75 MG TABLET (FP) PO SCH (10:01)
[2022-02-09] MEDS: SERTRALINE HCL 50 MG TABLET (FP) PO SCH (10:01)
[2022-02-09] MEDS: ZINC OXIDE 20% TOPICAL OINTMENT 30 GM TUBE TP SCH ×2 (10:05→21:17)
[2022-02-09] MEDS: PRENATAL VITAMINS W/ FOLIC ACID TABLET (FP) PO SCH (10:05)
[2022-02-09] MEDS: METHYL SALICYLATE/MENTHOL OINT 30 GM TUBE TP SCH ×2 (10:05→21:18)
[2022-02-09] MEDS: MELATONIN 5 MG TABLETS PO SCH (21:17)
[2022-02-09] MEDS: traZODone HCL 50 MG TABLET (FP) PO SCH (21:17)
[2022-02-09] MEDS: THIAMINE HCL 100 MG TABLET (FP) PO SCH (21:17)
[2022-02-10] MEDS: GABAPENTIN 400 MG CAPSULE PO SCH ×3 (06:23→21:16)
[2022-02-10] MEDS: ASPIRIN 81 MG CHEWABLE TABLETS PO SCH (09:53)
[2022-02-10] MEDS: PRENATAL VITAMINS W/ FOLIC ACID TABLET (FP) PO SCH (09:53)
[2022-02-10] MEDS: CLOPIDOGREL BISULFATE 75 MG TABLET (FP) PO SCH (09:53)
[2022-02-10] MEDS: amLODIPine BESYLATE 10 MG TABLET (FP) PO SCH (09:54)
[2022-02-10] MEDS: SERTRALINE HCL 50 MG TABLET (FP) PO SCH (09:54)
[2022-02-10] MEDS: METHYL SALICYLATE/MENTHOL OINT 30 GM TUBE TP SCH ×2 (09:55→21:17)
[2022-02-10] MEDS: CARVEDILOL 12.5 MG TABLET (FP) PO SCH ×2 (09:55→21:16)
[2022-02-10] MEDS: ZINC OXIDE 20% TOPICAL OINTMENT 30 GM TUBE TP SCH ×2 (09:56→21:17)
[2022-02-10] MEDS: IBUPROFEN 400 MG TABLET (FP) PO PRN (09:59)
[2022-02-10] MEDS: traZODone HCL 50 MG TABLET (FP) PO SCH (21:16)
[2022-02-10] MEDS: MELATONIN 5 MG TABLETS PO SCH (21:16)
[2022-02-10] MEDS: THIAMINE HCL 100 MG TABLET (FP) PO SCH (21:16)
[2022-02-11] MEDS: GABAPENTIN 400 MG CAPSULE PO SCH (06:36)
[2022-02-11] MEDS: CARVEDILOL 12.5 MG TABLET (FP) PO SCH ×2 (09:44→21:15)
[2022-02-11] MEDS: METHYL SALICYLATE/MENTHOL OINT 30 GM TUBE TP SCH ×2 (09:44→21:53)
[2022-02-11] MEDS: amLODIPine BESYLATE 10 MG TABLET (FP) PO SCH (09:44)
[2022-02-11] MEDS: ASPIRIN 81 MG CHEWABLE TABLETS PO SCH (09:44)
[2022-02-11] MEDS: SERTRALINE HCL 50 MG TABLET (FP) PO SCH (09:44)
[2022-02-11] MEDS: PRENATAL VITAMINS W/ FOLIC ACID TABLET (FP) PO SCH (09:44)
[2022-02-11] MEDS: CLOPIDOGREL BISULFATE 75 MG TABLET (FP) PO SCH (09:44)
[2022-02-11] MEDS: ZINC OXIDE 20% TOPICAL OINTMENT 30 GM TUBE TP SCH ×2 (09:44→21:15)
[2022-02-11] MEDS: GABAPENTIN 300 MG CAPSULE PO SCH ×2 (14:17→21:13)
[2022-02-11] MEDS: MELATONIN 5 MG TABLETS PO SCH (21:13)
[2022-02-11] MEDS: SENNOSIDES 8.6MG TABLET (FP) PO PRN (21:13)
[2022-02-11] MEDS: traZODone HCL 50 MG TABLET (FP) PO SCH (21:13)
[2022-02-11] MEDS: IBUPROFEN 400 MG TABLET (FP) PO PRN (21:14)
[2022-02-11] MEDS: THIAMINE HCL 100 MG TABLET (FP) PO SCH (21:27)
[2022-02-12] MEDS: GABAPENTIN 300 MG CAPSULE PO SCH ×3 (06:07→21:29)
[2022-02-12] MEDS: ASPIRIN 81 MG CHEWABLE TABLETS PO SCH (09:57)
[2022-02-12] MEDS: METHYL SALICYLATE/MENTHOL OINT 30 GM TUBE TP SCH ×2 (09:57→21:29)
[2022-02-12] MEDS: amLODIPine BESYLATE 10 MG TABLET (FP) PO SCH (09:58)
[2022-02-12] MEDS: CLOPIDOGREL BISULFATE 75 MG TABLET (FP) PO SCH (09:58)
[2022-02-12] MEDS: CARVEDILOL 12.5 MG TABLET (FP) PO SCH ×2 (09:58→21:29)
[2022-02-12] MEDS: PRENATAL VITAMINS W/ FOLIC ACID TABLET (FP) PO SCH (09:58)
[2022-02-12] MEDS: SERTRALINE HCL 50 MG TABLET (FP) PO SCH (09:59)
[2022-02-12] MEDS: ZINC OXIDE 20% TOPICAL OINTMENT 30 GM TUBE TP SCH ×2 (09:59→21:31)
[2022-02-12] MEDS: traZODone HCL 50 MG TABLET (FP) PO SCH (21:29)
[2022-02-12] MEDS: THIAMINE HCL 100 MG TABLET (FP) PO SCH (21:30)
[2022-02-12] MEDS: MELATONIN 5 MG TABLETS PO SCH (21:30)
[2022-02-12] MEDS: IBUPROFEN 400 MG TABLET (FP) PO PRN (21:30)
[2022-02-13] MEDS: GABAPENTIN 300 MG CAPSULE PO SCH ×3 (06:19→21:04)
[2022-02-13] MEDS: CARVEDILOL 12.5 MG TABLET (FP) PO SCH ×2 (09:36→21:05)
[2022-02-13] MEDS: ASPIRIN 81 MG CHEWABLE TABLETS PO SCH (09:36)
[2022-02-13] MEDS: SERTRALINE HCL 50 MG TABLET (FP) PO SCH (09:36)
[2022-02-13] MEDS: CLOPIDOGREL BISULFATE 75 MG TABLET (FP) PO SCH (09:36)
[2022-02-13] MEDS: PRENATAL VITAMINS W/ FOLIC ACID TABLET (FP) PO SCH (09:36)
[2022-02-13] MEDS: SENNOSIDES 8.6MG TABLET (FP) PO PRN (09:37)
[2022-02-13] MEDS: METHYL SALICYLATE/MENTHOL OINT 30 GM TUBE TP SCH ×2 (09:37→21:06)
[2022-02-13] MEDS: amLODIPine BESYLATE 10 MG TABLET (FP) PO SCH (09:37)
[2022-02-13] MEDS: ZINC OXIDE 20% TOPICAL OINTMENT 30 GM TUBE TP SCH ×2 (09:38→21:05)
[2022-02-13] MEDS: traZODone HCL 50 MG TABLET (FP) PO SCH (21:04)
[2022-02-13] MEDS: THIAMINE HCL 100 MG TABLET (FP) PO SCH (21:04)
[2022-02-13] MEDS: MELATONIN 5 MG TABLETS PO SCH (21:04)
[2022-02-14] MEDS: SENNOSIDES 8.6MG TABLET (FP) PO PRN (06:04)
[2022-02-14] MEDS: GABAPENTIN 300 MG CAPSULE PO SCH ×3 (06:05→21:10)
[2022-02-14] MEDS: IBUPROFEN 400 MG TABLET (FP) PO PRN (06:05)
[2022-02-14] MEDS: CLOPIDOGREL BISULFATE 75 MG TABLET (FP) PO SCH (09:38)
[2022-02-14] MEDS: PRENATAL VITAMINS W/ FOLIC ACID TABLET (FP) PO SCH (09:38)
[2022-02-14] MEDS: SERTRALINE HCL 50 MG TABLET (FP) PO SCH (09:39)
[2022-02-14] MEDS: METHYL SALICYLATE/MENTHOL OINT 30 GM TUBE TP SCH ×2 (09:39→21:09)
[2022-02-14] MEDS: ASPIRIN 81 MG CHEWABLE TABLETS PO SCH (09:39)
[2022-02-14] MEDS: ZINC OXIDE 20% TOPICAL OINTMENT 30 GM TUBE TP SCH ×2 (09:39→21:10)
[2022-02-14] MEDS: amLODIPine BESYLATE 10 MG TABLET (FP) PO SCH (09:39)
[2022-02-14] MEDS: CARVEDILOL 12.5 MG TABLET (FP) PO SCH ×2 (09:39→21:10)
[2022-02-14] MEDS: THIAMINE HCL 100 MG TABLET (FP) PO SCH (21:10)
[2022-02-14] MEDS: traZODone HCL 50 MG TABLET (FP) PO SCH (21:10)
[2022-02-14] MEDS: MELATONIN 5 MG TABLETS PO SCH (21:11)
[2022-02-15] MEDS: GABAPENTIN 300 MG CAPSULE PO SCH ×3 (06:13→21:36)
[2022-02-15] MEDS: ASPIRIN 81 MG CHEWABLE TABLETS PO SCH (09:45)
[2022-02-15] MEDS: CLOPIDOGREL BISULFATE 75 MG TABLET (FP) PO SCH (09:45)
[2022-02-15] MEDS: CARVEDILOL 12.5 MG TABLET (FP) PO SCH ×2 (09:45→21:38)
[2022-02-15] MEDS: amLODIPine BESYLATE 10 MG TABLET (FP) PO SCH (09:45)
[2022-02-15] MEDS: SERTRALINE HCL 50 MG TABLET (FP) PO SCH (09:45)
[2022-02-15] MEDS: PRENATAL VITAMINS W/ FOLIC ACID TABLET (FP) PO SCH (09:45)
[2022-02-15] MEDS: IBUPROFEN 400 MG TABLET (FP) PO PRN (09:46)
[2022-02-15] MEDS: METHYL SALICYLATE/MENTHOL OINT 30 GM TUBE TP SCH ×2 (09:47→21:36)
[2022-02-15] MEDS: SENNOSIDES 8.6MG TABLET (FP) PO PRN ×2 (09:47→21:37)
[2022-02-15] MEDS: ZINC OXIDE 20% TOPICAL OINTMENT 30 GM TUBE TP SCH ×2 (09:48→21:36)
[2022-02-15] MEDS: MELATONIN 5 MG TABLETS PO SCH (21:35)
[2022-02-15] MEDS: THIAMINE HCL 100 MG TABLET (FP) PO SCH (21:36)
[2022-02-15] MEDS: traZODone HCL 50 MG TABLET (FP) PO SCH (21:36)
[2022-02-15] MEDS: MAGNESIUM HYDROX 2400MG/30ML ORAL SUSPENSION 30 ML CUP PO PRN (21:37)
[2022-02-16] MEDS: GABAPENTIN 300 MG CAPSULE PO SCH ×3 (05:49→21:20)
[2022-02-16] MEDS: PRENATAL VITAMINS W/ FOLIC ACID TABLET (FP) PO SCH (09:49)
[2022-02-16] MEDS: CLOPIDOGREL BISULFATE 75 MG TABLET (FP) PO SCH (09:50)
[2022-02-16] MEDS: ASPIRIN 81 MG CHEWABLE TABLETS PO SCH (09:50)
[2022-02-16] MEDS: CARVEDILOL 12.5 MG TABLET (FP) PO SCH ×2 (09:50→21:21)
[2022-02-16] MEDS: amLODIPine BESYLATE 10 MG TABLET (FP) PO SCH (09:50)
[2022-02-16] MEDS: SERTRALINE HCL 50 MG TABLET (FP) PO SCH (09:50)
[2022-02-16] MEDS: SENNOSIDES 8.6MG TABLET (FP) PO PRN (09:51)
[2022-02-16] MEDS: METHYL SALICYLATE/MENTHOL OINT 30 GM TUBE TP SCH ×2 (09:51→21:21)
[2022-02-16] MEDS: ZINC OXIDE 20% TOPICAL OINTMENT 30 GM TUBE TP SCH ×2 (09:51→21:21)
[2022-02-16] MEDS: traZODone HCL 50 MG TABLET (FP) PO SCH (21:20)
[2022-02-16] MEDS: THIAMINE HCL 100 MG TABLET (FP) PO SCH (21:21)
[2022-02-16] MEDS: MELATONIN 5 MG TABLETS PO SCH (21:21)
[2022-02-17] MEDS: GABAPENTIN 300 MG CAPSULE PO SCH ×3 (06:16→21:11)
[2022-02-17] MEDS: CLOPIDOGREL BISULFATE 75 MG TABLET (FP) PO SCH (10:03)
[2022-02-17] MEDS: ASPIRIN 81 MG CHEWABLE TABLETS PO SCH (10:03)
[2022-02-17] MEDS: SENNOSIDES 8.6MG TABLET (FP) PO PRN ×2 (10:03→21:12)
[2022-02-17] MEDS: PRENATAL VITAMINS W/ FOLIC ACID TABLET (FP) PO SCH (10:03)
[2022-02-17] MEDS: ZINC OXIDE 20% TOPICAL OINTMENT 30 GM TUBE TP SCH ×2 (10:04→21:13)
[2022-02-17] MEDS: SERTRALINE HCL 50 MG TABLET (FP) PO SCH (10:04)
[2022-02-17] MEDS: METHYL SALICYLATE/MENTHOL OINT 30 GM TUBE TP SCH ×2 (10:04→21:13)
[2022-02-17] MEDS: amLODIPine BESYLATE 10 MG TABLET (FP) PO SCH (10:04)
[2022-02-17] MEDS: CARVEDILOL 12.5 MG TABLET (FP) PO SCH ×2 (10:04→21:11)
[2022-02-17] MEDS: IBUPROFEN 400 MG TABLET (FP) PO PRN (21:10)
[2022-02-17] MEDS: traZODone HCL 50 MG TABLET (FP) PO SCH (21:12)
[2022-02-17] MEDS: THIAMINE HCL 100 MG TABLET (FP) PO SCH (21:12)
[2022-02-17] MEDS: MELATONIN 5 MG TABLETS PO SCH (21:12)
[2022-02-17] MEDS: MAGNESIUM HYDROX 2400MG/30ML ORAL SUSPENSION 30 ML CUP PO PRN (21:13)
[2022-02-18] MEDS: GABAPENTIN 300 MG CAPSULE PO SCH ×3 (06:08→21:19)
[2022-02-18] MEDS: PRENATAL VITAMINS W/ FOLIC ACID TABLET (FP) PO SCH (09:46)
[2022-02-18] MEDS: SERTRALINE HCL 50 MG TABLET (FP) PO SCH (09:47)
[2022-02-18] MEDS: CLOPIDOGREL BISULFATE 75 MG TABLET (FP) PO SCH (09:47)
[2022-02-18] MEDS: ASPIRIN 81 MG CHEWABLE TABLETS PO SCH (09:47)
[2022-02-18] MEDS: ZINC OXIDE 20% TOPICAL OINTMENT 30 GM TUBE TP SCH ×2 (09:48→21:34)
[2022-02-18] MEDS: METHYL SALICYLATE/MENTHOL OINT 30 GM TUBE TP SCH ×2 (09:48→21:20)
[2022-02-18] MEDS: IBUPROFEN 400 MG TABLET (FP) PO PRN (09:49)
[2022-02-18] MEDS: SENNOSIDES 8.6MG TABLET (FP) PO PRN (09:50)
[2022-02-18] MEDS: CARVEDILOL 12.5 MG TABLET (FP) PO SCH ×2 (11:00→21:19)
[2022-02-18] MEDS: amLODIPine BESYLATE 10 MG TABLET (FP) PO SCH (11:00)
[2022-02-18] MEDS: traZODone HCL 50 MG TABLET (FP) PO SCH (21:19)
[2022-02-18] MEDS: THIAMINE HCL 100 MG TABLET (FP) PO SCH (21:19)
[2022-02-18] MEDS: MELATONIN 5 MG TABLETS PO SCH (21:19)
[2022-02-19] MEDS: GABAPENTIN 300 MG CAPSULE PO SCH ×3 (06:03→21:24)
[2022-02-19] MEDS: METHYL SALICYLATE/MENTHOL OINT 30 GM TUBE TP SCH ×2 (10:10→21:25)
[2022-02-19] MEDS: PRENATAL VITAMINS W/ FOLIC ACID TABLET (FP) PO SCH (10:11)
[2022-02-19] MEDS: CARVEDILOL 12.5 MG TABLET (FP) PO SCH ×2 (10:11→21:24)
[2022-02-19] MEDS: ZINC OXIDE 20% TOPICAL OINTMENT 30 GM TUBE TP SCH ×2 (10:11→21:25)
[2022-02-19] MEDS: SENNOSIDES 8.6MG TABLET (FP) PO PRN (10:11)
[2022-02-19] MEDS: CLOPIDOGREL BISULFATE 75 MG TABLET (FP) PO SCH (10:12)
[2022-02-19] MEDS: SERTRALINE HCL 50 MG TABLET (FP) PO SCH (10:12)
[2022-02-19] MEDS: ASPIRIN 81 MG CHEWABLE TABLETS PO SCH (10:12)
[2022-02-19] MEDS: amLODIPine BESYLATE 10 MG TABLET (FP) PO SCH (10:12)
[2022-02-19] MEDS: IBUPROFEN 400 MG TABLET (FP) PO PRN (10:13)
[2022-02-19] MEDS: traZODone HCL 50 MG TABLET (FP) PO SCH (21:24)
[2022-02-19] MEDS: THIAMINE HCL 100 MG TABLET (FP) PO SCH (21:25)
[2022-02-19] MEDS: MELATONIN 5 MG TABLETS PO SCH (21:25)
[2022-02-20] MEDS: GABAPENTIN 300 MG CAPSULE PO SCH ×3 (06:12→21:13)
[2022-02-20] MEDS: SENNOSIDES 8.6MG TABLET (FP) PO PRN (09:56)
[2022-02-20] MEDS: amLODIPine BESYLATE 10 MG TABLET (FP) PO SCH (09:56)
[2022-02-20] MEDS: METHYL SALICYLATE/MENTHOL OINT 30 GM TUBE TP SCH ×2 (09:56→21:13)
[2022-02-20] MEDS: PRENATAL VITAMINS W/ FOLIC ACID TABLET (FP) PO SCH (09:56)
[2022-02-20] MEDS: ASPIRIN 81 MG CHEWABLE TABLETS PO SCH (09:56)
[2022-02-20] MEDS: CLOPIDOGREL BISULFATE 75 MG TABLET (FP) PO SCH (09:56)
[2022-02-20] MEDS: SERTRALINE HCL 50 MG TABLET (FP) PO SCH (09:56)
[2022-02-20] MEDS: ZINC OXIDE 20% TOPICAL OINTMENT 30 GM TUBE TP SCH ×2 (09:57→21:13)
[2022-02-20] MEDS: CARVEDILOL 12.5 MG TABLET (FP) PO SCH ×2 (09:57→21:13)
[2022-02-20] MEDS: METHOCARBAMOL 500 MG TABLET PO PRN ×2 (13:00→21:12)
[2022-02-20] MEDS: traZODone HCL 50 MG TABLET (FP) PO SCH (21:12)
[2022-02-20] MEDS: THIAMINE HCL 100 MG TABLET (FP) PO SCH (21:12)
[2022-02-20] MEDS: MELATONIN 5 MG TABLETS PO SCH (21:13)
[2022-02-21] MEDS: GABAPENTIN 300 MG CAPSULE PO SCH ×3 (05:59→21:12)
[2022-02-21] MEDS: METHYL SALICYLATE/MENTHOL OINT 30 GM TUBE TP SCH ×2 (09:53→21:13)
[2022-02-21] MEDS: METHOCARBAMOL 500 MG TABLET PO PRN ×2 (09:54→21:12)
[2022-02-21] MEDS: ASPIRIN 81 MG CHEWABLE TABLETS PO SCH (09:54)
[2022-02-21] MEDS: SERTRALINE HCL 50 MG TABLET (FP) PO SCH (09:54)
[2022-02-21] MEDS: CLOPIDOGREL BISULFATE 75 MG TABLET (FP) PO SCH (09:54)
[2022-02-21] MEDS: ZINC OXIDE 20% TOPICAL OINTMENT 30 GM TUBE TP SCH ×2 (09:55→21:13)
[2022-02-21] MEDS: SENNOSIDES 8.6MG TABLET (FP) PO PRN (09:55)
[2022-02-21] MEDS: PRENATAL VITAMINS W/ FOLIC ACID TABLET (FP) PO SCH (09:55)
[2022-02-21] MEDS: amLODIPine BESYLATE 10 MG TABLET (FP) PO SCH (13:02)
[2022-02-21] MEDS: CARVEDILOL 12.5 MG TABLET (FP) PO SCH ×2 (13:02→21:12)
[2022-02-21] MEDS: traZODone HCL 50 MG TABLET (FP) PO SCH (21:12)
[2022-02-21] MEDS: THIAMINE HCL 100 MG TABLET (FP) PO SCH (21:12)
[2022-02-21] MEDS: MAGNESIUM HYDROX 2400MG/30ML ORAL SUSPENSION 30 ML CUP PO PRN (21:12)
[2022-02-21] MEDS: MELATONIN 5 MG TABLETS PO SCH (21:12)
[2022-02-22] MEDS: GABAPENTIN 300 MG CAPSULE PO SCH ×3 (06:04→21:00)
[2022-02-22] MEDS: METHOCARBAMOL 500 MG TABLET PO PRN ×2 (06:14→21:01)
[2022-02-22] MEDS: amLODIPine BESYLATE 10 MG TABLET (FP) PO SCH (10:04)
[2022-02-22] MEDS: CLOPIDOGREL BISULFATE 75 MG TABLET (FP) PO SCH (10:04)
[2022-02-22] MEDS: CARVEDILOL 12.5 MG TABLET (FP) PO SCH ×2 (10:05→21:01)
[2022-02-22] MEDS: SERTRALINE HCL 50 MG TABLET (FP) PO SCH (10:05)
[2022-02-22] MEDS: ASPIRIN 81 MG CHEWABLE TABLETS PO SCH (10:05)
[2022-02-22] MEDS: PRENATAL VITAMINS W/ FOLIC ACID TABLET (FP) PO SCH (10:06)
[2022-02-22] MEDS: METHYL SALICYLATE/MENTHOL OINT 30 GM TUBE TP SCH ×2 (10:06→21:02)
[2022-02-22] MEDS: ZINC OXIDE 20% TOPICAL OINTMENT 30 GM TUBE TP SCH (10:06)
[2022-02-22] MEDS ORDERED: ZINC OXIDE 20% TOPICAL OINTMENT 30 GM TUBE TP PRN (12:43)
[2022-02-22] MEDS: MELATONIN 5 MG TABLETS PO SCH (21:01)
[2022-02-22] MEDS: THIAMINE HCL 100 MG TABLET (FP) PO SCH (21:01)
[2022-02-22] MEDS: traZODone HCL 50 MG TABLET (FP) PO SCH (21:01)
[2022-02-22] MEDS: SENNOSIDES 8.6MG TABLET (FP) PO PRN (21:02)
[2022-02-23] MEDS: GABAPENTIN 300 MG CAPSULE PO SCH ×3 (06:10→21:12)
[2022-02-23] MEDS: METHOCARBAMOL 500 MG TABLET PO PRN ×2 (06:11→21:12)
[2022-02-23] MEDS: SENNOSIDES 8.6MG TABLET (FP) PO PRN ×2 (09:45→21:11)
[2022-02-23] MEDS: PRENATAL VITAMINS W/ FOLIC ACID TABLET (FP) PO SCH (09:45)
[2022-02-23] MEDS: SERTRALINE HCL 50 MG TABLET (FP) PO SCH (09:46)
[2022-02-23] MEDS: CARVEDILOL 12.5 MG TABLET (FP) PO SCH ×2 (09:46→21:12)
[2022-02-23] MEDS: METHYL SALICYLATE/MENTHOL OINT 30 GM TUBE TP SCH ×2 (09:46→21:13)
[2022-02-23] MEDS: ASPIRIN 81 MG CHEWABLE TABLETS PO SCH (09:46)
[2022-02-23] MEDS: amLODIPine BESYLATE 10 MG TABLET (FP) PO SCH (09:46)
[2022-02-23] MEDS: CLOPIDOGREL BISULFATE 75 MG TABLET (FP) PO SCH (09:46)
[2022-02-23] MEDS: THIAMINE HCL 100 MG TABLET (FP) PO SCH (21:12)
[2022-02-23] MEDS: traZODone HCL 50 MG TABLET (FP) PO SCH (21:12)
[2022-02-23] MEDS: MELATONIN 5 MG TABLETS PO SCH (21:13)
[2022-02-24] MEDS: METHOCARBAMOL 500 MG TABLET PO PRN (05:59)
[2022-02-24] MEDS: GABAPENTIN 300 MG CAPSULE PO SCH ×3 (06:00→21:28)
[2022-02-24] MEDS: amLODIPine BESYLATE 10 MG TABLET (FP) PO SCH (09:43)
[2022-02-24] MEDS: ASPIRIN 81 MG CHEWABLE TABLETS PO SCH (09:43)
[2022-02-24] MEDS: PRENATAL VITAMINS W/ FOLIC ACID TABLET (FP) PO SCH (09:43)
[2022-02-24] MEDS: CLOPIDOGREL BISULFATE 75 MG TABLET (FP) PO SCH (09:43)
[2022-02-24] MEDS: SERTRALINE HCL 50 MG TABLET (FP) PO SCH (09:43)
[2022-02-24] MEDS: CARVEDILOL 12.5 MG TABLET (FP) PO SCH ×2 (09:44→21:28)
[2022-02-24] MEDS: METHYL SALICYLATE/MENTHOL OINT 30 GM TUBE TP SCH ×2 (09:44→21:29)
[2022-02-24] MEDS: traZODone HCL 50 MG TABLET (FP) PO SCH (21:28)
[2022-02-24] MEDS: MELATONIN 5 MG TABLETS PO SCH (21:28)
[2022-02-24] MEDS: THIAMINE HCL 100 MG TABLET (FP) PO SCH (21:28)
[2022-02-25] MEDS: METHOCARBAMOL 500 MG TABLET PO PRN ×2 (06:11→21:06)
[2022-02-25] MEDS: GABAPENTIN 300 MG CAPSULE PO SCH ×3 (06:11→21:05)
[2022-02-25] MEDS: CARVEDILOL 12.5 MG TABLET (FP) PO SCH ×2 (09:42→21:04)
[2022-02-25] MEDS: PRENATAL VITAMINS W/ FOLIC ACID TABLET (FP) PO SCH (09:42)
[2022-02-25] MEDS: ASPIRIN 81 MG CHEWABLE TABLETS PO SCH (09:42)
[2022-02-25] MEDS: CLOPIDOGREL BISULFATE 75 MG TABLET (FP) PO SCH (09:42)
[2022-02-25] MEDS: amLODIPine BESYLATE 10 MG TABLET (FP) PO SCH (09:42)
[2022-02-25] MEDS: SERTRALINE HCL 50 MG TABLET (FP) PO SCH (09:42)
[2022-02-25] MEDS: METHYL SALICYLATE/MENTHOL OINT 30 GM TUBE TP SCH ×2 (09:43→21:04)
[2022-02-25] MEDS: traZODone HCL 50 MG TABLET (FP) PO SCH (21:04)
[2022-02-25] MEDS: MELATONIN 5 MG TABLETS PO SCH (21:04)
[2022-02-25] MEDS: THIAMINE HCL 100 MG TABLET (FP) PO SCH (21:05)
[2022-02-26] MEDS: GABAPENTIN 300 MG CAPSULE PO SCH ×3 (05:51→21:06)
[2022-02-26] MEDS: METHOCARBAMOL 500 MG TABLET PO PRN ×3 (05:52→21:06)
[2022-02-26] MEDS: METHYL SALICYLATE/MENTHOL OINT 30 GM TUBE TP SCH ×2 (09:48→21:06)
[2022-02-26] MEDS: ASPIRIN 81 MG CHEWABLE TABLETS PO SCH (09:48)
[2022-02-26] MEDS: SERTRALINE HCL 50 MG TABLET (FP) PO SCH (09:49)
[2022-02-26] MEDS: PRENATAL VITAMINS W/ FOLIC ACID TABLET (FP) PO SCH (09:49)
[2022-02-26] MEDS: CLOPIDOGREL BISULFATE 75 MG TABLET (FP) PO SCH (09:49)
[2022-02-26] MEDS: amLODIPine BESYLATE 10 MG TABLET (FP) PO SCH (09:49)
[2022-02-26] MEDS: CARVEDILOL 12.5 MG TABLET (FP) PO SCH ×2 (09:50→21:06)
[2022-02-26] MEDS: SENNOSIDES 8.6MG TABLET (FP) PO PRN (09:50)
[2022-02-26] MEDS: MELATONIN 5 MG TABLETS PO SCH (21:06)
[2022-02-26] MEDS: traZODone HCL 50 MG TABLET (FP) PO SCH (21:06)
[2022-02-26] MEDS: THIAMINE HCL 100 MG TABLET (FP) PO SCH (21:06)
[2022-02-27] MEDS: GABAPENTIN 300 MG CAPSULE PO SCH ×3 (06:06→22:00)
[2022-02-27] MEDS: METHOCARBAMOL 500 MG TABLET PO PRN (06:07)
[2022-02-27] MEDS: ASPIRIN 81 MG CHEWABLE TABLETS PO SCH (10:17)
[2022-02-27] MEDS: CLOPIDOGREL BISULFATE 75 MG TABLET (FP) PO SCH (10:18)
[2022-02-27] MEDS: amLODIPine BESYLATE 10 MG TABLET (FP) PO SCH (10:18)
[2022-02-27] MEDS: SERTRALINE HCL 50 MG TABLET (FP) PO SCH (10:18)
[2022-02-27] MEDS: CARVEDILOL 12.5 MG TABLET (FP) PO SCH ×2 (10:19→22:00)
[2022-02-27] MEDS: PRENATAL VITAMINS W/ FOLIC ACID TABLET (FP) PO SCH (10:20)
[2022-02-27] MEDS: METHYL SALICYLATE/MENTHOL OINT 30 GM TUBE TP SCH ×2 (10:21→22:01)
[2022-02-27] MEDS: MELATONIN 5 MG TABLETS PO SCH (21:59)
[2022-02-27] MEDS: traZODone HCL 50 MG TABLET (FP) PO SCH (21:59)
[2022-02-27] MEDS: THIAMINE HCL 100 MG TABLET (FP) PO SCH (22:00)
[2022-02-28] MEDS: METHOCARBAMOL 500 MG TABLET PO PRN ×2 (06:06→21:21)
[2022-02-28] MEDS: GABAPENTIN 300 MG CAPSULE PO SCH ×3 (06:06→21:19)
[2022-02-28] MEDS: ASPIRIN 81 MG CHEWABLE TABLETS PO SCH (10:06)
[2022-02-28] MEDS: METHYL SALICYLATE/MENTHOL OINT 30 GM TUBE TP SCH ×2 (10:06→21:21)
[2022-02-28] MEDS: amLODIPine BESYLATE 10 MG TABLET (FP) PO SCH (10:07)
[2022-02-28] MEDS: PRENATAL VITAMINS W/ FOLIC ACID TABLET (FP) PO SCH (10:07)
[2022-02-28] MEDS: CLOPIDOGREL BISULFATE 75 MG TABLET (FP) PO SCH (10:07)
[2022-02-28] MEDS: CARVEDILOL 12.5 MG TABLET (FP) PO SCH ×2 (10:07→21:20)
[2022-02-28] MEDS: SERTRALINE HCL 50 MG TABLET (FP) PO SCH (10:07)
[2022-02-28] MEDS: traZODone HCL 50 MG TABLET (FP) PO SCH (21:20)
[2022-02-28] MEDS: MELATONIN 5 MG TABLETS PO SCH (21:21)
[2022-02-28] MEDS: THIAMINE HCL 100 MG TABLET (FP) PO SCH (21:21)
[2022-03-01] MEDS: METHOCARBAMOL 500 MG TABLET PO PRN (06:12)
[2022-03-01] MEDS: GABAPENTIN 300 MG CAPSULE PO SCH ×3 (06:12→21:26)
[2022-03-01] MEDS: METHYL SALICYLATE/MENTHOL OINT 30 GM TUBE TP SCH ×2 (10:00→21:26)
[2022-03-01] MEDS: ASPIRIN 81 MG CHEWABLE TABLETS PO SCH (10:00)
[2022-03-01] MEDS: amLODIPine BESYLATE 10 MG TABLET (FP) PO SCH (10:01)
[2022-03-01] MEDS: PRENATAL VITAMINS W/ FOLIC ACID TABLET (FP) PO SCH (10:01)
[2022-03-01] MEDS: SERTRALINE HCL 50 MG TABLET (FP) PO SCH (10:01)
[2022-03-01] MEDS: CARVEDILOL 12.5 MG TABLET (FP) PO SCH ×2 (10:01→21:26)
[2022-03-01] MEDS: CLOPIDOGREL BISULFATE 75 MG TABLET (FP) PO SCH (10:01)
[2022-03-01] MEDS: THIAMINE HCL 100 MG TABLET (FP) PO SCH (21:26)
[2022-03-01] MEDS: MELATONIN 5 MG TABLETS PO SCH (21:26)
[2022-03-01] MEDS: traZODone HCL 50 MG TABLET (FP) PO SCH (21:26)
[2022-03-02] MEDS: METHOCARBAMOL 500 MG TABLET PO PRN ×2 (05:47→21:27)
[2022-03-02] MEDS: GABAPENTIN 300 MG CAPSULE PO SCH ×3 (05:47→21:26)
[2022-03-02 09:44] VITALS: RESP 18
[2022-03-02] MEDS: PRENATAL VITAMINS W/ FOLIC ACID TABLET (FP) PO SCH (09:49)
[2022-03-02] MEDS: CLOPIDOGREL BISULFATE 75 MG TABLET (FP) PO SCH (09:50)
[2022-03-02] MEDS: SERTRALINE HCL 50 MG TABLET (FP) PO SCH (09:50)
[2022-03-02] MEDS: CARVEDILOL 12.5 MG TABLET (FP) PO SCH ×2 (09:50→21:27)
[2022-03-02] MEDS: amLODIPine BESYLATE 10 MG TABLET (FP) PO SCH (09:50)
[2022-03-02] MEDS: ASPIRIN 81 MG CHEWABLE TABLETS PO SCH (09:51)
[2022-03-02] MEDS: SENNOSIDES 8.6MG TABLET (FP) PO PRN (09:52)
[2022-03-02] MEDS: METHYL SALICYLATE/MENTHOL OINT 30 GM TUBE TP SCH ×2 (10:00→21:28)
[2022-03-02] MEDS: MAGNESIUM HYDROX 2400MG/30ML ORAL SUSPENSION 30 ML CUP PO PRN (15:03)
[2022-03-02] MEDS: traZODone HCL 50 MG TABLET (FP) PO SCH (21:27)
[2022-03-02] MEDS: THIAMINE HCL 100 MG TABLET (FP) PO SCH (21:28)
[2022-03-02] MEDS: MELATONIN 5 MG TABLETS PO SCH (21:28)
[2022-03-03] MEDS: METHOCARBAMOL 500 MG TABLET PO PRN ×2 (06:06→21:05)
[2022-03-03] MEDS: GABAPENTIN 300 MG CAPSULE PO SCH ×3 (06:06→21:05)
[2022-03-03] MEDS: SENNOSIDES 8.6MG TABLET (FP) PO PRN (06:06)
[2022-03-03] MEDS: CARVEDILOL 12.5 MG TABLET (FP) PO SCH ×2 (09:36→21:04)
[2022-03-03] MEDS: ASPIRIN 81 MG CHEWABLE TABLETS PO SCH (09:36)
[2022-03-03] MEDS: amLODIPine BESYLATE 10 MG TABLET (FP) PO SCH (09:36)
[2022-03-03] MEDS: CLOPIDOGREL BISULFATE 75 MG TABLET (FP) PO SCH (09:36)
[2022-03-03] MEDS: PRENATAL VITAMINS W/ FOLIC ACID TABLET (FP) PO SCH (09:36)
[2022-03-03] MEDS: METHYL SALICYLATE/MENTHOL OINT 30 GM TUBE TP SCH ×2 (09:36→21:06)
[2022-03-03] MEDS: SERTRALINE HCL 50 MG TABLET (FP) PO SCH (09:36)
[2022-03-03 10:49] VITALS: TEMP 97.8
[2022-03-03] MEDS ORDERED: LACTULOSE 20 GM/30 ML UDC (FOR ORAL USE ONLY) PO PRN (17:47)
[2022-03-03] MEDS: MELATONIN 5 MG TABLETS PO SCH (21:05)
[2022-03-03] MEDS: traZODone HCL 50 MG TABLET (FP) PO SCH (21:05)
[2022-03-03] MEDS: THIAMINE HCL 100 MG TABLET (FP) PO SCH (21:06)
[2022-03-04] MEDS: METHOCARBAMOL 500 MG TABLET PO PRN (05:39)
[2022-03-04] MEDS: GABAPENTIN 300 MG CAPSULE PO SCH (05:39)
[2022-03-04 08:06] VITALS: BP 148/88; PULSE 60
[2022-03-04] MEDS: SERTRALINE HCL 50 MG TABLET (FP) PO SCH (09:15)
[2022-03-04] MEDS: CARVEDILOL 12.5 MG TABLET (FP) PO SCH (09:15)
[2022-03-04] MEDS: CLOPIDOGREL BISULFATE 75 MG TABLET (FP) PO SCH (09:15)
[2022-03-04] MEDS: PRENATAL VITAMINS W/ FOLIC ACID TABLET (FP) PO SCH (09:15)
[2022-03-04] MEDS: amLODIPine BESYLATE 10 MG TABLET (FP) PO SCH (09:15)
[2022-03-04] MEDS: ASPIRIN 81 MG CHEWABLE TABLETS PO SCH (09:15)
[2022-03-04] MEDS: METHYL SALICYLATE/MENTHOL OINT 30 GM TUBE TP SCH (09:17)
== END 2022-03-04 09:31 | disposition home or self-care (01) | DRG 772 ==
LOC: YASAS 12:28 → Y3W 12:29
PROVIDERS: ADMIT Allergy & Immunology; ATTEND Psychiatry & Neurology Pain Medicine
PROC: HZ42ZZZ Group Counseling for Substance Abuse Treatment, Cognitive-Behavioral (ICD-10-PCS; principal; 2022-02-05)
DX: F10.20 Alcohol dependence, uncomplicated (principal); F14.20 Cocaine dependence, uncomplicated; F17.210 Nicotine dependence, cigarettes, uncomplicated; F19.282 Other psychoactive substance dependence with psychoactive substance-induced sleep disorder; F19.280 Other psychoactive substance dependence with psychoactive substance-induced anxiety disorder; F32.9 Major depressive disorder, single episode, unspecified; I10 Essential (primary) hypertension; I25.10 Atherosclerotic heart disease of native coronary artery without angina pectoris; E78.5 Hyperlipidemia, unspecified; L91.0 Hypertrophic scar; M54.59 Other low back pain; G89.29 Other chronic pain; K59.00 Constipation, unspecified; R00.1 Bradycardia, unspecified; E66.9 Obesity, unspecified; Z68.34 Body mass index [BMI] 34.0-34.9, adult; R26.2 Difficulty in walking, not elsewhere classified; Z99.89 Dependence on other enabling machines and devices; Z95.1 Presence of aortocoronary bypass graft; Z95.5 Presence of coronary angioplasty implant and graft; Z88.8 Allergy status to other drugs, medicaments and biological substances; Z88.6 Allergy status to analgesic agent; Z56.0 Unemployment, unspecified; Z59.00 Homelessness unspecified
CPT/HCPCS: 36415; 80053; 81003; 82140; 82962; 85025; 86780; C9803-CS; U0003; U0005

== ENCOUNTER 2022-03-20 10:42 | Inpatient (IN) | payer OTHER ==
[2022-03-20 12:06] VITALS: BMI 34.2
[2022-03-20] MEDS ORDERED: ACETAMINOPHEN 325 MG TABLET (FP) PO PRN ×2 (12:31)
[2022-03-20] MEDS ORDERED: POLYETHYLENE GLYCOL (HEALTHYLAX) 3350 17 GM PACKET PO PRN (12:31)
[2022-03-20] MEDS ORDERED: MAGNESIUM HYDROX 2400MG/30ML ORAL SUSPENSION 30 ML CUP PO PRN (12:31)
[2022-03-20] MEDS ORDERED: hydrOXYzine PAMOATE 25 MG CAPSULE (FP) PO PRN (12:31)
[2022-03-20] MEDS ORDERED: IBUPROFEN 400 MG TABLET (FP) PO PRN (12:31)
[2022-03-20] MEDS ORDERED: BISMUTH SUBSALICYLATE 524 MG/30 ML PO PRN (12:31)
[2022-03-20] MEDS ORDERED: IBUPROFEN 600 MG TABLET (FP) PO PRN (12:31)
[2022-03-20] MEDS ORDERED: LOPERAMIDE HCL 2 MG CAPSULE PO PRN (12:31)
[2022-03-20] MEDS ORDERED: BENZOCAINE/MENTHOL (CHLORASEPTIC ) LOZENGE MM PRN (12:31)
[2022-03-20] MEDS ORDERED: ONDANSETRON *ODT* 4 MG TABLET SL PRN (12:31)
[2022-03-20] MEDS ORDERED: NALOXONE HCL (KLOXXADO) 8 MG SPRAY NS PRN (12:31)
[2022-03-20] MEDS ORDERED: DICYCLOMINE HCL 10 MG CAPSULE PO PRN (12:31)
[2022-03-20] MEDS ORDERED: MAG HYDROX/AL HYDROX/SIMETH 30 ML UNIT-DOSE CUP PO PRN (12:31)
[2022-03-20] MEDS: chlordiazePOXIDE HCL 25 MG CAPSULE PO PRN (15:16)
[2022-03-20] MEDS: PRENATAL VITAMINS W/ FOLIC ACID TABLET (FP) PO SCH (15:24)
[2022-03-20] MEDS: GABAPENTIN 300 MG CAPSULE PO SCH ×2 (15:25→22:46)
[2022-03-20] MEDS ORDERED: amLODIPine BESYLATE 10 MG TABLET (FP) PO ONE (15:30)
[2022-03-20] MEDS: METHOCARBAMOL 500 MG TABLET PO PRN (17:55)
[2022-03-20] MEDS: chlordiazePOXIDE HCL 25 MG CAPSULE PO SCH ×2 (17:55→22:45)
[2022-03-20 18:00] LABS: HEMATOCRIT 40.1 % (35.4-49); HEMOGLOBIN 12.4 GM/dL (11.7-16.9); MCH 21.9 pg (25.7-33.7); MCHC 30.9 g/dl (32.0-35.9); MEAN PLT VOLUME 8.8 fl (7.5-11.1); PLATELET COUNT 234 10^3/uL (134-434); RBC 5.65 M/mm3 (4.00-5.60); RDW 23.1 % (11.9-15.9); WHITE BLOOD COUNT 7.1 K/mm3 (4.0-10.0)
[2022-03-20 18:13] LABS: ALBUMIN 3.7 g/dl (3.4-5.0); BLOOD UREA NITROGEN 17.8 mg/dL (7-18)
[2022-03-20 18:16] LABS: CREATININE 1.1 mg/dL (0.55-1.3)
[2022-03-20 18:18] LABS: BILIRUBIN,TOTAL 0.4 mg/dL (0.2-1); TOT PROT 7.5 g/dl (6.4-8.2)
[2022-03-20] MEDS ORDERED: THIAMINE HCL 100 MG TABLET (FP) PO SCH (22:00)
[2022-03-20] MEDS ORDERED: CARVEDILOL 12.5 MG TABLET (FP) PO SCH (22:00)
[2022-03-20] MEDS ORDERED: MELATONIN 5 MG TABLETS PO SCH (22:00)
[2022-03-20] MEDS: METHYL SALICYLATE/MENTHOL OINT 30 GM TUBE TP SCH (22:46)
[2022-03-20] MEDS: CARVEDILOL 6.25 MG TABLET (FP) PO SCH (23:19)
[2022-03-21] MEDS: chlordiazePOXIDE HCL 25 MG CAPSULE PO SCH ×3 (05:50→18:07)
[2022-03-21] MEDS: GABAPENTIN 300 MG CAPSULE PO SCH ×2 (05:53→13:26)
[2022-03-21] MEDS ORDERED: ASPIRIN 81 MG CHEWABLE TABLETS PO SCH (10:00)
[2022-03-21] MEDS ORDERED: CLOPIDOGREL BISULFATE 75 MG TABLET (FP) PO SCH (10:00)
[2022-03-21] MEDS ORDERED: amLODIPine BESYLATE 10 MG TABLET (FP) PO SCH (10:00)
[2022-03-21] MEDS: PRENATAL VITAMINS W/ FOLIC ACID TABLET (FP) PO SCH (10:29)
[2022-03-21] MEDS: METHYL SALICYLATE/MENTHOL OINT 30 GM TUBE TP SCH (10:30)
[2022-03-21] MEDS: CARVEDILOL 6.25 MG TABLET (FP) PO SCH (11:14)
[2022-03-21] MEDS: METHOCARBAMOL 500 MG TABLET PO PRN (13:26)
[2022-03-21] MEDS: chlordiazePOXIDE HCL 25 MG CAPSULE PO PRN (13:28)
[2022-03-21 16:45] VITALS: BP 125/78; PULSE 78; RESP 18; TEMP 96.9
[2022-03-21] MEDS ORDERED: traZODone HCL 100 MG TABLET (FP) PO SCH (22:00)
[2022-03-22] MEDS ORDERED: chlordiazePOXIDE HCL 25 MG CAPSULE PO SCH (05:00)
[2022-03-22] MEDS ORDERED: SERTRALINE HCL 50 MG TABLET (FP) PO SCH (10:00)
[2022-03-23] MEDS ORDERED: chlordiazePOXIDE HCL 10 MG CAPSULE PO PRN
[2022-03-23] MEDS ORDERED: chlordiazePOXIDE HCL 10 MG CAPSULE PO SCH (05:00)
[2022-03-24] MEDS ORDERED: chlordiazePOXIDE HCL 10 MG CAPSULE PO SCH (05:00)
[2022-03-25] MEDS ORDERED: chlordiazePOXIDE HCL 10 MG CAPSULE PO ONE (05:00)
== END 2022-03-21 18:27 | disposition left against medical advice (07) | DRG 770 ==
LOC: YASAS 10:42 → Y3N 12:37
PROVIDERS: ADMIT Allergy & Immunology; ATTEND Surgery
PROC: HZ2ZZZZ Detoxification Services for Substance Abuse Treatment (ICD-10-PCS; principal; 2022-03-20)
DX: F10.230 Alcohol dependence with withdrawal, uncomplicated (principal); F14.20 Cocaine dependence, uncomplicated; F17.210 Nicotine dependence, cigarettes, uncomplicated; F19.280 Other psychoactive substance dependence with psychoactive substance-induced anxiety disorder; F32.A Depression, unspecified; E78.5 Hyperlipidemia, unspecified; I25.10 Atherosclerotic heart disease of native coronary artery without angina pectoris; I10 Essential (primary) hypertension; I25.2 Old myocardial infarction; Z95.1 Presence of aortocoronary bypass graft; Z95.5 Presence of coronary angioplasty implant and graft; M54.50 Low back pain, unspecified; G89.29 Other chronic pain; E66.9 Obesity, unspecified; Z68.34 Body mass index [BMI] 34.0-34.9, adult; Z99.89 Dependence on other enabling machines and devices; Z88.8 Allergy status to other drugs, medicaments and biological substances
CPT/HCPCS: 36415; 80053; 82140; 85027; 86780; C9803-CS; U0003; U0005

== ENCOUNTER 2022-05-14 17:28 | Inpatient (IN) | payer OTHER ==
[2022-05-14 18:27] VITALS: BMI 34.9
[2022-05-14] MEDS ORDERED: MAG HYDROX/AL HYDROX/SIMETH 30 ML UNIT-DOSE CUP PO PRN (21:40)
[2022-05-14] MEDS ORDERED: BENZOCAINE/MENTHOL (CHLORASEPTIC ) LOZENGE MM PRN (21:40)
[2022-05-14] MEDS ORDERED: NALOXONE HCL (KLOXXADO) 8 MG SPRAY NS PRN (21:40)
[2022-05-14] MEDS ORDERED: DICYCLOMINE HCL 10 MG CAPSULE PO PRN (21:40)
[2022-05-14] MEDS ORDERED: IBUPROFEN 400 MG TABLET (FP) PO PRN (21:40)
[2022-05-14] MEDS ORDERED: POLYETHYLENE GLYCOL (HEALTHYLAX) 3350 17 GM PACKET PO PRN (21:40)
[2022-05-14] MEDS ORDERED: LOPERAMIDE HCL 2 MG CAPSULE PO PRN (21:40)
[2022-05-14] MEDS ORDERED: LORazepam 1 MG TABLET PO PRN (21:40)
[2022-05-14] MEDS ORDERED: IBUPROFEN 600 MG TABLET (FP) PO PRN (21:40)
[2022-05-14] MEDS ORDERED: MAGNESIUM HYDROX 2400MG/30ML ORAL SUSPENSION 30 ML CUP PO PRN (21:40)
[2022-05-14] MEDS ORDERED: MELATONIN 5 MG TABLETS ONE (23:39)
[2022-05-14] MEDS ORDERED: LORazepam 1 MG TABLET ONE (23:39)
[2022-05-14] MEDS: THIAMINE HCL 100 MG TABLET (FP) PO SCH (23:43)
[2022-05-14] MEDS: LORazepam 1 MG TABLET PO SCH (23:43)
[2022-05-14] MEDS: MELATONIN 5 MG TABLETS PO SCH (23:43)
[2022-05-15] MEDS: LORazepam 1 MG TABLET PO SCH ×3 (05:39→17:51)
[2022-05-15] MEDS ORDERED: SERTRALINE HCL 50 MG TABLET (FP) PO SCH (10:00)
[2022-05-15] MEDS: PRENATAL VITAMINS W/ FOLIC ACID TABLET (FP) PO SCH (10:29)
[2022-05-15] MEDS: CLOPIDOGREL BISULFATE 75 MG TABLET (FP) PO SCH (10:37)
[2022-05-15] MEDS: amLODIPine BESYLATE 5 MG TABLET (FP) PO SCH (10:37)
[2022-05-15] MEDS: ASPIRIN 81 MG CHEWABLE TABLETS PO SCH (10:37)
[2022-05-15] MEDS: MULTIVITAMINS (DAILY MVI) TABLET (FP) PO SCH (10:37)
[2022-05-15] MEDS: FOLIC ACID 1 MG TABLET (FP) PO SCH (10:39)
[2022-05-15] MEDS: THIAMINE HCL 100 MG TABLET (FP) PO SCH ×2 (11:05→22:28)
[2022-05-15] MEDS: ATORVASTATIN CA 20 MG TABLET (FP) PO SCH (22:28)
[2022-05-15] MEDS: LORazepam 0.5 MG TABLET PO SCH (22:28)
[2022-05-15] MEDS: MELATONIN 5 MG TABLETS PO SCH (22:28)
[2022-05-16] MEDS: LORazepam 0.5 MG TABLET PO SCH ×3 (05:52→17:31)
[2022-05-16] MEDS: amLODIPine BESYLATE 5 MG TABLET (FP) PO SCH (10:26)
[2022-05-16] MEDS: FOLIC ACID 1 MG TABLET (FP) PO SCH (10:26)
[2022-05-16] MEDS: PRENATAL VITAMINS W/ FOLIC ACID TABLET (FP) PO SCH (10:26)
[2022-05-16] MEDS: CLOPIDOGREL BISULFATE 75 MG TABLET (FP) PO SCH (10:26)
[2022-05-16] MEDS: ASPIRIN 81 MG CHEWABLE TABLETS PO SCH (10:26)
[2022-05-16] MEDS: THIAMINE HCL 100 MG TABLET (FP) PO SCH ×2 (10:27→22:05)
[2022-05-16] MEDS: MULTIVITAMINS (DAILY MVI) TABLET (FP) PO SCH (10:28)
[2022-05-16] MEDS ORDERED: LACTULOSE 20 GM/30 ML UDC (FOR ORAL USE ONLY) PO ONE (11:43)
[2022-05-16] MEDS: METHOCARBAMOL 500 MG TABLET PO PRN ×2 (13:35→22:06)
[2022-05-16] MEDS: GABAPENTIN 300 MG CAPSULE PO SCH ×2 (13:35→22:05)
[2022-05-16] MEDS ORDERED: traZODone HCL 50 MG TABLET (FP) PO SCH (22:00)
[2022-05-16] MEDS: CARVEDILOL 12.5 MG TABLET (FP) PO SCH (22:05)
[2022-05-16] MEDS: MELATONIN 5 MG TABLETS PO SCH (22:05)
[2022-05-16] MEDS: ATORVASTATIN CA 20 MG TABLET (FP) PO SCH (22:05)
[2022-05-17] MEDS ORDERED: LORazepam 0.5 MG TABLET PO PRN
[2022-05-17] MEDS ORDERED: LORazepam 0.5 MG TABLET PO ONE (05:00)
[2022-05-17] MEDS: METHOCARBAMOL 500 MG TABLET PO PRN ×2 (05:26→13:18)
[2022-05-17] MEDS: GABAPENTIN 300 MG CAPSULE PO SCH ×2 (05:26→13:18)
[2022-05-17] MEDS ORDERED: SERTRALINE HCL 50 MG TABLET (FP) PO SCH (10:00)
[2022-05-17] MEDS: PRENATAL VITAMINS W/ FOLIC ACID TABLET (FP) PO SCH (10:22)
[2022-05-17] MEDS: ASPIRIN 81 MG CHEWABLE TABLETS PO SCH (10:22)
[2022-05-17] MEDS: amLODIPine BESYLATE 5 MG TABLET (FP) PO SCH (10:23)
[2022-05-17] MEDS: CARVEDILOL 12.5 MG TABLET (FP) PO SCH (10:23)
[2022-05-17] MEDS: FOLIC ACID 1 MG TABLET (FP) PO SCH (10:23)
[2022-05-17] MEDS: CLOPIDOGREL BISULFATE 75 MG TABLET (FP) PO SCH (10:23)
[2022-05-17] MEDS: THIAMINE HCL 100 MG TABLET (FP) PO SCH (10:24)
[2022-05-17] MEDS: MULTIVITAMINS (DAILY MVI) TABLET (FP) PO SCH (10:26)
[2022-05-17 13:08] VITALS: BP 118/73; PULSE 68; RESP 19; TEMP 97.5
== END 2022-05-17 14:02 | disposition other institution (70) | DRG 774 ==
LOC: YASAS 17:28 → Y3N 05-15 09:45
PROVIDERS: ADMIT Allergy & Immunology; ATTEND Surgery
PROC: HZ2ZZZZ Detoxification Services for Substance Abuse Treatment (ICD-10-PCS; principal; 2022-05-15)
DX: F10.230 Alcohol dependence with withdrawal, uncomplicated (principal); F14.20 Cocaine dependence, uncomplicated; F17.210 Nicotine dependence, cigarettes, uncomplicated; F32.9 Major depressive disorder, single episode, unspecified; I25.10 Atherosclerotic heart disease of native coronary artery without angina pectoris; I10 Essential (primary) hypertension; Z95.1 Presence of aortocoronary bypass graft; Z95.5 Presence of coronary angioplasty implant and graft; E78.5 Hyperlipidemia, unspecified; E11.9 Type 2 diabetes mellitus without complications; Z79.84 Long term (current) use of oral hypoglycemic drugs; M54.50 Low back pain, unspecified; G89.29 Other chronic pain; E66.9 Obesity, unspecified; Z68.35 Body mass index [BMI] 35.0-35.9, adult; Z88.8 Allergy status to other drugs, medicaments and biological substances; Z88.6 Allergy status to analgesic agent
CPT/HCPCS: 0241U-QW; 36415; 70450-TC; 71045-TC-FY; 71275-TC; 74174-TC; 80053; 80307; 81003; 82962; 83735; 83880; 84100; 84484; 85025; 85610; 85730; 86850; 86900; 86901; 87811; 93005; 93010; 99285-25; C9803-CS; G0378; U0003; U0005

== ENCOUNTER 2022-05-17 14:09 | Inpatient (IN) | payer OTHER ==
[2022-05-17] MEDS ORDERED: LOPERAMIDE HCL 2 MG CAPSULE PO PRN (16:00)
[2022-05-17] MEDS ORDERED: MAG HYDROX/AL HYDROX/SIMETH 30 ML UNIT-DOSE CUP PO PRN (16:00)
[2022-05-17] MEDS ORDERED: hydrOXYzine PAMOATE 25 MG CAPSULE (FP) PO PRN (16:00)
[2022-05-17] MEDS ORDERED: guaiFENesin 200 MG/10 ML 10 ML UNIT-DOSE CUPS PO PRN (16:00)
[2022-05-17] MEDS ORDERED: ACETAMINOPHEN 325 MG TABLET (FP) PO PRN (16:00)
[2022-05-17] MEDS ORDERED: NICOTINE 10 MG CARTRIDGE (INHALER) IH PRN (16:00)
[2022-05-17] MEDS ORDERED: P-EPHED 60MG/TRIPROLIDI 2.5MG TABLET PO PRN (16:00)
[2022-05-17] MEDS ORDERED: MAGNESIUM HYDROX 2400MG/30ML ORAL SUSPENSION 30 ML CUP PO PRN (16:00)
[2022-05-17] MEDS ORDERED: BENZOCAINE/MENTHOL (CHLORASEPTIC ) LOZENGE MM PRN (16:00)
[2022-05-17] MEDS ORDERED: IBUPROFEN 400 MG TABLET (FP) PO PRN (16:00)
[2022-05-17] MEDS ORDERED: POLYETHYLENE GLYCOL (HEALTHYLAX) 3350 17 GM PACKET PO PRN (16:00)
[2022-05-17] MEDS: metFORMIN HCL 500 MG TABLET (FP) PO SCH (17:43)
[2022-05-17] MEDS: MELATONIN 5 MG TABLETS PO SCH (21:33)
[2022-05-17] MEDS: THIAMINE HCL 100 MG TABLET (FP) PO SCH (21:33)
[2022-05-17] MEDS: traZODone HCL 50 MG TABLET (FP) PO SCH (21:33)
[2022-05-17] MEDS: ATORVASTATIN CA 20 MG TABLET (FP) PO SCH (21:33)
[2022-05-17] MEDS: CARVEDILOL 25 MG TABLET (FP) PO SCH (22:52)
[2022-05-18] MEDS: metFORMIN HCL 500 MG TABLET (FP) PO SCH ×2 (06:35→17:10)
[2022-05-18] MEDS: PRENATAL VITAMINS W/ FOLIC ACID TABLET (FP) PO SCH (10:01)
[2022-05-18] MEDS: ASPIRIN 81 MG CHEWABLE TABLETS PO SCH (10:01)
[2022-05-18] MEDS: NICOTINE 7 MG/24 HOURS TOPICAL PATCH TD SCH (10:01)
[2022-05-18] MEDS: SERTRALINE HCL 50 MG TABLET (FP) PO SCH (10:01)
[2022-05-18] MEDS: amLODIPine BESYLATE 10 MG TABLET (FP) PO SCH (10:02)
[2022-05-18] MEDS: CLOPIDOGREL BISULFATE 75 MG TABLET (FP) PO SCH (10:02)
[2022-05-18] MEDS: CARVEDILOL 25 MG TABLET (FP) PO SCH ×2 (10:02→21:29)
[2022-05-18] MEDS: GABAPENTIN 300 MG CAPSULE PO SCH ×2 (13:24→21:27)
[2022-05-18] MEDS: METHOCARBAMOL 500 MG TABLET PO PRN (13:24)
[2022-05-18] MEDS ORDERED: GABAPENTIN 400 MG CAPSULE PO SCH (14:00)
[2022-05-18] MEDS ORDERED: GABAPENTIN 300 MG CAPSULE PO SCH (14:00)
[2022-05-18] MEDS: MELATONIN 5 MG TABLETS PO SCH (21:28)
[2022-05-18] MEDS: THIAMINE HCL 100 MG TABLET (FP) PO SCH (21:28)
[2022-05-18] MEDS: traZODone HCL 50 MG TABLET (FP) PO SCH (21:29)
[2022-05-18] MEDS: ATORVASTATIN CA 20 MG TABLET (FP) PO SCH (21:29)
[2022-05-18] MEDS: SENNOSIDES 8.6MG TABLET (FP) PO SCH (21:30)
[2022-05-19] MEDS: METHOCARBAMOL 500 MG TABLET PO PRN (06:51)
[2022-05-19] MEDS: metFORMIN HCL 500 MG TABLET (FP) PO SCH ×2 (06:52→16:50)
[2022-05-19] MEDS: GABAPENTIN 300 MG CAPSULE PO SCH ×3 (06:52→21:34)
[2022-05-19] MEDS: amLODIPine BESYLATE 10 MG TABLET (FP) PO SCH (09:51)
[2022-05-19] MEDS: SERTRALINE HCL 50 MG TABLET (FP) PO SCH (09:51)
[2022-05-19] MEDS: CLOPIDOGREL BISULFATE 75 MG TABLET (FP) PO SCH (09:51)
[2022-05-19] MEDS: ASPIRIN 81 MG CHEWABLE TABLETS PO SCH (09:51)
[2022-05-19] MEDS: NICOTINE 7 MG/24 HOURS TOPICAL PATCH TD SCH (09:52)
[2022-05-19] MEDS: CARVEDILOL 25 MG TABLET (FP) PO SCH ×2 (09:53→21:33)
[2022-05-19] MEDS: LACTULOSE 20 GM/30 ML UDC (FOR ORAL USE ONLY) PO PRN (09:53)
[2022-05-19] MEDS: PRENATAL VITAMINS W/ FOLIC ACID TABLET (FP) PO SCH (09:58)
[2022-05-19] MEDS: MELATONIN 5 MG TABLETS PO SCH (21:33)
[2022-05-19] MEDS: ATORVASTATIN CA 20 MG TABLET (FP) PO SCH (21:33)
[2022-05-19] MEDS: traZODone HCL 50 MG TABLET (FP) PO SCH (21:33)
[2022-05-19] MEDS: SENNOSIDES 8.6MG TABLET (FP) PO SCH (21:34)
[2022-05-19] MEDS: THIAMINE HCL 100 MG TABLET (FP) PO SCH (21:35)
[2022-05-20] MEDS: GABAPENTIN 300 MG CAPSULE PO SCH ×3 (06:46→21:58)
[2022-05-20] MEDS: metFORMIN HCL 500 MG TABLET (FP) PO SCH ×2 (06:46→16:54)
[2022-05-20] MEDS: PRENATAL VITAMINS W/ FOLIC ACID TABLET (FP) PO SCH (09:56)
[2022-05-20] MEDS: ASPIRIN 81 MG CHEWABLE TABLETS PO SCH (09:56)
[2022-05-20] MEDS: NICOTINE 7 MG/24 HOURS TOPICAL PATCH TD SCH (09:56)
[2022-05-20] MEDS: SERTRALINE HCL 50 MG TABLET (FP) PO SCH (09:56)
[2022-05-20] MEDS: CARVEDILOL 25 MG TABLET (FP) PO SCH ×2 (09:56→21:56)
[2022-05-20] MEDS: CLOPIDOGREL BISULFATE 75 MG TABLET (FP) PO SCH (09:56)
[2022-05-20] MEDS: amLODIPine BESYLATE 10 MG TABLET (FP) PO SCH (09:56)
[2022-05-20] MEDS: METHOCARBAMOL 500 MG TABLET PO PRN ×2 (09:57→21:58)
[2022-05-20] MEDS: traZODone HCL 50 MG TABLET (FP) PO SCH (21:55)
[2022-05-20] MEDS: THIAMINE HCL 100 MG TABLET (FP) PO SCH (21:56)
[2022-05-20] MEDS: SENNOSIDES 8.6MG TABLET (FP) PO SCH (21:57)
[2022-05-20] MEDS: ATORVASTATIN CA 20 MG TABLET (FP) PO SCH (21:58)
[2022-05-20] MEDS: MELATONIN 5 MG TABLETS PO SCH (21:58)
[2022-05-21] MEDS: metFORMIN HCL 500 MG TABLET (FP) PO SCH ×2 (06:25→16:29)
[2022-05-21] MEDS: GABAPENTIN 300 MG CAPSULE PO SCH ×3 (06:25→21:50)
[2022-05-21] MEDS: ASPIRIN 81 MG CHEWABLE TABLETS PO SCH (09:56)
[2022-05-21] MEDS: PRENATAL VITAMINS W/ FOLIC ACID TABLET (FP) PO SCH (09:56)
[2022-05-21] MEDS: SERTRALINE HCL 50 MG TABLET (FP) PO SCH (09:56)
[2022-05-21] MEDS: CARVEDILOL 25 MG TABLET (FP) PO SCH ×2 (09:57→21:50)
[2022-05-21] MEDS: NICOTINE 7 MG/24 HOURS TOPICAL PATCH TD SCH (09:57)
[2022-05-21] MEDS: CLOPIDOGREL BISULFATE 75 MG TABLET (FP) PO SCH (09:57)
[2022-05-21] MEDS: amLODIPine BESYLATE 10 MG TABLET (FP) PO SCH (09:57)
[2022-05-21] MEDS: METHOCARBAMOL 500 MG TABLET PO PRN ×2 (09:58→21:51)
[2022-05-21] MEDS: traZODone HCL 50 MG TABLET (FP) PO SCH (21:49)
[2022-05-21] MEDS: THIAMINE HCL 100 MG TABLET (FP) PO SCH (21:49)
[2022-05-21] MEDS: MELATONIN 5 MG TABLETS PO SCH (21:49)
[2022-05-21] MEDS: ATORVASTATIN CA 20 MG TABLET (FP) PO SCH (21:50)
[2022-05-21] MEDS: SENNOSIDES 8.6MG TABLET (FP) PO SCH (21:50)
[2022-05-22] MEDS: metFORMIN HCL 500 MG TABLET (FP) PO SCH ×2 (06:21→16:34)
[2022-05-22] MEDS: GABAPENTIN 300 MG CAPSULE PO SCH ×3 (06:21→21:30)
[2022-05-22] MEDS: PRENATAL VITAMINS W/ FOLIC ACID TABLET (FP) PO SCH (10:01)
[2022-05-22] MEDS: CARVEDILOL 12.5 MG TABLET (FP) PO SCH ×2 (10:02→21:31)
[2022-05-22] MEDS: CLOPIDOGREL BISULFATE 75 MG TABLET (FP) PO SCH (10:02)
[2022-05-22] MEDS: amLODIPine BESYLATE 10 MG TABLET (FP) PO SCH (10:02)
[2022-05-22] MEDS: SERTRALINE HCL 50 MG TABLET (FP) PO SCH (10:02)
[2022-05-22] MEDS: NICOTINE 7 MG/24 HOURS TOPICAL PATCH TD SCH (10:02)
[2022-05-22] MEDS: ASPIRIN 81 MG CHEWABLE TABLETS PO SCH (10:02)
[2022-05-22] MEDS: METHOCARBAMOL 500 MG TABLET PO PRN ×2 (10:04→21:33)
[2022-05-22] MEDS: traZODone HCL 50 MG TABLET (FP) PO SCH (21:30)
[2022-05-22] MEDS: MELATONIN 5 MG TABLETS PO SCH (21:31)
[2022-05-22] MEDS: ATORVASTATIN CA 20 MG TABLET (FP) PO SCH (21:31)
[2022-05-22] MEDS: SENNOSIDES 8.6MG TABLET (FP) PO SCH (21:31)
[2022-05-22] MEDS: THIAMINE HCL 100 MG TABLET (FP) PO SCH (21:31)
[2022-05-23] MEDS: metFORMIN HCL 500 MG TABLET (FP) PO SCH ×2 (06:58→16:43)
[2022-05-23] MEDS: GABAPENTIN 300 MG CAPSULE PO SCH ×3 (06:59→21:27)
[2022-05-23] MEDS: PRENATAL VITAMINS W/ FOLIC ACID TABLET (FP) PO SCH (10:01)
[2022-05-23] MEDS: SERTRALINE HCL 50 MG TABLET (FP) PO SCH (10:01)
[2022-05-23] MEDS: CLOPIDOGREL BISULFATE 75 MG TABLET (FP) PO SCH (10:01)
[2022-05-23] MEDS: ASPIRIN 81 MG CHEWABLE TABLETS PO SCH (10:01)
[2022-05-23] MEDS: amLODIPine BESYLATE 10 MG TABLET (FP) PO SCH (10:01)
[2022-05-23] MEDS: CARVEDILOL 12.5 MG TABLET (FP) PO SCH ×2 (10:02→21:28)
[2022-05-23] MEDS: METHOCARBAMOL 500 MG TABLET PO PRN ×2 (10:03→21:28)
[2022-05-23] MEDS: NICOTINE 7 MG/24 HOURS TOPICAL PATCH TD SCH (10:03)
[2022-05-23] MEDS: MELATONIN 5 MG TABLETS PO SCH (21:26)
[2022-05-23] MEDS: THIAMINE HCL 100 MG TABLET (FP) PO SCH (21:28)
[2022-05-23] MEDS: LACTULOSE 20 GM/30 ML UDC (FOR ORAL USE ONLY) PO PRN (21:28)
[2022-05-23] MEDS: SENNOSIDES 8.6MG TABLET (FP) PO SCH (21:28)
[2022-05-23] MEDS: ATORVASTATIN CA 20 MG TABLET (FP) PO SCH (21:28)
[2022-05-23] MEDS: traZODone HCL 50 MG TABLET (FP) PO SCH (21:28)
[2022-05-24] MEDS: GABAPENTIN 300 MG CAPSULE PO SCH ×3 (06:28→21:23)
[2022-05-24] MEDS: metFORMIN HCL 500 MG TABLET (FP) PO SCH ×2 (06:28→16:52)
[2022-05-24] MEDS: SERTRALINE HCL 50 MG TABLET (FP) PO SCH (09:59)
[2022-05-24] MEDS: PRENATAL VITAMINS W/ FOLIC ACID TABLET (FP) PO SCH (09:59)
[2022-05-24] MEDS: CLOPIDOGREL BISULFATE 75 MG TABLET (FP) PO SCH (09:59)
[2022-05-24] MEDS: ASPIRIN 81 MG CHEWABLE TABLETS PO SCH (09:59)
[2022-05-24] MEDS: amLODIPine BESYLATE 10 MG TABLET (FP) PO SCH (10:00)
[2022-05-24] MEDS: NICOTINE 7 MG/24 HOURS TOPICAL PATCH TD SCH (10:00)
[2022-05-24] MEDS: CARVEDILOL 12.5 MG TABLET (FP) PO SCH ×2 (10:00→21:23)
[2022-05-24] MEDS: METHOCARBAMOL 500 MG TABLET PO PRN ×2 (10:01→21:22)
[2022-05-24] MEDS: MELATONIN 5 MG TABLETS PO SCH (21:22)
[2022-05-24] MEDS: THIAMINE HCL 100 MG TABLET (FP) PO SCH (21:22)
[2022-05-24] MEDS: traZODone HCL 50 MG TABLET (FP) PO SCH (21:22)
[2022-05-24] MEDS: ATORVASTATIN CA 20 MG TABLET (FP) PO SCH (21:23)
[2022-05-24] MEDS: SENNOSIDES 8.6MG TABLET (FP) PO SCH (21:23)
[2022-05-25] MEDS: GABAPENTIN 300 MG CAPSULE PO SCH ×3 (06:24→21:35)
[2022-05-25] MEDS: metFORMIN HCL 500 MG TABLET (FP) PO SCH ×2 (06:24→16:40)
[2022-05-25] MEDS: SERTRALINE HCL 50 MG TABLET (FP) PO SCH (10:14)
[2022-05-25] MEDS: PRENATAL VITAMINS W/ FOLIC ACID TABLET (FP) PO SCH (10:14)
[2022-05-25] MEDS: NICOTINE 7 MG/24 HOURS TOPICAL PATCH TD SCH (10:15)
[2022-05-25] MEDS: ASPIRIN 81 MG CHEWABLE TABLETS PO SCH (10:15)
[2022-05-25] MEDS: amLODIPine BESYLATE 10 MG TABLET (FP) PO SCH (10:15)
[2022-05-25] MEDS: CLOPIDOGREL BISULFATE 75 MG TABLET (FP) PO SCH (10:15)
[2022-05-25] MEDS: CARVEDILOL 12.5 MG TABLET (FP) PO SCH ×2 (10:16→21:35)
[2022-05-25] MEDS: METHOCARBAMOL 500 MG TABLET PO PRN ×2 (10:18→21:38)
[2022-05-25] MEDS: THIAMINE HCL 100 MG TABLET (FP) PO SCH (21:34)
[2022-05-25] MEDS: ATORVASTATIN CA 20 MG TABLET (FP) PO SCH (21:35)
[2022-05-25] MEDS: traZODone HCL 50 MG TABLET (FP) PO SCH (21:35)
[2022-05-25] MEDS: SENNOSIDES 8.6MG TABLET (FP) PO SCH (21:35)
[2022-05-25] MEDS: MELATONIN 5 MG TABLETS PO SCH (21:36)
[2022-05-26] MEDS: GABAPENTIN 300 MG CAPSULE PO SCH ×4 (07:17→21:30)
[2022-05-26] MEDS: metFORMIN HCL 500 MG TABLET (FP) PO SCH ×3 (07:17→17:20)
[2022-05-26] MEDS ORDERED: TRIMETHOBENZAMIDE HCL 200MG/2ML INJ IM ONE (08:44)
[2022-05-26] MEDS ORDERED: ONDANSETRON *ODT* 4 MG TABLET SL PRN (08:45)
[2022-05-26] MEDS: ASPIRIN 81 MG CHEWABLE TABLETS PO SCH (14:18)
[2022-05-26] MEDS: CARVEDILOL 12.5 MG TABLET (FP) PO SCH ×2 (14:18→21:32)
[2022-05-26] MEDS: SERTRALINE HCL 50 MG TABLET (FP) PO SCH (14:19)
[2022-05-26] MEDS: amLODIPine BESYLATE 10 MG TABLET (FP) PO SCH (14:19)
[2022-05-26] MEDS: CLOPIDOGREL BISULFATE 75 MG TABLET (FP) PO SCH (14:19)
[2022-05-26] MEDS: PRENATAL VITAMINS W/ FOLIC ACID TABLET (FP) PO SCH (14:19)
[2022-05-26] MEDS: traZODone HCL 50 MG TABLET (FP) PO SCH (21:30)
[2022-05-26] MEDS: SENNOSIDES 8.6MG TABLET (FP) PO SCH (21:30)
[2022-05-26] MEDS: THIAMINE HCL 100 MG TABLET (FP) PO SCH (21:31)
[2022-05-26] MEDS: MELATONIN 5 MG TABLETS PO SCH (21:31)
[2022-05-26] MEDS: ATORVASTATIN CA 20 MG TABLET (FP) PO SCH (21:31)
[2022-05-27] MEDS: metFORMIN HCL 500 MG TABLET (FP) PO SCH ×2 (06:17→16:57)
[2022-05-27] MEDS: GABAPENTIN 300 MG CAPSULE PO SCH ×3 (06:17→21:40)
[2022-05-27] MEDS: PRENATAL VITAMINS W/ FOLIC ACID TABLET (FP) PO SCH (10:10)
[2022-05-27] MEDS: ASPIRIN 81 MG CHEWABLE TABLETS PO SCH (10:11)
[2022-05-27] MEDS: CARVEDILOL 12.5 MG TABLET (FP) PO SCH ×2 (10:11→21:40)
[2022-05-27] MEDS: CLOPIDOGREL BISULFATE 75 MG TABLET (FP) PO SCH (10:11)
[2022-05-27] MEDS: SERTRALINE HCL 50 MG TABLET (FP) PO SCH (10:11)
[2022-05-27] MEDS: amLODIPine BESYLATE 10 MG TABLET (FP) PO SCH (10:12)
[2022-05-27] MEDS: traZODone HCL 50 MG TABLET (FP) PO SCH (21:40)
[2022-05-27] MEDS: MELATONIN 5 MG TABLETS PO SCH (21:40)
[2022-05-27] MEDS: ATORVASTATIN CA 20 MG TABLET (FP) PO SCH (21:41)
[2022-05-27] MEDS: SENNOSIDES 8.6MG TABLET (FP) PO SCH (21:41)
[2022-05-27] MEDS: THIAMINE HCL 100 MG TABLET (FP) PO SCH (21:41)
[2022-05-28] MEDS: GABAPENTIN 300 MG CAPSULE PO SCH ×3 (05:55→22:44)
[2022-05-28] MEDS: metFORMIN HCL 500 MG TABLET (FP) PO SCH ×2 (06:39→16:39)
[2022-05-28] MEDS: PRENATAL VITAMINS W/ FOLIC ACID TABLET (FP) PO SCH (10:17)
[2022-05-28] MEDS: CLOPIDOGREL BISULFATE 75 MG TABLET (FP) PO SCH (10:18)
[2022-05-28] MEDS: CARVEDILOL 12.5 MG TABLET (FP) PO SCH ×2 (10:18→21:42)
[2022-05-28] MEDS: amLODIPine BESYLATE 10 MG TABLET (FP) PO SCH (10:18)
[2022-05-28] MEDS: SERTRALINE HCL 50 MG TABLET (FP) PO SCH (10:18)
[2022-05-28] MEDS: ASPIRIN 81 MG CHEWABLE TABLETS PO SCH (10:18)
[2022-05-28] MEDS: DOCUSATE SODIUM 100 MG CAPSULE (FP) PO SCH ×2 (14:09→21:41)
[2022-05-28] MEDS: THIAMINE HCL 100 MG TABLET (FP) PO SCH (21:41)
[2022-05-28] MEDS: MELATONIN 5 MG TABLETS PO SCH (21:41)
[2022-05-28] MEDS: traZODone HCL 50 MG TABLET (FP) PO SCH (21:42)
[2022-05-28] MEDS: SENNOSIDES 8.6MG TABLET (FP) PO SCH (22:44)
[2022-05-28] MEDS: ATORVASTATIN CA 20 MG TABLET (FP) PO SCH (22:44)
[2022-05-29] MEDS: GABAPENTIN 300 MG CAPSULE PO SCH ×2 (06:22→15:01)
[2022-05-29] MEDS: DOCUSATE SODIUM 100 MG CAPSULE (FP) PO SCH ×2 (06:23→15:02)
[2022-05-29] MEDS: metFORMIN HCL 500 MG TABLET (FP) PO SCH ×2 (06:23→16:59)
[2022-05-29] MEDS: amLODIPine BESYLATE 10 MG TABLET (FP) PO SCH (10:27)
[2022-05-29] MEDS: PRENATAL VITAMINS W/ FOLIC ACID TABLET (FP) PO SCH (10:27)
[2022-05-29] MEDS: ASPIRIN 81 MG CHEWABLE TABLETS PO SCH (10:27)
[2022-05-29] MEDS: CARVEDILOL 12.5 MG TABLET (FP) PO SCH (10:27)
[2022-05-29] MEDS: SERTRALINE HCL 50 MG TABLET (FP) PO SCH (10:27)
[2022-05-29] MEDS: CLOPIDOGREL BISULFATE 75 MG TABLET (FP) PO SCH (10:27)
[2022-05-30] MEDS: traZODone HCL 50 MG TABLET (FP) PO SCH ×2 (00:11→22:08)
[2022-05-30] MEDS: MELATONIN 5 MG TABLETS PO SCH ×2 (00:11→22:08)
[2022-05-30] MEDS: ATORVASTATIN CA 20 MG TABLET (FP) PO SCH ×2 (00:11→22:09)
[2022-05-30] MEDS: DOCUSATE SODIUM 100 MG CAPSULE (FP) PO SCH ×4 (00:11→22:09)
[2022-05-30] MEDS: CARVEDILOL 12.5 MG TABLET (FP) PO SCH ×3 (00:11→22:08)
[2022-05-30] MEDS: SENNOSIDES 8.6MG TABLET (FP) PO SCH ×2 (00:12→22:10)
[2022-05-30] MEDS: GABAPENTIN 300 MG CAPSULE PO SCH ×4 (00:12→22:09)
[2022-05-30] MEDS: THIAMINE HCL 100 MG TABLET (FP) PO SCH ×2 (00:12→22:10)
[2022-05-30] MEDS: metFORMIN HCL 500 MG TABLET (FP) PO SCH ×2 (06:52→16:46)
[2022-05-30] MEDS: CLOPIDOGREL BISULFATE 75 MG TABLET (FP) PO SCH (10:20)
[2022-05-30] MEDS: PRENATAL VITAMINS W/ FOLIC ACID TABLET (FP) PO SCH (10:20)
[2022-05-30] MEDS: ASPIRIN 81 MG CHEWABLE TABLETS PO SCH (10:20)
[2022-05-30] MEDS: amLODIPine BESYLATE 10 MG TABLET (FP) PO SCH (10:21)
[2022-05-30] MEDS: SERTRALINE HCL 50 MG TABLET (FP) PO SCH (10:21)
[2022-05-31] MEDS: metFORMIN HCL 500 MG TABLET (FP) PO SCH ×2 (06:50→16:43)
[2022-05-31] MEDS: GABAPENTIN 300 MG CAPSULE PO SCH ×3 (06:50→21:25)
[2022-05-31] MEDS: DOCUSATE SODIUM 100 MG CAPSULE (FP) PO SCH ×3 (06:50→21:25)
[2022-05-31] MEDS: amLODIPine BESYLATE 10 MG TABLET (FP) PO SCH (10:07)
[2022-05-31] MEDS: CLOPIDOGREL BISULFATE 75 MG TABLET (FP) PO SCH (10:07)
[2022-05-31] MEDS: ASPIRIN 81 MG CHEWABLE TABLETS PO SCH (10:07)
[2022-05-31] MEDS: PRENATAL VITAMINS W/ FOLIC ACID TABLET (FP) PO SCH (10:08)
[2022-05-31] MEDS: CARVEDILOL 12.5 MG TABLET (FP) PO SCH ×2 (10:08→21:25)
[2022-05-31] MEDS: SERTRALINE HCL 50 MG TABLET (FP) PO SCH (10:08)
[2022-05-31] MEDS: THIAMINE HCL 100 MG TABLET (FP) PO SCH (21:25)
[2022-05-31] MEDS: traZODone HCL 50 MG TABLET (FP) PO SCH (21:25)
[2022-05-31] MEDS: ATORVASTATIN CA 20 MG TABLET (FP) PO SCH (21:25)
[2022-05-31] MEDS: SENNOSIDES 8.6MG TABLET (FP) PO SCH (21:25)
[2022-05-31] MEDS: MELATONIN 5 MG TABLETS PO SCH (21:38)
[2022-06-01] MEDS: GABAPENTIN 300 MG CAPSULE PO SCH ×3 (06:37→21:30)
[2022-06-01] MEDS: metFORMIN HCL 500 MG TABLET (FP) PO SCH ×2 (06:37→16:46)
[2022-06-01] MEDS: DOCUSATE SODIUM 100 MG CAPSULE (FP) PO SCH ×3 (06:38→21:30)
[2022-06-01] MEDS: CLOPIDOGREL BISULFATE 75 MG TABLET (FP) PO SCH (10:22)
[2022-06-01] MEDS: amLODIPine BESYLATE 10 MG TABLET (FP) PO SCH (10:22)
[2022-06-01] MEDS: SERTRALINE HCL 50 MG TABLET (FP) PO SCH (10:22)
[2022-06-01] MEDS: ASPIRIN 81 MG CHEWABLE TABLETS PO SCH (10:22)
[2022-06-01] MEDS: PRENATAL VITAMINS W/ FOLIC ACID TABLET (FP) PO SCH (10:22)
[2022-06-01] MEDS: CARVEDILOL 12.5 MG TABLET (FP) PO SCH ×2 (10:22→22:29)
[2022-06-01] MEDS: ATORVASTATIN CA 20 MG TABLET (FP) PO SCH (21:30)
[2022-06-01] MEDS: traZODone HCL 50 MG TABLET (FP) PO SCH (21:30)
[2022-06-01] MEDS: SENNOSIDES 8.6MG TABLET (FP) PO SCH (21:30)
[2022-06-01] MEDS: THIAMINE HCL 100 MG TABLET (FP) PO SCH (21:30)
[2022-06-01] MEDS: MELATONIN 5 MG TABLETS PO SCH (21:55)
[2022-06-02] MEDS: GABAPENTIN 300 MG CAPSULE PO SCH ×3 (07:15→21:40)
[2022-06-02] MEDS: DOCUSATE SODIUM 100 MG CAPSULE (FP) PO SCH ×3 (07:16→21:40)
[2022-06-02] MEDS: metFORMIN HCL 500 MG TABLET (FP) PO SCH ×2 (07:17→17:19)
[2022-06-02] MEDS: ASPIRIN 81 MG CHEWABLE TABLETS PO SCH (09:54)
[2022-06-02] MEDS: PRENATAL VITAMINS W/ FOLIC ACID TABLET (FP) PO SCH (09:54)
[2022-06-02] MEDS: CLOPIDOGREL BISULFATE 75 MG TABLET (FP) PO SCH (09:54)
[2022-06-02] MEDS: CARVEDILOL 12.5 MG TABLET (FP) PO SCH ×2 (09:54→21:41)
[2022-06-02] MEDS: amLODIPine BESYLATE 10 MG TABLET (FP) PO SCH (09:54)
[2022-06-02] MEDS: SERTRALINE HCL 50 MG TABLET (FP) PO SCH (09:54)
[2022-06-02] MEDS: METHOCARBAMOL 500 MG TABLET PO PRN ×2 (09:55→21:40)
[2022-06-02] MEDS: THIAMINE HCL 100 MG TABLET (FP) PO SCH (21:40)
[2022-06-02] MEDS: traZODone HCL 50 MG TABLET (FP) PO SCH (21:40)
[2022-06-02] MEDS: ATORVASTATIN CA 20 MG TABLET (FP) PO SCH (21:40)
[2022-06-02] MEDS: SENNOSIDES 8.6MG TABLET (FP) PO SCH (21:40)
[2022-06-02] MEDS: MELATONIN 5 MG TABLETS PO SCH (21:48)
[2022-06-03] MEDS: GABAPENTIN 300 MG CAPSULE PO SCH ×3 (06:16→21:33)
[2022-06-03] MEDS: DOCUSATE SODIUM 100 MG CAPSULE (FP) PO SCH ×3 (06:17→21:33)
[2022-06-03] MEDS: metFORMIN HCL 500 MG TABLET (FP) PO SCH ×2 (06:17→18:00)
[2022-06-03] MEDS: PRENATAL VITAMINS W/ FOLIC ACID TABLET (FP) PO SCH (10:03)
[2022-06-03] MEDS: CLOPIDOGREL BISULFATE 75 MG TABLET (FP) PO SCH (10:04)
[2022-06-03] MEDS: amLODIPine BESYLATE 10 MG TABLET (FP) PO SCH (10:04)
[2022-06-03] MEDS: METHOCARBAMOL 500 MG TABLET PO PRN (10:04)
[2022-06-03] MEDS: ASPIRIN 81 MG CHEWABLE TABLETS PO SCH (10:04)
[2022-06-03] MEDS: CARVEDILOL 12.5 MG TABLET (FP) PO SCH ×2 (10:04→21:33)
[2022-06-03] MEDS: SERTRALINE HCL 50 MG TABLET (FP) PO SCH (10:05)
[2022-06-03] MEDS: MELATONIN 5 MG TABLETS PO SCH (21:32)
[2022-06-03] MEDS: THIAMINE HCL 100 MG TABLET (FP) PO SCH (21:33)
[2022-06-03] MEDS: traZODone HCL 50 MG TABLET (FP) PO SCH (21:33)
[2022-06-03] MEDS: ATORVASTATIN CA 20 MG TABLET (FP) PO SCH (21:33)
[2022-06-03] MEDS: SENNOSIDES 8.6MG TABLET (FP) PO SCH (21:33)
[2022-06-04] MEDS: metFORMIN HCL 500 MG TABLET (FP) PO SCH ×2 (06:11→16:59)
[2022-06-04] MEDS: GABAPENTIN 300 MG CAPSULE PO SCH ×3 (06:12→21:28)
[2022-06-04] MEDS: DOCUSATE SODIUM 100 MG CAPSULE (FP) PO SCH ×3 (06:12→21:28)
[2022-06-04] MEDS: amLODIPine BESYLATE 10 MG TABLET (FP) PO SCH (09:49)
[2022-06-04] MEDS: PRENATAL VITAMINS W/ FOLIC ACID TABLET (FP) PO SCH (09:49)
[2022-06-04] MEDS: CLOPIDOGREL BISULFATE 75 MG TABLET (FP) PO SCH (09:50)
[2022-06-04] MEDS: ASPIRIN 81 MG CHEWABLE TABLETS PO SCH (09:50)
[2022-06-04] MEDS: CARVEDILOL 12.5 MG TABLET (FP) PO SCH ×2 (09:50→21:28)
[2022-06-04] MEDS: SERTRALINE HCL 50 MG TABLET (FP) PO SCH (09:50)
[2022-06-04] MEDS: METHOCARBAMOL 500 MG TABLET PO PRN (09:51)
[2022-06-04] MEDS: ATORVASTATIN CA 20 MG TABLET (FP) PO SCH (21:28)
[2022-06-04] MEDS: MELATONIN 5 MG TABLETS PO SCH (21:28)
[2022-06-04] MEDS: SENNOSIDES 8.6MG TABLET (FP) PO SCH (21:28)
[2022-06-04] MEDS: traZODone HCL 50 MG TABLET (FP) PO SCH (21:28)
[2022-06-04] MEDS: THIAMINE HCL 100 MG TABLET (FP) PO SCH (21:28)
[2022-06-05] MEDS: metFORMIN HCL 500 MG TABLET (FP) PO SCH ×2 (06:18→17:29)
[2022-06-05] MEDS: GABAPENTIN 300 MG CAPSULE PO SCH ×3 (06:18→21:33)
[2022-06-05] MEDS: DOCUSATE SODIUM 100 MG CAPSULE (FP) PO SCH ×3 (06:18→21:33)
[2022-06-05] MEDS: CARVEDILOL 12.5 MG TABLET (FP) PO SCH ×2 (09:55→21:33)
[2022-06-05] MEDS: ASPIRIN 81 MG CHEWABLE TABLETS PO SCH (09:55)
[2022-06-05] MEDS: SERTRALINE HCL 50 MG TABLET (FP) PO SCH (09:55)
[2022-06-05] MEDS: CLOPIDOGREL BISULFATE 75 MG TABLET (FP) PO SCH (09:55)
[2022-06-05] MEDS: amLODIPine BESYLATE 10 MG TABLET (FP) PO SCH (09:55)
[2022-06-05] MEDS: PRENATAL VITAMINS W/ FOLIC ACID TABLET (FP) PO SCH (09:56)
[2022-06-05] MEDS: METHOCARBAMOL 500 MG TABLET PO PRN (09:56)
[2022-06-05] MEDS: THIAMINE HCL 100 MG TABLET (FP) PO SCH (21:33)
[2022-06-05] MEDS: traZODone HCL 50 MG TABLET (FP) PO SCH (21:33)
[2022-06-05] MEDS: SENNOSIDES 8.6MG TABLET (FP) PO SCH (21:33)
[2022-06-05] MEDS: ATORVASTATIN CA 20 MG TABLET (FP) PO SCH (21:33)
[2022-06-05] MEDS: MELATONIN 5 MG TABLETS PO SCH (21:33)
[2022-06-06] MEDS: GABAPENTIN 300 MG CAPSULE PO SCH ×3 (06:50→21:27)
[2022-06-06] MEDS: DOCUSATE SODIUM 100 MG CAPSULE (FP) PO SCH ×3 (06:50→21:28)
[2022-06-06] MEDS: metFORMIN HCL 500 MG TABLET (FP) PO SCH ×2 (07:07→16:26)
[2022-06-06] MEDS: PRENATAL VITAMINS W/ FOLIC ACID TABLET (FP) PO SCH (10:00)
[2022-06-06] MEDS: ASPIRIN 81 MG CHEWABLE TABLETS PO SCH (10:01)
[2022-06-06] MEDS: CARVEDILOL 12.5 MG TABLET (FP) PO SCH ×2 (10:01→21:28)
[2022-06-06] MEDS: amLODIPine BESYLATE 10 MG TABLET (FP) PO SCH (10:01)
[2022-06-06] MEDS: CLOPIDOGREL BISULFATE 75 MG TABLET (FP) PO SCH (10:01)
[2022-06-06] MEDS: SERTRALINE HCL 50 MG TABLET (FP) PO SCH (10:01)
[2022-06-06] MEDS: SENNOSIDES 8.6MG TABLET (FP) PO SCH (21:27)
[2022-06-06] MEDS: THIAMINE HCL 100 MG TABLET (FP) PO SCH (21:28)
[2022-06-06] MEDS: MELATONIN 5 MG TABLETS PO SCH (21:28)
[2022-06-06] MEDS: ATORVASTATIN CA 20 MG TABLET (FP) PO SCH (21:28)
[2022-06-06] MEDS: traZODone HCL 50 MG TABLET (FP) PO SCH (21:29)
[2022-06-07] MEDS: GABAPENTIN 300 MG CAPSULE PO SCH ×3 (06:26→23:42)
[2022-06-07] MEDS: metFORMIN HCL 500 MG TABLET (FP) PO SCH ×2 (06:27→16:33)
[2022-06-07] MEDS: DOCUSATE SODIUM 100 MG CAPSULE (FP) PO SCH ×3 (06:27→23:38)
[2022-06-07] MEDS: PRENATAL VITAMINS W/ FOLIC ACID TABLET (FP) PO SCH (09:54)
[2022-06-07] MEDS: amLODIPine BESYLATE 10 MG TABLET (FP) PO SCH (09:55)
[2022-06-07] MEDS: SERTRALINE HCL 50 MG TABLET (FP) PO SCH (09:55)
[2022-06-07] MEDS: CARVEDILOL 12.5 MG TABLET (FP) PO SCH ×2 (09:55→23:39)
[2022-06-07] MEDS: ASPIRIN 81 MG CHEWABLE TABLETS PO SCH (09:55)
[2022-06-07] MEDS: CLOPIDOGREL BISULFATE 75 MG TABLET (FP) PO SCH (09:55)
[2022-06-07] MEDS: traZODone HCL 50 MG TABLET (FP) PO SCH (23:39)
[2022-06-07] MEDS: ATORVASTATIN CA 20 MG TABLET (FP) PO SCH (23:40)
[2022-06-07] MEDS: MELATONIN 5 MG TABLETS PO SCH (23:41)
[2022-06-07] MEDS: SENNOSIDES 8.6MG TABLET (FP) PO SCH (23:42)
[2022-06-07] MEDS: THIAMINE HCL 100 MG TABLET (FP) PO SCH (23:42)
[2022-06-08] MEDS: DOCUSATE SODIUM 100 MG CAPSULE (FP) PO SCH ×3 (06:33→21:31)
[2022-06-08] MEDS: GABAPENTIN 300 MG CAPSULE PO SCH ×3 (06:33→21:31)
[2022-06-08] MEDS: metFORMIN HCL 500 MG TABLET (FP) PO SCH ×2 (07:12→21:31)
[2022-06-08] MEDS: SERTRALINE HCL 50 MG TABLET (FP) PO SCH (09:57)
[2022-06-08] MEDS: CLOPIDOGREL BISULFATE 75 MG TABLET (FP) PO SCH (09:58)
[2022-06-08] MEDS: amLODIPine BESYLATE 10 MG TABLET (FP) PO SCH (09:58)
[2022-06-08] MEDS: PRENATAL VITAMINS W/ FOLIC ACID TABLET (FP) PO SCH (09:58)
[2022-06-08] MEDS: ASPIRIN 81 MG CHEWABLE TABLETS PO SCH (09:58)
[2022-06-08] MEDS: CARVEDILOL 12.5 MG TABLET (FP) PO SCH ×2 (09:59→21:30)
[2022-06-08] MEDS: MELATONIN 5 MG TABLETS PO SCH (21:29)
[2022-06-08] MEDS: traZODone HCL 50 MG TABLET (FP) PO SCH (21:30)
[2022-06-08] MEDS: ATORVASTATIN CA 20 MG TABLET (FP) PO SCH (21:31)
[2022-06-08] MEDS: SENNOSIDES 8.6MG TABLET (FP) PO SCH (21:31)
[2022-06-08] MEDS: THIAMINE HCL 100 MG TABLET (FP) PO SCH (21:31)
[2022-06-09] MEDS: DOCUSATE SODIUM 100 MG CAPSULE (FP) PO SCH ×3 (07:26→22:18)
[2022-06-09] MEDS: metFORMIN HCL 500 MG TABLET (FP) PO SCH ×2 (07:27→17:25)
[2022-06-09] MEDS: GABAPENTIN 300 MG CAPSULE PO SCH ×3 (07:27→22:17)
[2022-06-09] MEDS: PRENATAL VITAMINS W/ FOLIC ACID TABLET (FP) PO SCH (10:17)
[2022-06-09] MEDS: ASPIRIN 81 MG CHEWABLE TABLETS PO SCH (10:18)
[2022-06-09] MEDS: amLODIPine BESYLATE 10 MG TABLET (FP) PO SCH (10:18)
[2022-06-09] MEDS: CLOPIDOGREL BISULFATE 75 MG TABLET (FP) PO SCH (10:18)
[2022-06-09] MEDS: CARVEDILOL 12.5 MG TABLET (FP) PO SCH ×2 (10:18→22:14)
[2022-06-09] MEDS: SERTRALINE HCL 50 MG TABLET (FP) PO SCH (10:18)
[2022-06-09] MEDS: THIAMINE HCL 100 MG TABLET (FP) PO SCH (22:14)
[2022-06-09] MEDS: traZODone HCL 50 MG TABLET (FP) PO SCH (22:14)
[2022-06-09] MEDS: SENNOSIDES 8.6MG TABLET (FP) PO SCH (22:16)
[2022-06-09] MEDS: ATORVASTATIN CA 20 MG TABLET (FP) PO SCH (22:17)
[2022-06-09] MEDS: MELATONIN 5 MG TABLETS PO SCH (22:17)
[2022-06-10] MEDS: DOCUSATE SODIUM 100 MG CAPSULE (FP) PO SCH (06:39)
[2022-06-10] MEDS: GABAPENTIN 300 MG CAPSULE PO SCH (06:39)
[2022-06-10] MEDS: metFORMIN HCL 500 MG TABLET (FP) PO SCH (06:39)
[2022-06-10 07:05] VITALS: RESP 17; TEMP 97.8
[2022-06-10 09:04] VITALS: BP 138/76; PULSE 57
[2022-06-10] MEDS: SERTRALINE HCL 50 MG TABLET (FP) PO SCH (09:22)
[2022-06-10] MEDS: PRENATAL VITAMINS W/ FOLIC ACID TABLET (FP) PO SCH (09:23)
[2022-06-10] MEDS: amLODIPine BESYLATE 10 MG TABLET (FP) PO SCH (09:23)
[2022-06-10] MEDS: CLOPIDOGREL BISULFATE 75 MG TABLET (FP) PO SCH (09:23)
[2022-06-10] MEDS: ASPIRIN 81 MG CHEWABLE TABLETS PO SCH (09:23)
[2022-06-10] MEDS: CARVEDILOL 12.5 MG TABLET (FP) PO SCH (09:23)
== END 2022-06-10 10:12 | disposition home or self-care (01) | DRG 772 ==
LOC: YASAS 14:09 → Y5N 14:10
PROVIDERS: ADMIT Allergy & Immunology; ATTEND Allergy & Immunology
PROC: HZ42ZZZ Group Counseling for Substance Abuse Treatment, Cognitive-Behavioral (ICD-10-PCS; principal; 2022-05-17)
DX: F10.20 Alcohol dependence, uncomplicated (principal); F14.20 Cocaine dependence, uncomplicated; F17.210 Nicotine dependence, cigarettes, uncomplicated; F19.280 Other psychoactive substance dependence with psychoactive substance-induced anxiety disorder; I25.10 Atherosclerotic heart disease of native coronary artery without angina pectoris; I10 Essential (primary) hypertension; Z95.1 Presence of aortocoronary bypass graft; Z95.5 Presence of coronary angioplasty implant and graft; R11.2 Nausea with vomiting, unspecified; R19.7 Diarrhea, unspecified; E78.5 Hyperlipidemia, unspecified; E66.9 Obesity, unspecified; Z68.35 Body mass index [BMI] 35.0-35.9, adult; Z59.00 Homelessness unspecified; F32.9 Major depressive disorder, single episode, unspecified; Z99.89 Dependence on other enabling machines and devices
CPT/HCPCS: 82962

== ENCOUNTER 2022-07-12 09:16 | Inpatient (IN) | payer OTHER ==
[2022-07-12 10:08] VITALS: BMI 35.6
[2022-07-12] MEDS ORDERED: ONDANSETRON *ODT* 4 MG TABLET SL PRN (10:25)
[2022-07-12] MEDS ORDERED: hydrOXYzine PAMOATE 25 MG CAPSULE (FP) PO PRN (10:25)
[2022-07-12] MEDS ORDERED: MAG HYDROX/AL HYDROX/SIMETH 30 ML UNIT-DOSE CUP PO PRN (10:25)
[2022-07-12] MEDS ORDERED: DICYCLOMINE HCL 10 MG CAPSULE PO PRN (10:25)
[2022-07-12] MEDS ORDERED: NALOXONE HCL 0.4 MG/ML VIAL IM PRN (10:25)
[2022-07-12] MEDS ORDERED: IBUPROFEN 600 MG TABLET (FP) PO PRN (10:25)
[2022-07-12] MEDS ORDERED: guaiFENesin 600 MG TABLET.ER (FP) PO PRN (10:25)
[2022-07-12] MEDS ORDERED: BISMUTH SUBSALICYLATE 262 MG/15 ML BTL PO PRN (10:25)
[2022-07-12] MEDS ORDERED: ACETAMINOPHEN 325 MG TABLET (FP) PO PRN (10:25)
[2022-07-12] MEDS ORDERED: IBUPROFEN 400 MG TABLET (FP) PO PRN (10:25)
[2022-07-12] MEDS ORDERED: BENZONATATE 200 MG CAPSULE PO PRN (10:25)
[2022-07-12] MEDS ORDERED: BENZOCAINE/MENTHOL (CHLORASEPTIC ) LOZENGE MM PRN (10:25)
[2022-07-12] MEDS ORDERED: POLYETHYLENE GLYCOL (HEALTHYLAX) 3350 17 GM PACKET PO PRN (10:25)
[2022-07-12] MEDS ORDERED: NICOTINE 10 MG CARTRIDGE (INHALER) IH PRN (10:25)
[2022-07-12] MEDS ORDERED: MAGNESIUM HYDROX 2400MG/30ML ORAL SUSPENSION 30 ML CUP PO PRN (10:25)
[2022-07-12] MEDS ORDERED: NALOXONE HCL (KLOXXADO) 8 MG SPRAY NS PRN (10:25)
[2022-07-12] MEDS ORDERED: LORazepam 1 MG TABLET PO PRN (10:25)
[2022-07-12] MEDS ORDERED: LOPERAMIDE HCL 2 MG CAPSULE PO PRN (10:25)
[2022-07-12] MEDS ORDERED: LACTULOSE 20 GM/30 ML UDC (FOR ORAL USE ONLY) PO PRN (10:30)
[2022-07-12] MEDS ORDERED: METHOCARBAMOL 500 MG TABLET ONE (11:25)
[2022-07-12] MEDS ORDERED: LORazepam 2 MG TABLET ONE (11:26)
[2022-07-12] MEDS ORDERED: PRENATAL VITAMINS W/ FOLIC ACID TABLET (FP) PO ONE (11:26)
[2022-07-12] MEDS: NICOTINE 14 MG/24 HOURS TOPICAL PATCH TD SCH (11:27)
[2022-07-12] MEDS: METHOCARBAMOL 500 MG TABLET PO PRN (11:27)
[2022-07-12] MEDS: PRENATAL VITAMINS W/ FOLIC ACID TABLET (FP) PO SCH (11:27)
[2022-07-12] MEDS: LORazepam 2 MG TABLET PO SCH ×3 (11:27→22:46)
[2022-07-12 14:15] LABS: CALCIUM 9.4 mg/dL (8.5-10.1)
[2022-07-12 14:16] LABS: ALBUMIN 3.5 g/dl (3.4-5.0); BLOOD UREA NITROGEN 12.8 mg/dL (7-18)
[2022-07-12 14:19] LABS: CREATININE 1.1 mg/dL (0.55-1.3)
[2022-07-12 14:20] LABS: BILIRUBIN,TOTAL 0.7 mg/dL (0.2-1); TOT PROT 7.4 g/dl (6.4-8.2)
[2022-07-12 14:29] LABS: HEMATOCRIT 36.8 % (35.4-49); HEMOGLOBIN 12.2 GM/dL (11.7-16.9); MCHC 33.1 g/dl (32.0-35.9); MEAN CELL VOLUME 72.5 fl (80-96); MEAN PLT VOLUME 8.7 fl (7.5-11.1); PLATELET COUNT 245 10^3/uL (134-434); RBC 5.07 M/mm3 (4.00-5.60); RDW 17.6 % (11.9-15.9); WHITE BLOOD COUNT 6.6 K/mm3 (4.0-10.0)
[2022-07-12] MEDS: metFORMIN HCL 500 MG TABLET (FP) PO SCH (17:32)
[2022-07-12] MEDS: MELATONIN 5 MG TABLETS PO SCH (22:46)
[2022-07-12] MEDS: traZODone HCL 50 MG TABLET (FP) PO SCH (22:48)
[2022-07-12] MEDS: ATORVASTATIN CA 20 MG TABLET (FP) PO SCH (22:48)
[2022-07-12] MEDS: THIAMINE HCL 100 MG TABLET (FP) PO SCH (22:48)
[2022-07-12] MEDS: CARVEDILOL 12.5 MG TABLET (FP) PO SCH (22:48)
[2022-07-13] MEDS: LORazepam 2 MG TABLET PO SCH ×4 (06:26→22:50)
[2022-07-13] MEDS: metFORMIN HCL 500 MG TABLET (FP) PO SCH ×2 (06:26→17:48)
[2022-07-13] MEDS: SERTRALINE HCL 50 MG TABLET (FP) PO SCH (10:10)
[2022-07-13] MEDS: NICOTINE 14 MG/24 HOURS TOPICAL PATCH TD SCH (10:10)
[2022-07-13] MEDS: ASPIRIN 81 MG CHEWABLE TABLETS PO SCH (10:10)
[2022-07-13] MEDS: amLODIPine BESYLATE 5 MG TABLET (FP) PO SCH (10:10)
[2022-07-13] MEDS: CLOPIDOGREL BISULFATE 75 MG TABLET (FP) PO SCH (10:11)
[2022-07-13] MEDS: PRENATAL VITAMINS W/ FOLIC ACID TABLET (FP) PO SCH (10:14)
[2022-07-13] MEDS: CARVEDILOL 12.5 MG TABLET (FP) PO SCH ×2 (11:48→22:50)
[2022-07-13] MEDS: traZODone HCL 50 MG TABLET (FP) PO SCH (22:50)
[2022-07-13] MEDS: THIAMINE HCL 100 MG TABLET (FP) PO SCH (22:50)
[2022-07-13] MEDS: ATORVASTATIN CA 20 MG TABLET (FP) PO SCH (22:50)
[2022-07-13] MEDS: MELATONIN 5 MG TABLETS PO SCH (22:51)
[2022-07-14] MEDS: LORazepam 1 MG TABLET PO SCH ×4 (06:08→23:00)
[2022-07-14] MEDS: metFORMIN HCL 500 MG TABLET (FP) PO SCH ×2 (07:00→17:40)
[2022-07-14 09:50] VITALS: RESP 18
[2022-07-14] MEDS ORDERED: FOLIC ACID 1 MG TABLET (FP) PO SCH (10:00)
[2022-07-14] MEDS: ASPIRIN 81 MG CHEWABLE TABLETS PO SCH (10:44)
[2022-07-14] MEDS: CARVEDILOL 12.5 MG TABLET (FP) PO SCH ×2 (10:44→22:28)
[2022-07-14] MEDS: SERTRALINE HCL 50 MG TABLET (FP) PO SCH (10:45)
[2022-07-14] MEDS: amLODIPine BESYLATE 5 MG TABLET (FP) PO SCH (10:45)
[2022-07-14] MEDS: NICOTINE 14 MG/24 HOURS TOPICAL PATCH TD SCH (10:45)
[2022-07-14] MEDS: CLOPIDOGREL BISULFATE 75 MG TABLET (FP) PO SCH (10:45)
[2022-07-14] MEDS: PRENATAL VITAMINS W/ FOLIC ACID TABLET (FP) PO SCH (10:49)
[2022-07-14] MEDS: METHOCARBAMOL 500 MG TABLET PO PRN (17:44)
[2022-07-14 20:23] VITALS: BP 147/94; PULSE 70; TEMP 97.7
[2022-07-14] MEDS ORDERED: ASPIRIN 81 MG CHEWABLE TABLETS PO ONE (20:46)
[2022-07-14] MEDS: traZODone HCL 50 MG TABLET (FP) PO SCH (22:28)
[2022-07-14] MEDS: MELATONIN 5 MG TABLETS PO SCH (22:29)
[2022-07-14] MEDS: ATORVASTATIN CA 20 MG TABLET (FP) PO SCH (22:29)
[2022-07-14] MEDS: THIAMINE HCL 100 MG TABLET (FP) PO SCH (22:30)
[2022-07-15] MEDS ORDERED: LORazepam 0.5 MG TABLET PO PRN
[2022-07-15] MEDS ORDERED: LORazepam 0.5 MG TABLET PO SCH (05:00)
[2022-07-16] MEDS ORDERED: LORazepam 0.5 MG TABLET PO ONE (05:00)
== END 2022-07-15 03:40 | disposition short-term general hospital (02) | DRG 774 ==
LOC: YASAS 09:16 → Y6N 11:37
PROVIDERS: ADMIT Allergy & Immunology; ATTEND Surgery
PROC: HZ2ZZZZ Detoxification Services for Substance Abuse Treatment (ICD-10-PCS; principal; 2022-07-12)
DX: F10.230 Alcohol dependence with withdrawal, uncomplicated (principal); F14.20 Cocaine dependence, uncomplicated; F17.210 Nicotine dependence, cigarettes, uncomplicated; F31.9 Bipolar disorder, unspecified; E78.5 Hyperlipidemia, unspecified; I25.10 Atherosclerotic heart disease of native coronary artery without angina pectoris; I10 Essential (primary) hypertension; Z95.1 Presence of aortocoronary bypass graft; Z95.5 Presence of coronary angioplasty implant and graft; R07.9 Chest pain, unspecified; R94.31 Abnormal electrocardiogram [ECG] [EKG]; R73.03 Prediabetes; E66.9 Obesity, unspecified; Z68.35 Body mass index [BMI] 35.0-35.9, adult; Z88.8 Allergy status to other drugs, medicaments and biological substances; Z88.6 Allergy status to analgesic agent
CPT/HCPCS: 36415; 80053; 82140; 82962; 85027; 86780; C9803-CS; U0003; U0005

== ENCOUNTER 2022-07-14 21:18 | Observation (INO) | payer OTHER ==
[2022-07-14 22:43] LABS: BASO % 1.1 % (0-2.0); EOS % 7.6 % (0-4.5); HEMATOCRIT 32.4 % (35.4-49); HEMOGLOBIN 10.6 GM/dL (11.7-16.9); LYMPH % 29.5 % (8-40); MCH 23.8 pg (25.7-33.7); MCHC 32.6 g/dl (32.0-35.9); MEAN PLT VOLUME 8.3 fl (7.5-11.1); MONO % 8.1 % (3.8-10.2); NEUT % 53.7 % (42.8-82.8); PLATELET COUNT 216 10^3/uL (134-434); RBC 4.44 M/mm3 (4.00-5.60); RDW 17.6 % (11.9-15.9); WHITE BLOOD COUNT 6.5 K/mm3 (4.0-10.0)
[2022-07-14 23:00] LABS: POTASSIUM 4.3 mmol/L (3.5-5.1)
[2022-07-14 23:03] LABS: BLOOD UREA NITROGEN 14.4 mg/dL (7-18); CALCIUM 8.8 mg/dL (8.5-10.1); MAGNESIUM 1.6 mg/dL (1.8-2.4)
[2022-07-14 23:05] LABS: CREATININE 1.1 mg/dL (0.55-1.3)
[2022-07-14 23:08] LABS: BILIRUBIN,TOTAL 0.2 mg/dL (0.2-1); TOT PROT 6.4 g/dl (6.4-8.2)
[2022-07-14] MEDS ORDERED: MAGNESIUM SULF 50% (8.12 MEQ/2 ML-1 GM VIAL) IVPB ONE (23:09)
[2022-07-14] MEDS ORDERED: BACLOFEN 10 MG TABLET (FP) PO ONE (23:10)
[2022-07-14] MEDS ORDERED: MAGNESIUM 1GM/D5W - 1 GM/100 ML IVPB IVPB ONE (23:16)
[2022-07-14] MEDS ORDERED: BACLOFEN 10 MG TABLET (FP) ONE (23:16)
[2022-07-15] MEDS ORDERED: traMADol HCL 50 MG TABLET PO ONE ×2 (00:03→02:35)
[2022-07-15] MEDS ORDERED: traMADol HCL 50 MG TABLET ONE (00:06)
[2022-07-15] MEDS ORDERED: LORazepam 0.5 MG TABLET PO PRN ×2 (01:15)
[2022-07-15] MEDS ORDERED: LORazepam 0.5 MG TABLET ONE (05:25)
[2022-07-15] MEDS ORDERED: GABAPENTIN 300 MG CAPSULE ONE (05:25)
[2022-07-15] MEDS: LORazepam 0.5 MG TABLET PO SCH ×2 (05:28→11:07)
[2022-07-15] MEDS: GABAPENTIN 300 MG CAPSULE PO SCH ×2 (05:28→13:53)
[2022-07-15 06:52] LABS: POTASSIUM 3.8 mmol/L (3.5-5.1)
[2022-07-15 06:53] LABS: CALCIUM 8.7 mg/dL (8.5-10.1)
[2022-07-15 06:54] LABS: MAGNESIUM 1.8 mg/dL (1.8-2.4)
[2022-07-15 06:55] LABS: BLOOD UREA NITROGEN 13.8 mg/dL (7-18)
[2022-07-15 06:57] LABS: CREATININE 0.9 mg/dL (0.55-1.3)
[2022-07-15] MEDS: INSULIN SLIDING SCALE (NOVOLOG) 1 VIAL SQ SCH ×2 (06:57→11:17)
[2022-07-15 06:59] LABS: TOT PROT 6.2 g/dl (6.4-8.2)
[2022-07-15 07:00] LABS: BILIRUBIN,TOTAL 0.2 mg/dL (0.2-1)
[2022-07-15 07:07] LABS: HEMATOCRIT 32.1 % (35.4-49); HEMOGLOBIN 10.4 GM/dL (11.7-16.9); MCH 23.7 pg (25.7-33.7); MCHC 32.5 g/dl (32.0-35.9); MEAN CELL VOLUME 72.8 fl (80-96); MEAN PLT VOLUME 8.8 fl (7.5-11.1); PLATELET COUNT 201 10^3/uL (134-434); RBC 4.41 M/mm3 (4.00-5.60); RDW 17.7 % (11.9-15.9); WHITE BLOOD COUNT 5.7 K/mm3 (4.0-10.0)
[2022-07-15] MEDS ORDERED: morphine SULFATE 4 MG/ML VIAL IVPUSH ONE (07:08)
[2022-07-15 07:40] VITALS: BMI 35.9
[2022-07-15] MEDS ORDERED: SERTRALINE HCL 50 MG TABLET (FP) PO SCH (10:00)
[2022-07-15] MEDS ORDERED: CARVEDILOL 12.5 MG TABLET (FP) PO SCH (10:00)
[2022-07-15] MEDS ORDERED: amLODIPine BESYLATE 10 MG TABLET (FP) PO SCH (10:00)
[2022-07-15] MEDS ORDERED: CLOPIDOGREL BISULFATE 75 MG TABLET (FP) PO SCH (10:00)
[2022-07-15] MEDS ORDERED: ENOXAPARIN NA (PORCINE) 40 MG/0.4 ML DISP.SYRIN SQ SCH (10:00)
[2022-07-15] MEDS ORDERED: ASPIRIN 81 MG CHEWABLE TABLETS PO SCH (10:00)
[2022-07-15] MEDS ORDERED: THIAMINE HCL 100 MG TABLET (FP) PO SCH (10:00)
[2022-07-15] MEDS ORDERED: MULTIVITAMINS (DAILY MVI) TABLET (FP) PO SCH (10:00)
[2022-07-15] MEDS ORDERED: LORazepam 2 MG/ML SDV VIAL IVPUSH PRN (10:23)
[2022-07-15 10:41] VITALS: RESP 18
[2022-07-15 15:30] VITALS: BP 149/93; PULSE 71; TEMP 97.9
[2022-07-15] MEDS ORDERED: ATORVASTATIN CA 20 MG TABLET (FP) PO SCH (22:00)
[2022-07-15] MEDS ORDERED: traZODone HCL 100 MG, traZODone HCL 50 MG PO SCH (22:00)
[2022-07-15] MEDS ORDERED: PATIENT'S OWN MEDICATION (NON-FORMULARY) (Trazodone Hcl [Trazodone Hcl] 150 MG Tablet) PO SCH (22:00)
[2022-07-16] MEDS ORDERED: LORazepam 0.5 MG TABLET PO ONE (05:00)
== END 2022-07-15 18:11 | disposition other institution (70) ==
LOC: JER 21:18 → JERBED 23:19 → J4W 07-15 06:08
PROVIDERS: ADMIT Internal Medicine; ATTEND Student in an Organized Health Care Education/Training Program
PROC: 3E033NZ Introduction of Analgesics, Hypnotics, Sedatives into Peripheral Vein, Percutaneous Approach (ICD-10-PCS; principal; 2022-07-14)
PROC: 3E033GC Introduction of Other Therapeutic Substance into Peripheral Vein, Percutaneous Approach (ICD-10-PCS; 2022-07-14)
DX: I25.10 Atherosclerotic heart disease of native coronary artery without angina pectoris (principal); E11.9 Type 2 diabetes mellitus without complications; F31.9 Bipolar disorder, unspecified; F14.90 Cocaine use, unspecified, uncomplicated; I11.9 Hypertensive heart disease without heart failure; Z95.1 Presence of aortocoronary bypass graft; Z95.5 Presence of coronary angioplasty implant and graft; F17.210 Nicotine dependence, cigarettes, uncomplicated; Z88.8 Allergy status to other drugs, medicaments and biological substances
CPT/HCPCS: 36415; 71045-TC-FY; 80053; 80061; 82962; 83036; 83735; 83880; 84484; 85025; 85027; 93005; 93010; 96374; 96375; 99285-25; C9803-CS; G0378; J0475; U0003; U0005

== ENCOUNTER 2022-07-15 17:19 | Inpatient (IN) | payer OTHER ==
[2022-07-15 18:42] VITALS: BMI 35.6
[2022-07-15] MEDS ORDERED: NICOTINE 10 MG CARTRIDGE (INHALER) IH PRN (19:47)
[2022-07-15] MEDS ORDERED: hydrOXYzine PAMOATE 25 MG CAPSULE (FP) PO PRN (19:47)
[2022-07-15] MEDS ORDERED: NALOXONE HCL 0.4 MG/ML VIAL IM PRN (19:47)
[2022-07-15] MEDS ORDERED: NALOXONE HCL (KLOXXADO) 8 MG SPRAY NS PRN (19:47)
[2022-07-15] MEDS ORDERED: MAG HYDROX/AL HYDROX/SIMETH 30 ML UNIT-DOSE CUP PO PRN (19:47)
[2022-07-15] MEDS ORDERED: POLYETHYLENE GLYCOL (HEALTHYLAX) 3350 17 GM PACKET PO PRN (19:47)
[2022-07-15] MEDS ORDERED: BENZOCAINE/MENTHOL (CHLORASEPTIC ) LOZENGE MM PRN (19:47)
[2022-07-15] MEDS ORDERED: IBUPROFEN 600 MG TABLET (FP) PO PRN (19:47)
[2022-07-15] MEDS ORDERED: AMMONIUM LACTATE 12% LOTION 225 GM BOTTLE TP PRN (19:47)
[2022-07-15] MEDS ORDERED: guaiFENesin 600 MG TABLET.ER (FP) PO PRN (19:47)
[2022-07-15] MEDS ORDERED: COLLOIDAL OATMEAL 1 BAR EACH TP PRN (19:47)
[2022-07-15] MEDS ORDERED: BENZONATATE 200 MG CAPSULE PO PRN (19:47)
[2022-07-15] MEDS ORDERED: ACETAMINOPHEN 325 MG TABLET (FP) PO PRN (19:47)
[2022-07-15] MEDS ORDERED: LOPERAMIDE HCL 2 MG CAPSULE PO PRN (19:47)
[2022-07-15] MEDS ORDERED: IBUPROFEN 400 MG TABLET (FP) PO PRN ×2 (19:47→19:56)
[2022-07-15] MEDS: ATORVASTATIN CA 20 MG TABLET (FP) PO SCH (21:11)
[2022-07-15] MEDS: METHOCARBAMOL 500 MG TABLET PO SCH (21:11)
[2022-07-15] MEDS: GABAPENTIN 300 MG CAPSULE PO SCH (21:11)
[2022-07-15] MEDS: THIAMINE HCL 100 MG TABLET (FP) PO SCH (21:11)
[2022-07-15] MEDS: metFORMIN HCL 500 MG TABLET (FP) PO SCH (21:11)
[2022-07-15] MEDS: MELATONIN 5 MG TABLETS PO SCH (21:11)
[2022-07-15] MEDS ORDERED: PATIENT'S OWN MEDICATION (NON-FORMULARY) (Gabapentin [Neurontin] 600 MG Tablet) PO SCH (22:00)
[2022-07-15] MEDS: CARVEDILOL 12.5 MG TABLET (FP) PO SCH (22:44)
[2022-07-16] MEDS: GABAPENTIN 300 MG CAPSULE PO SCH ×3 (06:29→21:05)
[2022-07-16] MEDS: metFORMIN HCL 500 MG TABLET (FP) PO SCH ×2 (06:30→21:05)
[2022-07-16] MEDS: METHOCARBAMOL 500 MG TABLET PO SCH ×3 (06:30→21:05)
[2022-07-16] MEDS: CARVEDILOL 12.5 MG TABLET (FP) PO SCH ×2 (10:24→21:05)
[2022-07-16] MEDS: PRENATAL VITAMINS W/ FOLIC ACID TABLET (FP) PO SCH (10:24)
[2022-07-16] MEDS: CLOPIDOGREL BISULFATE 75 MG TABLET (FP) PO SCH (10:24)
[2022-07-16] MEDS: amLODIPine BESYLATE 5 MG TABLET (FP) PO SCH (10:24)
[2022-07-16] MEDS: ASPIRIN 81 MG CHEWABLE TABLETS PO SCH (10:24)
[2022-07-16] MEDS: ATORVASTATIN CA 20 MG TABLET (FP) PO SCH (21:05)
[2022-07-16] MEDS: MELATONIN 5 MG TABLETS PO SCH (21:05)
[2022-07-16] MEDS: THIAMINE HCL 100 MG TABLET (FP) PO SCH (21:05)
[2022-07-17] MEDS: METHOCARBAMOL 500 MG TABLET PO SCH ×3 (06:12→21:41)
[2022-07-17] MEDS: GABAPENTIN 300 MG CAPSULE PO SCH ×3 (06:12→21:41)
[2022-07-17] MEDS: metFORMIN HCL 500 MG TABLET (FP) PO SCH ×2 (06:12→21:40)
[2022-07-17] MEDS: ASPIRIN 81 MG CHEWABLE TABLETS PO SCH (09:41)
[2022-07-17] MEDS: CLOPIDOGREL BISULFATE 75 MG TABLET (FP) PO SCH (09:41)
[2022-07-17] MEDS: PRENATAL VITAMINS W/ FOLIC ACID TABLET (FP) PO SCH (09:41)
[2022-07-17] MEDS: amLODIPine BESYLATE 5 MG TABLET (FP) PO SCH (09:41)
[2022-07-17] MEDS: CARVEDILOL 12.5 MG TABLET (FP) PO SCH ×2 (09:41→21:41)
[2022-07-17] MEDS: MELATONIN 5 MG TABLETS PO SCH (21:41)
[2022-07-17] MEDS: THIAMINE HCL 100 MG TABLET (FP) PO SCH (21:41)
[2022-07-17] MEDS: ATORVASTATIN CA 20 MG TABLET (FP) PO SCH (21:41)
[2022-07-18] MEDS: METHOCARBAMOL 500 MG TABLET PO SCH ×3 (06:05→21:08)
[2022-07-18] MEDS: GABAPENTIN 300 MG CAPSULE PO SCH ×3 (06:06→21:08)
[2022-07-18] MEDS: metFORMIN HCL 500 MG TABLET (FP) PO SCH ×2 (06:06→21:08)
[2022-07-18] MEDS: amLODIPine BESYLATE 5 MG TABLET (FP) PO SCH (10:29)
[2022-07-18] MEDS: ASPIRIN 81 MG CHEWABLE TABLETS PO SCH (10:29)
[2022-07-18] MEDS: PRENATAL VITAMINS W/ FOLIC ACID TABLET (FP) PO SCH (10:29)
[2022-07-18] MEDS: CLOPIDOGREL BISULFATE 75 MG TABLET (FP) PO SCH (10:29)
[2022-07-18] MEDS: CARVEDILOL 12.5 MG TABLET (FP) PO SCH ×2 (10:29→21:08)
[2022-07-18] MEDS: ATORVASTATIN CA 20 MG TABLET (FP) PO SCH (21:08)
[2022-07-18] MEDS: THIAMINE HCL 100 MG TABLET (FP) PO SCH (21:09)
[2022-07-18] MEDS: traZODone HCL 50 MG TABLET (FP) PO SCH (21:10)
[2022-07-19] MEDS: metFORMIN HCL 500 MG TABLET (FP) PO SCH ×2 (06:41→21:28)
[2022-07-19] MEDS: GABAPENTIN 300 MG CAPSULE PO SCH ×3 (06:41→21:29)
[2022-07-19] MEDS: METHOCARBAMOL 500 MG TABLET PO SCH ×3 (06:41→21:28)
[2022-07-19] MEDS: SERTRALINE HCL 50 MG TABLET (FP) PO SCH (09:38)
[2022-07-19] MEDS: amLODIPine BESYLATE 5 MG TABLET (FP) PO SCH (09:38)
[2022-07-19] MEDS: PRENATAL VITAMINS W/ FOLIC ACID TABLET (FP) PO SCH (09:38)
[2022-07-19] MEDS: ASPIRIN 81 MG CHEWABLE TABLETS PO SCH (09:38)
[2022-07-19] MEDS: CLOPIDOGREL BISULFATE 75 MG TABLET (FP) PO SCH (09:38)
[2022-07-19] MEDS: CARVEDILOL 12.5 MG TABLET (FP) PO SCH ×2 (09:39→21:28)
[2022-07-19 13:54] LABS: PH,URINE 6.5 (5.0-8.0); URINE APPEARANCE CLEAR; URINE BILIRUBIN NEGATIVE (NEGATIVE); URINE COLOR YELLOW; URINE GLUCOSE (UA) NEGATIVE (NEGATIVE); URINE KETONE NEGATIVE (NEGATIVE); URINE LEUK ESTERASE NEGATIVE (NEGATIVE); URINE NITRITE NEGATIVE (NEGATIVE); URINE PROTEIN NEGATIVE (NEGATIVE); URINE UROBILINOGEN 0.2 mg/dL (0.2-1.0)
[2022-07-19] MEDS: ATORVASTATIN CA 20 MG TABLET (FP) PO SCH (21:29)
[2022-07-19] MEDS: THIAMINE HCL 100 MG TABLET (FP) PO SCH (21:29)
[2022-07-19] MEDS: traZODone HCL 50 MG TABLET (FP) PO SCH (21:29)
[2022-07-19] MEDS: MAGNESIUM HYDROX 2400MG/30ML ORAL SUSPENSION 30 ML CUP PO PRN (21:29)
[2022-07-20] MEDS: METHOCARBAMOL 500 MG TABLET PO SCH ×3 (05:51→22:01)
[2022-07-20] MEDS: GABAPENTIN 300 MG CAPSULE PO SCH ×3 (05:51→22:01)
[2022-07-20] MEDS: metFORMIN HCL 500 MG TABLET (FP) PO SCH ×2 (06:29→22:02)
[2022-07-20] MEDS: CLOPIDOGREL BISULFATE 75 MG TABLET (FP) PO SCH (10:04)
[2022-07-20] MEDS: SERTRALINE HCL 50 MG TABLET (FP) PO SCH (10:04)
[2022-07-20] MEDS: PRENATAL VITAMINS W/ FOLIC ACID TABLET (FP) PO SCH (10:04)
[2022-07-20] MEDS: ASPIRIN 81 MG CHEWABLE TABLETS PO SCH (10:04)
[2022-07-20] MEDS: CARVEDILOL 12.5 MG TABLET (FP) PO SCH ×2 (10:04→22:09)
[2022-07-20] MEDS: amLODIPine BESYLATE 5 MG TABLET (FP) PO SCH (10:05)
[2022-07-20] MEDS: THIAMINE HCL 100 MG TABLET (FP) PO SCH (22:02)
[2022-07-20] MEDS: traZODone HCL 50 MG TABLET (FP) PO SCH (22:02)
[2022-07-20] MEDS: ATORVASTATIN CA 20 MG TABLET (FP) PO SCH (22:02)
[2022-07-21] MEDS: METHOCARBAMOL 500 MG TABLET PO SCH ×3 (05:57→22:01)
[2022-07-21] MEDS: GABAPENTIN 300 MG CAPSULE PO SCH ×3 (05:57→22:01)
[2022-07-21] MEDS: metFORMIN HCL 500 MG TABLET (FP) PO SCH ×2 (06:48→22:01)
[2022-07-21] MEDS: amLODIPine BESYLATE 5 MG TABLET (FP) PO SCH (09:37)
[2022-07-21] MEDS: ASPIRIN 81 MG CHEWABLE TABLETS PO SCH (09:37)
[2022-07-21] MEDS: CLOPIDOGREL BISULFATE 75 MG TABLET (FP) PO SCH (09:37)
[2022-07-21] MEDS: PRENATAL VITAMINS W/ FOLIC ACID TABLET (FP) PO SCH (09:37)
[2022-07-21] MEDS: CARVEDILOL 12.5 MG TABLET (FP) PO SCH ×2 (09:37→22:01)
[2022-07-21] MEDS: SERTRALINE HCL 50 MG TABLET (FP) PO SCH (09:38)
[2022-07-21] MEDS: traZODone HCL 50 MG TABLET (FP) PO SCH (22:01)
[2022-07-21] MEDS: THIAMINE HCL 100 MG TABLET (FP) PO SCH (22:01)
[2022-07-21] MEDS: ATORVASTATIN CA 20 MG TABLET (FP) PO SCH (22:01)
[2022-07-22] MEDS: GABAPENTIN 300 MG CAPSULE PO SCH ×3 (06:26→23:07)
[2022-07-22] MEDS: metFORMIN HCL 500 MG TABLET (FP) PO SCH ×2 (06:26→23:07)
[2022-07-22] MEDS: METHOCARBAMOL 500 MG TABLET PO SCH ×3 (06:26→23:07)
[2022-07-22] MEDS: CARVEDILOL 12.5 MG TABLET (FP) PO SCH ×2 (10:07→23:07)
[2022-07-22] MEDS: PRENATAL VITAMINS W/ FOLIC ACID TABLET (FP) PO SCH (10:07)
[2022-07-22] MEDS: ASPIRIN 81 MG CHEWABLE TABLETS PO SCH (10:07)
[2022-07-22] MEDS: amLODIPine BESYLATE 5 MG TABLET (FP) PO SCH (10:07)
[2022-07-22] MEDS: SERTRALINE HCL 50 MG TABLET (FP) PO SCH (10:07)
[2022-07-22] MEDS: CLOPIDOGREL BISULFATE 75 MG TABLET (FP) PO SCH (10:08)
[2022-07-22] MEDS: THIAMINE HCL 100 MG TABLET (FP) PO SCH (23:07)
[2022-07-22] MEDS: ATORVASTATIN CA 20 MG TABLET (FP) PO SCH (23:07)
[2022-07-22] MEDS: traZODone HCL 50 MG TABLET (FP) PO SCH (23:07)
[2022-07-23] MEDS: metFORMIN HCL 500 MG TABLET (FP) PO SCH ×2 (06:13→21:20)
[2022-07-23] MEDS: GABAPENTIN 300 MG CAPSULE PO SCH ×3 (06:14→21:20)
[2022-07-23] MEDS: METHOCARBAMOL 500 MG TABLET PO SCH ×3 (06:14→21:20)
[2022-07-23] MEDS: CARVEDILOL 12.5 MG TABLET (FP) PO SCH ×2 (09:34→21:20)
[2022-07-23] MEDS: CLOPIDOGREL BISULFATE 75 MG TABLET (FP) PO SCH (09:34)
[2022-07-23] MEDS: amLODIPine BESYLATE 5 MG TABLET (FP) PO SCH (09:34)
[2022-07-23] MEDS: SERTRALINE HCL 50 MG TABLET (FP) PO SCH (09:34)
[2022-07-23] MEDS: ASPIRIN 81 MG CHEWABLE TABLETS PO SCH (09:35)
[2022-07-23] MEDS: PRENATAL VITAMINS W/ FOLIC ACID TABLET (FP) PO SCH (09:35)
[2022-07-23] MEDS: ATORVASTATIN CA 20 MG TABLET (FP) PO SCH (21:20)
[2022-07-23] MEDS: THIAMINE HCL 100 MG TABLET (FP) PO SCH (21:20)
[2022-07-23] MEDS: traZODone HCL 50 MG TABLET (FP) PO SCH (21:20)
[2022-07-24] MEDS: GABAPENTIN 300 MG CAPSULE PO SCH ×3 (06:41→21:10)
[2022-07-24] MEDS: METHOCARBAMOL 500 MG TABLET PO SCH ×3 (06:42→21:10)
[2022-07-24] MEDS: metFORMIN HCL 500 MG TABLET (FP) PO SCH ×2 (06:42→21:10)
[2022-07-24] MEDS: PRENATAL VITAMINS W/ FOLIC ACID TABLET (FP) PO SCH (10:17)
[2022-07-24] MEDS: amLODIPine BESYLATE 5 MG TABLET (FP) PO SCH (10:17)
[2022-07-24] MEDS: CARVEDILOL 12.5 MG TABLET (FP) PO SCH ×2 (10:17→21:10)
[2022-07-24] MEDS: SERTRALINE HCL 50 MG TABLET (FP) PO SCH (10:18)
[2022-07-24] MEDS: CLOPIDOGREL BISULFATE 75 MG TABLET (FP) PO SCH (10:18)
[2022-07-24] MEDS: ASPIRIN 81 MG CHEWABLE TABLETS PO SCH (10:18)
[2022-07-24] MEDS: THIAMINE HCL 100 MG TABLET (FP) PO SCH (21:10)
[2022-07-24] MEDS: traZODone HCL 50 MG TABLET (FP) PO SCH (21:10)
[2022-07-24] MEDS: ATORVASTATIN CA 20 MG TABLET (FP) PO SCH (21:10)
[2022-07-25] MEDS: GABAPENTIN 300 MG CAPSULE PO SCH ×3 (06:21→21:13)
[2022-07-25] MEDS: metFORMIN HCL 500 MG TABLET (FP) PO SCH ×2 (06:21→21:13)
[2022-07-25] MEDS: METHOCARBAMOL 500 MG TABLET PO SCH ×3 (06:22→21:13)
[2022-07-25] MEDS: PRENATAL VITAMINS W/ FOLIC ACID TABLET (FP) PO SCH (10:02)
[2022-07-25] MEDS: SERTRALINE HCL 50 MG TABLET (FP) PO SCH (10:02)
[2022-07-25] MEDS: amLODIPine BESYLATE 5 MG TABLET (FP) PO SCH (10:02)
[2022-07-25] MEDS: CARVEDILOL 12.5 MG TABLET (FP) PO SCH ×2 (10:03→21:13)
[2022-07-25] MEDS: CLOPIDOGREL BISULFATE 75 MG TABLET (FP) PO SCH (10:03)
[2022-07-25] MEDS: ASPIRIN 81 MG CHEWABLE TABLETS PO SCH (10:03)
[2022-07-25] MEDS: THIAMINE HCL 100 MG TABLET (FP) PO SCH (21:13)
[2022-07-25] MEDS: ATORVASTATIN CA 20 MG TABLET (FP) PO SCH (21:13)
[2022-07-25] MEDS: traZODone HCL 50 MG TABLET (FP) PO SCH (21:13)
[2022-07-26] MEDS: GABAPENTIN 300 MG CAPSULE PO SCH ×3 (06:14→21:27)
[2022-07-26] MEDS: metFORMIN HCL 500 MG TABLET (FP) PO SCH ×2 (06:14→21:27)
[2022-07-26] MEDS: METHOCARBAMOL 500 MG TABLET PO SCH ×3 (06:14→21:27)
[2022-07-26] MEDS: CARVEDILOL 12.5 MG TABLET (FP) PO SCH ×2 (10:10→21:28)
[2022-07-26] MEDS: CLOPIDOGREL BISULFATE 75 MG TABLET (FP) PO SCH (10:10)
[2022-07-26] MEDS: ASPIRIN 81 MG CHEWABLE TABLETS PO SCH (10:10)
[2022-07-26] MEDS: PRENATAL VITAMINS W/ FOLIC ACID TABLET (FP) PO SCH (10:10)
[2022-07-26] MEDS: amLODIPine BESYLATE 5 MG TABLET (FP) PO SCH (10:10)
[2022-07-26] MEDS: SERTRALINE HCL 50 MG TABLET (FP) PO SCH (10:11)
[2022-07-26] MEDS: traZODone HCL 50 MG TABLET (FP) PO SCH (21:26)
[2022-07-26] MEDS: THIAMINE HCL 100 MG TABLET (FP) PO SCH (21:27)
[2022-07-26] MEDS: ATORVASTATIN CA 20 MG TABLET (FP) PO SCH (21:27)
[2022-07-26] MEDS: MAGNESIUM HYDROX 2400MG/30ML ORAL SUSPENSION 30 ML CUP PO PRN (21:29)
[2022-07-27] MEDS: METHOCARBAMOL 500 MG TABLET PO SCH ×3 (06:15→21:23)
[2022-07-27] MEDS: metFORMIN HCL 500 MG TABLET (FP) PO SCH ×2 (06:16→21:23)
[2022-07-27] MEDS: GABAPENTIN 300 MG CAPSULE PO SCH ×3 (06:16→21:24)
[2022-07-27] MEDS: amLODIPine BESYLATE 5 MG TABLET (FP) PO SCH (09:40)
[2022-07-27] MEDS: SERTRALINE HCL 50 MG TABLET (FP) PO SCH (09:53)
[2022-07-27] MEDS: ASPIRIN 81 MG CHEWABLE TABLETS PO SCH (09:53)
[2022-07-27] MEDS: CARVEDILOL 12.5 MG TABLET (FP) PO SCH ×2 (09:53→21:23)
[2022-07-27] MEDS: CLOPIDOGREL BISULFATE 75 MG TABLET (FP) PO SCH (09:53)
[2022-07-27] MEDS: PRENATAL VITAMINS W/ FOLIC ACID TABLET (FP) PO SCH (09:53)
[2022-07-27] MEDS: THIAMINE HCL 100 MG TABLET (FP) PO SCH (21:23)
[2022-07-27] MEDS: ATORVASTATIN CA 20 MG TABLET (FP) PO SCH (21:23)
[2022-07-27] MEDS: traZODone HCL 50 MG TABLET (FP) PO SCH (21:24)
[2022-07-28] MEDS: GABAPENTIN 300 MG CAPSULE PO SCH ×3 (05:39→21:51)
[2022-07-28] MEDS: METHOCARBAMOL 500 MG TABLET PO SCH ×3 (05:39→21:51)
[2022-07-28] MEDS: metFORMIN HCL 500 MG TABLET (FP) PO SCH ×2 (06:06→21:52)
[2022-07-28] MEDS: amLODIPine BESYLATE 5 MG TABLET (FP) PO SCH (10:00)
[2022-07-28] MEDS: SERTRALINE HCL 50 MG TABLET (FP) PO SCH (10:54)
[2022-07-28] MEDS: ASPIRIN 81 MG CHEWABLE TABLETS PO SCH (10:55)
[2022-07-28] MEDS: CARVEDILOL 12.5 MG TABLET (FP) PO SCH ×2 (10:55→21:52)
[2022-07-28] MEDS: CLOPIDOGREL BISULFATE 75 MG TABLET (FP) PO SCH (10:56)
[2022-07-28] MEDS: PRENATAL VITAMINS W/ FOLIC ACID TABLET (FP) PO SCH (10:56)
[2022-07-28] MEDS: THIAMINE HCL 100 MG TABLET (FP) PO SCH (21:51)
[2022-07-28] MEDS: traZODone HCL 50 MG TABLET (FP) PO SCH (21:52)
[2022-07-28] MEDS: ATORVASTATIN CA 20 MG TABLET (FP) PO SCH (21:52)
[2022-07-28] MEDS ORDERED: SENNOSIDES 8.8 MG/5 ML SYRUP PO SCH (22:00)
[2022-07-29] MEDS: METHOCARBAMOL 500 MG TABLET PO SCH ×3 (06:23→21:49)
[2022-07-29] MEDS: metFORMIN HCL 500 MG TABLET (FP) PO SCH ×2 (06:23→21:50)
[2022-07-29] MEDS: GABAPENTIN 300 MG CAPSULE PO SCH ×3 (06:23→21:50)
[2022-07-29] MEDS: ASPIRIN 81 MG CHEWABLE TABLETS PO SCH (10:03)
[2022-07-29] MEDS: SERTRALINE HCL 50 MG TABLET (FP) PO SCH (10:03)
[2022-07-29] MEDS: CARVEDILOL 12.5 MG TABLET (FP) PO SCH ×2 (10:03→21:50)
[2022-07-29] MEDS: CLOPIDOGREL BISULFATE 75 MG TABLET (FP) PO SCH (10:03)
[2022-07-29] MEDS: PRENATAL VITAMINS W/ FOLIC ACID TABLET (FP) PO SCH (10:03)
[2022-07-29] MEDS: amLODIPine BESYLATE 5 MG TABLET (FP) PO SCH (10:03)
[2022-07-29] MEDS: traZODone HCL 50 MG TABLET (FP) PO SCH (21:48)
[2022-07-29] MEDS: SENNOSIDES 8.6MG TABLET (FP) PO SCH (21:49)
[2022-07-29] MEDS: THIAMINE HCL 100 MG TABLET (FP) PO SCH (21:50)
[2022-07-29] MEDS: ATORVASTATIN CA 20 MG TABLET (FP) PO SCH (21:50)
[2022-07-30] MEDS: METHOCARBAMOL 500 MG TABLET PO SCH ×3 (06:12→21:35)
[2022-07-30] MEDS: GABAPENTIN 300 MG CAPSULE PO SCH ×3 (06:12→21:35)
[2022-07-30] MEDS: metFORMIN HCL 500 MG TABLET (FP) PO SCH ×2 (06:12→21:35)
[2022-07-30] MEDS: ASPIRIN 81 MG CHEWABLE TABLETS PO SCH (10:05)
[2022-07-30] MEDS: CLOPIDOGREL BISULFATE 75 MG TABLET (FP) PO SCH (10:05)
[2022-07-30] MEDS: PRENATAL VITAMINS W/ FOLIC ACID TABLET (FP) PO SCH (10:05)
[2022-07-30] MEDS: CARVEDILOL 12.5 MG TABLET (FP) PO SCH ×2 (10:06→21:35)
[2022-07-30] MEDS: SERTRALINE HCL 50 MG TABLET (FP) PO SCH (10:06)
[2022-07-30] MEDS: amLODIPine BESYLATE 5 MG TABLET (FP) PO SCH (10:06)
[2022-07-30] MEDS: THIAMINE HCL 100 MG TABLET (FP) PO SCH (21:34)
[2022-07-30] MEDS: SENNOSIDES 8.6MG TABLET (FP) PO SCH (21:35)
[2022-07-30] MEDS: traZODone HCL 50 MG TABLET (FP) PO SCH (21:35)
[2022-07-30] MEDS: ATORVASTATIN CA 20 MG TABLET (FP) PO SCH (21:35)
[2022-07-31] MEDS: GABAPENTIN 300 MG CAPSULE PO SCH ×3 (05:44→21:14)
[2022-07-31] MEDS: METHOCARBAMOL 500 MG TABLET PO SCH ×3 (05:44→21:14)
[2022-07-31] MEDS: metFORMIN HCL 500 MG TABLET (FP) PO SCH ×2 (06:07→21:14)
[2022-07-31] MEDS: amLODIPine BESYLATE 5 MG TABLET (FP) PO SCH (09:56)
[2022-07-31] MEDS: CARVEDILOL 12.5 MG TABLET (FP) PO SCH ×2 (09:56→21:14)
[2022-07-31] MEDS: PRENATAL VITAMINS W/ FOLIC ACID TABLET (FP) PO SCH (09:56)
[2022-07-31] MEDS: CLOPIDOGREL BISULFATE 75 MG TABLET (FP) PO SCH (09:56)
[2022-07-31] MEDS: SERTRALINE HCL 50 MG TABLET (FP) PO SCH (09:56)
[2022-07-31] MEDS: ASPIRIN 81 MG CHEWABLE TABLETS PO SCH (09:56)
[2022-07-31] MEDS: traZODone HCL 50 MG TABLET (FP) PO SCH (21:14)
[2022-07-31] MEDS: SENNOSIDES 8.6MG TABLET (FP) PO SCH (21:14)
[2022-07-31] MEDS: ATORVASTATIN CA 20 MG TABLET (FP) PO SCH (21:14)
[2022-07-31] MEDS: THIAMINE HCL 100 MG TABLET (FP) PO SCH (21:14)
[2022-08-01] MEDS: METHOCARBAMOL 500 MG TABLET PO SCH ×3 (05:51→21:30)
[2022-08-01] MEDS: GABAPENTIN 300 MG CAPSULE PO SCH ×3 (05:51→21:30)
[2022-08-01] MEDS: metFORMIN HCL 500 MG TABLET (FP) PO SCH ×2 (06:30→21:31)
[2022-08-01] MEDS: ASPIRIN 81 MG CHEWABLE TABLETS PO SCH (10:29)
[2022-08-01] MEDS: CARVEDILOL 12.5 MG TABLET (FP) PO SCH ×2 (10:29→21:30)
[2022-08-01] MEDS: amLODIPine BESYLATE 5 MG TABLET (FP) PO SCH (10:29)
[2022-08-01] MEDS: PRENATAL VITAMINS W/ FOLIC ACID TABLET (FP) PO SCH (10:29)
[2022-08-01] MEDS: SERTRALINE HCL 50 MG TABLET (FP) PO SCH (10:29)
[2022-08-01] MEDS: CLOPIDOGREL BISULFATE 75 MG TABLET (FP) PO SCH (10:29)
[2022-08-01] MEDS: THIAMINE HCL 100 MG TABLET (FP) PO SCH (21:30)
[2022-08-01] MEDS: traZODone HCL 50 MG TABLET (FP) PO SCH (21:30)
[2022-08-01] MEDS: ATORVASTATIN CA 20 MG TABLET (FP) PO SCH (21:30)
[2022-08-01] MEDS: SENNOSIDES 8.6MG TABLET (FP) PO SCH (21:30)
[2022-08-02] MEDS: metFORMIN HCL 500 MG TABLET (FP) PO SCH ×2 (06:26→21:08)
[2022-08-02] MEDS: METHOCARBAMOL 500 MG TABLET PO SCH ×3 (06:26→21:08)
[2022-08-02] MEDS: GABAPENTIN 300 MG CAPSULE PO SCH ×3 (06:26→21:08)
[2022-08-02] MEDS: amLODIPine BESYLATE 5 MG TABLET (FP) PO SCH (09:56)
[2022-08-02] MEDS: CLOPIDOGREL BISULFATE 75 MG TABLET (FP) PO SCH (09:56)
[2022-08-02] MEDS: ASPIRIN 81 MG CHEWABLE TABLETS PO SCH (09:56)
[2022-08-02] MEDS: CARVEDILOL 12.5 MG TABLET (FP) PO SCH ×2 (09:56→21:08)
[2022-08-02] MEDS: PRENATAL VITAMINS W/ FOLIC ACID TABLET (FP) PO SCH (09:56)
[2022-08-02] MEDS: SERTRALINE HCL 50 MG TABLET (FP) PO SCH (09:57)
[2022-08-02] MEDS: SENNOSIDES 8.6MG TABLET (FP) PO SCH (21:08)
[2022-08-02] MEDS: THIAMINE HCL 100 MG TABLET (FP) PO SCH (21:08)
[2022-08-02] MEDS: ATORVASTATIN CA 20 MG TABLET (FP) PO SCH (21:08)
[2022-08-02] MEDS: traZODone HCL 50 MG TABLET (FP) PO SCH (21:08)
[2022-08-03] MEDS: GABAPENTIN 300 MG CAPSULE PO SCH ×3 (05:52→21:37)
[2022-08-03] MEDS: METHOCARBAMOL 500 MG TABLET PO SCH ×3 (05:52→21:37)
[2022-08-03] MEDS: metFORMIN HCL 500 MG TABLET (FP) PO SCH ×2 (06:15→21:36)
[2022-08-03] MEDS: CARVEDILOL 12.5 MG TABLET (FP) PO SCH ×2 (09:41→21:38)
[2022-08-03] MEDS: CLOPIDOGREL BISULFATE 75 MG TABLET (FP) PO SCH (09:41)
[2022-08-03] MEDS: PRENATAL VITAMINS W/ FOLIC ACID TABLET (FP) PO SCH (09:41)
[2022-08-03] MEDS: amLODIPine BESYLATE 5 MG TABLET (FP) PO SCH (09:41)
[2022-08-03] MEDS: ASPIRIN 81 MG CHEWABLE TABLETS PO SCH (09:42)
[2022-08-03] MEDS: SERTRALINE HCL 50 MG TABLET (FP) PO SCH (09:42)
[2022-08-03] MEDS: SENNOSIDES 8.6MG TABLET (FP) PO SCH (21:36)
[2022-08-03] MEDS: traZODone HCL 50 MG TABLET (FP) PO SCH (21:37)
[2022-08-03] MEDS: ATORVASTATIN CA 20 MG TABLET (FP) PO SCH (21:38)
[2022-08-03] MEDS: THIAMINE HCL 100 MG TABLET (FP) PO SCH (21:38)
[2022-08-04] MEDS: GABAPENTIN 300 MG CAPSULE PO SCH ×3 (06:34→21:30)
[2022-08-04] MEDS: METHOCARBAMOL 500 MG TABLET PO SCH ×3 (06:34→21:31)
[2022-08-04] MEDS: metFORMIN HCL 500 MG TABLET (FP) PO SCH ×2 (06:35→21:30)
[2022-08-04] MEDS: PRENATAL VITAMINS W/ FOLIC ACID TABLET (FP) PO SCH (09:56)
[2022-08-04] MEDS: SERTRALINE HCL 50 MG TABLET (FP) PO SCH (09:56)
[2022-08-04] MEDS: CLOPIDOGREL BISULFATE 75 MG TABLET (FP) PO SCH (09:56)
[2022-08-04] MEDS: amLODIPine BESYLATE 5 MG TABLET (FP) PO SCH (09:57)
[2022-08-04] MEDS: ASPIRIN 81 MG CHEWABLE TABLETS PO SCH (09:57)
[2022-08-04] MEDS: CARVEDILOL 12.5 MG TABLET (FP) PO SCH ×2 (09:57→21:31)
[2022-08-04] MEDS: ATORVASTATIN CA 20 MG TABLET (FP) PO SCH (21:30)
[2022-08-04] MEDS: traZODone HCL 50 MG TABLET (FP) PO SCH (21:30)
[2022-08-04] MEDS: SENNOSIDES 8.6MG TABLET (FP) PO SCH (21:30)
[2022-08-04] MEDS: THIAMINE HCL 100 MG TABLET (FP) PO SCH (21:31)
[2022-08-05] MEDS: metFORMIN HCL 500 MG TABLET (FP) PO SCH ×2 (06:13→21:08)
[2022-08-05] MEDS: GABAPENTIN 300 MG CAPSULE PO SCH ×3 (06:13→21:08)
[2022-08-05] MEDS: METHOCARBAMOL 500 MG TABLET PO SCH ×3 (06:13→21:08)
[2022-08-05] MEDS: SERTRALINE HCL 50 MG TABLET (FP) PO SCH (09:44)
[2022-08-05] MEDS: amLODIPine BESYLATE 5 MG TABLET (FP) PO SCH (09:44)
[2022-08-05] MEDS: CLOPIDOGREL BISULFATE 75 MG TABLET (FP) PO SCH (09:44)
[2022-08-05] MEDS: PRENATAL VITAMINS W/ FOLIC ACID TABLET (FP) PO SCH (09:44)
[2022-08-05] MEDS: ASPIRIN 81 MG CHEWABLE TABLETS PO SCH (09:45)
[2022-08-05] MEDS: CARVEDILOL 12.5 MG TABLET (FP) PO SCH ×2 (09:45→21:08)
[2022-08-05] MEDS: THIAMINE HCL 100 MG TABLET (FP) PO SCH (21:08)
[2022-08-05] MEDS: traZODone HCL 50 MG TABLET (FP) PO SCH (21:08)
[2022-08-05] MEDS: SENNOSIDES 8.6MG TABLET (FP) PO SCH (21:09)
[2022-08-05] MEDS: ATORVASTATIN CA 20 MG TABLET (FP) PO SCH (21:09)
[2022-08-06] MEDS: METHOCARBAMOL 500 MG TABLET PO SCH ×3 (05:52→23:03)
[2022-08-06] MEDS: GABAPENTIN 300 MG CAPSULE PO SCH ×3 (05:52→23:03)
[2022-08-06] MEDS: metFORMIN HCL 500 MG TABLET (FP) PO SCH ×2 (06:01→23:02)
[2022-08-06 06:47] VITALS: RESP 18; TEMP 97.3
[2022-08-06 09:16] VITALS: BP 142/76; PULSE 61
[2022-08-06] MEDS: amLODIPine BESYLATE 5 MG TABLET (FP) PO SCH (10:57)
[2022-08-06] MEDS: CLOPIDOGREL BISULFATE 75 MG TABLET (FP) PO SCH (10:58)
[2022-08-06] MEDS: CARVEDILOL 12.5 MG TABLET (FP) PO SCH ×2 (10:58→23:02)
[2022-08-06] MEDS: SERTRALINE HCL 50 MG TABLET (FP) PO SCH (10:58)
[2022-08-06] MEDS: PRENATAL VITAMINS W/ FOLIC ACID TABLET (FP) PO SCH (10:58)
[2022-08-06] MEDS: ASPIRIN 81 MG CHEWABLE TABLETS PO SCH (10:58)
[2022-08-06] MEDS ORDERED: ASPIRIN COATED 81 MG TABLET.EC PO ONE (16:00)
[2022-08-06] MEDS: traZODone HCL 50 MG TABLET (FP) PO SCH (23:02)
[2022-08-06] MEDS: ATORVASTATIN CA 20 MG TABLET (FP) PO SCH (23:02)
[2022-08-06] MEDS: SENNOSIDES 8.6MG TABLET (FP) PO SCH (23:03)
[2022-08-06] MEDS: THIAMINE HCL 100 MG TABLET (FP) PO SCH (23:04)
== END 2022-08-06 23:53 | disposition short-term general hospital (02) | DRG 772 ==
LOC: YASAS 17:19 → Y3W 19:58
PROVIDERS: ADMIT Allergy & Immunology; ATTEND Psychiatry & Neurology Pain Medicine
PROC: HZ42ZZZ Group Counseling for Substance Abuse Treatment, Cognitive-Behavioral (ICD-10-PCS; principal; 2022-07-15)
DX: F10.20 Alcohol dependence, uncomplicated (principal); F14.20 Cocaine dependence, uncomplicated; F19.282 Other psychoactive substance dependence with psychoactive substance-induced sleep disorder; F32.9 Major depressive disorder, single episode, unspecified; I25.10 Atherosclerotic heart disease of native coronary artery without angina pectoris; I10 Essential (primary) hypertension; Z95.1 Presence of aortocoronary bypass graft; Z95.5 Presence of coronary angioplasty implant and graft; M54.50 Low back pain, unspecified; G89.29 Other chronic pain; R07.9 Chest pain, unspecified; R73.03 Prediabetes; Z62.810 Personal history of physical and sexual abuse in childhood; Z56.0 Unemployment, unspecified; Z59.00 Homelessness unspecified; Z88.8 Allergy status to other drugs, medicaments and biological substances
CPT/HCPCS: 36415; 81003; 82962; 86803; 93005; 93010; C9803-CS; U0003; U0005

== ENCOUNTER 2022-09-16 10:22 | Inpatient (IN) | payer OTHER ==
[2022-09-16 10:50] VITALS: BMI 34.8
[2022-09-16] MEDS ORDERED: MAG HYDROX/AL HYDROX/SIMETH 30 ML UNIT-DOSE CUP PO PRN (12:13)
[2022-09-16] MEDS ORDERED: POLYETHYLENE GLYCOL (HEALTHYLAX) 3350 17 GM PACKET PO PRN (12:13)
[2022-09-16] MEDS ORDERED: NALOXONE HCL (KLOXXADO) 8 MG SPRAY NS PRN (12:13)
[2022-09-16] MEDS ORDERED: METHOCARBAMOL 500 MG TABLET PO PRN (12:13)
[2022-09-16] MEDS ORDERED: NALOXONE HCL 0.4 MG/ML VIAL IM PRN (12:13)
[2022-09-16] MEDS ORDERED: LOPERAMIDE HCL 2 MG CAPSULE PO PRN (12:13)
[2022-09-16] MEDS ORDERED: MAGNESIUM HYDROX 2400MG/30ML ORAL SUSPENSION 30 ML CUP PO PRN (12:13)
[2022-09-16] MEDS ORDERED: ONDANSETRON *ODT* 4 MG TABLET SL PRN (12:13)
[2022-09-16] MEDS ORDERED: BENZONATATE 200 MG CAPSULE PO PRN (12:13)
[2022-09-16] MEDS ORDERED: BENZOCAINE/MENTHOL (CHLORASEPTIC ) LOZENGE MM PRN (12:13)
[2022-09-16] MEDS ORDERED: DICYCLOMINE HCL 10 MG CAPSULE PO PRN (12:13)
[2022-09-16] MEDS ORDERED: NICOTINE 10 MG CARTRIDGE (INHALER) IH PRN (12:13)
[2022-09-16] MEDS ORDERED: guaiFENesin 600 MG TABLET.ER (FP) PO PRN (12:13)
[2022-09-16] MEDS: INSULIN SLIDING SCALE (NOVOLOG) 1 VIAL SQ SCH ×2 (17:25→23:13)
[2022-09-16] MEDS: metFORMIN HCL 500 MG TABLET (FP) PO SCH (17:30)
[2022-09-16] MEDS: chlordiazePOXIDE HCL 25 MG CAPSULE PO SCH ×2 (18:13→22:53)
[2022-09-16] MEDS: THIAMINE HCL 100 MG TABLET (FP) PO SCH (22:52)
[2022-09-16] MEDS: ATORVASTATIN CA 20 MG TABLET (FP) PO SCH (22:52)
[2022-09-16] MEDS: CARVEDILOL 12.5 MG TABLET (FP) PO SCH (22:52)
[2022-09-16] MEDS: MELATONIN 5 MG TABLETS PO SCH (23:13)
[2022-09-17] MEDS: chlordiazePOXIDE HCL 25 MG CAPSULE PO SCH ×4 (05:44→23:09)
[2022-09-17] MEDS: metFORMIN HCL 500 MG TABLET (FP) PO SCH ×2 (06:02→17:09)
[2022-09-17] MEDS: INSULIN SLIDING SCALE (NOVOLOG) 1 VIAL SQ SCH ×4 (06:02→23:09)
[2022-09-17] MEDS: FOLIC ACID 1 MG TABLET (FP) PO SCH (10:35)
[2022-09-17] MEDS: MULTIVITAMINS (DAILY MVI) TABLET (FP) PO SCH (10:35)
[2022-09-17] MEDS: amLODIPine BESYLATE 5 MG TABLET (FP) PO SCH (10:35)
[2022-09-17] MEDS: CLOPIDOGREL BISULFATE 75 MG TABLET (FP) PO SCH (10:35)
[2022-09-17] MEDS: ASPIRIN 81 MG CHEWABLE TABLETS PO SCH (10:35)
[2022-09-17] MEDS: CARVEDILOL 12.5 MG TABLET (FP) PO SCH ×2 (10:35→23:08)
[2022-09-17] MEDS: PRENATAL VITAMINS W/ FOLIC ACID TABLET (FP) PO SCH (10:36)
[2022-09-17] MEDS: THIAMINE HCL 100 MG TABLET (FP) PO SCH ×2 (11:08→23:09)
[2022-09-17] MEDS: ATORVASTATIN CA 20 MG TABLET (FP) PO SCH (23:08)
[2022-09-17] MEDS: MELATONIN 5 MG TABLETS PO SCH (23:09)
[2022-09-18] MEDS: chlordiazePOXIDE HCL 25 MG CAPSULE PO SCH ×4 (05:47→22:29)
[2022-09-18] MEDS: metFORMIN HCL 500 MG TABLET (FP) PO SCH ×2 (06:05→19:28)
[2022-09-18] MEDS: INSULIN SLIDING SCALE (NOVOLOG) 1 VIAL SQ SCH ×4 (06:06→22:29)
[2022-09-18] MEDS: amLODIPine BESYLATE 5 MG TABLET (FP) PO SCH (10:27)
[2022-09-18] MEDS: PRENATAL VITAMINS W/ FOLIC ACID TABLET (FP) PO SCH (10:27)
[2022-09-18] MEDS: CLOPIDOGREL BISULFATE 75 MG TABLET (FP) PO SCH (10:27)
[2022-09-18] MEDS: FOLIC ACID 1 MG TABLET (FP) PO SCH (10:27)
[2022-09-18] MEDS: ASPIRIN 81 MG CHEWABLE TABLETS PO SCH (10:27)
[2022-09-18] MEDS: CARVEDILOL 12.5 MG TABLET (FP) PO SCH ×2 (10:28→22:28)
[2022-09-18] MEDS: MULTIVITAMINS (DAILY MVI) TABLET (FP) PO SCH (10:29)
[2022-09-18] MEDS: THIAMINE HCL 100 MG TABLET (FP) PO SCH ×2 (10:32→22:29)
[2022-09-18] MEDS ORDERED: ASPIRIN 81 MG CHEWABLE TABLETS PO SCH (12:45)
[2022-09-18 12:56] VITALS: BP 146/88; PULSE 63; RESP 18; TEMP 97.3
[2022-09-18] MEDS ORDERED: ASPIRIN 81 MG CHEWABLE TABLETS PO ONE (13:00)
[2022-09-18] MEDS: ATORVASTATIN CA 20 MG TABLET (FP) PO SCH (22:28)
[2022-09-18] MEDS: MELATONIN 5 MG TABLETS PO SCH (22:28)
[2022-09-19] MEDS ORDERED: chlordiazePOXIDE HCL 10 MG CAPSULE PO SCH (05:00)
[2022-09-20] MEDS ORDERED: chlordiazePOXIDE HCL 10 MG CAPSULE PO SCH (05:00)
[2022-09-21] MEDS ORDERED: chlordiazePOXIDE HCL 10 MG CAPSULE PO ONE (05:00)
== END 2022-09-18 23:19 | disposition short-term general hospital (02) | DRG 774 ==
LOC: YASAS 10:22 → Y6N 12:41
PROVIDERS: ADMIT Allergy & Immunology; ATTEND Surgery
PROC: HZ2ZZZZ Detoxification Services for Substance Abuse Treatment (ICD-10-PCS; principal; 2022-09-16)
DX: F13.230 Sedative, hypnotic or anxiolytic dependence with withdrawal, uncomplicated (principal); F14.20 Cocaine dependence, uncomplicated; F32.A Depression, unspecified; I10 Essential (primary) hypertension; I25.10 Atherosclerotic heart disease of native coronary artery without angina pectoris; I25.2 Old myocardial infarction; E11.9 Type 2 diabetes mellitus without complications; E78.5 Hyperlipidemia, unspecified; R07.9 Chest pain, unspecified; Z88.6 Allergy status to analgesic agent; Z88.8 Allergy status to other drugs, medicaments and biological substances; Z95.1 Presence of aortocoronary bypass graft; Z95.5 Presence of coronary angioplasty implant and graft; Z79.4 Long term (current) use of insulin; Z79.84 Long term (current) use of oral hypoglycemic drugs
CPT/HCPCS: 87635

== ENCOUNTER 2022-09-18 13:36 | Observation (INO) | payer OTHER ==
[2022-09-18] MEDS ORDERED: morphine CARPU-JECT 4 MG/1 ML DISP.SYRIN IVPUSH ONE (14:46)
[2022-09-18] MEDS ORDERED: SODIUM CHLORIDE 0.9% 500 ML INFUS.BAG IV ONE (14:47)
[2022-09-18 14:57] LABS: BASO % 0.9 % (0-2.0); EOS % 4.9 % (0-4.5); HEMATOCRIT 35.9 % (35.4-49); HEMOGLOBIN 11.3 GM/dL (11.7-16.9); LYMPH % 29.9 % (8-40); MCH 23.2 pg (25.7-33.7); MCHC 31.4 g/dl (32.0-35.9); MEAN CELL VOLUME 73.9 fl (80-96); MEAN PLT VOLUME 9.2 fl (7.5-11.1); MONO % 8.9 % (3.8-10.2); NEUT % 55.4 % (42.8-82.8); PLATELET COUNT 240 10^3/uL (134-434); RBC 4.87 M/mm3 (4.00-5.60); RDW 18.1 % (11.9-15.9); WHITE BLOOD COUNT 4.7 K/mm3 (4.0-10.0)
[2022-09-18] MEDS ORDERED: morphine SULFATE 4 MG/ML VIAL ONE (14:59)
[2022-09-18 15:02] LABS: INR 1.04 (0.83-1.09); PROTHROMBIN TIME (PATIENT) 12.1 SEC (9.7-13.0)
[2022-09-18 15:05] LABS: ACTIVATED PTT 30.3 SECONDS (25.2-36.5)
[2022-09-18 15:22] LABS: POTASSIUM 4.3 mmol/L (3.5-5.1)
[2022-09-18 15:23] LABS: ALBUMIN 3.1 g/dl (3.4-5.0); BLOOD UREA NITROGEN 12.2 mg/dL (7-18)
[2022-09-18 15:24] LABS: CALCIUM 9.8 mg/dL (8.5-10.1); MAGNESIUM 1.8 mg/dL (1.8-2.4)
[2022-09-18 15:28] LABS: CREATININE 1.1 mg/dL (0.55-1.3)
[2022-09-18 15:29] LABS: BILIRUBIN,TOTAL 0.2 mg/dL (0.2-1); TOT PROT 6.6 g/dl (6.4-8.2)
[2022-09-18] MEDS ORDERED: chlordiazePOXIDE HCL 25 MG CAPSULE PO ONE (15:56)
[2022-09-18] MEDS ORDERED: chlordiazePOXIDE HCL 25 MG CAPSULE ONE ×2 (16:08→22:05)
[2022-09-18] MEDS ORDERED: ISOSORBIDE MONONITRATE 30 MG TAB.SR.24H (FP) PO SCH ×2 (17:00→17:15)
[2022-09-18] MEDS: INSULIN SLIDING SCALE (NOVOLOG) 1 VIAL SQ SCH (18:41)
[2022-09-18] MEDS ORDERED: ATORVASTATIN CA 40 MG TABLET (FP) PO SCH (22:00)
[2022-09-18] MEDS ORDERED: ATORVASTATIN CA 40 MG TABLET (FP) ONE (22:05)
[2022-09-18] MEDS: chlordiazePOXIDE HCL 25 MG CAPSULE PO SCH (22:10)
[2022-09-19 00:33] VITALS: BMI 35.4
[2022-09-19] MEDS ORDERED: INSULIN (NOVOLOG) ASPART 100 UNITS/ML 10ML VIAL ONE (06:17)
[2022-09-19] MEDS: INSULIN SLIDING SCALE (NOVOLOG) 1 VIAL SQ SCH ×3 (06:40→16:39)
[2022-09-19] MEDS ORDERED: FOLIC ACID 1 MG TABLET (FP) PO SCH (10:00)
[2022-09-19] MEDS ORDERED: MULTIVITAMINS (DAILY MVI) TABLET (FP) PO SCH (10:00)
[2022-09-19] MEDS ORDERED: THIAMINE HCL 100 MG TABLET (FP) PO SCH (10:00)
[2022-09-19] MEDS ORDERED: ASPIRIN COATED 81 MG TABLET.EC PO SCH (10:00)
[2022-09-19] MEDS ORDERED: CLOPIDOGREL BISULFATE 75 MG TABLET (FP) PO SCH (10:00)
[2022-09-19] MEDS ORDERED: SERTRALINE HCL 50 MG TABLET (FP) PO SCH (10:15)
[2022-09-19] MEDS ORDERED: amLODIPine BESYLATE 10 MG TABLET (FP) PO SCH (10:15)
[2022-09-19] MEDS: ENOXAPARIN NA (PORCINE) 40 MG/0.4 ML DISP.SYRIN SQ SCH ×2 (10:37→10:44)
[2022-09-19] MEDS: CARVEDILOL 12.5 MG TABLET (FP) PO SCH ×2 (10:38→22:32)
[2022-09-19] MEDS: chlordiazePOXIDE HCL 25 MG CAPSULE PO SCH ×2 (10:39→22:32)
[2022-09-19] MEDS: chlordiazePOXIDE HCL 25 MG CAPSULE PO PRN ×2 (16:45→22:39)
[2022-09-19 19:05] VITALS: RESP 18
[2022-09-19] MEDS ORDERED: ATORVASTATIN CA 20 MG TABLET (FP) PO SCH (22:00)
[2022-09-20 06:11] VITALS: BP 117/71; PULSE 60; TEMP 98.6
[2022-09-20] MEDS: INSULIN SLIDING SCALE (NOVOLOG) 1 VIAL SQ SCH (06:16)
== END 2022-09-20 09:06 | disposition left against medical advice (07) ==
LOC: JER 13:36 → JERBED 15:39 → UNDOADMOB 15:39 → INTOOBSV 16:47 → OBSVTOIN 16:47 → J4W 09-19 00:10 → JERBED 09-19 00:10 → J4W 09-19 09:07 → JERBED 09-19 09:07
PROVIDERS: ADMIT Internal Medicine; ATTEND Internal Medicine
PROC: 3E0337Z Introduction of Electrolytic and Water Balance Substance into Peripheral Vein, Percutaneous Approach (ICD-10-PCS; principal; 2022-09-19)
PROC: 3E033NZ Introduction of Analgesics, Hypnotics, Sedatives into Peripheral Vein, Percutaneous Approach (ICD-10-PCS; 2022-09-19)
DX: I24.9 Acute ischemic heart disease, unspecified (principal); I11.9 Hypertensive heart disease without heart failure; I25.10 Atherosclerotic heart disease of native coronary artery without angina pectoris; E11.9 Type 2 diabetes mellitus without complications; F19.10 Other psychoactive substance abuse, uncomplicated; Z88.8 Allergy status to other drugs, medicaments and biological substances
CPT/HCPCS: 36415; 71045-TC-FY; 80053; 82550; 82553; 82962; 83735; 84484; 85025; 85610; 85730; 86850; 86900; 86901; 93005; 93010; 96360; 96361; 96372; 99285-25; G0378

== ENCOUNTER 2022-11-05 15:46 | Inpatient (IN) | payer OTHER ==
[2022-11-05 17:54] VITALS: BMI 34.0
[2022-11-05] MEDS ORDERED: NALOXONE HCL (KLOXXADO) 8 MG SPRAY NS PRN (18:38)
[2022-11-05] MEDS ORDERED: ONDANSETRON *ODT* 4 MG TABLET SL PRN (18:38)
[2022-11-05] MEDS ORDERED: guaiFENesin 600 MG TABLET.ER (FP) PO PRN (18:38)
[2022-11-05] MEDS ORDERED: BENZONATATE 200 MG CAPSULE PO PRN (18:38)
[2022-11-05] MEDS ORDERED: POLYETHYLENE GLYCOL (HEALTHYLAX) 3350 17 GM PACKET PO PRN (18:38)
[2022-11-05] MEDS ORDERED: MAGNESIUM HYDROX 2400MG/30ML ORAL SUSPENSION 30 ML CUP PO PRN (18:38)
[2022-11-05] MEDS ORDERED: BENZOCAINE/MENTHOL (CHLORASEPTIC ) LOZENGE MM PRN (18:38)
[2022-11-05] MEDS ORDERED: LOPERAMIDE HCL 2 MG CAPSULE PO PRN (18:38)
[2022-11-05] MEDS ORDERED: BISMUTH SUBSALICYLATE 524 MG/30 ML PO PRN (18:38)
[2022-11-05] MEDS ORDERED: NALOXONE HCL 0.4 MG/ML VIAL IM PRN (18:38)
[2022-11-05] MEDS ORDERED: ACETAMINOPHEN 325 MG TABLET (FP) PO PRN (18:38)
[2022-11-05] MEDS ORDERED: hydrOXYzine PAMOATE 25 MG CAPSULE (FP) PO PRN (18:38)
[2022-11-05] MEDS ORDERED: DICYCLOMINE HCL 10 MG CAPSULE PO PRN (18:38)
[2022-11-05] MEDS ORDERED: IBUPROFEN 400 MG TABLET (FP) PO PRN (18:38)
[2022-11-05] MEDS ORDERED: MAG HYDROX/AL HYDROX/SIMETH 30 ML UNIT-DOSE CUP PO PRN (18:38)
[2022-11-05] MEDS ORDERED: diazePAM 5 MG TABLET ONE (19:10)
[2022-11-05] MEDS ORDERED: METHOCARBAMOL 500 MG TABLET ONE (19:10)
[2022-11-05] MEDS ORDERED: IBUPROFEN 600 MG TABLET (FP) PO ONE (19:11)
[2022-11-05] MEDS: METHOCARBAMOL 500 MG TABLET PO PRN (19:13)
[2022-11-05] MEDS: IBUPROFEN 600 MG TABLET (FP) PO PRN (19:13)
[2022-11-05] MEDS: diazePAM 5 MG TABLET PO PRN (19:13)
[2022-11-05] MEDS: CLOPIDOGREL BISULFATE 75 MG TABLET (FP) PO SCH (20:05)
[2022-11-05] MEDS: ASPIRIN 81 MG CHEWABLE TABLETS PO SCH (20:05)
[2022-11-05] MEDS: CARVEDILOL 6.25 MG TABLET (FP) PO SCH (23:00)
[2022-11-05] MEDS: diazePAM 5 MG TABLET PO SCH (23:00)
[2022-11-05] MEDS: THIAMINE HCL 100 MG TABLET (FP) PO SCH (23:00)
[2022-11-05] MEDS: ATORVASTATIN CA 20 MG TABLET (FP) PO SCH (23:00)
[2022-11-05] MEDS: MELATONIN 5 MG TABLETS PO SCH (23:00)
[2022-11-06] MEDS: diazePAM 5 MG TABLET PO SCH ×4 (05:52→22:15)
[2022-11-06] MEDS: PRENATAL VITAMINS W/ FOLIC ACID TABLET (FP) PO SCH (10:41)
[2022-11-06] MEDS: ASPIRIN 81 MG CHEWABLE TABLETS PO SCH (10:41)
[2022-11-06] MEDS: CLOPIDOGREL BISULFATE 75 MG TABLET (FP) PO SCH (10:41)
[2022-11-06] MEDS: CARVEDILOL 6.25 MG TABLET (FP) PO SCH ×2 (10:41→22:15)
[2022-11-06] MEDS: amLODIPine BESYLATE 10 MG TABLET (FP) PO SCH (10:41)
[2022-11-06] MEDS: traZODone HCL 50 MG TABLET (FP) PO SCH (22:13)
[2022-11-06] MEDS: MELATONIN 5 MG TABLETS PO SCH (22:13)
[2022-11-06] MEDS: THIAMINE HCL 100 MG TABLET (FP) PO SCH (22:15)
[2022-11-06] MEDS: METHOCARBAMOL 500 MG TABLET PO PRN (22:15)
[2022-11-06] MEDS: ATORVASTATIN CA 20 MG TABLET (FP) PO SCH (22:15)
[2022-11-07] MEDS: diazePAM 5 MG TABLET PO SCH ×3 (05:40→22:03)
[2022-11-07 09:21] VITALS: RESP 18
[2022-11-07] MEDS: CARVEDILOL 6.25 MG TABLET (FP) PO SCH ×2 (10:12→22:02)
[2022-11-07] MEDS: ASPIRIN 81 MG CHEWABLE TABLETS PO SCH (10:12)
[2022-11-07] MEDS: CLOPIDOGREL BISULFATE 75 MG TABLET (FP) PO SCH (10:12)
[2022-11-07] MEDS: amLODIPine BESYLATE 10 MG TABLET (FP) PO SCH (10:13)
[2022-11-07] MEDS: PRENATAL VITAMINS W/ FOLIC ACID TABLET (FP) PO SCH (10:13)
[2022-11-07] MEDS: SERTRALINE HCL 50 MG TABLET (FP) PO SCH (10:13)
[2022-11-07] MEDS: diazePAM 5 MG TABLET PO PRN (17:35)
[2022-11-07] MEDS: MELATONIN 5 MG TABLETS PO SCH (22:01)
[2022-11-07] MEDS: ATORVASTATIN CA 20 MG TABLET (FP) PO SCH (22:02)
[2022-11-07] MEDS: traZODone HCL 50 MG TABLET (FP) PO SCH (22:02)
[2022-11-07] MEDS: THIAMINE HCL 100 MG TABLET (FP) PO SCH (22:02)
[2022-11-07] MEDS: METHOCARBAMOL 500 MG TABLET PO PRN (22:03)
[2022-11-07] MEDS: IBUPROFEN 600 MG TABLET (FP) PO PRN (22:05)
[2022-11-08] MEDS ORDERED: diazePAM 5 MG TABLET PO SCH (06:00)
[2022-11-08 09:30] VITALS: TEMP 97.5
[2022-11-08] MEDS: ASPIRIN 81 MG CHEWABLE TABLETS PO SCH (09:53)
[2022-11-08] MEDS: CLOPIDOGREL BISULFATE 75 MG TABLET (FP) PO SCH (09:53)
[2022-11-08] MEDS: CARVEDILOL 6.25 MG TABLET (FP) PO SCH (09:53)
[2022-11-08] MEDS: SERTRALINE HCL 50 MG TABLET (FP) PO SCH (09:53)
[2022-11-08] MEDS: PRENATAL VITAMINS W/ FOLIC ACID TABLET (FP) PO SCH (09:53)
[2022-11-08] MEDS: amLODIPine BESYLATE 10 MG TABLET (FP) PO SCH (09:53)
[2022-11-08 13:39] VITALS: BP 133/80; PULSE 60
[2022-11-09] MEDS ORDERED: diazePAM 5 MG TABLET PO ONE (06:00)
== END 2022-11-08 15:05 | disposition other institution (70) | DRG 774 ==
LOC: YASAS 15:46 → Y3N 19:18
PROVIDERS: ADMIT Allergy & Immunology; ATTEND Surgery
PROC: HZ2ZZZZ Detoxification Services for Substance Abuse Treatment (ICD-10-PCS; principal; 2022-11-05)
DX: F10.230 Alcohol dependence with withdrawal, uncomplicated (principal); F14.20 Cocaine dependence, uncomplicated; F17.210 Nicotine dependence, cigarettes, uncomplicated; F32.A Depression, unspecified; I25.10 Atherosclerotic heart disease of native coronary artery without angina pectoris; I10 Essential (primary) hypertension; Z95.1 Presence of aortocoronary bypass graft; Z95.5 Presence of coronary angioplasty implant and graft; I25.2 Old myocardial infarction; Z59.00 Homelessness unspecified; Z56.0 Unemployment, unspecified; Z88.8 Allergy status to other drugs, medicaments and biological substances
CPT/HCPCS: 82962; 87635; 87811

== ENCOUNTER 2022-11-08 14:57 | Inpatient (IN) | payer OTHER ==
[2022-11-08] MEDS ORDERED: MAGNESIUM HYDROX 2400MG/30ML ORAL SUSPENSION 30 ML CUP PO PRN (15:42)
[2022-11-08] MEDS ORDERED: NICOTINE POLACRILEX 4 MG GUM BUC PRN (15:42)
[2022-11-08] MEDS ORDERED: IBUPROFEN 400 MG TABLET (FP) PO PRN (15:42)
[2022-11-08] MEDS ORDERED: NALOXONE HCL 0.4 MG/ML VIAL IVPUSH PRN (15:42)
[2022-11-08] MEDS ORDERED: MAG HYDROX/AL HYDROX/SIMETH 30 ML UNIT-DOSE CUP PO PRN (15:42)
[2022-11-08] MEDS ORDERED: BENZONATATE 200 MG CAPSULE PO PRN (15:42)
[2022-11-08] MEDS ORDERED: AMMONIUM LACTATE 12% LOTION 225 GM BOTTLE TP PRN (15:42)
[2022-11-08] MEDS ORDERED: IBUPROFEN 600 MG TABLET (FP) PO PRN (15:42)
[2022-11-08] MEDS ORDERED: BENZOCAINE/MENTHOL (CHLORASEPTIC ) LOZENGE MM PRN (15:42)
[2022-11-08] MEDS ORDERED: NALOXONE HCL (KLOXXADO) 8 MG SPRAY NS PRN (15:42)
[2022-11-08] MEDS ORDERED: COLLOIDAL OATMEAL 1 BAR EACH TP PRN (15:42)
[2022-11-08] MEDS ORDERED: hydrOXYzine PAMOATE 25 MG CAPSULE (FP) PO PRN (15:42)
[2022-11-08] MEDS ORDERED: guaiFENesin 600 MG TABLET.ER (FP) PO PRN (15:42)
[2022-11-08] MEDS ORDERED: NICOTINE 14 MG/24 HOURS TOPICAL PATCH TD PRN (15:42)
[2022-11-08] MEDS ORDERED: POLYETHYLENE GLYCOL (HEALTHYLAX) 3350 17 GM PACKET PO PRN (15:42)
[2022-11-08] MEDS ORDERED: METHOCARBAMOL 500 MG TABLET PO PRN (15:42)
[2022-11-08] MEDS ORDERED: ACETAMINOPHEN 325 MG TABLET (FP) PO PRN (15:42)
[2022-11-08] MEDS ORDERED: LOPERAMIDE HCL 2 MG CAPSULE PO PRN (15:42)
[2022-11-08] MEDS: FOLIC ACID 1 MG TABLET (FP) PO SCH (16:02)
[2022-11-08] MEDS: metFORMIN HCL 500 MG TABLET (FP) PO SCH (16:37)
[2022-11-08] MEDS: THIAMINE HCL 100 MG TABLET (FP) PO SCH (21:32)
[2022-11-08] MEDS: GABAPENTIN 400 MG CAPSULE PO SCH (21:32)
[2022-11-08] MEDS: ATORVASTATIN CA 20 MG TABLET (FP) PO SCH (21:32)
[2022-11-08] MEDS: CARVEDILOL 12.5 MG TABLET (FP) PO SCH (21:33)
[2022-11-08] MEDS: traZODone HCL 50 MG TABLET (FP) PO SCH (21:33)
[2022-11-08] MEDS: MELATONIN 5 MG TABLETS PO SCH (21:33)
[2022-11-09] MEDS: metFORMIN HCL 500 MG TABLET (FP) PO SCH ×2 (06:34→16:58)
[2022-11-09] MEDS: THIAMINE HCL 100 MG TABLET (FP) PO SCH ×2 (10:43→21:51)
[2022-11-09] MEDS: SERTRALINE HCL 50 MG TABLET (FP) PO SCH (10:43)
[2022-11-09] MEDS: CLOPIDOGREL BISULFATE 75 MG TABLET (FP) PO SCH (10:43)
[2022-11-09] MEDS: PRENATAL VITAMINS W/ FOLIC ACID TABLET (FP) PO SCH (10:43)
[2022-11-09] MEDS: amLODIPine BESYLATE 5 MG TABLET (FP) PO SCH (10:43)
[2022-11-09] MEDS: FOLIC ACID 1 MG TABLET (FP) PO SCH (10:43)
[2022-11-09] MEDS: CARVEDILOL 12.5 MG TABLET (FP) PO SCH ×2 (10:43→21:51)
[2022-11-09] MEDS: MULTIVITAMINS (DAILY MVI) TABLET (FP) PO SCH (10:43)
[2022-11-09] MEDS: ASPIRIN 81 MG CHEWABLE TABLETS PO SCH (10:43)
[2022-11-09] MEDS: GABAPENTIN 400 MG CAPSULE PO SCH ×2 (10:43→21:50)
[2022-11-09] MEDS ORDERED: LIDOCAINE 5% TOPICAL PATCH TP PRN (12:03)
[2022-11-09] MEDS ORDERED: CYCLOBENZAPRINE HCL 10 MG TABLET (FP) PO ONE (12:30)
[2022-11-09] MEDS: traZODone HCL 50 MG TABLET (FP) PO SCH (21:50)
[2022-11-09] MEDS: ATORVASTATIN CA 20 MG TABLET (FP) PO SCH (21:50)
[2022-11-09] MEDS: LIDOCAINE PATCH REMOVAL MC SCH (21:51)
[2022-11-09] MEDS: MELATONIN 5 MG TABLETS PO SCH (21:51)
[2022-11-10] MEDS: metFORMIN HCL 500 MG TABLET (FP) PO SCH ×2 (06:15→17:07)
[2022-11-10 07:30] VITALS: TEMP 97.1
[2022-11-10 09:30] VITALS: RESP 18
[2022-11-10] MEDS: THIAMINE HCL 100 MG TABLET (FP) PO SCH ×2 (10:29→23:07)
[2022-11-10] MEDS: GABAPENTIN 400 MG CAPSULE PO SCH ×2 (10:29→23:07)
[2022-11-10] MEDS: CLOPIDOGREL BISULFATE 75 MG TABLET (FP) PO SCH (10:29)
[2022-11-10] MEDS: CARVEDILOL 12.5 MG TABLET (FP) PO SCH ×2 (10:29→23:07)
[2022-11-10] MEDS: PRENATAL VITAMINS W/ FOLIC ACID TABLET (FP) PO SCH (10:29)
[2022-11-10] MEDS: ASPIRIN 81 MG CHEWABLE TABLETS PO SCH (10:29)
[2022-11-10] MEDS: amLODIPine BESYLATE 5 MG TABLET (FP) PO SCH (10:29)
[2022-11-10] MEDS: MULTIVITAMINS (DAILY MVI) TABLET (FP) PO SCH (10:29)
[2022-11-10] MEDS: FOLIC ACID 1 MG TABLET (FP) PO SCH (10:29)
[2022-11-10] MEDS: SERTRALINE HCL 50 MG TABLET (FP) PO SCH (10:30)
[2022-11-10 10:56] VITALS: BP 133/92; PULSE 65
[2022-11-10] MEDS: MELATONIN 5 MG TABLETS PO SCH (23:07)
[2022-11-10] MEDS: traZODone HCL 50 MG TABLET (FP) PO SCH (23:07)
[2022-11-10] MEDS: LIDOCAINE PATCH REMOVAL MC SCH (23:07)
[2022-11-10] MEDS: ATORVASTATIN CA 20 MG TABLET (FP) PO SCH (23:07)
== END 2022-11-10 23:00 | disposition short-term general hospital (02) | DRG 772 ==
LOC: YASAS 14:57 → Y3W 15:00
PROVIDERS: ADMIT Allergy & Immunology; ATTEND Psychiatry & Neurology Pain Medicine
PROC: HZ42ZZZ Group Counseling for Substance Abuse Treatment, Cognitive-Behavioral (ICD-10-PCS; principal; 2022-11-08)
DX: F10.20 Alcohol dependence, uncomplicated (principal); F14.10 Cocaine abuse, uncomplicated; K92.0 Hematemesis; I25.10 Atherosclerotic heart disease of native coronary artery without angina pectoris; I10 Essential (primary) hypertension; I25.2 Old myocardial infarction; Z95.1 Presence of aortocoronary bypass graft; Z95.5 Presence of coronary angioplasty implant and graft; E78.5 Hyperlipidemia, unspecified; E11.9 Type 2 diabetes mellitus without complications; Z79.84 Long term (current) use of oral hypoglycemic drugs; Z88.8 Allergy status to other drugs, medicaments and biological substances
CPT/HCPCS: 82962; 87635

== ENCOUNTER 2022-11-27 22:29 | Inpatient (IN) | payer OTHER ==
[2022-11-27 23:01] VITALS: BMI 33.3
[2022-11-27] MEDS ORDERED: BENZONATATE 200 MG CAPSULE PO PRN (23:22)
[2022-11-27] MEDS ORDERED: BISMUTH SUBSALICYLATE 524 MG/30 ML PO PRN (23:22)
[2022-11-27] MEDS ORDERED: NALOXONE HCL 0.4 MG/ML VIAL IM PRN (23:22)
[2022-11-27] MEDS ORDERED: MAG HYDROX/AL HYDROX/SIMETH 30 ML UNIT-DOSE CUP PO PRN (23:22)
[2022-11-27] MEDS ORDERED: ONDANSETRON *ODT* 4 MG TABLET SL PRN (23:22)
[2022-11-27] MEDS ORDERED: hydrOXYzine PAMOATE 25 MG CAPSULE (FP) PO PRN (23:22)
[2022-11-27] MEDS ORDERED: IBUPROFEN 600 MG TABLET (FP) PO PRN (23:22)
[2022-11-27] MEDS ORDERED: MAGNESIUM HYDROX 2400MG/30ML ORAL SUSPENSION 30 ML CUP PO PRN (23:22)
[2022-11-27] MEDS ORDERED: LOPERAMIDE HCL 2 MG CAPSULE PO PRN (23:22)
[2022-11-27] MEDS ORDERED: BENZOCAINE/MENTHOL (CHLORASEPTIC ) LOZENGE MM PRN (23:22)
[2022-11-27] MEDS ORDERED: POLYETHYLENE GLYCOL (HEALTHYLAX) 3350 17 GM PACKET PO PRN (23:22)
[2022-11-27] MEDS ORDERED: guaiFENesin 600 MG TABLET.ER (FP) PO PRN (23:22)
[2022-11-27] MEDS ORDERED: IBUPROFEN 400 MG TABLET (FP) PO PRN (23:22)
[2022-11-27] MEDS ORDERED: NALOXONE HCL (KLOXXADO) 8 MG SPRAY NS PRN (23:22)
[2022-11-27] MEDS ORDERED: DICYCLOMINE HCL 10 MG CAPSULE PO PRN (23:22)
[2022-11-28] MEDS ORDERED: IBUPROFEN 600 MG TABLET (FP) PO ONE (01:22)
[2022-11-28] MEDS: metFORMIN HCL 500 MG TABLET (FP) PO SCH ×2 (06:58→17:30)
[2022-11-28] MEDS: ASPIRIN 81 MG CHEWABLE TABLETS PO SCH (10:33)
[2022-11-28] MEDS: amLODIPine BESYLATE 5 MG TABLET (FP) PO SCH (10:33)
[2022-11-28] MEDS: PRENATAL VITAMINS W/ FOLIC ACID TABLET (FP) PO SCH (10:33)
[2022-11-28] MEDS: CARVEDILOL 12.5 MG TABLET (FP) PO SCH ×2 (10:34→22:37)
[2022-11-28] MEDS: CLOPIDOGREL BISULFATE 75 MG TABLET (FP) PO SCH (10:34)
[2022-11-28] MEDS: diazePAM 5 MG TABLET PO SCH ×3 (10:35→22:37)
[2022-11-28 11:05] LABS: HEMATOCRIT 35.4 % (35.4-49); HEMOGLOBIN 11.9 GM/dL (11.7-16.9); MCH 24.6 pg (25.7-33.7); MCHC 33.6 g/dl (32.0-35.9); MEAN CELL VOLUME 73.3 fl (80-96); MEAN PLT VOLUME 9.1 fl (7.5-11.1); PLATELET COUNT 246 10^3/uL (134-434); RBC 4.83 M/mm3 (4.00-5.60); RDW 17.3 % (11.9-15.9); WHITE BLOOD COUNT 5.8 K/mm3 (4.0-10.0)
[2022-11-28 11:25] LABS: POTASSIUM 4.4 mmol/L (3.5-5.1)
[2022-11-28 11:35] LABS: CALCIUM 8.6 mg/dL (8.5-10.1)
[2022-11-28 11:36] LABS: ALBUMIN 3.3 g/dl (3.4-5.0); BLOOD UREA NITROGEN 15.2 mg/dL (7-18)
[2022-11-28 11:38] LABS: CREATININE 1.1 mg/dL (0.55-1.3)
[2022-11-28 11:39] LABS: BILIRUBIN,TOTAL 0.4 mg/dL (0.2-1); TOT PROT 6.7 g/dl (6.4-8.2)
[2022-11-28] MEDS: diazePAM 5 MG TABLET PO PRN (14:46)
[2022-11-28] MEDS: METHOCARBAMOL 500 MG TABLET PO PRN (14:46)
[2022-11-28] MEDS: ATORVASTATIN CA 20 MG TABLET (FP) PO SCH (22:36)
[2022-11-28] MEDS: MELATONIN 5 MG TABLETS PO SCH (22:36)
[2022-11-28] MEDS: THIAMINE HCL 100 MG TABLET (FP) PO SCH (22:37)
[2022-11-29] MEDS: diazePAM 5 MG TABLET PO SCH ×4 (05:47→22:34)
[2022-11-29] MEDS: metFORMIN HCL 500 MG TABLET (FP) PO SCH ×2 (06:29→17:34)
[2022-11-29] MEDS: ASPIRIN 81 MG CHEWABLE TABLETS PO SCH (10:09)
[2022-11-29] MEDS: METHOCARBAMOL 500 MG TABLET PO PRN ×2 (10:10→19:47)
[2022-11-29] MEDS: CLOPIDOGREL BISULFATE 75 MG TABLET (FP) PO SCH (10:10)
[2022-11-29] MEDS: PRENATAL VITAMINS W/ FOLIC ACID TABLET (FP) PO SCH (10:10)
[2022-11-29] MEDS: amLODIPine BESYLATE 5 MG TABLET (FP) PO SCH (10:10)
[2022-11-29] MEDS: CARVEDILOL 12.5 MG TABLET (FP) PO SCH ×2 (10:10→22:33)
[2022-11-29] MEDS: MELATONIN 5 MG TABLETS PO SCH (22:33)
[2022-11-29] MEDS: THIAMINE HCL 100 MG TABLET (FP) PO SCH (22:33)
[2022-11-29] MEDS: ATORVASTATIN CA 20 MG TABLET (FP) PO SCH (22:33)
[2022-11-29] MEDS: QUEtiapine FUMARATE 100 MG TABLET (FP) PO SCH (22:34)
[2022-11-30] MEDS: diazePAM 5 MG TABLET PO SCH ×3 (05:47→22:46)
[2022-11-30] MEDS: metFORMIN HCL 500 MG TABLET (FP) PO SCH ×2 (06:38→16:58)
[2022-11-30] MEDS: CLOPIDOGREL BISULFATE 75 MG TABLET (FP) PO SCH (09:58)
[2022-11-30] MEDS: PRENATAL VITAMINS W/ FOLIC ACID TABLET (FP) PO SCH (09:58)
[2022-11-30] MEDS: amLODIPine BESYLATE 5 MG TABLET (FP) PO SCH (09:58)
[2022-11-30] MEDS: CARVEDILOL 12.5 MG TABLET (FP) PO SCH ×2 (09:58→22:46)
[2022-11-30] MEDS: ASPIRIN 81 MG CHEWABLE TABLETS PO SCH (09:58)
[2022-11-30] MEDS: METHOCARBAMOL 500 MG TABLET PO PRN (10:03)
[2022-11-30] MEDS: diazePAM 5 MG TABLET PO PRN (16:59)
[2022-11-30] MEDS: THIAMINE HCL 100 MG TABLET (FP) PO SCH (22:46)
[2022-11-30] MEDS: QUEtiapine FUMARATE 100 MG TABLET (FP) PO SCH (22:46)
[2022-11-30] MEDS: ATORVASTATIN CA 20 MG TABLET (FP) PO SCH (22:46)
[2022-11-30] MEDS: MELATONIN 5 MG TABLETS PO SCH (22:46)
[2022-12-01] MEDS: diazePAM 5 MG TABLET PO SCH ×2 (06:03→17:53)
[2022-12-01] MEDS: metFORMIN HCL 500 MG TABLET (FP) PO SCH ×2 (06:06→17:50)
[2022-12-01] MEDS: PRENATAL VITAMINS W/ FOLIC ACID TABLET (FP) PO SCH (09:55)
[2022-12-01] MEDS: amLODIPine BESYLATE 5 MG TABLET (FP) PO SCH (09:55)
[2022-12-01] MEDS: CARVEDILOL 12.5 MG TABLET (FP) PO SCH ×2 (09:55→22:50)
[2022-12-01] MEDS: CLOPIDOGREL BISULFATE 75 MG TABLET (FP) PO SCH (09:55)
[2022-12-01] MEDS: ASPIRIN 81 MG CHEWABLE TABLETS PO SCH (09:55)
[2022-12-01] MEDS: SENNOSIDES 8.6MG TABLET (FP) PO SCH ×2 (12:00→22:51)
[2022-12-01] MEDS: ATORVASTATIN CA 20 MG TABLET (FP) PO SCH (22:51)
[2022-12-01] MEDS: MELATONIN 5 MG TABLETS PO SCH (22:51)
[2022-12-01] MEDS: QUEtiapine FUMARATE 100 MG TABLET (FP) PO SCH (22:52)
[2022-12-01] MEDS: THIAMINE HCL 100 MG TABLET (FP) PO SCH (22:52)
[2022-12-02] MEDS ORDERED: diazePAM 5 MG TABLET PO ONE (06:00)
[2022-12-02] MEDS: metFORMIN HCL 500 MG TABLET (FP) PO SCH ×2 (06:01→17:14)
[2022-12-02] MEDS: ASPIRIN 81 MG CHEWABLE TABLETS PO SCH (10:13)
[2022-12-02] MEDS: CLOPIDOGREL BISULFATE 75 MG TABLET (FP) PO SCH (10:13)
[2022-12-02] MEDS: PRENATAL VITAMINS W/ FOLIC ACID TABLET (FP) PO SCH (10:13)
[2022-12-02] MEDS: CARVEDILOL 12.5 MG TABLET (FP) PO SCH (10:13)
[2022-12-02] MEDS: amLODIPine BESYLATE 5 MG TABLET (FP) PO SCH (10:14)
[2022-12-02] MEDS: SENNOSIDES 8.6MG TABLET (FP) PO SCH (10:14)
[2022-12-02 13:27] VITALS: RESP 18
[2022-12-02 17:18] VITALS: BP 149/92; PULSE 66; TEMP 97.7
== END 2022-12-02 18:23 | disposition other institution (70) | DRG 774 ==
LOC: YASAS 22:29 → Y3N 11-28 01:12
PROVIDERS: ADMIT Allergy & Immunology; ATTEND Allergy & Immunology
PROC: HZ2ZZZZ Detoxification Services for Substance Abuse Treatment (ICD-10-PCS; principal; 2022-11-28)
DX: F10.230 Alcohol dependence with withdrawal, uncomplicated (principal); F14.20 Cocaine dependence, uncomplicated; E78.5 Hyperlipidemia, unspecified; I25.10 Atherosclerotic heart disease of native coronary artery without angina pectoris; I10 Essential (primary) hypertension; Z95.1 Presence of aortocoronary bypass graft; Z95.5 Presence of coronary angioplasty implant and graft; E11.9 Type 2 diabetes mellitus without complications; Z79.84 Long term (current) use of oral hypoglycemic drugs; Z62.810 Personal history of physical and sexual abuse in childhood; Z99.89 Dependence on other enabling machines and devices; Z56.0 Unemployment, unspecified; Z59.00 Homelessness unspecified; Z88.8 Allergy status to other drugs, medicaments and biological substances
CPT/HCPCS: 36415; 80053; 82962; 85027; 86780; 87635; 87811

== ENCOUNTER 2022-12-02 18:43 | Inpatient (IN) | payer OTHER ==
[2022-12-02] MEDS ORDERED: COLLOIDAL OATMEAL 1 BAR EACH TP PRN (19:04)
[2022-12-02] MEDS ORDERED: guaiFENesin 600 MG TABLET.ER (FP) PO PRN (19:04)
[2022-12-02] MEDS ORDERED: hydrOXYzine PAMOATE 25 MG CAPSULE (FP) PO PRN (19:04)
[2022-12-02] MEDS ORDERED: BENZONATATE 200 MG CAPSULE PO PRN (19:04)
[2022-12-02] MEDS ORDERED: AMMONIUM LACTATE 12% LOTION 225 GM BOTTLE TP PRN (19:04)
[2022-12-02] MEDS ORDERED: MAG HYDROX/AL HYDROX/SIMETH 30 ML UNIT-DOSE CUP PO PRN (19:04)
[2022-12-02] MEDS ORDERED: LOPERAMIDE HCL 2 MG CAPSULE PO PRN (19:04)
[2022-12-02] MEDS ORDERED: MAGNESIUM HYDROX 2400MG/30ML ORAL SUSPENSION 30 ML CUP PO PRN (19:04)
[2022-12-02] MEDS ORDERED: BENZOCAINE/MENTHOL (CHLORASEPTIC ) LOZENGE MM PRN (19:04)
[2022-12-02] MEDS ORDERED: POLYETHYLENE GLYCOL (HEALTHYLAX) 3350 17 GM PACKET PO PRN (19:04)
[2022-12-02] MEDS ORDERED: metFORMIN HCL 500 MG TABLET (FP) PO SCH (22:00)
[2022-12-02] MEDS: CARVEDILOL 12.5 MG TABLET (FP) PO SCH (22:52)
[2022-12-02] MEDS: THIAMINE HCL 100 MG TABLET (FP) PO SCH (22:53)
[2022-12-02] MEDS: MELATONIN 5 MG TABLETS PO SCH (22:53)
[2022-12-02] MEDS: ATORVASTATIN CA 20 MG TABLET (FP) PO SCH (22:53)
[2022-12-03] MEDS: METHOCARBAMOL 500 MG TABLET PO PRN (07:29)
[2022-12-03] MEDS: metFORMIN HCL 500 MG TABLET (FP) PO SCH ×2 (07:29→16:45)
[2022-12-03] MEDS: ASPIRIN 81 MG CHEWABLE TABLETS PO SCH (10:06)
[2022-12-03] MEDS: amLODIPine BESYLATE 10 MG TABLET (FP) PO SCH (10:06)
[2022-12-03] MEDS: FOLIC ACID 1 MG TABLET (FP) PO SCH (10:06)
[2022-12-03] MEDS: CLOPIDOGREL BISULFATE 75 MG TABLET (FP) PO SCH (10:06)
[2022-12-03] MEDS: PRENATAL VITAMINS W/ FOLIC ACID TABLET (FP) PO SCH (10:07)
[2022-12-03] MEDS: CARVEDILOL 12.5 MG TABLET (FP) PO SCH ×2 (11:02→21:41)
[2022-12-03] MEDS ORDERED: LIDOCAINE HCL 5% TOP OINTMENT 50 GM TUBE TP ONE (12:55)
[2022-12-03] MEDS: QUEtiapine FUMARATE 100 MG TABLET (FP) PO SCH (21:40)
[2022-12-03] MEDS: ATORVASTATIN CA 20 MG TABLET (FP) PO SCH (21:41)
[2022-12-03] MEDS: METHYL SALICYLATE/MENTHOL OINT 30 GM TUBE TP SCH (21:41)
[2022-12-03] MEDS: MELATONIN 5 MG TABLETS PO SCH (21:41)
[2022-12-03] MEDS: THIAMINE HCL 100 MG TABLET (FP) PO SCH (21:41)
[2022-12-04] MEDS: metFORMIN HCL 500 MG TABLET (FP) PO SCH ×2 (06:48→16:39)
[2022-12-04] MEDS: METHOCARBAMOL 500 MG TABLET PO PRN ×2 (06:49→16:39)
[2022-12-04] MEDS: FOLIC ACID 1 MG TABLET (FP) PO SCH (10:19)
[2022-12-04] MEDS: CLOPIDOGREL BISULFATE 75 MG TABLET (FP) PO SCH (10:19)
[2022-12-04] MEDS: amLODIPine BESYLATE 10 MG TABLET (FP) PO SCH (10:19)
[2022-12-04] MEDS: CARVEDILOL 12.5 MG TABLET (FP) PO SCH ×2 (10:19→21:41)
[2022-12-04] MEDS: PRENATAL VITAMINS W/ FOLIC ACID TABLET (FP) PO SCH (10:19)
[2022-12-04] MEDS: ASPIRIN 81 MG CHEWABLE TABLETS PO SCH (10:19)
[2022-12-04] MEDS: METHYL SALICYLATE/MENTHOL OINT 30 GM TUBE TP SCH ×2 (10:20→21:41)
[2022-12-04] MEDS: ATORVASTATIN CA 20 MG TABLET (FP) PO SCH (21:41)
[2022-12-04] MEDS: QUEtiapine FUMARATE 100 MG TABLET (FP) PO SCH (21:41)
[2022-12-04] MEDS: MELATONIN 5 MG TABLETS PO SCH (21:41)
[2022-12-04] MEDS: THIAMINE HCL 100 MG TABLET (FP) PO SCH (21:41)
[2022-12-05] MEDS: METHOCARBAMOL 500 MG TABLET PO PRN (01:03)
[2022-12-05] MEDS: metFORMIN HCL 500 MG TABLET (FP) PO SCH (06:36)
[2022-12-05 07:14] VITALS: BP 115/68; PULSE 61; RESP 16; TEMP 97.7
[2022-12-05] MEDS: PRENATAL VITAMINS W/ FOLIC ACID TABLET (FP) PO SCH (10:23)
[2022-12-05] MEDS: CARVEDILOL 12.5 MG TABLET (FP) PO SCH (10:24)
[2022-12-05] MEDS: ASPIRIN 81 MG CHEWABLE TABLETS PO SCH (10:24)
[2022-12-05] MEDS: CLOPIDOGREL BISULFATE 75 MG TABLET (FP) PO SCH (10:24)
[2022-12-05] MEDS: FOLIC ACID 1 MG TABLET (FP) PO SCH (10:25)
[2022-12-05] MEDS: amLODIPine BESYLATE 10 MG TABLET (FP) PO SCH (10:25)
[2022-12-05] MEDS: METHYL SALICYLATE/MENTHOL OINT 30 GM TUBE TP SCH (10:25)
== END 2022-12-05 10:58 | disposition left against medical advice (07) | DRG 770 ==
LOC: YASAS 18:43 → Y5N 18:46
PROVIDERS: ADMIT Allergy & Immunology; ATTEND Psychiatry & Neurology Pain Medicine
PROC: HZ2ZZZZ Detoxification Services for Substance Abuse Treatment (ICD-10-PCS; principal; 2022-12-02)
DX: F10.20 Alcohol dependence, uncomplicated (principal); F31.9 Bipolar disorder, unspecified; I25.10 Atherosclerotic heart disease of native coronary artery without angina pectoris; I10 Essential (primary) hypertension; Z95.1 Presence of aortocoronary bypass graft; Z95.5 Presence of coronary angioplasty implant and graft; M54.50 Low back pain, unspecified; G89.29 Other chronic pain; Z99.89 Dependence on other enabling machines and devices; Z88.8 Allergy status to other drugs, medicaments and biological substances
CPT/HCPCS: 82962

== ENCOUNTER 2023-01-18 12:56 | Inpatient (IN) | payer OTHER ==
[2023-01-18] MEDS ORDERED: COLLOIDAL OATMEAL 1 BAR EACH TP PRN (15:05)
[2023-01-18] MEDS ORDERED: BENZONATATE 200 MG CAPSULE PO PRN (15:05)
[2023-01-18] MEDS ORDERED: LOPERAMIDE HCL 2 MG CAPSULE PO PRN (15:05)
[2023-01-18] MEDS ORDERED: NALOXONE HCL (KLOXXADO) 8 MG SPRAY NS PRN (15:05)
[2023-01-18] MEDS ORDERED: MAG HYDROX/AL HYDROX/SIMETH 30 ML UNIT-DOSE CUP PO PRN (15:05)
[2023-01-18] MEDS ORDERED: POLYETHYLENE GLYCOL (HEALTHYLAX) 3350 17 GM PACKET PO PRN (15:05)
[2023-01-18] MEDS ORDERED: BENZOCAINE/MENTHOL (CHLORASEPTIC ) LOZENGE MM PRN (15:05)
[2023-01-18] MEDS ORDERED: NALOXONE HCL 0.4 MG/ML VIAL IVPUSH PRN (15:05)
[2023-01-18] MEDS ORDERED: guaiFENesin 600 MG TABLET.ER (FP) PO PRN (15:05)
[2023-01-18] MEDS ORDERED: hydrOXYzine PAMOATE 25 MG CAPSULE (FP) PO PRN (15:05)
[2023-01-18] MEDS: METHOCARBAMOL 500 MG TABLET PO PRN (16:36)
[2023-01-18] MEDS: metFORMIN HCL 500 MG TABLET (FP) PO SCH (16:36)
[2023-01-18] MEDS: THIAMINE HCL 100 MG TABLET (FP) PO SCH (21:12)
[2023-01-18] MEDS: SENNOSIDES 8.6MG TABLET (FP) PO SCH (21:12)
[2023-01-18] MEDS: ATORVASTATIN CA 20 MG TABLET (FP) PO SCH (21:12)
[2023-01-18] MEDS: CARVEDILOL 12.5 MG TABLET (FP) PO SCH (21:12)
[2023-01-18] MEDS: MELATONIN 5 MG TABLETS PO SCH (21:12)
[2023-01-19] MEDS: metFORMIN HCL 500 MG TABLET (FP) PO SCH ×2 (06:30→17:15)
[2023-01-19] MEDS: ASPIRIN 81 MG CHEWABLE TABLETS PO SCH (09:53)
[2023-01-19] MEDS: CLOPIDOGREL BISULFATE 75 MG TABLET (FP) PO SCH (09:53)
[2023-01-19] MEDS: SENNOSIDES 8.6MG TABLET (FP) PO SCH ×2 (09:53→21:16)
[2023-01-19] MEDS: SERTRALINE HCL 50 MG TABLET (FP) PO SCH (09:54)
[2023-01-19] MEDS: amLODIPine BESYLATE 10 MG TABLET (FP) PO SCH (09:54)
[2023-01-19] MEDS: PRENATAL VITAMINS W/ FOLIC ACID TABLET (FP) PO SCH (09:54)
[2023-01-19] MEDS: CARVEDILOL 12.5 MG TABLET (FP) PO SCH ×2 (09:54→21:15)
[2023-01-19] MEDS: ATORVASTATIN CA 20 MG TABLET (FP) PO SCH (21:15)
[2023-01-19] MEDS: traZODone HCL 100 MG TABLET (FP) PO SCH (21:16)
[2023-01-19] MEDS: MELATONIN 5 MG TABLETS PO SCH (21:16)
[2023-01-19] MEDS: THIAMINE HCL 100 MG TABLET (FP) PO SCH (21:16)
[2023-01-20] MEDS: metFORMIN HCL 500 MG TABLET (FP) PO SCH ×2 (06:18→16:37)
[2023-01-20] MEDS: PRENATAL VITAMINS W/ FOLIC ACID TABLET (FP) PO SCH (10:02)
[2023-01-20] MEDS: SERTRALINE HCL 50 MG TABLET (FP) PO SCH (10:02)
[2023-01-20] MEDS: ASPIRIN 81 MG CHEWABLE TABLETS PO SCH (10:03)
[2023-01-20] MEDS: SENNOSIDES 8.6MG TABLET (FP) PO SCH ×2 (10:03→21:24)
[2023-01-20] MEDS: amLODIPine BESYLATE 10 MG TABLET (FP) PO SCH (10:04)
[2023-01-20] MEDS: CLOPIDOGREL BISULFATE 75 MG TABLET (FP) PO SCH (10:04)
[2023-01-20] MEDS: CARVEDILOL 12.5 MG TABLET (FP) PO SCH ×2 (10:04→21:24)
[2023-01-20] MEDS: METHOCARBAMOL 500 MG TABLET PO PRN (10:05)
[2023-01-20] MEDS: THIAMINE HCL 100 MG TABLET (FP) PO SCH (21:23)
[2023-01-20] MEDS: traZODone HCL 100 MG TABLET (FP) PO SCH (21:24)
[2023-01-20] MEDS: MELATONIN 5 MG TABLETS PO SCH (21:24)
[2023-01-20] MEDS: ATORVASTATIN CA 20 MG TABLET (FP) PO SCH (21:24)
[2023-01-20] MEDS: GABAPENTIN 400 MG CAPSULE PO SCH (21:25)
[2023-01-21] MEDS: metFORMIN HCL 500 MG TABLET (FP) PO SCH ×2 (06:19→16:19)
[2023-01-21] MEDS: SERTRALINE HCL 50 MG TABLET (FP) PO SCH (09:59)
[2023-01-21] MEDS: ASPIRIN 81 MG CHEWABLE TABLETS PO SCH (09:59)
[2023-01-21] MEDS: SENNOSIDES 8.6MG TABLET (FP) PO SCH ×2 (09:59→21:10)
[2023-01-21] MEDS: CARVEDILOL 12.5 MG TABLET (FP) PO SCH ×2 (09:59→21:11)
[2023-01-21] MEDS: GABAPENTIN 400 MG CAPSULE PO SCH ×2 (09:59→21:10)
[2023-01-21] MEDS: CLOPIDOGREL BISULFATE 75 MG TABLET (FP) PO SCH (09:59)
[2023-01-21] MEDS: amLODIPine BESYLATE 10 MG TABLET (FP) PO SCH (09:59)
[2023-01-21] MEDS: PRENATAL VITAMINS W/ FOLIC ACID TABLET (FP) PO SCH (09:59)
[2023-01-21] MEDS: ATORVASTATIN CA 20 MG TABLET (FP) PO SCH (21:10)
[2023-01-21] MEDS: MELATONIN 5 MG TABLETS PO SCH (21:10)
[2023-01-21] MEDS: THIAMINE HCL 100 MG TABLET (FP) PO SCH (21:10)
[2023-01-21] MEDS: traZODone HCL 100 MG TABLET (FP) PO SCH (21:10)
[2023-01-22] MEDS: metFORMIN HCL 500 MG TABLET (FP) PO SCH ×2 (06:20→16:18)
[2023-01-22] MEDS: GABAPENTIN 400 MG CAPSULE PO SCH ×2 (10:01→21:17)
[2023-01-22] MEDS: PRENATAL VITAMINS W/ FOLIC ACID TABLET (FP) PO SCH (10:01)
[2023-01-22] MEDS: SENNOSIDES 8.6MG TABLET (FP) PO SCH ×2 (10:01→21:17)
[2023-01-22] MEDS: amLODIPine BESYLATE 10 MG TABLET (FP) PO SCH (10:01)
[2023-01-22] MEDS: CLOPIDOGREL BISULFATE 75 MG TABLET (FP) PO SCH (10:02)
[2023-01-22] MEDS: SERTRALINE HCL 50 MG TABLET (FP) PO SCH (10:02)
[2023-01-22] MEDS: CARVEDILOL 12.5 MG TABLET (FP) PO SCH ×2 (10:02→21:17)
[2023-01-22] MEDS: ASPIRIN 81 MG CHEWABLE TABLETS PO SCH (10:03)
[2023-01-22] MEDS: MELATONIN 5 MG TABLETS PO SCH (21:17)
[2023-01-22] MEDS: ATORVASTATIN CA 20 MG TABLET (FP) PO SCH (21:17)
[2023-01-22] MEDS: traZODone HCL 100 MG TABLET (FP) PO SCH (21:17)
[2023-01-22] MEDS: THIAMINE HCL 100 MG TABLET (FP) PO SCH (21:17)
[2023-01-22] MEDS: MAGNESIUM HYDROX 2400MG/30ML ORAL SUSPENSION 30 ML CUP PO PRN (21:18)
[2023-01-23] MEDS: metFORMIN HCL 500 MG TABLET (FP) PO SCH ×2 (06:06→16:19)
[2023-01-23] MEDS: CLOPIDOGREL BISULFATE 75 MG TABLET (FP) PO SCH (10:00)
[2023-01-23] MEDS: CARVEDILOL 12.5 MG TABLET (FP) PO SCH ×2 (10:00→21:06)
[2023-01-23] MEDS: PRENATAL VITAMINS W/ FOLIC ACID TABLET (FP) PO SCH (10:00)
[2023-01-23] MEDS: amLODIPine BESYLATE 10 MG TABLET (FP) PO SCH (10:00)
[2023-01-23] MEDS: ASPIRIN 81 MG CHEWABLE TABLETS PO SCH (10:00)
[2023-01-23] MEDS: GABAPENTIN 400 MG CAPSULE PO SCH ×2 (10:00→21:06)
[2023-01-23] MEDS: SENNOSIDES 8.6MG TABLET (FP) PO SCH ×2 (10:00→21:06)
[2023-01-23] MEDS: SERTRALINE HCL 50 MG TABLET (FP) PO SCH (10:00)
[2023-01-23] MEDS: METHOCARBAMOL 500 MG TABLET PO PRN (16:19)
[2023-01-23] MEDS: ATORVASTATIN CA 20 MG TABLET (FP) PO SCH (21:06)
[2023-01-23] MEDS: traZODone HCL 100 MG TABLET (FP) PO SCH (21:06)
[2023-01-23] MEDS: THIAMINE HCL 100 MG TABLET (FP) PO SCH (21:06)
[2023-01-23] MEDS: MELATONIN 5 MG TABLETS PO SCH (21:06)
[2023-01-24] MEDS: metFORMIN HCL 500 MG TABLET (FP) PO SCH ×2 (06:11→16:35)
[2023-01-24] MEDS: GABAPENTIN 400 MG CAPSULE PO SCH ×2 (10:05→21:26)
[2023-01-24] MEDS: PRENATAL VITAMINS W/ FOLIC ACID TABLET (FP) PO SCH (10:05)
[2023-01-24] MEDS: ASPIRIN 81 MG CHEWABLE TABLETS PO SCH (10:05)
[2023-01-24] MEDS: SENNOSIDES 8.6MG TABLET (FP) PO SCH ×2 (10:06→21:26)
[2023-01-24] MEDS: CARVEDILOL 12.5 MG TABLET (FP) PO SCH ×2 (10:06→21:26)
[2023-01-24] MEDS: SERTRALINE HCL 50 MG TABLET (FP) PO SCH (10:06)
[2023-01-24] MEDS: CLOPIDOGREL BISULFATE 75 MG TABLET (FP) PO SCH (10:06)
[2023-01-24] MEDS: amLODIPine BESYLATE 10 MG TABLET (FP) PO SCH (10:07)
[2023-01-24] MEDS: ATORVASTATIN CA 20 MG TABLET (FP) PO SCH (21:25)
[2023-01-24] MEDS: traZODone HCL 100 MG TABLET (FP) PO SCH (21:26)
[2023-01-24] MEDS: THIAMINE HCL 100 MG TABLET (FP) PO SCH (21:26)
[2023-01-24] MEDS: MELATONIN 5 MG TABLETS PO SCH (21:26)
[2023-01-25] MEDS: metFORMIN HCL 500 MG TABLET (FP) PO SCH ×2 (06:28→16:13)
[2023-01-25] MEDS: ASPIRIN 81 MG CHEWABLE TABLETS PO SCH (10:06)
[2023-01-25] MEDS: GABAPENTIN 400 MG CAPSULE PO SCH ×2 (10:06→21:13)
[2023-01-25] MEDS: PRENATAL VITAMINS W/ FOLIC ACID TABLET (FP) PO SCH (10:06)
[2023-01-25] MEDS: SERTRALINE HCL 50 MG TABLET (FP) PO SCH (10:07)
[2023-01-25] MEDS: SENNOSIDES 8.6MG TABLET (FP) PO SCH ×2 (10:07→21:13)
[2023-01-25] MEDS: CLOPIDOGREL BISULFATE 75 MG TABLET (FP) PO SCH (10:07)
[2023-01-25] MEDS: amLODIPine BESYLATE 10 MG TABLET (FP) PO SCH (10:07)
[2023-01-25] MEDS: CARVEDILOL 12.5 MG TABLET (FP) PO SCH ×2 (10:07→21:13)
[2023-01-25] MEDS: traZODone HCL 100 MG TABLET (FP) PO SCH (21:13)
[2023-01-25] MEDS: ATORVASTATIN CA 20 MG TABLET (FP) PO SCH (21:13)
[2023-01-25] MEDS: THIAMINE HCL 100 MG TABLET (FP) PO SCH (21:14)
[2023-01-25] MEDS: MELATONIN 5 MG TABLETS PO SCH (21:14)
[2023-01-26] MEDS: metFORMIN HCL 500 MG TABLET (FP) PO SCH ×2 (06:38→16:21)
[2023-01-26] MEDS: PRENATAL VITAMINS W/ FOLIC ACID TABLET (FP) PO SCH (09:46)
[2023-01-26] MEDS: amLODIPine BESYLATE 10 MG TABLET (FP) PO SCH (09:47)
[2023-01-26] MEDS: GABAPENTIN 400 MG CAPSULE PO SCH ×2 (09:47→21:13)
[2023-01-26] MEDS: CLOPIDOGREL BISULFATE 75 MG TABLET (FP) PO SCH (09:47)
[2023-01-26] MEDS: ASPIRIN 81 MG CHEWABLE TABLETS PO SCH (09:47)
[2023-01-26] MEDS: SERTRALINE HCL 50 MG TABLET (FP) PO SCH (09:47)
[2023-01-26] MEDS: CARVEDILOL 12.5 MG TABLET (FP) PO SCH ×2 (09:47→21:13)
[2023-01-26] MEDS: SENNOSIDES 8.6MG TABLET (FP) PO SCH ×2 (09:47→21:13)
[2023-01-26] MEDS: THIAMINE HCL 100 MG TABLET (FP) PO SCH (21:13)
[2023-01-26] MEDS: MELATONIN 5 MG TABLETS PO SCH (21:13)
[2023-01-26] MEDS: ATORVASTATIN CA 20 MG TABLET (FP) PO SCH (21:13)
[2023-01-26] MEDS: traZODone HCL 100 MG TABLET (FP) PO SCH (21:13)
[2023-01-26] MEDS: MAGNESIUM HYDROX 2400MG/30ML ORAL SUSPENSION 30 ML CUP PO PRN (21:14)
[2023-01-27] MEDS: metFORMIN HCL 500 MG TABLET (FP) PO SCH ×2 (06:43→16:21)
[2023-01-27] MEDS: PRENATAL VITAMINS W/ FOLIC ACID TABLET (FP) PO SCH (09:49)
[2023-01-27] MEDS: ASPIRIN 81 MG CHEWABLE TABLETS PO SCH (09:49)
[2023-01-27] MEDS: SERTRALINE HCL 50 MG TABLET (FP) PO SCH (09:49)
[2023-01-27] MEDS: SENNOSIDES 8.6MG TABLET (FP) PO SCH ×2 (09:50→21:19)
[2023-01-27] MEDS: GABAPENTIN 400 MG CAPSULE PO SCH ×2 (09:50→21:19)
[2023-01-27] MEDS: CARVEDILOL 12.5 MG TABLET (FP) PO SCH ×2 (09:50→21:20)
[2023-01-27] MEDS: CLOPIDOGREL BISULFATE 75 MG TABLET (FP) PO SCH (09:50)
[2023-01-27] MEDS: amLODIPine BESYLATE 10 MG TABLET (FP) PO SCH (09:50)
[2023-01-27] MEDS: THIAMINE HCL 100 MG TABLET (FP) PO SCH (21:19)
[2023-01-27] MEDS: MELATONIN 5 MG TABLETS PO SCH (21:19)
[2023-01-27] MEDS: ATORVASTATIN CA 20 MG TABLET (FP) PO SCH (21:20)
[2023-01-27] MEDS: traZODone HCL 100 MG TABLET (FP) PO SCH (21:20)
[2023-01-28] MEDS: metFORMIN HCL 500 MG TABLET (FP) PO SCH ×2 (06:15→16:20)
[2023-01-28] MEDS: PRENATAL VITAMINS W/ FOLIC ACID TABLET (FP) PO SCH (09:51)
[2023-01-28] MEDS: CARVEDILOL 12.5 MG TABLET (FP) PO SCH ×2 (09:51→21:23)
[2023-01-28] MEDS: ASPIRIN 81 MG CHEWABLE TABLETS PO SCH (09:51)
[2023-01-28] MEDS: SERTRALINE HCL 50 MG TABLET (FP) PO SCH (09:52)
[2023-01-28] MEDS: GABAPENTIN 400 MG CAPSULE PO SCH ×2 (09:52→21:22)
[2023-01-28] MEDS: SENNOSIDES 8.6MG TABLET (FP) PO SCH ×2 (09:53→21:23)
[2023-01-28] MEDS: CLOPIDOGREL BISULFATE 75 MG TABLET (FP) PO SCH (09:53)
[2023-01-28] MEDS: amLODIPine BESYLATE 10 MG TABLET (FP) PO SCH (09:53)
[2023-01-28] MEDS: ATORVASTATIN CA 20 MG TABLET (FP) PO SCH (21:22)
[2023-01-28] MEDS: traZODone HCL 100 MG TABLET (FP) PO SCH (21:22)
[2023-01-28] MEDS: MELATONIN 5 MG TABLETS PO SCH (21:22)
[2023-01-28] MEDS: THIAMINE HCL 100 MG TABLET (FP) PO SCH (21:22)
[2023-01-29] MEDS: metFORMIN HCL 500 MG TABLET (FP) PO SCH ×2 (06:20→16:23)
[2023-01-29] MEDS: CLOPIDOGREL BISULFATE 75 MG TABLET (FP) PO SCH (10:06)
[2023-01-29] MEDS: ASPIRIN 81 MG CHEWABLE TABLETS PO SCH (10:06)
[2023-01-29] MEDS: CARVEDILOL 12.5 MG TABLET (FP) PO SCH ×2 (10:06→21:13)
[2023-01-29] MEDS: SENNOSIDES 8.6MG TABLET (FP) PO SCH ×2 (10:06→21:13)
[2023-01-29] MEDS: PRENATAL VITAMINS W/ FOLIC ACID TABLET (FP) PO SCH (10:06)
[2023-01-29] MEDS: amLODIPine BESYLATE 10 MG TABLET (FP) PO SCH (10:06)
[2023-01-29] MEDS: SERTRALINE HCL 50 MG TABLET (FP) PO SCH (10:06)
[2023-01-29] MEDS: GABAPENTIN 400 MG CAPSULE PO SCH ×2 (10:07→21:13)
[2023-01-29] MEDS: ATORVASTATIN CA 20 MG TABLET (FP) PO SCH (21:13)
[2023-01-29] MEDS: THIAMINE HCL 100 MG TABLET (FP) PO SCH (21:13)
[2023-01-29] MEDS: MELATONIN 5 MG TABLETS PO SCH (21:13)
[2023-01-29] MEDS: traZODone HCL 100 MG TABLET (FP) PO SCH (21:13)
[2023-01-30] MEDS: metFORMIN HCL 500 MG TABLET (FP) PO SCH ×2 (06:26→16:23)
[2023-01-30] MEDS: SERTRALINE HCL 50 MG TABLET (FP) PO SCH (10:11)
[2023-01-30] MEDS: PRENATAL VITAMINS W/ FOLIC ACID TABLET (FP) PO SCH (10:11)
[2023-01-30] MEDS: GABAPENTIN 400 MG CAPSULE PO SCH ×2 (10:12→21:12)
[2023-01-30] MEDS: amLODIPine BESYLATE 10 MG TABLET (FP) PO SCH (10:12)
[2023-01-30] MEDS: SENNOSIDES 8.6MG TABLET (FP) PO SCH ×2 (10:12→21:12)
[2023-01-30] MEDS: ASPIRIN 81 MG CHEWABLE TABLETS PO SCH (10:12)
[2023-01-30] MEDS: CLOPIDOGREL BISULFATE 75 MG TABLET (FP) PO SCH (10:12)
[2023-01-30] MEDS: CARVEDILOL 12.5 MG TABLET (FP) PO SCH ×2 (10:13→21:12)
[2023-01-30] MEDS: ATORVASTATIN CA 20 MG TABLET (FP) PO SCH (21:12)
[2023-01-30] MEDS: THIAMINE HCL 100 MG TABLET (FP) PO SCH (21:12)
[2023-01-30] MEDS: MELATONIN 5 MG TABLETS PO SCH (21:12)
[2023-01-30] MEDS: traZODone HCL 100 MG TABLET (FP) PO SCH (21:12)
[2023-01-31] MEDS: metFORMIN HCL 500 MG TABLET (FP) PO SCH ×2 (06:14→16:12)
[2023-01-31] MEDS: ASPIRIN 81 MG CHEWABLE TABLETS PO SCH (10:15)
[2023-01-31] MEDS: SENNOSIDES 8.6MG TABLET (FP) PO SCH ×2 (10:16→21:13)
[2023-01-31] MEDS: PRENATAL VITAMINS W/ FOLIC ACID TABLET (FP) PO SCH (10:16)
[2023-01-31] MEDS: CLOPIDOGREL BISULFATE 75 MG TABLET (FP) PO SCH (10:16)
[2023-01-31] MEDS: SERTRALINE HCL 50 MG TABLET (FP) PO SCH (10:16)
[2023-01-31] MEDS: GABAPENTIN 400 MG CAPSULE PO SCH ×2 (10:16→21:13)
[2023-01-31] MEDS: CARVEDILOL 12.5 MG TABLET (FP) PO SCH ×2 (10:29→21:13)
[2023-01-31] MEDS: amLODIPine BESYLATE 10 MG TABLET (FP) PO SCH (10:29)
[2023-01-31] MEDS: ATORVASTATIN CA 20 MG TABLET (FP) PO SCH (21:13)
[2023-01-31] MEDS: MELATONIN 5 MG TABLETS PO SCH (21:13)
[2023-01-31] MEDS: traZODone HCL 100 MG TABLET (FP) PO SCH (21:13)
[2023-01-31] MEDS: THIAMINE HCL 100 MG TABLET (FP) PO SCH (21:13)
[2023-02-01] MEDS: metFORMIN HCL 500 MG TABLET (FP) PO SCH ×2 (06:16→16:24)
[2023-02-01] MEDS: PRENATAL VITAMINS W/ FOLIC ACID TABLET (FP) PO SCH (09:41)
[2023-02-01] MEDS: CLOPIDOGREL BISULFATE 75 MG TABLET (FP) PO SCH (09:42)
[2023-02-01] MEDS: GABAPENTIN 400 MG CAPSULE PO SCH ×2 (09:42→21:47)
[2023-02-01] MEDS: ASPIRIN 81 MG CHEWABLE TABLETS PO SCH (09:42)
[2023-02-01] MEDS: amLODIPine BESYLATE 10 MG TABLET (FP) PO SCH (09:42)
[2023-02-01] MEDS: SENNOSIDES 8.6MG TABLET (FP) PO SCH ×2 (09:42→21:24)
[2023-02-01] MEDS: CARVEDILOL 12.5 MG TABLET (FP) PO SCH ×2 (09:42→21:25)
[2023-02-01] MEDS: SERTRALINE HCL 50 MG TABLET (FP) PO SCH (09:43)
[2023-02-01] MEDS: traZODone HCL 100 MG TABLET (FP) PO SCH (21:24)
[2023-02-01] MEDS: ATORVASTATIN CA 20 MG TABLET (FP) PO SCH (21:24)
[2023-02-01] MEDS: THIAMINE HCL 100 MG TABLET (FP) PO SCH (21:25)
[2023-02-01] MEDS: MELATONIN 5 MG TABLETS PO SCH (21:25)
[2023-02-02] MEDS: metFORMIN HCL 500 MG TABLET (FP) PO SCH ×2 (06:42→16:16)
[2023-02-02] MEDS: SERTRALINE HCL 50 MG TABLET (FP) PO SCH (09:47)
[2023-02-02] MEDS: ASPIRIN 81 MG CHEWABLE TABLETS PO SCH (09:47)
[2023-02-02] MEDS: PRENATAL VITAMINS W/ FOLIC ACID TABLET (FP) PO SCH (09:47)
[2023-02-02] MEDS: amLODIPine BESYLATE 10 MG TABLET (FP) PO SCH (09:47)
[2023-02-02] MEDS: CARVEDILOL 12.5 MG TABLET (FP) PO SCH ×2 (09:48→21:32)
[2023-02-02] MEDS: SENNOSIDES 8.6MG TABLET (FP) PO SCH ×2 (09:48→21:32)
[2023-02-02] MEDS: GABAPENTIN 400 MG CAPSULE PO SCH ×2 (09:48→21:32)
[2023-02-02] MEDS: CLOPIDOGREL BISULFATE 75 MG TABLET (FP) PO SCH (09:48)
[2023-02-02] MEDS: MELATONIN 5 MG TABLETS PO SCH (21:32)
[2023-02-02] MEDS: THIAMINE HCL 100 MG TABLET (FP) PO SCH (21:32)
[2023-02-02] MEDS: ATORVASTATIN CA 20 MG TABLET (FP) PO SCH (21:32)
[2023-02-02] MEDS: traZODone HCL 100 MG TABLET (FP) PO SCH (21:32)
[2023-02-03] MEDS: metFORMIN HCL 500 MG TABLET (FP) PO SCH ×2 (06:07→16:22)
[2023-02-03] MEDS: CLOPIDOGREL BISULFATE 75 MG TABLET (FP) PO SCH (09:51)
[2023-02-03] MEDS: PRENATAL VITAMINS W/ FOLIC ACID TABLET (FP) PO SCH (09:51)
[2023-02-03] MEDS: CARVEDILOL 12.5 MG TABLET (FP) PO SCH ×2 (09:52→21:03)
[2023-02-03] MEDS: amLODIPine BESYLATE 10 MG TABLET (FP) PO SCH (09:52)
[2023-02-03] MEDS: ASPIRIN 81 MG CHEWABLE TABLETS PO SCH (09:52)
[2023-02-03] MEDS: SENNOSIDES 8.6MG TABLET (FP) PO SCH ×2 (09:52→21:04)
[2023-02-03] MEDS: GABAPENTIN 400 MG CAPSULE PO SCH ×2 (09:52→21:04)
[2023-02-03] MEDS: SERTRALINE HCL 50 MG TABLET (FP) PO SCH (09:52)
[2023-02-03] MEDS: THIAMINE HCL 100 MG TABLET (FP) PO SCH (21:03)
[2023-02-03] MEDS: MELATONIN 5 MG TABLETS PO SCH (21:03)
[2023-02-03] MEDS: traZODone HCL 100 MG TABLET (FP) PO SCH (21:03)
[2023-02-03] MEDS: ATORVASTATIN CA 20 MG TABLET (FP) PO SCH (21:04)
[2023-02-04] MEDS: metFORMIN HCL 500 MG TABLET (FP) PO SCH ×2 (06:26→16:19)
[2023-02-04] MEDS: CLOPIDOGREL BISULFATE 75 MG TABLET (FP) PO SCH (09:55)
[2023-02-04] MEDS: SENNOSIDES 8.6MG TABLET (FP) PO SCH ×2 (09:55→22:56)
[2023-02-04] MEDS: GABAPENTIN 400 MG CAPSULE PO SCH ×2 (09:55→22:56)
[2023-02-04] MEDS: ASPIRIN 81 MG CHEWABLE TABLETS PO SCH (09:55)
[2023-02-04] MEDS: PRENATAL VITAMINS W/ FOLIC ACID TABLET (FP) PO SCH (09:55)
[2023-02-04] MEDS: SERTRALINE HCL 50 MG TABLET (FP) PO SCH (09:55)
[2023-02-04] MEDS: amLODIPine BESYLATE 10 MG TABLET (FP) PO SCH (09:55)
[2023-02-04] MEDS: CARVEDILOL 12.5 MG TABLET (FP) PO SCH ×2 (09:55→22:56)
[2023-02-04] MEDS: MELATONIN 5 MG TABLETS PO SCH (22:56)
[2023-02-04] MEDS: THIAMINE HCL 100 MG TABLET (FP) PO SCH (22:56)
[2023-02-04] MEDS: ATORVASTATIN CA 20 MG TABLET (FP) PO SCH (22:56)
[2023-02-04] MEDS: traZODone HCL 100 MG TABLET (FP) PO SCH (22:56)
[2023-02-05] MEDS: metFORMIN HCL 500 MG TABLET (FP) PO SCH (06:43)
[2023-02-05 07:03] VITALS: PULSE 62; TEMP 96.8
[2023-02-05] MEDS: ASPIRIN 81 MG CHEWABLE TABLETS PO SCH (09:35)
[2023-02-05] MEDS: GABAPENTIN 400 MG CAPSULE PO SCH (09:35)
[2023-02-05] MEDS: SERTRALINE HCL 50 MG TABLET (FP) PO SCH (09:35)
[2023-02-05] MEDS: SENNOSIDES 8.6MG TABLET (FP) PO SCH (09:35)
[2023-02-05] MEDS: PRENATAL VITAMINS W/ FOLIC ACID TABLET (FP) PO SCH (09:35)
[2023-02-05] MEDS: amLODIPine BESYLATE 10 MG TABLET (FP) PO SCH (09:36)
[2023-02-05] MEDS: CLOPIDOGREL BISULFATE 75 MG TABLET (FP) PO SCH (09:36)
[2023-02-05] MEDS: CARVEDILOL 12.5 MG TABLET (FP) PO SCH (09:37)
[2023-02-05 09:43] VITALS: BP 143/89; RESP 17
== END 2023-02-05 10:14 | disposition home or self-care (01) | DRG 772 ==
LOC: YASAS 12:56 → Y3W 12:58
PROVIDERS: ADMIT Allergy & Immunology; ATTEND Psychiatry & Neurology Pain Medicine
PROC: HZ42ZZZ Group Counseling for Substance Abuse Treatment, Cognitive-Behavioral (ICD-10-PCS; principal; 2023-01-18)
DX: F10.20 Alcohol dependence, uncomplicated (principal); F14.10 Cocaine abuse, uncomplicated; F17.210 Nicotine dependence, cigarettes, uncomplicated; F31.9 Bipolar disorder, unspecified; F41.9 Anxiety disorder, unspecified; I25.700 Atherosclerosis of coronary artery bypass graft(s), unspecified, with unstable angina pectoris; I10 Essential (primary) hypertension; Z95.1 Presence of aortocoronary bypass graft; Z95.5 Presence of coronary angioplasty implant and graft; E11.9 Type 2 diabetes mellitus without complications; K21.9 Gastro-esophageal reflux disease without esophagitis; M54.50 Low back pain, unspecified; G89.29 Other chronic pain; Z79.84 Long term (current) use of oral hypoglycemic drugs; Z88.6 Allergy status to analgesic agent; Z88.8 Allergy status to other drugs, medicaments and biological substances
CPT/HCPCS: 82962

== ENCOUNTER 2023-02-26 17:32 | Inpatient (IN) | payer OTHER ==
[2023-02-26 18:41] VITALS: BMI 34.0
[2023-02-26] MEDS ORDERED: chlordiazePOXIDE HCL 25 MG CAPSULE PO PRN (22:39)
[2023-02-26] MEDS ORDERED: POLYETHYLENE GLYCOL (HEALTHYLAX) 3350 17 GM PACKET PO PRN (22:40)
[2023-02-26] MEDS ORDERED: guaiFENesin 600 MG TABLET.ER (FP) PO PRN (22:40)
[2023-02-26] MEDS ORDERED: DICYCLOMINE HCL 10 MG CAPSULE PO PRN (22:40)
[2023-02-26] MEDS ORDERED: MAG HYDROX/AL HYDROX/SIMETH 30 ML UNIT-DOSE CUP PO PRN (22:40)
[2023-02-26] MEDS ORDERED: ONDANSETRON *ODT* 4 MG TABLET SL PRN (22:40)
[2023-02-26] MEDS ORDERED: P-EPHED 60MG/TRIPROLIDI 2.5MG TABLET PO PRN (22:40)
[2023-02-26] MEDS ORDERED: BENZONATATE 200 MG CAPSULE PO PRN (22:40)
[2023-02-26] MEDS ORDERED: BENZOCAINE/MENTHOL (CHLORASEPTIC ) LOZENGE MM PRN (22:40)
[2023-02-26] MEDS ORDERED: HYDROCORTISONE 0.5% TOPICAL OINTMENT TUBE TP PRN (22:42)
[2023-02-27] MEDS ORDERED: chlordiazePOXIDE HCL 25 MG CAPSULE ONE (00:20)
[2023-02-27] MEDS: chlordiazePOXIDE HCL 25 MG CAPSULE PO SCH ×5 (00:24→22:35)
[2023-02-27] MEDS ORDERED: METHOCARBAMOL 500 MG TABLET ONE (01:15)
[2023-02-27] MEDS: metFORMIN HCL 500 MG TABLET (FP) PO SCH ×2 (06:12→17:25)
[2023-02-27] MEDS: PRENATAL VITAMINS W/ FOLIC ACID TABLET (FP) PO SCH (10:08)
[2023-02-27] MEDS: FOLIC ACID 1 MG TABLET (FP) PO SCH (10:09)
[2023-02-27] MEDS: ASPIRIN 81 MG CHEWABLE TABLETS PO SCH (10:09)
[2023-02-27] MEDS: amLODIPine BESYLATE 10 MG TABLET (FP) PO SCH (10:09)
[2023-02-27] MEDS: CLOPIDOGREL BISULFATE 75 MG TABLET (FP) PO SCH (10:09)
[2023-02-27] MEDS ORDERED: CARVEDILOL 12.5 MG TABLET (FP) PO SCH (22:00)
[2023-02-27] MEDS: MELATONIN 5 MG TABLETS PO SCH (22:32)
[2023-02-27] MEDS: HYDROCORTISONE 0.5% TOPICAL CREAM 30 GM TUBE TP SCH (22:33)
[2023-02-27] MEDS: GABAPENTIN 400 MG CAPSULE PO SCH (22:33)
[2023-02-27] MEDS: ATORVASTATIN CA 20 MG TABLET (FP) PO SCH (22:33)
[2023-02-27] MEDS: THIAMINE HCL 100 MG TABLET (FP) PO SCH (22:34)
[2023-02-28] MEDS: chlordiazePOXIDE HCL 25 MG CAPSULE PO SCH ×4 (05:40→23:06)
[2023-02-28] MEDS: metFORMIN HCL 500 MG TABLET (FP) PO SCH ×2 (06:30→17:06)
[2023-02-28] MEDS: PRENATAL VITAMINS W/ FOLIC ACID TABLET (FP) PO SCH (10:05)
[2023-02-28] MEDS: CLOPIDOGREL BISULFATE 75 MG TABLET (FP) PO SCH (10:06)
[2023-02-28] MEDS: GABAPENTIN 400 MG CAPSULE PO SCH ×2 (10:06→23:05)
[2023-02-28] MEDS: amLODIPine BESYLATE 10 MG TABLET (FP) PO SCH (10:06)
[2023-02-28] MEDS: ASPIRIN 81 MG CHEWABLE TABLETS PO SCH (10:06)
[2023-02-28] MEDS: FOLIC ACID 1 MG TABLET (FP) PO SCH (10:06)
[2023-02-28] MEDS: HYDROCORTISONE 0.5% TOPICAL CREAM 30 GM TUBE TP SCH ×2 (10:07→23:05)
[2023-02-28] MEDS: MAGNESIUM HYDROX 2400MG/30ML ORAL SUSPENSION 30 ML CUP PO PRN (10:17)
[2023-02-28] MEDS: SENNOSIDES 8.6MG TABLET (FP) PO SCH ×2 (11:37→23:05)
[2023-02-28] MEDS: FERROUS SO4 325 MG TABLET (FP) PO SCH (11:37)
[2023-02-28] MEDS: METHOCARBAMOL 500 MG TABLET PO PRN (13:45)
[2023-02-28] MEDS: THIAMINE HCL 100 MG TABLET (FP) PO SCH (23:05)
[2023-02-28] MEDS: ATORVASTATIN CA 20 MG TABLET (FP) PO SCH (23:05)
[2023-02-28] MEDS: MELATONIN 5 MG TABLETS PO SCH (23:05)
[2023-03-01] MEDS ORDERED: chlordiazePOXIDE HCL 10 MG CAPSULE PO PRN
[2023-03-01] MEDS: chlordiazePOXIDE HCL 10 MG CAPSULE PO SCH ×4 (05:49→23:25)
[2023-03-01] MEDS: metFORMIN HCL 500 MG TABLET (FP) PO SCH ×2 (07:34→17:37)
[2023-03-01] MEDS: ASPIRIN 81 MG CHEWABLE TABLETS PO SCH (10:29)
[2023-03-01] MEDS: amLODIPine BESYLATE 10 MG TABLET (FP) PO SCH (10:29)
[2023-03-01] MEDS: GABAPENTIN 400 MG CAPSULE PO SCH ×2 (10:29→23:24)
[2023-03-01] MEDS: SENNOSIDES 8.6MG TABLET (FP) PO SCH ×2 (10:29→23:24)
[2023-03-01] MEDS: FERROUS SO4 325 MG TABLET (FP) PO SCH (10:29)
[2023-03-01] MEDS: PRENATAL VITAMINS W/ FOLIC ACID TABLET (FP) PO SCH (10:29)
[2023-03-01] MEDS: CLOPIDOGREL BISULFATE 75 MG TABLET (FP) PO SCH (10:29)
[2023-03-01] MEDS: METHOCARBAMOL 500 MG TABLET PO PRN ×2 (10:29→17:37)
[2023-03-01] MEDS: FOLIC ACID 1 MG TABLET (FP) PO SCH (10:32)
[2023-03-01] MEDS: HYDROCORTISONE 0.5% TOPICAL CREAM 30 GM TUBE TP SCH ×2 (10:32→21:14)
[2023-03-01 17:29] VITALS: RESP 18
[2023-03-01] MEDS: MAGNESIUM HYDROX 2400MG/30ML ORAL SUSPENSION 30 ML CUP PO PRN (17:36)
[2023-03-01 22:40] VITALS: BP 132/83; PULSE 78; TEMP 97.8
[2023-03-01] MEDS: ATORVASTATIN CA 20 MG TABLET (FP) PO SCH (23:23)
[2023-03-01] MEDS: MELATONIN 5 MG TABLETS PO SCH (23:24)
[2023-03-01] MEDS: THIAMINE HCL 100 MG TABLET (FP) PO SCH (23:25)
[2023-03-02] MEDS ORDERED: chlordiazePOXIDE HCL 10 MG CAPSULE PO SCH (05:00)
[2023-03-02] MEDS: metFORMIN HCL 500 MG TABLET (FP) PO SCH (06:14)
[2023-03-03] MEDS ORDERED: chlordiazePOXIDE HCL 10 MG CAPSULE PO ONE (05:00)
== END 2023-03-01 23:55 | disposition short-term general hospital (02) | DRG 774 ==
LOC: YASAS 17:32 → Y3N 02-27 02:09
PROVIDERS: ADMIT Allergy & Immunology; ATTEND Allergy & Immunology
PROC: HZ2ZZZZ Detoxification Services for Substance Abuse Treatment (ICD-10-PCS; principal; 2023-02-27)
DX: F10.230 Alcohol dependence with withdrawal, uncomplicated (principal); F14.10 Cocaine abuse, uncomplicated; I25.110 Atherosclerotic heart disease of native coronary artery with unstable angina pectoris; I10 Essential (primary) hypertension; Z95.1 Presence of aortocoronary bypass graft; Z95.5 Presence of coronary angioplasty implant and graft; E11.9 Type 2 diabetes mellitus without complications; Z79.84 Long term (current) use of oral hypoglycemic drugs; R07.9 Chest pain, unspecified; R94.31 Abnormal electrocardiogram [ECG] [EKG]; Z88.8 Allergy status to other drugs, medicaments and biological substances
CPT/HCPCS: 82962; 87635; 87811; 93005; 93010

== ENCOUNTER 2023-04-03 12:04 | Inpatient (IN) | payer OTHER ==
[2023-04-03 12:57] VITALS: BMI 34.0
[2023-04-03] MEDS ORDERED: P-EPHED 60MG/TRIPROLIDI 2.5MG TABLET PO PRN (13:47)
[2023-04-03] MEDS ORDERED: BENZONATATE 200 MG CAPSULE PO PRN (13:47)
[2023-04-03] MEDS ORDERED: BENZOCAINE/MENTHOL (CHLORASEPTIC ) LOZENGE MM PRN (13:47)
[2023-04-03] MEDS ORDERED: DICYCLOMINE HCL 10 MG CAPSULE PO PRN (13:47)
[2023-04-03] MEDS ORDERED: ONDANSETRON *ODT* 4 MG TABLET SL PRN (13:47)
[2023-04-03] MEDS ORDERED: MAG HYDROX/AL HYDROX/SIMETH 30 ML UNIT-DOSE CUP PO PRN (13:47)
[2023-04-03] MEDS ORDERED: guaiFENesin 600 MG TABLET.ER (FP) PO PRN (13:47)
[2023-04-03] MEDS ORDERED: POLYETHYLENE GLYCOL (HEALTHYLAX) 3350 17 GM PACKET PO PRN (13:47)
[2023-04-03] MEDS ORDERED: MAGNESIUM HYDROX 2400MG/30ML ORAL SUSPENSION 30 ML CUP PO PRN (13:47)
[2023-04-03] MEDS ORDERED: LOPERAMIDE HCL 2 MG CAPSULE PO PRN (13:47)
[2023-04-03] MEDS: diazePAM 5 MG TABLET PO SCH ×2 (17:46→22:21)
[2023-04-03] MEDS: THIAMINE HCL 100 MG TABLET (FP) PO SCH (22:17)
[2023-04-03] MEDS: MELATONIN 5 MG TABLETS PO SCH (22:17)
[2023-04-04] MEDS: diazePAM 5 MG TABLET PO SCH ×4 (05:31→22:23)
[2023-04-04] MEDS: PRENATAL VITAMINS W/ FOLIC ACID TABLET (FP) PO SCH (10:40)
[2023-04-04] MEDS: CARVEDILOL 12.5 MG TABLET (FP) PO SCH ×2 (10:40→22:23)
[2023-04-04] MEDS: SENNOSIDES 8.6MG TABLET (FP) PO SCH ×2 (10:42→22:23)
[2023-04-04] MEDS: CLOPIDOGREL BISULFATE 75 MG TABLET (FP) PO SCH (10:42)
[2023-04-04] MEDS: HYDROCORTISONE 1% TOPICAL CREAM 30 GM TUBE TP PRN ×2 (10:43→17:01)
[2023-04-04] MEDS: diazePAM 5 MG TABLET PO PRN (14:53)
[2023-04-04] MEDS: metFORMIN HCL 500 MG TABLET (FP) PO SCH (17:24)
[2023-04-04] MEDS: METHOCARBAMOL 500 MG TABLET PO PRN (17:27)
[2023-04-04] MEDS: MELATONIN 5 MG TABLETS PO SCH (22:23)
[2023-04-04] MEDS: THIAMINE HCL 100 MG TABLET (FP) PO SCH (22:23)
[2023-04-04] MEDS: traZODone HCL 100 MG TABLET (FP) PO SCH (22:23)
[2023-04-04] MEDS: ATORVASTATIN CA 20 MG TABLET (FP) PO SCH (22:23)
[2023-04-05] MEDS: diazePAM 5 MG TABLET PO SCH ×3 (05:26→21:17)
[2023-04-05] MEDS: metFORMIN HCL 500 MG TABLET (FP) PO SCH ×2 (06:42→16:55)
[2023-04-05] MEDS: HYDROCORTISONE 1% TOPICAL CREAM 30 GM TUBE TP PRN ×3 (06:42→21:16)
[2023-04-05] MEDS: PRENATAL VITAMINS W/ FOLIC ACID TABLET (FP) PO SCH (10:16)
[2023-04-05] MEDS: SENNOSIDES 8.6MG TABLET (FP) PO SCH ×2 (10:17→21:17)
[2023-04-05] MEDS: CARVEDILOL 12.5 MG TABLET (FP) PO SCH ×2 (10:17→21:19)
[2023-04-05] MEDS: CLOPIDOGREL BISULFATE 75 MG TABLET (FP) PO SCH (10:17)
[2023-04-05] MEDS: METHOCARBAMOL 500 MG TABLET PO PRN (10:20)
[2023-04-05] MEDS: diazePAM 5 MG TABLET PO PRN (17:32)
[2023-04-05] MEDS: MELATONIN 5 MG TABLETS PO SCH (21:16)
[2023-04-05] MEDS: ATORVASTATIN CA 20 MG TABLET (FP) PO SCH (21:16)
[2023-04-05] MEDS: THIAMINE HCL 100 MG TABLET (FP) PO SCH (21:16)
[2023-04-05] MEDS: traZODone HCL 100 MG TABLET (FP) PO SCH (21:17)
[2023-04-06] MEDS: diazePAM 5 MG TABLET PO SCH ×2 (05:48→17:12)
[2023-04-06] MEDS: metFORMIN HCL 500 MG TABLET (FP) PO SCH ×2 (06:11→17:13)
[2023-04-06] MEDS: CLOPIDOGREL BISULFATE 75 MG TABLET (FP) PO SCH (10:17)
[2023-04-06] MEDS: PRENATAL VITAMINS W/ FOLIC ACID TABLET (FP) PO SCH (10:17)
[2023-04-06] MEDS: SENNOSIDES 8.6MG TABLET (FP) PO SCH ×2 (10:17→22:14)
[2023-04-06] MEDS: CARVEDILOL 12.5 MG TABLET (FP) PO SCH ×2 (10:17→22:14)
[2023-04-06] MEDS: METHOCARBAMOL 500 MG TABLET PO PRN (11:59)
[2023-04-06] MEDS: MELATONIN 5 MG TABLETS PO SCH (22:14)
[2023-04-06] MEDS: ATORVASTATIN CA 20 MG TABLET (FP) PO SCH (22:14)
[2023-04-06] MEDS: traZODone HCL 100 MG TABLET (FP) PO SCH (22:15)
[2023-04-06] MEDS: GABAPENTIN 300 MG CAPSULE PO SCH (22:15)
[2023-04-06] MEDS: THIAMINE HCL 100 MG TABLET (FP) PO SCH (22:15)
[2023-04-07] MEDS ORDERED: diazePAM 5 MG TABLET PO ONE (06:00)
[2023-04-07] MEDS: metFORMIN HCL 500 MG TABLET (FP) PO SCH (06:20)
[2023-04-07 09:27] VITALS: BP 136/84; PULSE 70; RESP 18; TEMP 98.9
[2023-04-07] MEDS: PRENATAL VITAMINS W/ FOLIC ACID TABLET (FP) PO SCH (10:01)
[2023-04-07] MEDS: SENNOSIDES 8.6MG TABLET (FP) PO SCH (10:01)
[2023-04-07] MEDS: CARVEDILOL 12.5 MG TABLET (FP) PO SCH (10:01)
[2023-04-07] MEDS: GABAPENTIN 300 MG CAPSULE PO SCH (10:01)
[2023-04-07] MEDS: CLOPIDOGREL BISULFATE 75 MG TABLET (FP) PO SCH (10:01)
[2023-04-07] MEDS: METHOCARBAMOL 500 MG TABLET PO PRN (10:04)
== END 2023-04-07 12:55 | disposition other institution (70) | DRG 774 ==
LOC: YASAS 12:04 → Y3N 15:15
PROVIDERS: ADMIT Allergy & Immunology; ATTEND Allergy & Immunology
PROC: HZ2ZZZZ Detoxification Services for Substance Abuse Treatment (ICD-10-PCS; principal; 2023-04-03)
DX: F10.230 Alcohol dependence with withdrawal, uncomplicated (principal); F14.20 Cocaine dependence, uncomplicated; F19.24 Other psychoactive substance dependence with psychoactive substance-induced mood disorder; G47.00 Insomnia, unspecified; I25.10 Atherosclerotic heart disease of native coronary artery without angina pectoris; I10 Essential (primary) hypertension; Z95.1 Presence of aortocoronary bypass graft; Z95.5 Presence of coronary angioplasty implant and graft; M54.50 Low back pain, unspecified; G89.29 Other chronic pain; E11.9 Type 2 diabetes mellitus without complications; Z79.84 Long term (current) use of oral hypoglycemic drugs; Z88.8 Allergy status to other drugs, medicaments and biological substances
CPT/HCPCS: 82962; 87635; 87811

== ENCOUNTER 2023-04-07 13:10 | Inpatient (IN) | payer OTHER ==
[2023-04-07] MEDS ORDERED: MAG HYDROX/AL HYDROX/SIMETH 30 ML UNIT-DOSE CUP PO PRN (16:16)
[2023-04-07] MEDS ORDERED: NALOXONE HCL 0.4 MG/ML VIAL IVPUSH PRN (16:16)
[2023-04-07] MEDS ORDERED: NALOXONE HCL (KLOXXADO) 8 MG SPRAY NS PRN (16:16)
[2023-04-07] MEDS ORDERED: NICOTINE POLACRILEX 4 MG GUM BUC PRN (16:16)
[2023-04-07] MEDS ORDERED: POLYETHYLENE GLYCOL (HEALTHYLAX) 3350 17 GM PACKET PO PRN (16:16)
[2023-04-07] MEDS ORDERED: LOPERAMIDE HCL 2 MG CAPSULE PO PRN (16:16)
[2023-04-07] MEDS ORDERED: IBUPROFEN 400 MG TABLET (FP) PO PRN (16:16)
[2023-04-07] MEDS ORDERED: guaiFENesin 600 MG TABLET.ER (FP) PO PRN (16:16)
[2023-04-07] MEDS ORDERED: ACETAMINOPHEN 325 MG TABLET (FP) PO PRN (16:16)
[2023-04-07] MEDS ORDERED: BENZONATATE 200 MG CAPSULE PO PRN (16:16)
[2023-04-07] MEDS ORDERED: IBUPROFEN 600 MG TABLET (FP) PO PRN (16:16)
[2023-04-07] MEDS ORDERED: hydrOXYzine PAMOATE 25 MG CAPSULE (FP) PO PRN (16:16)
[2023-04-07] MEDS ORDERED: AMMONIUM LACTATE 12% LOTION 225 GM BOTTLE TP PRN (16:16)
[2023-04-07] MEDS ORDERED: BENZOCAINE/MENTHOL (CHLORASEPTIC ) LOZENGE MM PRN (16:16)
[2023-04-07] MEDS ORDERED: NICOTINE 14 MG/24 HOURS TOPICAL PATCH TD PRN (16:16)
[2023-04-07] MEDS: INSULIN ASPART SLIDING SCALE (NOVOLOG) 1 VIAL SQ SCH (17:15)
[2023-04-07] MEDS: metFORMIN HCL 500 MG TABLET (FP) PO SCH (17:17)
[2023-04-07] MEDS: ASPIRIN 81 MG CHEWABLE TABLETS PO SCH (17:17)
[2023-04-07] MEDS: ATORVASTATIN CA 20 MG TABLET (FP) PO SCH (21:37)
[2023-04-07] MEDS: MELATONIN 5 MG TABLETS PO SCH (21:37)
[2023-04-07] MEDS: METHOCARBAMOL 500 MG TABLET PO PRN (21:37)
[2023-04-07] MEDS: SENNOSIDES 8.6MG TABLET (FP) PO SCH (21:37)
[2023-04-07] MEDS: CARVEDILOL 12.5 MG TABLET (FP) PO SCH (21:37)
[2023-04-07] MEDS: THIAMINE HCL 100 MG TABLET (FP) PO SCH (21:38)
[2023-04-08] MEDS: INSULIN ASPART SLIDING SCALE (NOVOLOG) 1 VIAL SQ SCH ×2 (06:18→16:25)
[2023-04-08] MEDS: metFORMIN HCL 500 MG TABLET (FP) PO SCH ×2 (06:18→16:25)
[2023-04-08] MEDS: PRENATAL VITAMINS W/ FOLIC ACID TABLET (FP) PO SCH (10:36)
[2023-04-08] MEDS: CARVEDILOL 12.5 MG TABLET (FP) PO SCH ×2 (10:36→21:18)
[2023-04-08] MEDS: ASPIRIN 81 MG CHEWABLE TABLETS PO SCH (10:36)
[2023-04-08] MEDS: SENNOSIDES 8.6MG TABLET (FP) PO SCH ×2 (10:36→21:18)
[2023-04-08] MEDS: CLOPIDOGREL BISULFATE 75 MG TABLET (FP) PO SCH (10:36)
[2023-04-08] MEDS: GABAPENTIN 400 MG CAPSULE PO SCH ×2 (10:37→21:18)
[2023-04-08] MEDS: amLODIPine BESYLATE 10 MG TABLET (FP) PO SCH (10:37)
[2023-04-08 11:47] LABS: BASO % 0.8 % (0-2.0); EOS % 6.3 % (0-4.5); HEMATOCRIT 33.2 % (35.4-49); HEMOGLOBIN 10.5 GM/dL (11.7-16.9); LYMPH % 26.7 % (8-40); MCH 23.2 pg (25.7-33.7); MCHC 31.5 g/dl (32.0-35.9); MEAN CELL VOLUME 73.5 fl (80-96); MEAN PLT VOLUME 9.2 fl (7.5-11.1); MONO % 8.3 % (3.8-10.2); NEUT % 57.9 % (42.8-82.8); PLATELET COUNT 239 10^3/uL (134-434); RBC 4.52 M/mm3 (4.00-5.60); RDW 18.9 % (11.9-15.9); WHITE BLOOD COUNT 6.1 K/mm3 (4.0-10.0)
[2023-04-08 11:50] LABS: POTASSIUM 4.3 mmol/L (3.5-5.1)
[2023-04-08 11:57] LABS: CALCIUM 8.7 mg/dL (8.5-10.1)
[2023-04-08 11:58] LABS: BLOOD UREA NITROGEN 11.8 mg/dL (7-18)
[2023-04-08 12:01] LABS: CREATININE 1.1 mg/dL (0.55-1.3)
[2023-04-08 12:02] LABS: BILIRUBIN,TOTAL 0.2 mg/dL (0.2-1); TOT PROT 6.6 g/dl (6.4-8.2)
[2023-04-08] MEDS: THIAMINE HCL 100 MG TABLET (FP) PO SCH (21:18)
[2023-04-08] MEDS: ATORVASTATIN CA 20 MG TABLET (FP) PO SCH (21:18)
[2023-04-08] MEDS: traZODone HCL 100 MG TABLET (FP) PO SCH (21:18)
[2023-04-08] MEDS: MELATONIN 5 MG TABLETS PO SCH (21:18)
[2023-04-08] MEDS: METHOCARBAMOL 500 MG TABLET PO PRN (21:19)
[2023-04-08] MEDS: HYDROCORTISONE 1% TOPICAL CREAM 30 GM TUBE TP PRN (21:19)
[2023-04-09] MEDS: metFORMIN HCL 500 MG TABLET (FP) PO SCH ×2 (06:19→16:44)
[2023-04-09] MEDS: INSULIN ASPART SLIDING SCALE (NOVOLOG) 1 VIAL SQ SCH ×2 (06:20→16:44)
[2023-04-09] MEDS: amLODIPine BESYLATE 10 MG TABLET (FP) PO SCH (10:10)
[2023-04-09] MEDS: HYDROCORTISONE 1% TOPICAL CREAM 30 GM TUBE TP PRN ×2 (10:10→21:09)
[2023-04-09] MEDS: CARVEDILOL 12.5 MG TABLET (FP) PO SCH ×2 (10:10→23:28)
[2023-04-09] MEDS: MAGNESIUM HYDROX 2400MG/30ML ORAL SUSPENSION 30 ML CUP PO PRN (10:10)
[2023-04-09] MEDS: PRENATAL VITAMINS W/ FOLIC ACID TABLET (FP) PO SCH (10:10)
[2023-04-09] MEDS: GABAPENTIN 400 MG CAPSULE PO SCH ×2 (10:10→21:07)
[2023-04-09] MEDS: SENNOSIDES 8.6MG TABLET (FP) PO SCH ×2 (10:10→21:07)
[2023-04-09] MEDS: ASPIRIN 81 MG CHEWABLE TABLETS PO SCH (10:10)
[2023-04-09] MEDS: CLOPIDOGREL BISULFATE 75 MG TABLET (FP) PO SCH (10:10)
[2023-04-09] MEDS: METHOCARBAMOL 500 MG TABLET PO PRN (21:07)
[2023-04-09] MEDS: THIAMINE HCL 100 MG TABLET (FP) PO SCH (21:07)
[2023-04-09] MEDS: MELATONIN 5 MG TABLETS PO SCH (21:07)
[2023-04-09] MEDS: traZODone HCL 100 MG TABLET (FP) PO SCH (21:07)
[2023-04-09] MEDS: ATORVASTATIN CA 20 MG TABLET (FP) PO SCH (21:07)
[2023-04-10] MEDS: HYDROCORTISONE 1% TOPICAL CREAM 30 GM TUBE TP PRN ×2 (06:52→21:40)
[2023-04-10] MEDS: INSULIN ASPART SLIDING SCALE (NOVOLOG) 1 VIAL SQ SCH ×2 (07:15→16:54)
[2023-04-10] MEDS: metFORMIN HCL 500 MG TABLET (FP) PO SCH ×2 (07:15→16:54)
[2023-04-10] MEDS: PRENATAL VITAMINS W/ FOLIC ACID TABLET (FP) PO SCH (10:56)
[2023-04-10] MEDS: ASPIRIN 81 MG CHEWABLE TABLETS PO SCH (10:56)
[2023-04-10] MEDS: CLOPIDOGREL BISULFATE 75 MG TABLET (FP) PO SCH (10:56)
[2023-04-10] MEDS: amLODIPine BESYLATE 10 MG TABLET (FP) PO SCH (10:57)
[2023-04-10] MEDS: GABAPENTIN 400 MG CAPSULE PO SCH ×2 (10:57→21:41)
[2023-04-10] MEDS: CARVEDILOL 12.5 MG TABLET (FP) PO SCH ×2 (10:57→21:41)
[2023-04-10] MEDS: SENNOSIDES 8.6MG TABLET (FP) PO SCH ×2 (10:58→21:42)
[2023-04-10] MEDS: MAGNESIUM HYDROX 2400MG/30ML ORAL SUSPENSION 30 ML CUP PO PRN (11:05)
[2023-04-10] MEDS: METHOCARBAMOL 500 MG TABLET PO PRN (21:41)
[2023-04-10] MEDS: traZODone HCL 100 MG TABLET (FP) PO SCH (21:41)
[2023-04-10] MEDS: THIAMINE HCL 100 MG TABLET (FP) PO SCH (21:42)
[2023-04-10] MEDS: ATORVASTATIN CA 20 MG TABLET (FP) PO SCH (21:42)
[2023-04-10] MEDS: MELATONIN 5 MG TABLETS PO SCH (21:42)
[2023-04-10 23:04] VITALS: TEMP 97.3
[2023-04-11] MEDS: INSULIN ASPART SLIDING SCALE (NOVOLOG) 1 VIAL SQ SCH (06:41)
[2023-04-11] MEDS: metFORMIN HCL 500 MG TABLET (FP) PO SCH (06:41)
[2023-04-11 09:07] VITALS: BP 122/70; PULSE 73; RESP 18
[2023-04-11] MEDS: PRENATAL VITAMINS W/ FOLIC ACID TABLET (FP) PO SCH (10:12)
[2023-04-11] MEDS: HYDROCORTISONE 1% TOPICAL CREAM 30 GM TUBE TP PRN (10:12)
[2023-04-11] MEDS: SENNOSIDES 8.6MG TABLET (FP) PO SCH (10:12)
[2023-04-11] MEDS: CARVEDILOL 12.5 MG TABLET (FP) PO SCH (10:13)
[2023-04-11] MEDS: GABAPENTIN 400 MG CAPSULE PO SCH (10:13)
[2023-04-11] MEDS: ASPIRIN 81 MG CHEWABLE TABLETS PO SCH (10:13)
[2023-04-11] MEDS: amLODIPine BESYLATE 10 MG TABLET (FP) PO SCH (10:13)
[2023-04-11] MEDS: CLOPIDOGREL BISULFATE 75 MG TABLET (FP) PO SCH (10:13)
[2023-04-11] MEDS: METHOCARBAMOL 500 MG TABLET PO PRN (10:14)
== END 2023-04-11 10:24 | disposition home or self-care (01) | DRG 772 ==
LOC: YASAS 13:10 → Y3W 13:11
PROVIDERS: ADMIT Allergy & Immunology; ATTEND Psychiatry & Neurology Pain Medicine
PROC: HZ42ZZZ Group Counseling for Substance Abuse Treatment, Cognitive-Behavioral (ICD-10-PCS; principal; 2023-04-07)
DX: F10.20 Alcohol dependence, uncomplicated (principal); F14.20 Cocaine dependence, uncomplicated; F31.9 Bipolar disorder, unspecified; E78.5 Hyperlipidemia, unspecified; K21.9 Gastro-esophageal reflux disease without esophagitis; I25.10 Atherosclerotic heart disease of native coronary artery without angina pectoris; I10 Essential (primary) hypertension; Z95.1 Presence of aortocoronary bypass graft; Z95.5 Presence of coronary angioplasty implant and graft; E11.9 Type 2 diabetes mellitus without complications; Z79.84 Long term (current) use of oral hypoglycemic drugs; G89.29 Other chronic pain; Z59.00 Homelessness unspecified; Z88.8 Allergy status to other drugs, medicaments and biological substances
CPT/HCPCS: 36415; 80053; 82140; 85025; 86803

== ENCOUNTER 2023-06-03 15:30 | Inpatient (IN) | payer OTHER ==
[2023-06-03 17:33] VITALS: BMI 34.2
[2023-06-03] MEDS ORDERED: DICYCLOMINE HCL 10 MG CAPSULE PO PRN (18:54)
[2023-06-03] MEDS ORDERED: guaiFENesin 600 MG TABLET.ER (FP) PO PRN (18:54)
[2023-06-03] MEDS ORDERED: MAG HYDROX/AL HYDROX/SIMETH 30 ML UNIT-DOSE CUP PO PRN (18:54)
[2023-06-03] MEDS ORDERED: P-EPHED 60MG/TRIPROLIDI 2.5MG TABLET PO PRN (18:54)
[2023-06-03] MEDS ORDERED: POLYETHYLENE GLYCOL (HEALTHYLAX) 3350 17 GM PACKET PO PRN (18:54)
[2023-06-03] MEDS ORDERED: MAGNESIUM HYDROX 2400MG/30ML ORAL SUSPENSION 30 ML CUP PO PRN (18:54)
[2023-06-03] MEDS ORDERED: BENZONATATE 200 MG CAPSULE PO PRN (18:54)
[2023-06-03] MEDS ORDERED: hydrOXYzine PAMOATE 25 MG CAPSULE (FP) PO PRN (18:54)
[2023-06-03] MEDS ORDERED: BENZOCAINE/MENTHOL (CHLORASEPTIC ) LOZENGE MM PRN (18:54)
[2023-06-03] MEDS ORDERED: ONDANSETRON *ODT* 4 MG TABLET SL PRN (18:54)
[2023-06-03] MEDS ORDERED: GABAPENTIN 100 MG CAPSULE ONE (20:23)
[2023-06-03] MEDS ORDERED: ASPIRIN 81 MG CHEWABLE TABLETS ONE (20:23)
[2023-06-03] MEDS: GABAPENTIN 300 MG CAPSULE PO ONE (20:33)
[2023-06-03] MEDS: ASPIRIN 81 MG CHEWABLE TABLETS PO SCH (20:33)
[2023-06-03] MEDS: MELATONIN 5 MG TABLETS PO SCH (22:52)
[2023-06-03] MEDS: ATORVASTATIN CA 20 MG TABLET (FP) PO SCH (22:52)
[2023-06-03] MEDS: CARVEDILOL 6.25 MG TABLET (FP) PO SCH (22:52)
[2023-06-03] MEDS: THIAMINE HCL 100 MG TABLET (FP) PO SCH (22:52)
[2023-06-03] MEDS: SENNOSIDES 8.6MG TABLET (FP) PO PRN (22:52)
[2023-06-03] MEDS: diazePAM 5 MG TABLET PO SCH (22:53)
[2023-06-04] MEDS: amLODIPine BESYLATE 10 MG TABLET (FP) PO SCH (10:49)
[2023-06-04] MEDS: PRENATAL VITAMINS W/ FOLIC ACID TABLET (FP) PO SCH (10:49)
[2023-06-04] MEDS: CLOPIDOGREL BISULFATE 75 MG TABLET (FP) PO SCH (10:49)
[2023-06-04] MEDS ORDERED: METHOCARBAMOL 500 MG TABLET PO PRN (10:59)
[2023-06-04] MEDS: METHOCARBAMOL 500 MG TABLET PO ONE (13:36)
[2023-06-05] MEDS: diazePAM 5 MG TABLET PO SCH (05:35)
[2023-06-05] MEDS ORDERED: METHOCARBAMOL 500 MG TABLET PO PRN (09:27)
[2023-06-05] MEDS: SERTRALINE HCL 50 MG TABLET (FP) PO SCH (10:22)
[2023-06-05] MEDS: GABAPENTIN 400 MG CAPSULE PO SCH (10:22)
[2023-06-05] MEDS: diazePAM 5 MG TABLET PO PRN (10:23)
[2023-06-05] MEDS: traZODone HCL 50 MG TABLET (FP) PO SCH (22:12)
[2023-06-05] MEDS: HYDROCORTISONE 1% TOPICAL CREAM 30 GM TUBE TP PRN (22:16)
[2023-06-06] MEDS: diazePAM 5 MG TABLET PO SCH (05:49)
[2023-06-06] MEDS: cloNIDine HCL 0.1 MG TABLET PO PRN (05:51)
[2023-06-06 09:31] VITALS: BP 110/70; PULSE 61; RESP 16; TEMP 96.9
[2023-06-07] MEDS ORDERED: diazePAM 5 MG TABLET PO ONE (06:00)
== END 2023-06-06 09:51 | disposition home or self-care (01) | DRG 774 ==
LOC: YASAS 15:30 → Y6N 19:40
PROVIDERS: ADMIT Allergy & Immunology; ATTEND Surgery
PROC: HZ2ZZZZ Detoxification Services for Substance Abuse Treatment (ICD-10-PCS; principal; 2023-06-03)
DX: F10.230 Alcohol dependence with withdrawal, uncomplicated (principal); F14.20 Cocaine dependence, uncomplicated; F19.282 Other psychoactive substance dependence with psychoactive substance-induced sleep disorder; F19.280 Other psychoactive substance dependence with psychoactive substance-induced anxiety disorder; F19.24 Other psychoactive substance dependence with psychoactive substance-induced mood disorder; F33.1 Major depressive disorder, recurrent, moderate; I25.10 Atherosclerotic heart disease of native coronary artery without angina pectoris; I10 Essential (primary) hypertension; I25.2 Old myocardial infarction; Z95.1 Presence of aortocoronary bypass graft; Z95.5 Presence of coronary angioplasty implant and graft; E11.9 Type 2 diabetes mellitus without complications; E78.5 Hyperlipidemia, unspecified; M54.50 Low back pain, unspecified; G89.29 Other chronic pain; Z88.8 Allergy status to other drugs, medicaments and biological substances
CPT/HCPCS: 80305; 82962; 93005; 93010

== ENCOUNTER 2023-06-17 13:59 | Inpatient (IN) | payer OTHER ==
[2023-06-17 14:14] VITALS: BMI 35.1
[2023-06-17] MEDS ORDERED: BENZONATATE 200 MG CAPSULE PO PRN (15:48)
[2023-06-17] MEDS ORDERED: NALOXONE HCL 0.4 MG/ML VIAL IM PRN (15:48)
[2023-06-17] MEDS ORDERED: LOPERAMIDE HCL 2 MG CAPSULE PO PRN (15:48)
[2023-06-17] MEDS ORDERED: POLYETHYLENE GLYCOL (HEALTHYLAX) 3350 17 GM PACKET PO PRN (15:48)
[2023-06-17] MEDS ORDERED: guaiFENesin 600 MG TABLET.ER (FP) PO PRN (15:48)
[2023-06-17] MEDS ORDERED: NALOXONE HCL (KLOXXADO) 8 MG SPRAY NS PRN (15:48)
[2023-06-17] MEDS ORDERED: MAG HYDROX/AL HYDROX/SIMETH 30 ML UNIT-DOSE CUP PO PRN (15:48)
[2023-06-17] MEDS ORDERED: IBUPROFEN 400 MG TABLET (FP) PO PRN (15:48)
[2023-06-17] MEDS ORDERED: hydrOXYzine PAMOATE 25 MG CAPSULE (FP) PO PRN (15:48)
[2023-06-17] MEDS: TUBERCULIN PPD 5 TU/0.1ML SYRINGE (IN PATIENT USE ONLY) ID ONE (18:52)
[2023-06-17 19:27] LABS: PH,URINE 5.5 (5.0-8.0); URINE APPEARANCE CLEAR; URINE BILIRUBIN NEGATIVE (NEGATIVE); URINE COLOR YELLOW; URINE GLUCOSE (UA) NEGATIVE (NEGATIVE); URINE KETONE NEGATIVE (NEGATIVE); URINE LEUK ESTERASE NEGATIVE (NEGATIVE); URINE NITRITE NEGATIVE (NEGATIVE); URINE PROTEIN NEGATIVE (NEGATIVE); URINE UROBILINOGEN 0.2 mg/dL (0.2-1.0)
[2023-06-17] MEDS: THIAMINE HCL 100 MG TABLET (FP) PO SCH (21:56)
[2023-06-17] MEDS: MELATONIN 5 MG TABLETS PO SCH (21:56)
[2023-06-17] MEDS: traZODone HCL 100 MG TABLET (FP) PO SCH (21:57)
[2023-06-17] MEDS: CARVEDILOL 12.5 MG TABLET (FP) PO SCH (21:57)
[2023-06-17] MEDS: GABAPENTIN 400 MG CAPSULE PO SCH (21:57)
[2023-06-17] MEDS: IBUPROFEN 600 MG TABLET (FP) PO PRN (22:00)
[2023-06-18] MEDS: HYDROCORTISONE 1% TOPICAL CREAM 30 GM TUBE TP PRN (10:46)
[2023-06-18] MEDS: amLODIPine BESYLATE 10 MG TABLET (FP) PO SCH (10:46)
[2023-06-18] MEDS: SERTRALINE HCL 50 MG TABLET (FP) PO SCH (10:47)
[2023-06-18] MEDS: ASPIRIN 81 MG CHEWABLE TABLETS PO SCH (10:47)
[2023-06-18] MEDS: CLOPIDOGREL BISULFATE 75 MG TABLET (FP) PO SCH (10:47)
[2023-06-18] MEDS: PRENATAL VITAMINS W/ FOLIC ACID TABLET (FP) PO SCH (10:47)
[2023-06-18 12:14] LABS: CHLORIDE 108 mmol/L (98-107); POTASSIUM 4.2 mmol/L (3.5-5.1); SODIUM 137 mmol/L (136-145)
[2023-06-18 12:17] LABS: HEMATOCRIT 37.2 % (35.4-49); HEMOGLOBIN 11.9 GM/dL (11.7-16.9); MCH 23.9 pg (25.7-33.7); MEAN CELL VOLUME 74.5 fl (80-96); MEAN PLT VOLUME 9.5 fl (7.5-11.1); PLATELET COUNT 215 10^3/uL (134-434); RDW 20.2 % (11.9-15.9); WHITE BLOOD COUNT 4.1 K/mm3 (4.0-10.0)
[2023-06-18 12:19] LABS: ALBUMIN 3.3 g/dl (3.4-5.0); ANION GAP 4 mmol/L (4-13); BLOOD UREA NITROGEN 15.6 mg/dL (7-18); CALCIUM 9.1 mg/dL (8.5-10.1); CO2 26 mmol/L (21-32); GLUCOSE,RANDOM 218 mg/dL (74-106)
[2023-06-18 12:22] LABS: SGOT/AST 20 U/L (15-37); SGPT/ALT 36 U/L (13-61)
[2023-06-18 12:23] LABS: BILIRUBIN,TOTAL 0.2 mg/dL (0.2-1); TOT PROT 6.9 g/dl (6.4-8.2)
[2023-06-18 12:25] LABS: ALK PHOS 121 U/L (45-117)
[2023-06-18 13:17] LABS: SYPHILIS W/ RPR CONF NON-REACTIVE (NONREACTIVE)
[2023-06-18 13:55] VITALS: RESP 18
[2023-06-18] MEDS: metFORMIN HCL 500 MG TABLET (FP) PO SCH (17:59)
[2023-06-18] MEDS: ATORVASTATIN CA 40 MG TABLET (FP) PO SCH (21:39)
[2023-06-18] MEDS: MAGNESIUM HYDROX 2400MG/30ML ORAL SUSPENSION 30 ML CUP PO PRN (21:41)
[2023-06-19] MEDS: ASPIRIN 81 MG CHEWABLE TABLETS PO SCH (06:26)
[2023-06-19] MEDS: CLOPIDOGREL BISULFATE 75 MG TABLET (FP) PO SCH (06:27)
[2023-06-19] MEDS: PRENATAL VITAMINS W/ FOLIC ACID TABLET (FP) PO SCH (06:27)
[2023-06-19] MEDS: SERTRALINE HCL 50 MG TABLET (FP) PO SCH (06:27)
[2023-06-20] MEDS: BENZOCAINE/MENTHOL (CHLORASEPTIC ) LOZENGE MM PRN (16:53)
[2023-06-24] MEDS: ONDANSETRON *ODT* 4 MG TABLET SL PRN (10:12)
[2023-06-25 07:16] VITALS: TEMP 97.3
[2023-06-25 08:45] VITALS: BP 153/80; PULSE 85
== END 2023-06-25 10:20 | disposition home or self-care (01) | DRG 772 ==
LOC: YASAS 13:59 → Y3NR 17:08 → Y5N 06-18 12:10
PROVIDERS: ADMIT Allergy & Immunology; ATTEND Psychiatry & Neurology Pain Medicine
PROC: HZ42ZZZ Group Counseling for Substance Abuse Treatment, Cognitive-Behavioral (ICD-10-PCS; principal; 2023-06-17)
DX: F10.20 Alcohol dependence, uncomplicated (principal); F14.20 Cocaine dependence, uncomplicated; F19.24 Other psychoactive substance dependence with psychoactive substance-induced mood disorder; E11.9 Type 2 diabetes mellitus without complications; G47.00 Insomnia, unspecified; I25.10 Atherosclerotic heart disease of native coronary artery without angina pectoris; I10 Essential (primary) hypertension; Z95.1 Presence of aortocoronary bypass graft; Z95.5 Presence of coronary angioplasty implant and graft; M54.50 Low back pain, unspecified; G89.29 Other chronic pain; Z99.89 Dependence on other enabling machines and devices; Z88.8 Allergy status to other drugs, medicaments and biological substances; Z59.00 Homelessness unspecified
CPT/HCPCS: 36415; 80053; 80305; 80307; 81003; 82962; 83036; 85027; 86780; 86803; Q0162

== ENCOUNTER 2023-07-15 12:46 | Inpatient (IN) | payer OTHER ==
[2023-07-15 13:58] VITALS: BMI 34.5
[2023-07-15] MEDS ORDERED: MAG HYDROX/AL HYDROX/SIMETH 30 ML UNIT-DOSE CUP PO PRN (14:49)
[2023-07-15] MEDS ORDERED: MAGNESIUM HYDROX 2400MG/30ML ORAL SUSPENSION 30 ML CUP PO PRN (14:49)
[2023-07-15] MEDS ORDERED: NALOXONE HCL 0.4 MG/ML VIAL IM PRN (14:49)
[2023-07-15] MEDS ORDERED: DICYCLOMINE HCL 10 MG CAPSULE PO PRN (14:49)
[2023-07-15] MEDS ORDERED: IBUPROFEN 400 MG TABLET (FP) PO PRN (14:49)
[2023-07-15] MEDS ORDERED: BISMUTH SUBSALICYLATE 524 MG/30 ML PO PRN (14:49)
[2023-07-15] MEDS ORDERED: POLYETHYLENE GLYCOL (HEALTHYLAX) 3350 17 GM PACKET PO PRN (14:49)
[2023-07-15] MEDS ORDERED: BENZOCAINE/MENTHOL (CHLORASEPTIC ) LOZENGE MM PRN (14:49)
[2023-07-15] MEDS ORDERED: BENZONATATE 200 MG CAPSULE PO PRN (14:49)
[2023-07-15] MEDS ORDERED: guaiFENesin 600 MG TABLET.ER (FP) PO PRN (14:49)
[2023-07-15] MEDS ORDERED: NALOXONE HCL (KLOXXADO) 8 MG SPRAY NS PRN (14:49)
[2023-07-15] MEDS ORDERED: LOPERAMIDE HCL 2 MG CAPSULE PO PRN (14:49)
[2023-07-15] MEDS ORDERED: diazePAM 5 MG TABLET PO PRN (14:49)
[2023-07-15] MEDS ORDERED: ONDANSETRON *ODT* 4 MG TABLET SL PRN (14:49)
[2023-07-15] MEDS ORDERED: ACETAMINOPHEN 325 MG TABLET (FP) PO PRN (14:49)
[2023-07-15] MEDS ORDERED: IBUPROFEN 600 MG TABLET (FP) PO PRN (14:49)
[2023-07-15] MEDS ORDERED: PRENATAL VITAMINS W/ FOLIC ACID TABLET (FP) PO ONE (15:14)
[2023-07-15] MEDS: PRENATAL VITAMINS W/ FOLIC ACID TABLET (FP) PO SCH (15:15)
[2023-07-15] MEDS: diazePAM 5 MG TABLET PO SCH (17:44)
[2023-07-15] MEDS: MELATONIN 5 MG TABLETS PO SCH (22:58)
[2023-07-15] MEDS: traZODone HCL 100 MG TABLET (FP) PO SCH (22:58)
[2023-07-15] MEDS: ATORVASTATIN CA 20 MG TABLET (FP) PO SCH (22:58)
[2023-07-15] MEDS: GABAPENTIN 400 MG CAPSULE PO SCH (22:58)
[2023-07-15] MEDS: CARVEDILOL 12.5 MG TABLET (FP) PO SCH (22:58)
[2023-07-15] MEDS: THIAMINE 100 MG TABLET PO SCH (22:58)
[2023-07-16] MEDS ORDERED: SERTRALINE HCL 50 MG TABLET (FP) PO SCH (10:00)
[2023-07-16] MEDS: SERTRALINE HCL 50 MG TABLET (FP) PO SCH (10:36)
[2023-07-16] MEDS: CLOPIDOGREL BISULFATE 75 MG TABLET (FP) PO SCH (10:36)
[2023-07-16] MEDS: ASPIRIN 81 MG CHEWABLE TABLETS PO SCH (10:36)
[2023-07-16] MEDS: amLODIPine BESYLATE 10 MG TABLET (FP) PO SCH (10:36)
[2023-07-17] MEDS: diazePAM 5 MG TABLET PO SCH (05:37)
[2023-07-17] MEDS: METHOCARBAMOL 500 MG TABLET PO PRN (05:37)
[2023-07-17] MEDS: HYDROCORTISONE 1% TOPICAL CREAM 30 GM TUBE TP PRN (10:32)
[2023-07-17] MEDS ORDERED: NICOTINE POLACRILEX 4 MG GUM BUC PRN (14:32)
[2023-07-17] MEDS ORDERED: NICOTINE 21 MG/24 HOURS TOPICAL PATCH TD PRN (14:32)
[2023-07-17] MEDS ORDERED: ALBUTEROL SO4 HFA INHALER IH PRN (14:33)
[2023-07-17] MEDS ORDERED: FLUTICASONE/UMECLIDIN/VILANTER(100-62.5-25 TRELEGY ELLIPTA) INAHLER IH SCH (14:45)
[2023-07-17] MEDS ORDERED: METHYL SALICYLATE/MENTHOL OINT 30 GM TUBE TP SCH (22:00)
[2023-07-17] MEDS: hydrOXYzine PAMOATE 25 MG CAPSULE (FP) PO PRN (22:17)
[2023-07-18] MEDS: diazePAM 5 MG TABLET PO SCH (06:03)
[2023-07-18 13:10] VITALS: PULSE 61
[2023-07-18 17:53] VITALS: BP 123/74; RESP 18; TEMP 96.8
[2023-07-19] MEDS ORDERED: diazePAM 5 MG TABLET PO ONE (06:00)
== END 2023-07-18 19:16 | disposition home or self-care (01) | DRG 775 ==
LOC: YASAS 12:46 → Y6N 14:56
PROVIDERS: ADMIT Allergy & Immunology; ATTEND Surgery
PROC: HZ2ZZZZ Detoxification Services for Substance Abuse Treatment (ICD-10-PCS; principal; 2023-07-15)
DX: F10.230 Alcohol dependence with withdrawal, uncomplicated (principal); F33.1 Major depressive disorder, recurrent, moderate; F19.282 Other psychoactive substance dependence with psychoactive substance-induced sleep disorder; F19.24 Other psychoactive substance dependence with psychoactive substance-induced mood disorder; E78.5 Hyperlipidemia, unspecified; I25.10 Atherosclerotic heart disease of native coronary artery without angina pectoris; I10 Essential (primary) hypertension; I25.2 Old myocardial infarction; Z95.1 Presence of aortocoronary bypass graft; Z95.5 Presence of coronary angioplasty implant and graft; K21.9 Gastro-esophageal reflux disease without esophagitis; R73.03 Prediabetes; Z88.8 Allergy status to other drugs, medicaments and biological substances
CPT/HCPCS: 80305; 82962

== ENCOUNTER 2023-08-19 13:34 | Inpatient (IN) | payer OTHER ==
[2023-08-19 14:01] VITALS: BMI 35.2
[2023-08-19] MEDS ORDERED: hydrOXYzine PAMOATE 25 MG CAPSULE (FP) PO PRN (14:56)
[2023-08-19] MEDS ORDERED: POLYETHYLENE GLYCOL (HEALTHYLAX) 3350 17 GM PACKET PO PRN (14:56)
[2023-08-19] MEDS ORDERED: IBUPROFEN 600 MG TABLET (FP) PO PRN (14:56)
[2023-08-19] MEDS ORDERED: LOPERAMIDE HCL 2 MG CAPSULE PO PRN (14:56)
[2023-08-19] MEDS ORDERED: BENZOCAINE/MENTHOL (CHLORASEPTIC ) LOZENGE MM PRN (14:56)
[2023-08-19] MEDS ORDERED: BISMUTH SUBSALICYLATE 524 MG/30 ML PO PRN (14:56)
[2023-08-19] MEDS ORDERED: NALOXONE (NARCAN) HCL 4 MG/0.1 ML SPRAY NS PRN (14:56)
[2023-08-19] MEDS ORDERED: BENZONATATE 200 MG CAPSULE PO PRN (14:56)
[2023-08-19] MEDS ORDERED: NALOXONE HCL 0.4 MG/ML VIAL IM PRN (14:56)
[2023-08-19] MEDS ORDERED: ACETAMINOPHEN 325 MG TABLET (FP) PO PRN (14:56)
[2023-08-19] MEDS ORDERED: MAGNESIUM HYDROX 2400MG/30ML ORAL SUSPENSION 30 ML CUP PO PRN (14:56)
[2023-08-19] MEDS ORDERED: MAG HYDROX/AL HYDROX/SIMETH 30 ML UNIT-DOSE CUP PO PRN (14:56)
[2023-08-19] MEDS ORDERED: DICYCLOMINE HCL 10 MG CAPSULE PO PRN (14:56)
[2023-08-19] MEDS ORDERED: ONDANSETRON *ODT* 4 MG TABLET SL PRN (14:56)
[2023-08-19] MEDS ORDERED: guaiFENesin 600 MG TABLET.ER (FP) PO PRN (14:56)
[2023-08-19] MEDS ORDERED: IBUPROFEN 400 MG TABLET (FP) PO PRN (14:56)
[2023-08-19] MEDS: diazePAM 5 MG TABLET PO SCH (17:42)
[2023-08-19] MEDS: PRENATAL VITAMINS W/ FOLIC ACID TABLET (FP) PO SCH (17:43)
[2023-08-19] MEDS: MELATONIN 5 MG TABLETS PO SCH (22:50)
[2023-08-19] MEDS: THIAMINE 100 MG TABLET PO SCH (22:50)
[2023-08-19] MEDS: GABAPENTIN 400 MG CAPSULE PO SCH (22:50)
[2023-08-19] MEDS: ATORVASTATIN CA 20 MG TABLET (FP) PO SCH (22:50)
[2023-08-19] MEDS: traZODone HCL 100 MG TABLET (FP) PO SCH (22:51)
[2023-08-19] MEDS: CARVEDILOL 12.5 MG TABLET (FP) PO SCH (22:52)
[2023-08-20] MEDS: CLOPIDOGREL BISULFATE 75 MG TABLET (FP) PO SCH (10:21)
[2023-08-20] MEDS: SERTRALINE HCL 50 MG TABLET (FP) PO SCH (10:21)
[2023-08-20] MEDS: amLODIPine BESYLATE 10 MG TABLET (FP) PO SCH (10:21)
[2023-08-20] MEDS: ASPIRIN 81 MG CHEWABLE TABLETS PO SCH (10:21)
[2023-08-20] MEDS: METHOCARBAMOL 500 MG TABLET PO PRN (10:24)
[2023-08-20] MEDS: HYDROCORTISONE 1% TOPICAL CREAM 30 GM TUBE TP PRN (10:26)
[2023-08-20] MEDS: diazePAM 5 MG TABLET PO PRN (17:57)
[2023-08-20] MEDS: metFORMIN HCL 500 MG TABLET (FP) PO SCH (17:58)
[2023-08-21] MEDS: traZODone HCL 100 MG TABLET (FP) PO SCH
[2023-08-21] MEDS: diazePAM 5 MG TABLET PO SCH (05:26)
[2023-08-22] MEDS: diazePAM 5 MG TABLET PO SCH (05:19)
[2023-08-23] MEDS: diazePAM 5 MG TABLET PO ONE (05:50)
[2023-08-24 12:51] VITALS: BP 107/62; PULSE 67; RESP 17; TEMP 97.9
== END 2023-08-24 18:30 | disposition other institution (70) | DRG 775 ==
LOC: YASAS 13:34 → Y6N 16:23
PROVIDERS: ADMIT Allergy & Immunology; ATTEND Surgery
PROC: HZ2ZZZZ Detoxification Services for Substance Abuse Treatment (ICD-10-PCS; principal; 2023-08-19)
DX: F10.230 Alcohol dependence with withdrawal, uncomplicated (principal); F33.1 Major depressive disorder, recurrent, moderate; F19.282 Other psychoactive substance dependence with psychoactive substance-induced sleep disorder; I25.10 Atherosclerotic heart disease of native coronary artery without angina pectoris; I10 Essential (primary) hypertension; Z95.1 Presence of aortocoronary bypass graft; E78.5 Hyperlipidemia, unspecified; E11.9 Type 2 diabetes mellitus without complications; M54.50 Low back pain, unspecified; G89.29 Other chronic pain; Z99.89 Dependence on other enabling machines and devices; Z62.810 Personal history of physical and sexual abuse in childhood; Z88.8 Allergy status to other drugs, medicaments and biological substances
CPT/HCPCS: 80305; 80307; 82962; 93005; 93010

== ENCOUNTER 2023-08-24 13:22 | Inpatient (IN) | payer OTHER ==
[2023-08-24] MEDS ORDERED: LOPERAMIDE HCL 2 MG CAPSULE PO PRN (17:43)
[2023-08-24] MEDS ORDERED: ACETAMINOPHEN 325 MG TABLET (FP) PO PRN (17:43)
[2023-08-24] MEDS ORDERED: IBUPROFEN 400 MG TABLET (FP) PO PRN (17:43)
[2023-08-24] MEDS ORDERED: POLYETHYLENE GLYCOL (HEALTHYLAX) 3350 17 GM PACKET PO PRN (17:43)
[2023-08-24] MEDS ORDERED: guaiFENesin 600 MG TABLET.ER (FP) PO PRN (17:43)
[2023-08-24] MEDS ORDERED: NALOXONE (NARCAN) HCL 4 MG/0.1 ML SPRAY NS PRN (17:43)
[2023-08-24] MEDS ORDERED: NALOXONE HCL 0.4 MG/ML VIAL IM PRN (17:43)
[2023-08-24] MEDS ORDERED: BENZOCAINE/MENTHOL (CHLORASEPTIC ) LOZENGE MM PRN (17:43)
[2023-08-24] MEDS ORDERED: MAG HYDROX/AL HYDROX/SIMETH 30 ML UNIT-DOSE CUP PO PRN (17:43)
[2023-08-24] MEDS ORDERED: BENZONATATE 200 MG CAPSULE PO PRN (17:43)
[2023-08-24] MEDS ORDERED: IBUPROFEN 600 MG TABLET (FP) PO PRN (17:43)
[2023-08-24] MEDS ORDERED: MAGNESIUM HYDROX 2400MG/30ML ORAL SUSPENSION 30 ML CUP PO PRN (17:43)
[2023-08-24 18:40] VITALS: TEMP 97.7
[2023-08-24] MEDS: CARVEDILOL 12.5 MG TABLET (FP) PO SCH (21:15)
[2023-08-24] MEDS: ATORVASTATIN CA 20 MG TABLET (FP) PO SCH (21:16)
[2023-08-24] MEDS: MELATONIN 5 MG TABLETS PO SCH (21:16)
[2023-08-24] MEDS: THIAMINE 100 MG TABLET PO SCH (21:16)
[2023-08-24] MEDS: hydrOXYzine PAMOATE 25 MG CAPSULE (FP) PO PRN (21:17)
[2023-08-25] MEDS: metFORMIN HCL 500 MG TABLET (FP) PO SCH (07:56)
[2023-08-25] MEDS: amLODIPine BESYLATE 10 MG TABLET (FP) PO SCH (09:44)
[2023-08-25] MEDS: ASPIRIN 81 MG CHEWABLE TABLETS PO SCH (09:44)
[2023-08-25] MEDS: PRENATAL VITAMINS W/ FOLIC ACID TABLET (FP) PO SCH (09:45)
[2023-08-25] MEDS: CLOPIDOGREL BISULFATE 75 MG TABLET (FP) PO SCH (09:45)
[2023-08-25] MEDS ORDERED: HYDROCORTISONE 1% TOPICAL CREAM 30 GM TUBE TP PRN (09:53)
[2023-08-25] MEDS ORDERED: SENNOSIDES 8.6MG TABLET (FP) PO PRN (09:56)
[2023-08-25] MEDS: SERTRALINE HCL 50 MG TABLET (FP) PO SCH (11:00)
[2023-08-25] MEDS ORDERED: ASPIRIN 81 MG CHEWABLE TABLETS ONE (12:05)
[2023-08-25] MEDS: ASPIRIN 81 MG CHEWABLE TABLETS PO ONE (12:10)
[2023-08-25 12:28] VITALS: BP 167/97; PULSE 71; RESP 15
[2023-08-25] MEDS ORDERED: traZODone HCL 100 MG TABLET (FP) PO SCH (22:00)
== END 2023-08-25 23:07 | disposition short-term general hospital (02) | DRG 774 ==
LOC: YASAS 13:22 → Y3NR 13:23
PROVIDERS: ADMIT Allergy & Immunology; ATTEND Psychiatry & Neurology Pain Medicine
PROC: HZ2ZZZZ Detoxification Services for Substance Abuse Treatment (ICD-10-PCS; principal; 2023-08-24)
DX: F10.20 Alcohol dependence, uncomplicated (principal); F14.20 Cocaine dependence, uncomplicated; F19.24 Other psychoactive substance dependence with psychoactive substance-induced mood disorder; F19.282 Other psychoactive substance dependence with psychoactive substance-induced sleep disorder; I25.10 Atherosclerotic heart disease of native coronary artery without angina pectoris; I10 Essential (primary) hypertension; Z95.1 Presence of aortocoronary bypass graft; E11.9 Type 2 diabetes mellitus without complications; Z79.84 Long term (current) use of oral hypoglycemic drugs; R07.9 Chest pain, unspecified; R06.02 Shortness of breath; Z88.8 Allergy status to other drugs, medicaments and biological substances
CPT/HCPCS: 87811; 93005; 93010

== ENCOUNTER 2023-10-14 19:31 | Inpatient (IN) | payer OTHER ==
[2023-10-14 21:07] VITALS: BMI 34.9
[2023-10-14] MEDS ORDERED: HYDROCORTISONE 1% TOPICAL CREAM 30 GM TUBE TP PRN (21:26)
[2023-10-14] MEDS ORDERED: NALOXONE (NARCAN) HCL 4 MG/0.1 ML SPRAY NS PRN (21:43)
[2023-10-14] MEDS ORDERED: NALOXONE HCL 0.4 MG/ML VIAL IM PRN (21:43)
[2023-10-14] MEDS ORDERED: DICYCLOMINE HCL 10 MG CAPSULE PO PRN (21:43)
[2023-10-14] MEDS ORDERED: MAGNESIUM HYDROX 2400MG/30ML ORAL SUSPENSION 30 ML CUP PO PRN (21:43)
[2023-10-14] MEDS ORDERED: P-EPHED 60MG/TRIPROLIDI 2.5MG TABLET PO PRN (21:43)
[2023-10-14] MEDS ORDERED: BENZONATATE 200 MG CAPSULE PO PRN (21:43)
[2023-10-14] MEDS ORDERED: ONDANSETRON *ODT* 4 MG TABLET SL PRN (21:43)
[2023-10-14] MEDS ORDERED: BENZOCAINE/MENTHOL (CHLORASEPTIC ) LOZENGE MM PRN (21:43)
[2023-10-14] MEDS ORDERED: MAG HYDROX/AL HYDROX/SIMETH 30 ML UNIT-DOSE CUP PO PRN (21:43)
[2023-10-14] MEDS ORDERED: guaiFENesin 600 MG TABLET.ER (FP) PO PRN (21:43)
[2023-10-14] MEDS ORDERED: POLYETHYLENE GLYCOL (HEALTHYLAX) 3350 17 GM PACKET PO PRN (21:43)
[2023-10-14] MEDS ORDERED: METHOCARBAMOL 500 MG TABLET PO PRN (21:43)
[2023-10-14] MEDS ORDERED: diazePAM 5 MG TABLET ONE (21:47)
[2023-10-14] MEDS: CARVEDILOL 6.25 MG TABLET (FP) PO SCH (22:54)
[2023-10-14] MEDS: THIAMINE 100 MG TABLET PO SCH (22:54)
[2023-10-14] MEDS: GABAPENTIN 400 MG CAPSULE PO SCH (22:54)
[2023-10-14] MEDS: MELATONIN 5 MG TABLETS PO SCH (22:54)
[2023-10-14] MEDS: ATORVASTATIN CA 20 MG TABLET (FP) PO SCH (22:57)
[2023-10-14] MEDS: diazePAM 5 MG TABLET PO SCH (23:36)
[2023-10-15] MEDS: metFORMIN HCL 500 MG TABLET (FP) PO SCH (07:38)
[2023-10-15] MEDS: PRENATAL VITAMINS W/ FOLIC ACID TABLET (FP) PO SCH (09:52)
[2023-10-15] MEDS: amLODIPine BESYLATE 10 MG TABLET (FP) PO SCH (09:52)
[2023-10-15] MEDS: CLOPIDOGREL BISULFATE 75 MG TABLET (FP) PO SCH (09:53)
[2023-10-15] MEDS: ASPIRIN 81 MG CHEWABLE TABLETS PO SCH (09:53)
[2023-10-15] MEDS: SERTRALINE HCL 50 MG TABLET (FP) PO SCH (10:06)
[2023-10-15 17:24] VITALS: RESP 18
[2023-10-15] MEDS: traZODone HCL 100 MG TABLET (FP) PO SCH (23:04)
[2023-10-16] MEDS: diazePAM 5 MG TABLET PO SCH (05:46)
[2023-10-16] MEDS: diazePAM 5 MG TABLET PO PRN (09:42)
[2023-10-16 09:47] VITALS: BP 135/77; PULSE 63; TEMP 96.9
[2023-10-17] MEDS ORDERED: diazePAM 5 MG TABLET PO SCH (06:00)
[2023-10-18] MEDS ORDERED: diazePAM 5 MG TABLET PO ONE (06:00)
== END 2023-10-16 13:25 | disposition home or self-care (01) | DRG 774 ==
LOC: YASAS 19:31 → Y6N 21:53
PROVIDERS: ADMIT Allergy & Immunology; ATTEND Surgery
PROC: HZ2ZZZZ Detoxification Services for Substance Abuse Treatment (ICD-10-PCS; principal; 2023-10-14)
DX: F10.230 Alcohol dependence with withdrawal, uncomplicated (principal); F14.20 Cocaine dependence, uncomplicated; F19.982 Other psychoactive substance use, unspecified with psychoactive substance-induced sleep disorder; F19.94 Other psychoactive substance use, unspecified with psychoactive substance-induced mood disorder; I10 Essential (primary) hypertension; E11.9 Type 2 diabetes mellitus without complications; E78.5 Hyperlipidemia, unspecified; I25.10 Atherosclerotic heart disease of native coronary artery without angina pectoris; I25.2 Old myocardial infarction; M54.59 Other low back pain; G89.29 Other chronic pain; Z87.891 Personal history of nicotine dependence; Z62.810 Personal history of physical and sexual abuse in childhood; Z79.84 Long term (current) use of oral hypoglycemic drugs; Z95.1 Presence of aortocoronary bypass graft; Z95.5 Presence of coronary angioplasty implant and graft; Z88.5 Allergy status to narcotic agent; Z88.6 Allergy status to analgesic agent; Z88.8 Allergy status to other drugs, medicaments and biological substances; Z91.51 Personal history of suicidal behavior; Z56.0 Unemployment, unspecified; Z59.00 Homelessness unspecified
CPT/HCPCS: 80305; 80307

== ENCOUNTER 2024-01-01 10:40 | Inpatient (IN) | payer OTHER ==
[2024-01-01 11:11] VITALS: BMI 35.1
[2024-01-01] MEDS ORDERED: hydrOXYzine PAMOATE 25 MG CAPSULE (FP) PO PRN (12:28)
[2024-01-01] MEDS ORDERED: guaiFENesin 600 MG TABLET.ER (FP) PO PRN (12:28)
[2024-01-01] MEDS ORDERED: DICYCLOMINE HCL 10 MG CAPSULE PO PRN (12:28)
[2024-01-01] MEDS ORDERED: BENZOCAINE/MENTHOL (CHLORASEPTIC ) LOZENGE MM PRN (12:28)
[2024-01-01] MEDS ORDERED: ONDANSETRON *ODT* 4 MG TABLET SL PRN (12:28)
[2024-01-01] MEDS ORDERED: MAG HYDROX/AL HYDROX/SIMETH 30 ML UNIT-DOSE CUP PO PRN (12:28)
[2024-01-01] MEDS ORDERED: POLYETHYLENE GLYCOL (HEALTHYLAX) 3350 17 GM PACKET PO PRN (12:28)
[2024-01-01] MEDS ORDERED: NALOXONE (NARCAN) HCL 4 MG/0.1 ML SPRAY NS PRN (12:28)
[2024-01-01] MEDS ORDERED: BENZONATATE 200 MG CAPSULE PO PRN (12:28)
[2024-01-01] MEDS ORDERED: NALOXONE (NYS OPIOID OVERDOSE PROGRAM) 4 MG/0.1 ML SPRAY NS PRN (12:28)
[2024-01-01] MEDS ORDERED: LOPERAMIDE HCL 2 MG CAPSULE PO PRN (12:28)
[2024-01-01] MEDS: metFORMIN HCL 500 MG TABLET (FP) PO SCH (16:51)
[2024-01-01] MEDS: diazePAM 5 MG TABLET PO SCH (17:52)
[2024-01-01] MEDS: MELATONIN 5 MG TABLETS PO SCH (22:49)
[2024-01-01] MEDS: CARVEDILOL 12.5 MG TABLET (FP) PO SCH (22:49)
[2024-01-01] MEDS: GABAPENTIN 400 MG CAPSULE PO SCH (22:49)
[2024-01-01] MEDS: ATORVASTATIN CA 20 MG TABLET (FP) PO SCH (22:49)
[2024-01-01] MEDS: THIAMINE 100 MG TABLET PO SCH (22:49)
[2024-01-02] MEDS: ASPIRIN 81 MG CHEWABLE TABLETS PO SCH (10:16)
[2024-01-02] MEDS: PRENATAL VITAMINS W/ FOLIC ACID TABLET (FP) PO SCH (10:17)
[2024-01-02] MEDS: CLOPIDOGREL BISULFATE 75 MG TABLET (FP) PO SCH (10:17)
[2024-01-02] MEDS: amLODIPine BESYLATE 10 MG TABLET (FP) PO SCH (10:17)
[2024-01-02] MEDS: diazePAM 5 MG TABLET PO PRN (14:24)
[2024-01-02] MEDS: METHOCARBAMOL 500 MG TABLET PO PRN (14:24)
[2024-01-03] MEDS: diazePAM 5 MG TABLET PO SCH (06:10)
[2024-01-03] MEDS: MAGNESIUM HYDROX 2400MG/30ML ORAL SUSPENSION 30 ML CUP PO PRN (09:14)
[2024-01-04] MEDS: diazePAM 5 MG TABLET PO SCH (06:22)
[2024-01-04 06:48] VITALS: RESP 18
[2024-01-04 09:04] VITALS: BP 124/71; PULSE 68; TEMP 96.9
[2024-01-05] MEDS ORDERED: diazePAM 5 MG TABLET PO ONE (06:00)
== END 2024-01-04 14:10 | disposition home or self-care (01) | DRG 774 ==
LOC: YASAS 10:40 → Y6N 12:45
PROVIDERS: ADMIT Allergy & Immunology; ATTEND Surgery
PROC: HZ2ZZZZ Detoxification Services for Substance Abuse Treatment (ICD-10-PCS; principal; 2024-01-01)
DX: F10.230 Alcohol dependence with withdrawal, uncomplicated (principal); F14.20 Cocaine dependence, uncomplicated; G62.9 Polyneuropathy, unspecified; I25.10 Atherosclerotic heart disease of native coronary artery without angina pectoris; I10 Essential (primary) hypertension; Z95.5 Presence of coronary angioplasty implant and graft; E78.2 Mixed hyperlipidemia; E11.69 Type 2 diabetes mellitus with other specified complication; Z79.84 Long term (current) use of oral hypoglycemic drugs; M54.50 Low back pain, unspecified; G89.29 Other chronic pain; Z59.02 Unsheltered homelessness; Z88.8 Allergy status to other drugs, medicaments and biological substances
CPT/HCPCS: 36415; 80305; 80307; 82962

== ENCOUNTER 2024-04-26 11:55 | Inpatient (IN) | payer OTHER ==
[2024-04-26 12:38] VITALS: BMI 38.7
[2024-04-26] MEDS ORDERED: chlordiazePOXIDE HCL 25 MG CAPSULE PO PRN (12:38)
[2024-04-26] MEDS ORDERED: BENZOCAINE/MENTHOL (CHLORASEPTIC ) LOZENGE MM PRN (12:40)
[2024-04-26] MEDS ORDERED: NALOXONE (NARCAN) HCL 4 MG/0.1 ML SPRAY NS PRN (12:40)
[2024-04-26] MEDS ORDERED: IBUPROFEN 600 MG TABLET (FP) PO PRN (12:40)
[2024-04-26] MEDS ORDERED: LOPERAMIDE HCL 2 MG CAPSULE PO PRN (12:40)
[2024-04-26] MEDS ORDERED: ONDANSETRON *ODT* 4 MG TABLET SL PRN (12:40)
[2024-04-26] MEDS ORDERED: hydrOXYzine PAMOATE 25 MG CAPSULE (FP) PO PRN (12:40)
[2024-04-26] MEDS ORDERED: IBUPROFEN 400 MG TABLET (FP) PO PRN (12:40)
[2024-04-26] MEDS ORDERED: MAGNESIUM HYDROX 2400MG/30ML ORAL SUSPENSION 30 ML CUP PO PRN (12:40)
[2024-04-26] MEDS ORDERED: BISMUTH SUBSALICYLATE 524 MG/30 ML PO PRN (12:40)
[2024-04-26] MEDS ORDERED: MAG HYDROX/AL HYDROX/SIMETH 30 ML UNIT-DOSE CUP PO PRN (12:40)
[2024-04-26] MEDS ORDERED: NICOTINE POLACRILEX 2 MG GUM BUC PRN (12:40)
[2024-04-26] MEDS ORDERED: POLYETHYLENE GLYCOL (HEALTHYLAX) 3350 17 GM PACKET PO PRN (12:40)
[2024-04-26] MEDS ORDERED: BENZONATATE 200 MG CAPSULE PO PRN (12:40)
[2024-04-26] MEDS ORDERED: guaiFENesin 600 MG TABLET.ER (FP) PO PRN (12:40)
[2024-04-26] MEDS ORDERED: DICYCLOMINE HCL 10 MG CAPSULE PO PRN (12:40)
[2024-04-26] MEDS ORDERED: chlordiazePOXIDE HCL 25 MG CAPSULE ONE (14:36)
[2024-04-26] MEDS: chlordiazePOXIDE HCL 25 MG CAPSULE PO ONE (14:40)
[2024-04-26] MEDS ORDERED: INSULIN ASPART SLIDING SCALE (NOVOLOG) 1 VIAL SQ ONE (16:50)
[2024-04-26] MEDS: METHOCARBAMOL 500 MG TABLET PO PRN (17:11)
[2024-04-26] MEDS: chlordiazePOXIDE HCL 25 MG CAPSULE PO SCH (17:11)
[2024-04-26] MEDS: INSULIN ASPART SLIDING SCALE (NOVOLOG) 1 VIAL SQ SCH (17:13)
[2024-04-26] MEDS: CARVEDILOL 12.5 MG TABLET (FP) PO SCH (22:08)
[2024-04-26] MEDS: ATORVASTATIN CA 40 MG TABLET (FP) PO SCH (22:08)
[2024-04-26] MEDS: THIAMINE 100 MG TABLET PO SCH (22:08)
[2024-04-26] MEDS: MELATONIN 5 MG TABLETS PO SCH (22:08)
[2024-04-26] MEDS: traZODone HCL 100 MG TABLET (FP) PO SCH (22:08)
[2024-04-26] MEDS: SENNOSIDES 8.6MG TABLET (FP) PO SCH (22:08)
[2024-04-27] MEDS ORDERED: INSULIN ASPART SLIDING SCALE (NOVOLOG) 1 VIAL SQ ONE ×2 (05:43→11:44)
[2024-04-27] MEDS ORDERED: PATIENT'S OWN MEDICATION (NON-FORMULARY) (Sertraline Hcl [Zoloft] 100 MG Tablet) PO SCH (10:00)
[2024-04-27] MEDS: ASPIRIN 81 MG CHEWABLE TABLETS PO SCH (10:16)
[2024-04-27] MEDS: amLODIPine BESYLATE 10 MG TABLET (FP) PO SCH (10:16)
[2024-04-27] MEDS: PRENATAL VITAMINS W/ FOLIC ACID TABLET (FP) PO SCH (10:16)
[2024-04-27] MEDS: SERTRALINE HCL 50 MG TABLET (FP) PO SCH (10:16)
[2024-04-27] MEDS: NALTREXONE HCL 50 MG TABLET PO SCH (10:17)
[2024-04-27] MEDS: CLOPIDOGREL BISULFATE 75 MG TABLET (FP) PO SCH (10:17)
[2024-04-27] MEDS: ACETAMINOPHEN 325 MG TABLET (FP) PO PRN (10:22)
[2024-04-27] MEDS: GABAPENTIN 300 MG CAPSULE PO SCH (11:30)
[2024-04-27] MEDS: GABAPENTIN 300 MG CAPSULE PO ONE (15:56)
[2024-04-27] MEDS: GABAPENTIN 400 MG CAPSULE PO SCH (22:47)
[2024-04-28] MEDS: chlordiazePOXIDE HCL 25 MG CAPSULE PO SCH (05:34)
[2024-04-28] MEDS ORDERED: INSULIN ASPART SLIDING SCALE (NOVOLOG) 1 VIAL SQ ONE (06:11)
[2024-04-28 13:24] VITALS: RESP 18
[2024-04-28 21:27] VITALS: BP 122/80; PULSE 73; TEMP 97.8
[2024-04-29] MEDS ORDERED: chlordiazePOXIDE HCL 10 MG CAPSULE PO PRN
[2024-04-29] MEDS ORDERED: chlordiazePOXIDE HCL 10 MG CAPSULE PO SCH (05:00)
[2024-04-30] MEDS ORDERED: chlordiazePOXIDE HCL 10 MG CAPSULE PO SCH (05:00)
[2024-05-01] MEDS ORDERED: chlordiazePOXIDE HCL 10 MG CAPSULE PO ONE (05:00)
== END 2024-04-28 20:57 | disposition left against medical advice (07) | DRG 770 ==
LOC: YASAS 11:55 → Y3N 14:40
PROVIDERS: ADMIT Allergy & Immunology; ATTEND Allergy & Immunology
PROC: HZ2ZZZZ Detoxification Services for Substance Abuse Treatment (ICD-10-PCS; principal; 2024-04-26)
DX: F10.230 Alcohol dependence with withdrawal, uncomplicated (principal); F14.20 Cocaine dependence, uncomplicated; F19.24 Other psychoactive substance dependence with psychoactive substance-induced mood disorder; F41.8 Other specified anxiety disorders; G62.9 Polyneuropathy, unspecified; I25.10 Atherosclerotic heart disease of native coronary artery without angina pectoris; I10 Essential (primary) hypertension; I25.2 Old myocardial infarction; Z95.1 Presence of aortocoronary bypass graft; Z95.5 Presence of coronary angioplasty implant and graft; E78.5 Hyperlipidemia, unspecified; E11.9 Type 2 diabetes mellitus without complications; Z79.84 Long term (current) use of oral hypoglycemic drugs; Z88.8 Allergy status to other drugs, medicaments and biological substances
CPT/HCPCS: 80305; 82962; 93005; 93010

== ENCOUNTER 2024-06-13 11:33 | Inpatient (IN) | payer OTHER ==
[2024-06-13 12:13] VITALS: BMI 34.9
[2024-06-13] MEDS ORDERED: ACETAMINOPHEN 325 MG TABLET (FP) PO PRN (13:13)
[2024-06-13] MEDS ORDERED: BENZONATATE 200 MG CAPSULE PO PRN (13:13)
[2024-06-13] MEDS ORDERED: guaiFENesin 600 MG TABLET.ER (FP) PO PRN (13:13)
[2024-06-13] MEDS ORDERED: DICYCLOMINE HCL 10 MG CAPSULE PO PRN (13:13)
[2024-06-13] MEDS ORDERED: ONDANSETRON *ODT* 4 MG TABLET SL PRN (13:13)
[2024-06-13] MEDS ORDERED: NALOXONE (NARCAN) HCL 4 MG/0.1 ML SPRAY NS PRN (13:13)
[2024-06-13] MEDS ORDERED: POLYETHYLENE GLYCOL (HEALTHYLAX) 3350 17 GM PACKET PO PRN (13:13)
[2024-06-13] MEDS ORDERED: MAG HYDROX/AL HYDROX/SIMETH 30 ML UNIT-DOSE CUP PO PRN (13:13)
[2024-06-13] MEDS ORDERED: MAGNESIUM HYDROX 2400MG/30ML ORAL SUSPENSION 30 ML CUP PO PRN (13:13)
[2024-06-13] MEDS ORDERED: LOPERAMIDE HCL 2 MG CAPSULE PO PRN (13:13)
[2024-06-13] MEDS: ASPIRIN 81 MG CHEWABLE TABLETS PO SCH (18:27)
[2024-06-13] MEDS: chlordiazePOXIDE HCL 25 MG CAPSULE PO SCH (18:39)
[2024-06-13] MEDS: THIAMINE 100 MG TABLET PO SCH (22:54)
[2024-06-13] MEDS: ATORVASTATIN CA 40 MG TABLET (FP) PO SCH (22:55)
[2024-06-13] MEDS: CARVEDILOL 12.5 MG TABLET (FP) PO SCH (22:55)
[2024-06-13] MEDS: MELATONIN 5 MG TABLETS PO SCH (22:55)
[2024-06-14] MEDS: BENZOCAINE/MENTHOL (CHLORASEPTIC ) LOZENGE MM PRN (10:35)
[2024-06-14] MEDS: CLOPIDOGREL BISULFATE 75 MG TABLET (FP) PO SCH (10:35)
[2024-06-14] MEDS: amLODIPine BESYLATE 10 MG TABLET (FP) PO SCH (10:35)
[2024-06-14] MEDS: PRENATAL VITAMINS W/ FOLIC ACID TABLET (FP) PO SCH (10:36)
[2024-06-14] MEDS: chlordiazePOXIDE HCL 25 MG CAPSULE PO PRN (15:34)
[2024-06-14] MEDS: METHOCARBAMOL 500 MG TABLET PO PRN (17:53)
[2024-06-14] MEDS: MELATONIN 5 MG TABLETS PO ONE (23:26)
[2024-06-14] MEDS: METHOCARBAMOL 500 MG TABLET PO ONE (23:26)
[2024-06-14] MEDS: traZODone HCL 50 MG TABLET (FP) PO ONE (23:26)
[2024-06-15] MEDS: chlordiazePOXIDE HCL 25 MG CAPSULE PO SCH (06:36)
[2024-06-15] MEDS: GABAPENTIN 400 MG CAPSULE PO ONE (16:28)
[2024-06-15] MEDS: METHOCARBAMOL 500 MG TABLET PO ONE (16:28)
[2024-06-15 21:29] VITALS: TEMP 97.8
[2024-06-15] MEDS: GABAPENTIN 400 MG CAPSULE PO SCH (22:03)
[2024-06-15] MEDS: traZODone HCL 50 MG TABLET (FP) PO ONE (22:22)
[2024-06-16] MEDS ORDERED: chlordiazePOXIDE HCL 10 MG CAPSULE PO PRN
[2024-06-16 02:47] VITALS: BP 125/79; PULSE 65; RESP 12
[2024-06-16] MEDS ORDERED: chlordiazePOXIDE HCL 10 MG CAPSULE PO SCH (05:00)
[2024-06-17] MEDS ORDERED: chlordiazePOXIDE HCL 10 MG CAPSULE PO SCH (05:00)
[2024-06-18] MEDS ORDERED: chlordiazePOXIDE HCL 10 MG CAPSULE PO ONE (05:00)
== END 2024-06-16 03:28 | disposition left against medical advice (07) | DRG 770 ==
LOC: YASAS 11:33 → Y3N 14:59
PROVIDERS: ADMIT Neuromusculoskeletal Medicine & OMM; ATTEND Neuromusculoskeletal Medicine & OMM
PROC: HZ2ZZZZ Detoxification Services for Substance Abuse Treatment (ICD-10-PCS; principal; 2024-06-13)
DX: F10.230 Alcohol dependence with withdrawal, uncomplicated (principal); F14.20 Cocaine dependence, uncomplicated; F19.24 Other psychoactive substance dependence with psychoactive substance-induced mood disorder; F32.A Depression, unspecified; I25.10 Atherosclerotic heart disease of native coronary artery without angina pectoris; I10 Essential (primary) hypertension; Z95.1 Presence of aortocoronary bypass graft; Z95.5 Presence of coronary angioplasty implant and graft; E78.2 Mixed hyperlipidemia; E11.9 Type 2 diabetes mellitus without complications; Z79.84 Long term (current) use of oral hypoglycemic drugs; M25.512 Pain in left shoulder; M54.50 Low back pain, unspecified; G89.29 Other chronic pain; Z86.711 Personal history of pulmonary embolism; Z86.718 Personal history of other venous thrombosis and embolism; Z79.02 Long term (current) use of antithrombotics/antiplatelets
CPT/HCPCS: 80305; 80307; 93005; 93010

== ENCOUNTER 2024-08-03 12:55 | Inpatient (IN) | payer OTHER ==
[2024-08-03] MEDS ORDERED: MAG HYDROX/AL HYDROX/SIMETH 30 ML UNIT-DOSE CUP PO PRN (15:32)
[2024-08-03] MEDS ORDERED: BENZOCAINE/MENTHOL (CHLORASEPTIC ) LOZENGE MM PRN (15:32)
[2024-08-03] MEDS ORDERED: POLYETHYLENE GLYCOL (HEALTHYLAX) 3350 17 GM PACKET PO PRN (15:32)
[2024-08-03] MEDS ORDERED: MAGNESIUM HYDROX 2400MG/30ML ORAL SUSPENSION 30 ML CUP PO PRN (15:32)
[2024-08-03] MEDS ORDERED: hydrOXYzine PAMOATE 25 MG CAPSULE (FP) PO PRN (15:32)
[2024-08-03] MEDS ORDERED: ACETAMINOPHEN 325 MG TABLET (FP) PO PRN (15:32)
[2024-08-03] MEDS ORDERED: guaiFENesin 600 MG TABLET.ER (FP) PO PRN (15:32)
[2024-08-03] MEDS ORDERED: BENZONATATE 200 MG CAPSULE PO PRN (15:32)
[2024-08-03] MEDS ORDERED: LOPERAMIDE HCL 2 MG CAPSULE PO PRN (15:32)
[2024-08-03] MEDS: INSULIN ASPART SLIDING SCALE (NOVOLOG) 1 VIAL SQ SCH (17:39)
[2024-08-03] MEDS: SENNOSIDES 8.6MG TABLET (FP) PO SCH (22:18)
[2024-08-03] MEDS: ATORVASTATIN CA 40 MG TABLET (FP) PO SCH (22:19)
[2024-08-03] MEDS: MELATONIN 5 MG TABLETS PO SCH (22:19)
[2024-08-03] MEDS: THIAMINE 100 MG TABLET PO SCH (22:19)
[2024-08-03] MEDS: CARVEDILOL 12.5 MG TABLET (FP) PO SCH (22:19)
[2024-08-03] MEDS: traZODone HCL 100 MG TABLET (FP) PO SCH (22:20)
[2024-08-04] MEDS: PRENATAL VITAMINS W/ FOLIC ACID TABLET (FP) PO SCH (06:22)
[2024-08-04] MEDS: SERTRALINE HCL 50 MG TABLET (FP) PO SCH (09:19)
[2024-08-04] MEDS: ASPIRIN 81 MG CHEWABLE TABLETS PO SCH (09:19)
[2024-08-04] MEDS: amLODIPine BESYLATE 10 MG TABLET (FP) PO SCH (09:19)
[2024-08-04] MEDS: CLOPIDOGREL BISULFATE 75 MG TABLET (FP) PO SCH (09:19)
[2024-08-04] MEDS: METHOCARBAMOL 500 MG TABLET PO PRN (21:24)
[2024-08-05 20:38] VITALS: RESP 16
[2024-08-06 06:19] VITALS: TEMP 97.1
[2024-08-06 09:13] VITALS: BP 139/81; PULSE 72
== END 2024-08-06 13:15 | disposition home or self-care (01) | DRG 772 ==
LOC: YASAS 12:55 → Y3NR 12:59 → Y3W 08-04 10:13
PROVIDERS: ADMIT Psychiatry & Neurology Pain Medicine; ATTEND Psychiatry & Neurology Pain Medicine
PROC: HZ42ZZZ Group Counseling for Substance Abuse Treatment, Cognitive-Behavioral (ICD-10-PCS; principal; 2024-08-03)
DX: F10.20 Alcohol dependence, uncomplicated (principal); F14.20 Cocaine dependence, uncomplicated; F17.210 Nicotine dependence, cigarettes, uncomplicated; F19.24 Other psychoactive substance dependence with psychoactive substance-induced mood disorder; F41.8 Other specified anxiety disorders; E78.5 Hyperlipidemia, unspecified; I25.10 Atherosclerotic heart disease of native coronary artery without angina pectoris; I10 Essential (primary) hypertension; Z95.1 Presence of aortocoronary bypass graft; Z95.5 Presence of coronary angioplasty implant and graft; E11.9 Type 2 diabetes mellitus without complications; Z79.84 Long term (current) use of oral hypoglycemic drugs; Z88.8 Allergy status to other drugs, medicaments and biological substances
CPT/HCPCS: 36415; 82962; 86803; 87811

== ENCOUNTER 2024-11-14 14:37 | Inpatient (IN) | payer OTHER ==
[2024-11-14 15:27] VITALS: BMI 35.6
[2024-11-14] MEDS ORDERED: hydrOXYzine PAMOATE 25 MG CAPSULE (FP) PO PRN (15:33)
[2024-11-14] MEDS ORDERED: NICOTINE POLACRILEX 2 MG LOZENGE BC PRN (15:33)
[2024-11-14] MEDS ORDERED: POLYETHYLENE GLYCOL (HEALTHYLAX) 3350 17 GM PACKET PO PRN (15:33)
[2024-11-14] MEDS ORDERED: LOPERAMIDE HCL 2 MG CAPSULE PO PRN (15:33)
[2024-11-14] MEDS ORDERED: BENZONATATE 200 MG CAPSULE PO PRN (15:33)
[2024-11-14] MEDS ORDERED: MAG HYDROX/AL HYDROX/SIMETH 30 ML UNIT-DOSE CUP PO PRN (15:33)
[2024-11-14] MEDS ORDERED: NICOTINE POLACRILEX 2 MG GUM BUC PRN (15:33)
[2024-11-14] MEDS ORDERED: NALOXONE (NARCAN) HCL 4 MG/0.1 ML SPRAY NS PRN (15:33)
[2024-11-14] MEDS ORDERED: METHOCARBAMOL 500 MG TABLET PO PRN (15:33)
[2024-11-14] MEDS ORDERED: BENZOCAINE/MENTHOL (CHLORASEPTIC ) LOZENGE MM PRN (15:33)
[2024-11-14] MEDS ORDERED: DICYCLOMINE HCL 10 MG CAPSULE PO PRN (15:33)
[2024-11-14] MEDS ORDERED: ONDANSETRON *ODT* 4 MG TABLET SL PRN (15:33)
[2024-11-14] MEDS ORDERED: ACETAMINOPHEN 325 MG TABLET (FP) PO PRN (15:33)
[2024-11-14] MEDS ORDERED: guaiFENesin 600 MG TABLET.ER (FP) PO PRN (15:33)
[2024-11-14] MEDS ORDERED: METHOCARBAMOL 500 MG TABLET ONE (17:19)
[2024-11-14] MEDS ORDERED: levETIRAcetam 500 MG TABLET (FP) PO ONE (17:19)
[2024-11-14] MEDS: INSULIN ASPART SLIDING SCALE (NOVOLOG) 1 VIAL SQ SCH (17:34)
[2024-11-14] MEDS: levETIRAcetam 500 MG TABLET (FP) PO SCH (17:36)
[2024-11-14] MEDS: THIAMINE 100 MG TABLET PO SCH (22:53)
[2024-11-14] MEDS: MELATONIN 5 MG TABLETS PO SCH (22:53)
[2024-11-15] MEDS: PRENATAL VITAMINS W/ FOLIC ACID TABLET (FP) PO SCH (10:24)
[2024-11-15] MEDS: SERTRALINE HCL 50 MG TABLET (FP) PO SCH (13:43)
[2024-11-15] MEDS: MAGNESIUM HYDROX 2400MG/30ML ORAL SUSPENSION 30 ML CUP PO PRN (14:01)
[2024-11-15] MEDS: traZODone HCL 100 MG TABLET (FP) PO SCH (22:54)
[2024-11-16] MEDS: amLODIPine BESYLATE 10 MG TABLET (FP) PO SCH (11:42)
[2024-11-16] MEDS: CLOPIDOGREL BISULFATE 75 MG TABLET (FP) PO SCH (11:42)
[2024-11-16] MEDS: ASPIRIN 81 MG CHEWABLE TABLETS PO SCH (11:42)
[2024-11-16] MEDS ORDERED: CARVEDILOL 12.5 MG TABLET (FP) PO SCH (11:45)
[2024-11-16] MEDS: ATORVASTATIN CA 20 MG TABLET (FP) PO SCH (22:41)
[2024-11-17 09:15] VITALS: RESP 16
[2024-11-17 16:58] VITALS: BP 120/66; PULSE 70; TEMP 98.7
== END 2024-11-17 19:15 | disposition home or self-care (01) | DRG 774 ==
LOC: YASAS 14:37 → Y6N 17:28
PROVIDERS: ADMIT Neuromusculoskeletal Medicine & OMM; ATTEND Allergy & Immunology
PROC: HZ2ZZZZ Detoxification Services for Substance Abuse Treatment (ICD-10-PCS; principal; 2024-11-14)
DX: F10.230 Alcohol dependence with withdrawal, uncomplicated (principal); F14.20 Cocaine dependence, uncomplicated; F17.210 Nicotine dependence, cigarettes, uncomplicated; F19.282 Other psychoactive substance dependence with psychoactive substance-induced sleep disorder; F33.1 Major depressive disorder, recurrent, moderate; F19.24 Other psychoactive substance dependence with psychoactive substance-induced mood disorder; I25.10 Atherosclerotic heart disease of native coronary artery without angina pectoris; I10 Essential (primary) hypertension; I25.2 Old myocardial infarction; Z95.5 Presence of coronary angioplasty implant and graft; E78.2 Mixed hyperlipidemia; E11.9 Type 2 diabetes mellitus without complications; Z79.84 Long term (current) use of oral hypoglycemic drugs; M54.50 Low back pain, unspecified; G89.29 Other chronic pain; Z88.8 Allergy status to other drugs, medicaments and biological substances
CPT/HCPCS: 82962; 93005; 93010